=== PATIENT | male | born 1935 | race Caucasian/White ===

== ENCOUNTER 2019-10-31 13:33 | Emergency (ER) | payer MEDICARE, SELFPAY ==
[2019-10-31 13:59] VITALS: BP 150/92; PULSE 75; RESP 18; TEMP 36.7; O2SAT 97; BMI 24.4
[2019-10-31 14:47] LABS: Basophils % 0.5 %; Hematocrit 53.8 % (42.0-52.0); Hemoglobin 17.4 g/dL (11.7-16.6); Lymphocytes # 0.8 10^3/uL (0.8-4.8); Lymphocytes % 9.3 %; Mean Corpuscular HGB Conc 32.3 g/dL (30.0-36.0); Mean Corpuscular Hemoglobin 29.1 pg (28.0-34.0); Mean Platelet Volume 10.2 fL (7.4-10.4); Monocytes # 0.4 10^3/uL (0.2-0.9); Monocytes % 4.9 %; Neutrophils # 7.2 10^3/uL (1.8-7.7); Neutrophils % 84.7 %; Nucleated Red Blood Cells % 0 %; Platelet Count 259 10^3/cmm (130-400); Red Blood Count 5.98 10^6/uL (4.1-5.3); Red Cell Distribution Width 13.3 % (12.1-15.1); White Blood Count 8.5 10^3/uL (4.0-10.0)
[2019-10-31 15:01] LABS: Alanine Aminotransferase 18 U/L (0-41); Albumin Level 4.7 g/dL (3.5-5.2); Alkaline Phosphatase 50 IU/L (40-130); Anion Gap 15.9 (5-19); Aspartate Amino Transferase 22 U/L (0-40); Blood Urea Nitrogen 24 mg/dL (8-23); Carbon Dioxide 23 mmol/L (22-29); Chloride 94 mmol/L (98-107); Globulin 2.6 g/dL (1.3-4.6); Glucose 110 mg/dL (65-115); Lipase 25 U/L (13-60); Osmolality Calculated 265 mOsm/kg (285-295); Potassium 3.9 mmol/L (3.5-5.1); Sodium 129 mmol/L (136-145); Total Bilirubin 0.8 mg/dL (0.15-1.2); Total Protein 7.3 g/dL (6.6-8.7)
--- NOTE | 2019-10-31 15:51 | XRR_ITS ---
PROCEDURE INFORMATION: Exam: XR Chest, 1 View Exam date and time: 10/31/2019 3:52 PM Age: 84 years old Clinical indication: Shortness of breath; Additional info: Cough TECHNIQUE: Imaging protocol: XR of the chest Views: 1 view. COMPARISON: No relevant prior studies available. FINDINGS: Lungs: Unremarkable. No consolidation. Calcified granulomas are noted. Pleural space: Unremarkable. No pleural effusion. No pneumothorax. Heart/Mediastinum: There is cardiomegaly. Bones/joints: No acute abnormality. XR/XR chest 1V portable [id number] IMPRESSION: No acute findings.
--- NOTE | 2019-10-31 15:52 | USR_ITS ---
PROCEDURE INFORMATION: Exam: US Abdomen Complete Exam date and time: 10/31/2019 4:27 PM Age: 84 years old Clinical indication: Abdominal pain; Epigastric TECHNIQUE: Imaging protocol: Real-time ultrasound of the abdomen with image documentation. COMPARISON: No relevant prior studies available. FINDINGS: Liver: The liver is homogeneous in echogenicity. The liver measures 15.5 cm in length. Gallbladder: No gallstones are identified. The gallbladder is unremarkable. The gallbladder wall measures 1.7 mm in thickness. Common bile duct: The common bile duct is unremarkable measuring 3.9 mm. Pancreas: Bowel gas artifact is obscuring the pancreas. Right kidney: No right hydronephrosis. There is a 1.2 cm calculus lower pole right kidney. The right kidney measures 10.0 cm in length. Left kidney: There is mild left hydronephrosis. The left kidney is unremarkable. The left kidney measures 11.5 cm in length. Spleen: Normal. No splenomegaly. Aorta: Normal. No aneurysm. Inferior vena cava: Normal. US/US abdomen complete* [id number] IMPRESSION: 1. Mild left hydronephrosis. No right hydronephrosis. There is right nephrolithiasis. 2. No findings of cholecystitis or duct dilatation.
--- NOTE | 2019-10-31 16:13 | ED_ITS ---
HPI - General Adult General: Chief complaint: General Medical Stated complaint: abd pain, nausea, decreased appetite Time Seen by Provider: 10/31/19 15:44 History of Present Illness: HPI narrative: Mr. Waters is a nice 84-year-old male comes in complaining of 5 to 6-day history of decreased appetite. He is felt nauseated but has not thrown up. He has had a fever up to 100.5. He denies any cough, headache, chest pain, shortness of breath, dysuria or other complaint. Patient states he feels as though is when he had diverticulitis in the past. He is not describing any abdominal pain at this time. Patient denies any dysuria or hematuria. Patient was seen by a nurse practitioner in his primary care's office 2 days ago and was placed on Bactrim for empiric treatment of diverticulitis. He currently feels nauseated but denies any abdominal or flank pain. Associated symptoms: Reports nausea; Deny chest pain, confusion, diaphoresis, dyspnea, headache(s), malaise, rash, palpitations, syncope or vomiting Review of Systems Const: Reports: fever(s), chills and body aches; Denies: fatigue, malaise or diaphoresis Eyes: Denies: change in vision, blurry vision, blind spots or photophobia ENMT: Denies: throat pain, odynophagia, hoarseness, swelling of lips/tongue, ear or mastoid pain, ear discharge, change in hearing or nasal discharge Card: Denies: chest pain, palpitations, irregular heart rhythm, edema, lightheadedness, syncope, pre-syncope, dyspnea on exertion or orthopnea Resp: Denies: dyspnea, productive cough, non-productive cough, wheezing, hemoptysis or chest congestion GI: Reports: nausea; Denies: abdominal pain, vomiting, hematemesis, coffee ground emesis, heartburn, diarrhea, constipation, GI cramping, hematochezia or melena : Denies: flank pain, dysuria, urinary frequency, urinary urgency or hematuria Musc: Denies: neck pain, back pain, extremity pain, extremity swelling, joint pain, joint swelling, joint redness, joint warmth or joint stiffness Skin/Breast: Denies: rash, pruritus, erythema, skin tenderness or jaundice Neuro: Denies: headache(s), numbness in extremities, weakness in extremities, sensory changes, lack of coordination, difficulty walking, dizziness, vertigo, confusion or Slurred speech present Gary/Lymph: Denies: easy bruising, easy bleeding, petechiae, purpura or enlarged lymph nodes All/Imm: Denies: urticaria, throat swelling, tongue swelling, facial swelling or acute wheezing PFSH ED PFSH: Medical History Anxiety Diverticulosis Psoriasis Social History Smoking and tobacco status: never smoked Physical Exam Const: COMMON NORMALS: no acute distress, patient oriented x3, no limitations, healthy appearing and well nourished GENERAL APPEARANCE: cooperative, well kempt and well developed HENMT: COMMON NORMALS: normocephalic, atraumatic, external ears normal, EAC's normal and Normal external nose present HEAD & SCALP: normal to inspection, normocephalic and atraumatic FACE & SINUS: normal facial exam and face symmetric NOSE: Normal external nose present and Normal nares present EXTERNAL EAR: Yes external ears normal EXTERNAL AUDITORY CANAL: EAC's normal MOUTH: Normal oral and palatal mucosa present, lip normal and tongue normal Eye: COMMON NORMALS: Equal, round and reactive pupils present and conjunctivae normal GENERAL EYE: appearance normal, both eyes and all related structures ALIGNMENT: Yes alignment normal PERIORBITAL: periorbital findings normal EYELID: eyelids normal CONJUNCTIVA: Yes conjunctivae normal SCLERA: sclerae normal PUPIL: Yes Equal, round and reactive pupils present Neck/C-Spine: COMMON NORMALS: full ROM, no lymphadenopathy, supple, no meningeal signs and no JVD GENERAL: Yes normal visual inspection and Yes trachea midline Chest: COMMONS NORMALS: normal inspection of the chest and normal palpation of entire chest wall Resp: COMMON NORMALS: normal respiratory effort, No retractions and No use of accessory muscles EFFORT & INSPECTION: Yes able to speak in complete sentences and Yes symmetric chest movement AUSCULTATION: no crackles, no rales, no rhonchi and no wheezes Cardio: COMMON NORMALS: no JVD, regular rate, regular rhythm, S1 normal heart sound present and S2 normal heart sound present RATE: regular rate RHYTHM: regular rhythm HEART SOUNDS: S1 normal heart sound present, S2 normal heart sound present, no click, no gallops, no murmurs, no rubs and abnormal split S2 GI: COMMON NORMALS: Soft to palpation and No hepatosplenomegaly present PALPATION: Yes Soft to palpation, No Tenderness to palpation present (GI), No Guarding due to palpation present (GI), No Rigid due to palpation, Yes No hepatosplenomegaly present, No Hernia present, No Palpable mass present and No Pulsatile mass present : COMMON NORMALS: Yes no CVA tenderness BLADDER/KIDNEY EXAM: Yes no CVA tenderness Back/Pelvis: COMMON NORMALS: no CVA tenderness, thoracic and lumbar spine normal to inspection, no thoracic nor lumbar tenderness and thoraco-lumbar ROM normal Extremity: COMMON NORMALS: normal to inspection, full ROM, capillary refill normal, no joint enlargement, no clubbing, cyanosis or edema and no calf tenderness Neuro: COMMON NORMALS: patient oriented x3, CN's II-XII intact bilaterally, moves all extremities, no focal motor deficits and no sensory deficits noted MENINGEAL SIGNS: Yes no meningeal signs SPEECH: speech normal Psych: COMMON NORMALS: mental status grossly normal, Normal thought process present, cooperative, normal affect, speech normal and activity/motor behavior normal APPEARANCE: Yes well kempt SPEECH: Yes normal speech THOUGHT PROCESS: Normal thought process present Skin: COMMON NORMALS: no rashes or lesions noted, turgor normal, no jaundice, no petechiae and no mottling GENERAL SKIN EXAM: no rashes or lesions noted and turgor normal Course Vital Signs: Vital signs: Vital Signs Temperature 98.1 F 10/31/19 13:59 Pulse Rate 73 10/31/19 20:01 Respiratory Rate 14 10/31/19 20:01 Blood Pressure 191/88 10/31/19 20:01 Pulse Oximetry 98 10/31/19 20:01 MDM - General Adult MDM Narrative: Medical decision making narrative: Solomon is an 84-year-old male who comes in complaining of chills and malaise. I see no focal sign of infection in his abdomen and pelvis, on his chest x-ray or in his urine. He does not have any recent tick bites. Patient takes 10 mg of prednisone for psoriasis so he is relatively immune suppressed. I recommended he come into the hospital for observation and IV antibiotics but he refuses. The patient is already on Cipro and Flagyl placed on as an outpatient empirically for presumed diverticulitis. Patient is no sign of peritonitis on exam and a CT scan does not show anything. Again I have recommended and offered to put him in the hospital but he refuses. He does agree to return should his symptoms change or worsen and he knows what to look for at home. Lab Data: Labs: Lab Results 10/31/19 10/31/19 10/31/19 Range/Units 14:41 14:41 16:36 WBC 8.5 (4.0-10.0) 10^3/ uL RBC 5.98 H (4.1-5.3) 10^6/u L Hgb 17.4 H (11.7-16.6) g/dL Hct 53.8 H (42.0-52.0) % MCV 90.0 (80-94) fL MCH 29.1 (28.0-34.0) pg MCHC 32.3 (30.0-36.0) g/dL RDW 13.3 (12.1-15.1) % Plt Count 259 (130-400) 10^3/c mm MPV 10.2 (7.4-10.4) fL Neut % (Auto) 84.7 % Lymph % (Auto) 9.3 % [place] % (Auto) 4.9 % Eos % (Auto) 0.0 % Baso % (Auto) 0.5 % Neut # (Auto) 7.2 (1.8-7.7) 10^3/u L Lymph # (Auto) 0.8 (0.8-4.8) 10^3/u L [place] # (Auto) 0.4 (0.2-0.9) 10^3/u L Eos # (Auto) 0.0 (0.0-0.8) 10^3/u L Baso # (Auto) 0.0 (0.0-0.1) 10^3/u L Nucleated RBC % (a uto) 0 % Nucleated RBCs # 0.0 /100WBC Sodium 129 L (136-145) mmol/L Potassium 3.9 (3.5-5.1) mmol/L Chloride 94 L (98-107) mmol/L Carbon Dioxide 23 (22-29) mmol/L Anion Gap 15.9 (5-19) BUN 24 H (8-23) mg/dL Creatinine 1.7 H (0.7-1.2) mg/dL Glucose 110 (65-115) mg/dL Calculated Osmolal ity 265 L (285-295) mOsm/k g Calcium 9.0 (8.5-10.5) mg/dL Total Bilirubin 0.8 (0.15-1.2) mg/dL AST 22 (0-40) U/L ALT 18 (0-41) U/L Alkaline Phosphata se 50 (40-130) IU/L Total Protein 7.3 (6.6-8.7) g/dL Albumin 4.7 (3.5-5.2) g/dL Globulin 2.6 (1.3-4.6) g/dL Lipase 25 (13-60) U/L Urine Color Yellow (Yellow) Urine Appearance Clear (CLEAR) Urine pH 6 (5-7) Ur Specific Gravit y 1.020 (1.005-1.030) Urine Protein Neg (Negative) Urine Glucose (UA) Norm (Normal) Urine Ketones 1+ H (Negative) Urine Blood 2+ H (Negative) Urine Nitrate Negative (Negative) Urine Bilirubin Neg (NEGATIVE) Urine Urobilinogen Norm (Negative) mg/dL Ur Leukocyte Toma ase Negative (Negative) Urine RBC None (0-2) /hpf Urine WBC None (0-5) /hpf Ur Squamous Epith Cells Rare (0-5) Urine Bacteria Trace (NONE) Urine Mucus 1+ Imaging Data^: US: Radiologist's impression: [place] [address] Ultrasound Report Signed Patient: Solomon Waters Unit #: [id number] : [id number] Age/Sex: 84 / M ADM Date: 10/31/19 Loc: ER Room/Bed: Attending Dr: Ordering Provider/Ordering MD: Opal Stock DO Date of Service: 10/31/19 Procedure(s): US abdomen complete* [id number] Accession Number(s): [id number] Report Number: [id number] PROCEDURE INFORMATION: Exam: US Abdomen Complete Exam date and time: 10/31/2019 4:27 PM Age: 84 years old Clinical indication: Abdominal pain; Epigastric TECHNIQUE: Imaging protocol: Real-time ultrasound of the abdomen with image documentation. COMPARISON: No relevant prior studies available. FINDINGS: Liver: The liver is homogeneous in echogenicity. The liver measures 15.5 cm in length. Gallbladder: No gallstones are identified. The gallbladder is unremarkable. The gallbladder wall measures 1.7 mm in thickness. Common bile duct: The common bile duct is unremarkable measuring 3.9 mm. Pancreas: Bowel gas artifact is obscuring the pancreas. Right kidney: No right hydronephrosis. There is a 1.2 cm calculus lower pole right kidney. The right kidney measures 10.0 cm in length. Left kidney: There is mild left hydronephrosis. The left kidney is unremarkable. The left kidney measures 11.5 cm in length. Spleen: Normal. No splenomegaly. Aorta: Normal. No aneurysm. Inferior vena cava: Normal. US/US abdomen complete* [id number] IMPRESSION: 1. Mild left hydronephrosis. No right hydronephrosis. There is right nephrolithiasis. 2. No findings of cholecystitis or duct dilatation. Dictated By: Taniya Chinchilla Signed By: Taniya Chinchilla Signed Date/Time: 10/31/19 164 DD/ 164 CXR: My impression: No acute cardiopulmonary findings. Discharge Plan Discharge Patient Disposition: Home, Self-Care Clinical Impression: Acute febrile illness Condition: Stable Prescriptions: New Zofran 4 mg tablet 4 mg PO Q6H PRN (Reason: nausea and vomiting) Qty: 20 RF: 0 No Action prednisone 10 mg Tablet 10 mg PO DAILY RF: 0 metronidazole 500 mg Tablet 500 mg PO BID RF: 0 Bactrim DS 800-160 mg Tablet 1 tab PO BID RF: 0 Tylenol Extra Strength 500 mg Tablet 500 mg PO PRN RF: 0 Xanax 0.25 mg Tablet 0.25 mg PO BID PRN (Reason: UNKNOWN) RF: 0 CoQ-10 100 mg Capsule 100 mg PO DAILY RF: 0 Discharge Orders: Discharge Order (Routine); Ordered 10/31/19 Ordered By: Opal Stock Referrals: Opal Stock [Emergency Provider] - 1-3 days (Return to the ER tomorrow in the morning if your symptoms do not improve. Return sooner if your symptoms worsen at all.) Ann Marie Richards [Primary Care Provider] - 1-3 days Discharge Diet: Advance as tolerated Discharge Activity: Increase activity as tolerated Patient Instructions: Fever in Adults (ED) Activity Restrictions/Additional Instructions: Please return to the ER immediately for any of the signs or symptoms listed on your discharge instruction sheets, worsening/changing of your symptoms, you are not getting better as quickly as expected, or for ANY other cause or concerns. You have been offered further evaluation and care here including admission for observation but have declined. If your symptoms change or worsen at all in any way please return to the ER immediately for recheck. Continue your antibiotics as previously prescribed to you. Discharge Date/Time: 10/31/19 20:04 Coding Level of Care Code ED [employer]ing [employer] for [employer] Exam Comprehensive
[2019-10-31] MEDS: metoclopramide 5 mg/mL SDV 2 mL 10 MG IV (16:51)
[2019-10-31] MEDS: sodium chloride 0.9% 1,000 ML 999 ML IV ×2 (16:52→19:11)
--- NOTE | 2019-10-31 16:53 | CTR_ITS ---
PROCEDURE INFORMATION: Exam: CT Abdomen And Pelvis Without And With Contrast Exam date and time: 10/31/2019 5:53 PM Age: 84 years old Clinical indication: Prior surgery; Surgery date: 6+ months; Surgery type: Appy, hernia; Patient HX: Upper abd discomfort w fever and nausea; Additional info: Pain/fever TECHNIQUE: Imaging protocol: Computed tomography of the abdomen and pelvis without and with intravenous contrast. Radiation optimization: All CT scans at this facility use at least one of these dose optimization techniques: automated exposure control; mA and/or kV adjustment per patient size (includes targeted exams where dose is matched to clinical indication); or iterative reconstruction. Contrast material: VISI 320; Contrast volume: 95 ml; Contrast route: 22G; COMPARISON: US abdomen complete* [id number] 10/31/2019 4:05 PM RADIATION DOSE METRICS: Total DLP: 1404.09 mGy-cm FINDINGS: Lungs: There is dependent atelectasis. There are calcified granulomas in the lungs. There is mild ground-glass opacity in the lungs compatible with mild pneumonitis but there is no airspace opacity. Mediastinal space: A moderate hiatal hernia is present. Liver: Unremarkable.No mass. Gallbladder and bile ducts: Normal. No calcified stones. No ductal dilation. Pancreas: Normal. No ductal dilation. Spleen: Normal. No splenomegaly. Adrenals: Normal. No mass. Kidneys and ureters: There is punctate left nephrolithiasis. There is right nephrolithiasis with the largest calculus measuring 6 mm. There is no evidence of hydronephrosis. No calculi are identified in the ureters or bladder. Stomach and bowel: Extensive diverticulosis is present in the distal colon. There is no evidence of colitis/diverticulitis. There is no evidence of intestinal perforation or obstruction. Appendix: The appendix is not definitively identified. This is compatible with the history of prior appendectomy. Intraperitoneal space: Unremarkable. No free air. No significant fluid collection. Vasculature: The aorta demonstrates mild atherosclerotic calcification. Lymph nodes: Unremarkable.No enlarged lymph nodes. Bladder: There is nonspecific bladder wall thickening. This may be related to incomplete distention. Reproductive: The prostate demonstrates moderate nonspecific enlargement. The seminal vesicles are normal. Bones/joints: Osteopenia and moderate to severe degenerative changes are noted in the spine and pelvis. No acute fracture. There is very mild degenerative grade 1 spondylolisthesis of L4 on L5. Soft tissues: There is a fat-containing umbilical hernia. There is thickening of the fascia in the inguinal canal bilaterally compatible with probable prior hernia repair. Other findings: There are severe emphysematous changes. There is no CT evidence of a right lower quadrant inflammatory process. CT/CT abdomen pelvis wo/w [id number] IMPRESSION: Bilateral nephrolithiasis. No hydronephrosis. No bowel thickening or inflammatory changes. There is diverticulosis without diverticulitis. Radiation Dose CTDIVOL = (mGy): DLP = 1404.09 (mGy-cm)
[2019-10-31 17:27] LABS: Bilirubin Urine Neg (NEGATIVE); Blood Urine 2+ (Negative); Glucose Urine UA Norm (Normal); Ketones Urine 1+ (Negative); Leukocyte Esterase Urine Negative (Negative); Nitrate Urine Negative (Negative); Protein Urine Neg (Negative); Urine Appearance Clear (CLEAR); Urine Color Yellow (Yellow); Urobilinogen Urine Norm (Negative); pH Urine 6 (5-7)
[2019-10-31 17:33] LABS: Bacteria Urine TRACE; Mucus Urine 1+; Squamous Epithelial Cell Urine RARE (0-5)
[2019-10-31 17:34] LABS: Add Urine Culture? No
[2019-10-31] MEDS: iodixanol 320 mg/mL 100mL Btl IV (17:52)
--- NOTE | 2019-10-31 19:07 | PC.NURSE ---
report received from CARLOS Cagle and care transferred to CARLOS Greenfield
[2019-10-31 19:11] VITALS: BP 186/96; PULSE 72; RESP 16; O2SAT 98
[2019-10-31 20:01] VITALS: BP 191/88; PULSE 73; RESP 14; O2SAT 98
== END 2019-10-31 20:04 | disposition home or self-care (01) ==
PROVIDERS: Emergency Provider Emergency Medicine; PCP Nurse Practitioner Family
DX: R50.9 Fever, unspecified (principal)
CPT/HCPCS: 12345; 36415; 71045; 74178; 76700; 80053; 81001; 83690; 85025; 96361; 96374; 99283; J2765; J7030; Q9967

== ENCOUNTER 2019-11-06 16:24 | Emergency (ER) | payer MEDICARE, SELFPAY ==
[2019-11-06 18:04] VITALS: BP 147/78; PULSE 74; RESP 16; TEMP 36.7; O2SAT 99; BMI 23.7
[2019-11-06 18:17] VITALS: RESP 18
--- NOTE | 2019-11-06 18:36 | ED_ITS ---
HPI - Skin/Abscess/Foreign Bdy General: Chief complaint: Skin/Abscess/Foreign Body Stated complaint: RASH AFTER NEW MED Time Seen by Provider: 11/06/19 18:34 Source: patient and family Mode of arrival: ambulatory Limitations: no limitations History of Present Illness: HPI narrative: Patient is a very nice 84-year-old male who presents to ED today with complaints of a truncal rash that he began noticing yesterday. Patient tells me he was recently placed on ciprofloxacin and Flagyl for possible diverticulitis. He tells me he has had about 6 to 7 days of these antibiotics. Patient tells me they placed him on these medications due to some nausea, vomiting, and mild abdominal pain he was having. Patient states rash is slightly pruritic. He reports one day of fevers prior to being diagnosed with a diverticulitis but has not had any since. He states abdominal symptoms have improved. He has no other complaints at this time. MD complaint: rash Onset (ago): day(s) Tetanus up to date: yes Location: chest and back Severity: moderate Quality: pruritic Relieving factors: none Exacerbating factors: none Context: new medication (cipro/flagyl) Associated symptoms: Reports no associated symptoms; Deny chills, fever(s), nausea or vomiting Treatments prior to arrival: none Review of Systems Const: Denies: fever(s) or chills Eyes: Denies: change in vision or blurry vision ENMT: Reports: throat pain Card: Denies: chest pain, palpitations, irregular heart rhythm, lightheadedness, syncope or dyspnea on exertion Resp: Denies: dyspnea, productive cough or pain on inspiration GI: Denies: abdominal pain, nausea, vomiting, heartburn or diarrhea : Denies: flank pain, difficulty urinating or dysuria Musc: Denies: neck pain, back pain or joint pain Skin/Breast: Reports: rash Neuro: Denies: headache(s), numbness in extremities, weakness in extremities or sensory changes PFS ED PFSH: Medical History (Updated 11/06/19 @ 19:05 by HAYES Ortez) Anxiety Diverticulosis Psoriasis Social History Smoking and tobacco status: never smoked Physical Exam Const: COMMON NORMALS: no acute distress, average body habitus, patient oriented x3, no limitations, healthy appearing, alert and well nourished ORIENTATION/CONSCIOUSNESS: Yes oriented to person, Yes oriented to place and Yes oriented to time HENMT: COMMON NORMALS: normocephalic, atraumatic, hearing grossly normal bilaterally, external ears normal, EAC's normal, TM's normal bilaterally, Normal external nose present, Normal nasal mucous membranes and turbinates present, moist oral mucous membranes and oropharynx normal HEAD & SCALP: normal to inspection, normocephalic and atraumatic FACE & SINUS: normal facial exam and sinuses nontender NOSE: Normal external nose present and Normal nasal mucous membranes and turbinates present EXTERNAL EAR: Yes external ears normal EXTERNAL AUDITORY CANAL: EAC's normal TYMPANIC MEMBRANE: TM's normal bilaterally THROAT: posterior oropharynx normal, tonsils normal and uvula midline Eye: COMMON NORMALS: Equal, round and reactive pupils present and EOMs intact bilaterally PUPIL: Yes Equal, round and reactive pupils present Neck/C-Spine: COMMON NORMALS: full ROM, no lymphadenopathy and no meningeal signs Resp: COMMON NORMALS: normal respiratory effort and clear to auscultation bilaterally AUSCULTATION: clear to auscultation bilaterally Cardio: COMMON NORMALS: regular rate and regular rhythm RATE: regular rate RHYTHM: regular rhythm GI: COMMON NORMALS: Normal to inspection, nondistended, normoactive bowel sounds present, Soft to palpation, non-tender, No hepatosplenomegaly present and no masses PALPATION: Yes Soft to palpation and Yes No hepatosplenomegaly present Neuro: COMMON NORMALS: patient oriented x3, moves all extremities, no focal motor deficits, no sensory deficits noted and gait normal SENSORIUM/ORIENTATION: Yes alert, Yes oriented to person, Yes oriented to place and Yes oriented to time MENINGEAL SIGNS: Yes no meningeal signs Skin: OTHER: erythematous maculopapular rash to trunk consistent with drug eruption Course ED course: RN collected strep swab due to rash and patient mentioned something to her about a sore throat; this was negative Vital Signs: Vital signs: Vital Signs Temperature 98.0 F 11/06/19 19:10 Pulse Rate 74 11/06/19 18:04 Respiratory Rate 18 11/06/19 19:10 Blood Pressure 147/78 11/06/19 18:04 Pulse Oximetry 99 11/06/19 19:10 MDM - Skin/Abscess/Foreign Bdy Lab Data: Labs: Lab Results 11/06/19 Range/Units 18:25 Group A Strep Rapi d Negative (Negative) Discharge Plan Discharge Patient Disposition: Home, Self-Care Clinical Impression: Drug eruption Condition: Stable Prescriptions: No Action prednisone 10 mg Tablet 10 mg PO DAILY RF: 0 metronidazole 500 mg Tablet 500 mg PO BID RF: 0 Bactrim DS 800-160 mg Tablet 1 tab PO BID RF: 0 Tylenol Extra Strength 500 mg Tablet 500 mg PO PRN RF: 0 Xanax 0.25 mg Tablet 0.25 mg PO BID PRN (Reason: UNKNOWN) RF: 0 CoQ-10 100 mg Capsule 100 mg PO DAILY RF: 0 Zofran 4 mg tablet 4 mg PO Q6H PRN (Reason: nausea and vomiting) Qty: 20 RF: 0 Discharge Orders: Discharge Order (Routine); Ordered 11/06/19 Ordered By: Nicole Mac Referrals: Ann Marie Richards [Primary Care Provider] - Patient Instructions: Adverse Drug Reaction (ED) Activity Restrictions/Additional Instructions: As discussed please stop taking the ciprofloxacin and flagyl. You may use [id number] Benadryl as needed for itching. Please contact your primary care doctor on Saturday to schedule an appointment for follow-up. Discharge Date/Time: 11/06/19 19:11 Coding Level of Care Code ED [employer] Techn[employer] for [employer]
[2019-11-06 18:40] LABS: Rapid Strep A Test Negative (Negative)
[2019-11-06 19:10] VITALS: RESP 18; TEMP 36.7; O2SAT 99
== END 2019-11-06 19:11 | disposition home or self-care (01) ==
PROVIDERS: Emergency Provider Physician Assistant; PCP Nurse Practitioner Family
DX: L27.0 Generalized skin eruption due to drugs and medicaments taken internally (principal)
CPT/HCPCS: 12345; 87081; 87880; 99281; 99282

== ENCOUNTER 2019-11-22 13:26 | Emergency (ER) | payer MEDICARE, SELFPAY ==
[2019-11-22 13:33] VITALS: BMI 23.7
[2019-11-22 13:35] VITALS: BP 138/77; PULSE 94; RESP 18; TEMP 36.7; O2SAT 96
--- NOTE | 2019-11-22 13:50 | ED_ITS ---
HPI - Skin/Abscess/Foreign Bdy General: Chief complaint: Skin/Abscess/Foreign Body Stated complaint: rash Time Seen by Provider: 11/22/19 13:43 History of Present Illness: HPI narrative: Patient comes in with a rash from the chest on down to his legs. Multiple scattered maculopapular areas noted that is itching MD complaint: rash Onset (ago): day(s) Associated symptoms: Deny chills, fever(s), nausea or vomiting Review of Systems Const: Denies: fever(s), chills or body aches Eyes: Denies: change in vision or blurry vision ENMT: Denies: throat pain or nasal congestion Card: Denies: chest pain or dyspnea on exertion Resp: Denies: dyspnea, productive cough or non-productive cough GI: Denies: abdominal pain, nausea or vomiting : Denies: difficulty urinating Musc: Denies: extremity pain Skin/Breast: Reports: rash and pruritus Neuro: Denies: headache(s) Psych: Denies: anxiety or depression Gary/Lymph: Denies: easy bruising PFS ED PFSH: Medical History (Updated 11/14/19 @ 00:01 by ) Anxiety Diverticulosis Psoriasis Social History Smoking and tobacco status: never smoked Physical Exam Const: COMMON NORMALS: no acute distress, average body habitus and patient oriented x3 HENMT: COMMON NORMALS: normocephalic HEAD & SCALP: normal to inspection and normocephalic FACE & SINUS: normal facial exam Eye: COMMON NORMALS: conjunctivae normal GENERAL EYE: appearance normal, both eyes and all related structures CONJUNCTIVA: Yes conjunctivae normal Neck/C-Spine: COMMON NORMALS: no JVD Chest: COMMONS NORMALS: normal inspection of the chest Resp: COMMON NORMALS: normal respiratory effort and clear to auscultation bilaterally AUSCULTATION: clear to auscultation bilaterally Cardio: COMMON NORMALS: no JVD, regular rate and regular rhythm RATE: regular rate RHYTHM: regular rhythm GI: COMMON NORMALS: Normal to inspection, nondistended, normoactive bowel sounds present Extremity: COMMON NORMALS: normal to inspection and full ROM Neuro: COMMON NORMALS: patient oriented x3 Skin: NARRATIVE SKIN EXAM: Multiple scattered multiple macular papular nodules noted from the chest on down to the legs. Course Vital Signs: Vital signs: Vital Signs Temperature 98.0 F 11/22/19 13:35 Pulse Rate 94 11/22/19 13:35 Respiratory Rate 18 11/22/19 13:35 Blood Pressure 138/77 11/22/19 13:35 Pulse Oximetry 96 11/22/19 13:35 Discharge Plan Discharge Prescriptions: No Action prednisone 10 mg Tablet 10 mg PO DAILY RF: 0 metronidazole 500 mg Tablet 500 mg PO BID RF: 0 Bactrim DS 800-160 mg Tablet 1 tab PO BID RF: 0 Tylenol Extra Strength 500 mg Tablet 500 mg PO PRN RF: 0 Xanax 0.25 mg Tablet 0.25 mg PO BID PRN (Reason: UNKNOWN) RF: 0 CoQ-10 100 mg Capsule 100 mg PO DAILY RF: 0 Zofran 4 mg tablet 4 mg PO Q6H PRN (Reason: nausea and vomiting) Qty: 20 RF: 0 Coding Level of Care Code 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
[2019-11-22] MEDS: methylPREDNISolone (DEPO) 80 MG/ML INJ 1 mL IM (14:02)
[2019-11-22 14:21] VITALS: BP 132/79; PULSE 76; RESP 18; O2SAT 98
== END 2019-11-22 14:22 | disposition home or self-care (01) ==
LOC: ER 14:00
PROVIDERS: Emergency Provider Nurse Practitioner Family; PCP Nurse Practitioner Family
DX: R21 Rash and other nonspecific skin eruption (principal)
CPT/HCPCS: 12345; 96372; 99281; 99283; J1040

== ENCOUNTER → 2020-04-30 14:47 | Outpatient (BNVA) | payer MEDICARE, SELFPAY | PROVIDERS: PCP Nurse Practitioner Family; Visit Provider Emergency Medicine | DX: R06.02 Shortness of breath (principal); R60.9 Edema, unspecified | CPT/HCPCS: 71046; 80053; 83880; 85025 ==

== ENCOUNTER 2020-05-03 16:52 | Inpatient (IN) | payer MEDICARE, SELFPAY ==
[2020-05-03] VITALS (7 sets, daily range): BP systolic 121–155; BP diastolic 70–84; PULSE 83–114; RESP 18–24; TEMP 36.6–37; O2SAT 88–94; BMI 25.7
--- NOTE | 2020-05-03 17:08 | XR_ITS ---
WS: [id number] PORTABLE CHEST HISTORY: sob COMPARISON: 04/30/2020 New areas of interstitial thickening and stranding are noted bilaterally. Bilateral opacifications wi thin both lobes. No pleural effusion or pneumothorax. Cardiac size: Moderately enlarged cardiac silhouette. Mediastinum/Aorta: Markedly enlarged mediastinum with ectatic aorta. Not changed since prior studies. No osseous abnormality seen. XR/XR chest 1V portable [id number] IMPRESSION: New bilateral opacifications consistent with a history of Covid involvement. Ne w opacifications since 04/30/2020.
--- NOTE | 2020-05-03 17:08 | ECG_ITS ---
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 Measurements Intervals [place] Rate: 98 P: 33 AR: 199 QRS: 69 QRSD: 108 T: 12 QT: 329 QTc: 420 Interpretive Statements SINUS RHYTHM WITH OCCASIONAL SUPRAVENTRICULAR PREMATURE COMPLEXES POSSIBLE INFERIOR MYOCARDIAL INFARCTION , PROBABLY OLD [30 ms Q WAVE IN II/aVF] No previous ECG available for comparison Electronically Signed On 05-03-2020 21:02:18 CORRECTIONAL FOOD SERVICE SUPERVISOR by Val Guevara M.D. [email or web address] [email or web address] [email or web address] [email or web address] health akron [id number] f
--- NOTE | 2020-05-03 17:37 | ED_ITS ---
HPI - COVID General: Chief Complaint: COVID symptoms Stated Complaint: COVID SYMPTOMS, WEAKNESS Time Seen by Provider: 05/03/20 17:09 Source: patient Mode of arrival: ambulatory Triage information: Has fever, cough or shortness of breath . No known COVID + exposure last 14 days History of Present Illness: HPI Narrative: 84-year-old male states that over the last 4 to 5 days been having generalized weakness along with low-grade fevers and a cough. He states he is just felt ill and not well. He states he has had low-grade fevers and body aches. He is afebrile here and not hypoxic. He states he is concerned he has Covid and his PCP sent him here to rule out Covid. He has had some nausea denies any diarrhea. COVID 19 common symptoms: positive chills, non-productive cough, dyspnea, body aches and nausea; negative headache(s), throat pain, vomiting or diarrhea COVID 19 other sytmptoms: negative chest pain COVID Results: SARS-CoV-2 Antigen (Rapid) Positive (Negative) H 05/03/20 17:39 05/03/20 SARS-CoV-2 RNA (RT-PCR) Pending 05/03/20 11:53 05/03/20 Review of Systems Const: Reports: chills and body aches Eyes: Denies: blurry vision or eye discomfort ENMT: Denies: throat pain or dental pain Card: Denies: chest pain Resp: Reports: dyspnea and non-productive cough GI: Reports: nausea; Denies: abdominal pain, vomiting or diarrhea : Denies: dysuria Musc: Denies: neck pain or back pain Skin/Breast: Denies: rash Neuro: Denies: headache(s) Psych: Denies: depression Gary/Lymph: Denies: easy bruising All/Imm: Denies: urticaria PFSH ED PFSH: Medical History Anxiety Diverticulosis External hemorrhoid Psoriasis Social History Smoking and tobacco status: never smoked Physical Exam Const: COMMON NORMALS: no acute distress, patient oriented x3 and healthy appearing HENMT: COMMON NORMALS: normocephalic and atraumatic HEAD & SCALP: normocephalic and atraumatic Eye: COMMON NORMALS: Equal, round and reactive pupils present and EOMs intact bilaterally PUPIL: Yes Equal, round and reactive pupils present Neck/C-Spine: COMMON NORMALS: full ROM and supple Chest: COMMONS NORMALS: normal inspection of the chest and normal palpation of entire chest wall Resp: COMMON NORMALS: normal respiratory effort, No retractions, No use of accessory muscles and clear to auscultation bilaterally AUSCULTATION: clear to auscultation bilaterally Cardio: COMMON NORMALS: regular rate, regular rhythm and No murmurs present (Cardio) RATE: regular rate RHYTHM: regular rhythm GI: COMMON NORMALS: Normal to inspection, nondistended, normoactive bowel sounds present, Soft to palpation, non-tender and no masses PALPATION: Yes Soft to palpation Extremity: COMMON NORMALS: normal to inspection and full ROM Neuro: COMMON NORMALS: patient oriented x3, moves all extremities and no focal motor deficits Psych: COMMON NORMALS: mental status grossly normal, Normal thought process present and cooperative THOUGHT PROCESS: Normal thought process present Skin: COMMON NORMALS: no rashes or lesions noted and no wounds GENERAL SKIN EXAM: no rashes or lesions noted Course Vital Signs: Vital signs: Vital Signs Temperature 98.6 F 05/03/20 17:00 Pulse Rate 114 H 05/03/20 21:02 Respiratory Rate 22 H 05/03/20 21:02 Blood Pressure 155/73 05/03/20 20:04 Pulse Oximetry 94 05/03/20 21:02 MDM - COVID MDM Narrative: Medical decision making narrative: Solomon presents here with dyspnea and was found to have COVID-19. Patient here originally did not require oxygen but kept desaturating into the 80s and did place him on 2 L. He states he feels weak and lives home alone. We will admit him at this time. Lab Data: Labs: Lab Results 05/03/20 05/03/20 05/03/20 Range/Units 17:30 17:30 17:30 WBC 8.0 (4.0-10.0) 10^3/ uL RBC 5.70 H (4.1-5.3) 10^6/u L Hgb 17.1 H (11.7-16.6) g/dL Hct 51.2 (42.0-52.0) % MCV 89.8 (80-94) fL MCH 30.0 (28.0-34.0) pg MCHC 33.4 (30.0-36.0) g/dL RDW 13.2 (12.1-15.1) % Plt Count 177 (130-400) 10^3/c mm MPV 10.4 (7.4-10.4) fL Neut % (Auto) 92.0 % Lymph % (Auto) 3.6 % [place] % (Auto) 3.5 % Eos % (Auto) 0.0 % Baso % (Auto) 0.1 % Neut # (Auto) 7.33 (1.8-7.7) 10^3/u L Lymph # (Auto) 0.3 L (0.8-4.8) 10^3/u L [place] # (Auto) 0.3 (0.2-0.9) 10^3/u L Eos # (Auto) 0.0 (0.0-0.8) 10^3/u L Baso # (Auto) 0.0 (0.0-0.1) 10^3/u L Nucleated RBC % (a uto) 0 % Nucleated RBCs # 0.0 /100WBC Sodium 133 L (136-145) mmol/L Potassium 4.1 (3.5-5.1) mmol/L Chloride 96 L (98-107) mmol/L Carbon Dioxide 24 (22-29) mmol/L Anion Gap 17.1 (5-19) BUN 26 H (8-23) mg/dL Creatinine 1.1 (0.7-1.2) mg/dL GFR Calculation Not Reportable Glucose 121 H (65-115) mg/dL Calculated Osmolal ity 282 L (285-295) mOsm/k g Lactic Acid Cancelled Calcium 9.0 (8.5-10.5) mg/dL Total Bilirubin 0.6 (0.15-1.2) mg/dL AST 34 (0-40) U/L ALT 38 (0-41) U/L Alkaline Phosphata se 42 (40-130) IU/L C-Reactive Protein 150.5 H (0.0-4.9) mg/L NT-Pro-B Natriuret Pep 200 (0-450) pg/mL Total Protein 6.7 (6.6-8.7) g/dL Albumin 3.3 L (3.5-5.2) g/dL Globulin 3.4 (1.3-4.6) g/dL SARS-CoV-2 Ag (Rap id) (Negative) 05/03/20 05/03/20 Range/Units 17:39 19:25 WBC (4.0-10.0) 10^3/ uL RBC (4.1-5.3) 10^6/u L Hgb (11.7-16.6) g/dL Hct (42.0-52.0) % MCV (80-94) fL MCH (28.0-34.0) pg MCHC (30.0-36.0) g/dL RDW (12.1-15.1) % Plt Count (130-400) 10^3/c mm MPV (7.4-10.4) fL Neut % (Auto) % Lymph % (Auto) % [place] % (Auto) % Eos % (Auto) % Baso % (Auto) % Neut # (Auto) (1.8-7.7) 10^3/u L Lymph # (Auto) (0.8-4.8) 10^3/u L [place] # (Auto) (0.2-0.9) 10^3/u L Eos # (Auto) (0.0-0.8) 10^3/u L Baso # (Auto) (0.0-0.1) 10^3/u L Nucleated RBC % (a uto) % Nucleated RBCs # /100WBC Sodium (136-145) mmol/L Potassium (3.5-5.1) mmol/L Chloride (98-107) mmol/L Carbon Dioxide (22-29) mmol/L Anion Gap (5-19) BUN (8-23) mg/dL Creatinine (0.7-1.2) mg/dL GFR Calculation Glucose (65-115) mg/dL Calculated Osmolal ity (285-295) mOsm/k g Lactic Acid 1.3 Calcium (8.5-10.5) mg/dL Total Bilirubin (0.15-1.2) mg/dL AST (0-40) U/L ALT (0-41) U/L Alkaline Phosphata se (40-130) IU/L C-Reactive Protein (0.0-4.9) mg/L NT-Pro-B Natriuret Pep (0-450) pg/mL Total Protein (6.6-8.7) g/dL Albumin (3.5-5.2) g/dL Globulin (1.3-4.6) g/dL SARS-CoV-2 Ag (Rap id) Positive H (Negative) Imaging Data: CT Chest: Radiologist's impression: [address] [address] [address] Scan Report Signed Patient: Solomon Waters Unit #: [id number] : 1935 Age/Sex: 84 / M ADM Date: 05/03/20 Loc: ER Room/Bed: Attending Dr: Ordering Provider/Ordering MD: Julián Ortiz MD Date of Service: 05/03/20 Procedure(s): CT angio chest PE protcl [id number] Accession Number(s): [id number] Report Number: [id number] PROCEDURE INFORMATION: Exam: CT Angiography Chest With Contrast Exam date and time: 05/03/2020 8:13 PM Age: 84 years old Clinical indication: Shortness of breath; Patient HX: Covid +; Additional info: SOB TECHNIQUE: Imaging protocol: Computed tomographic angiography of the chest with intravenous contrast. 3D rendering (Not supervised by radiologist): MIP and/or 3D reconstructed images were created by the technologist. Radiation optimization: All CT scans at this facility use at least one of these dose optimization techniques: automated exposure control; mA and/or kV adjustment per patient size (includes targeted exams where dose is matched to clinical indication); or iterative reconstruction. Contrast material: OMNI 350; Contrast volume: 73 ml; Contrast route: INTRAVENOUS (IV); COMPARISON: CR XR chest 1V portable [id number] 05/03/2020 6:06 PM RADIATION DOSE METRICS: Total DLP (mGy-cm): 572.68 FINDINGS: Pulmonary arteries: No visible evidence of pulmonary embolism/pulmonary arterial thrombus. Aorta: The thoracic aorta is nonaneurysmal. No visible intimal flap or dissection. Tortuous thoracic aorta which can be seen in hypertensive cardiovascular disease. Mild arterial sclerotic disease. Lungs: Bilateral patchy ground-glass interstitial lung disease, predominantly peripheral in distribution, consistent with active interstitial pneumonitis. Overall pattern of presentation would be consistent with Covid-19 pneumonitis. No visible consolidated alveolar airspace disease. Calcified granulomas of antecedent disease. Pleural space: Unremarkable. No pneumothorax. No pleural effusion. Heart: Cardiomegaly with left ventricular hypertrophy. No visible pericardial effusion. Moderate coronary artery disease. Mediastinal space: Large hiatal hernia. Lymph nodes: No visible active mediastinal or hilar lymphadenopathy. Calcified hilar complexes of antecedent granulomatous disease. Bones/joints: No visible acute osseous abnormality. Degenerative disease of the spine. Soft tissues: Unremarkable. CT/CT angio chest PE protcl [id number] IMPRESSION: 1. No visible evidence of pulmonary embolism/pulmonary arterial thrombus. 2. Bilateral patchy ground-glass interstitial lung disease, predominantly peripheral in distribution, consistent with active interstitial pneumonitis. Overall pattern of presentation would be consistent with Covid-19 pneumonitis. 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
[2020-05-03] MEDS: sodium chloride 0.9% 1,000 ML 999 ML IV (17:42)
[2020-05-03 18:02] LABS: Basophils % 0.1 %; Hematocrit 51.2 % (42.0-52.0); Hemoglobin 17.1 g/dL (11.7-16.6); Lymphocytes # 0.3 10^3/uL (0.8-4.8); Lymphocytes % 3.6 %; Mean Corpuscular HGB Conc 33.4 g/dL (30.0-36.0); Mean Corpuscular Volume 89.8 fL (80-94); Mean Platelet Volume 10.4 fL (7.4-10.4); Monocytes # 0.3 10^3/uL (0.2-0.9); Monocytes % 3.5 %; Neutrophils # 7.33 10^3/uL (1.8-7.7); Nucleated Red Blood Cells % 0 %; Platelet Count 177 10^3/cmm (130-400); Red Cell Distribution Width 13.2 % (12.1-15.1)
[2020-05-03 18:15] LABS: Alanine Aminotransferase 38 U/L (0-41); Albumin Level 3.3 g/dL (3.5-5.2); Alkaline Phosphatase 42 IU/L (40-130); Anion Gap 17.1 (5-19); Aspartate Amino Transferase 34 U/L (0-40); Blood Urea Nitrogen 26 mg/dL (8-23); C Reactive Protein 150.5 mg/L (0.0-4.9); Carbon Dioxide 24 mmol/L (22-29); Chloride 96 mmol/L (98-107); Globulin 3.4 g/dL (1.3-4.6); Glucose 121 mg/dL (65-115); NT Pro B Type Natriuretic Pept 200 pg/mL (0-450); Osmolality Calculated 282 mOsm/kg (285-295); Potassium 4.1 mmol/L (3.5-5.1); Sodium 133 mmol/L (136-145); Total Bilirubin 0.6 mg/dL (0.15-1.2); Total Protein 6.7 g/dL (6.6-8.7)
[2020-05-03 19:00] LABS: Slide Review Slide Review Perform
[2020-05-03 19:16] LABS: SARS Covid-2 Antigen Positive (Negative)
[2020-05-03 20:00] LABS: Lactic Sepsis W/Reflex 1.3 mmol/L (0.5-2.2)
--- NOTE | 2020-05-03 20:00 | CTR_ITS ---
PROCEDURE INFORMATION: Exam: CT Angiography Chest With Contrast Exam date and time: 05/03/2020 8:13 PM Age: 84 years old Clinical indication: Shortness of breath; Patient HX: Covid +; Additional info: SOB TECHNIQUE: Imaging protocol: Computed tomographic angiography of the chest with intravenous contrast. 3D rendering (Not supervised by radiologist): MIP and/or 3D reconstructed images were created by the technologist. Radiation optimization: All CT scans at this facility use at least one of these dose optimization techniques: automated exposure control; mA and/or kV adjustment per patient size (includes targeted exams where dose is matched to clinical indication); or iterative reconstruction. Contrast material: OMNI 350; Contrast volume: 73 ml; Contrast route: INTRAVENOUS (IV); COMPARISON: CR XR chest 1V portable [id number] 05/03/2020 6:06 PM RADIATION DOSE METRICS: Total DLP (mGy-cm): 572.68 FINDINGS: Pulmonary arteries: No visible evidence of pulmonary embolism/pulmonary arterial thrombus. Aorta: The thoracic aorta is nonaneurysmal. No visible intimal flap or dissection. Tortuous thoracic aorta which can be seen in hypertensive cardiovascular disease. Mild arterial sclerotic disease. Lungs: Bilateral patchy ground-glass interstitial lung disease, predominantly peripheral in distribution, consistent with active interstitial pneumonitis. Overall pattern of presentation would be consistent with Covid-19 pneumonitis. No visible consolidated alveolar airspace disease. Calcified granulomas of antecedent disease. Pleural space: Unremarkable. No pneumothorax. No pleural effusion. Heart: Cardiomegaly with left ventricular hypertrophy. No visible pericardial effusion. Moderate coronary artery disease. Mediastinal space: Large hiatal hernia. Lymph nodes: No visible active mediastinal or hilar lymphadenopathy. Calcified hilar complexes of antecedent granulomatous disease. Bones/joints: No visible acute osseous abnormality. Degenerative disease of the spine. Soft tissues: Unremarkable. CT/CT angio chest PE protcl [id number] IMPRESSION: 1. No visible evidence of pulmonary embolism/pulmonary arterial thrombus. 2. Bilateral patchy ground-glass interstitial lung disease, predominantly peripheral in distribution, consistent with active interstitial pneumonitis. Overall pattern of presentation would be consistent with Covid-19 pneumonitis. Radiation Dose CTDIVOL = (mGy): DLP = 572.68 (mGy-cm)
[2020-05-03] MEDS: dexamethasone 4 mg/mL INJ 10 MG IVP (20:19)
[2020-05-03] MEDS: iohexol 350 mg/mL 100 mL Btl IV (20:33)
--- NOTE | 2020-05-03 20:45 | PC.NURSE ---
2045 placed on 2L NC for spo2 dropping to 88% with exertion of standing at bedside to void
[2020-05-03] MEDS: albuterol 8 gm MDI 2 PUFF INHALATION (21:01)
--- NOTE | 2020-05-03 21:05 | P.HP_ITS ---
Providers/Chief Complaint Primary Care Provider: Ann Marie Richards Chief Complaint: COVID SYMPTOMS, WEAKNESS History of Present Illness Solomon Waters is a 84 year old male who presented to the hospital with chief complaint of shortness of breath. Patient stating his symptoms started when he experienced outbreak of shingles around his right eye, he finished valacyclovir course along prednisone, during this he started experiencing extreme lethargy, fatigue couple of episodes of diarrhea, low-grade fever 100.4, 100.9 along shortness of breath. He initially attributed his symptoms to shingles outbreak but today his shortness of breath got worse. His is also suffering from similar symptoms but she is not severely short of breath. Diagnostics in the ED revealed hypoxic respiratory failure, he was saturating 80% on room air he is requiring 2 L nasal cannula oxygen supplementation, CT chest revealed diffuse infiltrate, no PE was seen, his shortness of breath improved with 2 L nasal cannula oxygen supplementation. Will order procalcitonin Review of Systems Const: Reports: fever(s), chills, body aches and fatigue Eyes: Denies: change in vision ENMT: Denies: throat pain Card: Denies: chest pain Resp: Reports: dyspnea and non-productive cough GI: Reports: diarrhea; Denies: abdominal pain : Denies: flank pain Musc: Denies: neck pain Skin/Breast: Denies: rash Neuro: Denies: headache(s) Psych: Denies: anxiety or sleeping less Endo: Denies: polyuria Gary/Lymph: Denies: easy bruising All/Imm: Denies: urticaria Medications/Allergies Home Medications Medication Instructions Recorded Confirmed Last Taken Type acetaminophen [Tylenol Extra 500 mg PO Q6H PRN 10/31/19 05/03/20 Unknown History Strength] prednisone 10 mg PO DAILY 10/31/19 05/03/20 05/03/20 History valacyclovir 500 mg tablet 1,000 mg PO Q8H 7 Days #42 tab 04/23/20 05/03/20 05/03/20 Rx albuterol sulfate 90 mcg/actuation 2 puff INHALATION Q6H PRN #8.5 g 04/30/20 05/03/20 05/03/20 Rx aerosol inhaler azithromycin 250 mg tablet See Rx Instructions PO .COMPLEX #6 05/03/20 05/03/20 05/03/20 Rx tab Allergies Allergy/AdvReac Type Severity Reaction Status Date / Time ciprofloxacin [From Cipro] Allergy ALGY-Rash Verified 05/03/20 17:04 metronidazole [From Flagyl] Allergy ALGY-Rash Verified 05/03/20 17:04 PFSH Acute PFSH: Medical History Anxiety BPH (benign prostatic hyperplasia) Diverticulosis External hemorrhoid Psoriasis Shingles Surgical History H/O hemorrhoidectomy H/O right knee surgery History of appendectomy Family History Denies family history of Bleeding disorder Social History Smoking and tobacco status: never smoked Alcohol intake: never Substance/Drug Use: never Household members: spouse Housing: House Vitals/I&O/Wt Last Vital Signs Temp 98.6 F 05/03/20 17:00 Pulse 114 H 05/03/20 21:02 Resp 22 H 05/03/20 21:02 BP 155/73 05/03/20 20:04 Pulse Ox 94 05/03/20 21:02 Weight last 48 hrs Weight 86.183 kg Physical Exam Narrative: EXAM NARRATIVE: Elderly male, well-built, no acute distress Saturating well on 2 L nasal cannula Appears well-hydrated Dry crusted lesion on forehead, no severe eye redness noted S1, S2 sinus rhythm heart rate fluctuate between 90-100 No acute respiratory distress Abdomen soft nontender mildly distended Low symmetry no edema gangrene ulcer Appropriate mood and affect Resting tremors Voice tremors noted Mild cognitive impairment EOMI, PERRLA Appropriate mood and affect GCS 15, awake alert oriented x3 Data : 05/03/20 17:30 05/03/20 17:30 Micro: Microbiology 05/03/20 18:30 Blood Culture - Preliminary Blood SPECIMEN COLLECTED 05/03/20 18:36 Blood Culture - Preliminary Blood SPECIMEN COLLECTED A&P Assessment and plan (1) Pneumonia due to COVID-19 virus: Status: Acute (2) Acute respiratory failure with hypoxia: Status: Acute Additional A&P Information Acute hypoxic respiratory failure secondary to Covid pneumonia Bilateral groundglass opacities, Covid antigen positive currently saturating well on 2 L nasal cannula Recently finished valacyclovir course for shingles outbreak I would go ahead and start Decadron and remdesivir regimen Patient is DNR/DNI, goals of care discussed in the ER, however he would like to discuss further with his as well No acute respiratory distress, his work of breathing improved after oxygen gaitna pplementation No PE noted on CTA chest I would request procalcitonin however no signs of sepsis noted DNR/DNI Regular diet DVT prophylaxis Lovenox Attestations Medical Necessity Statement*: If he stays afebrile without use of antipyretics in next 24 hours he might be discharged in less than 48 hours Time Spent in Patient Care: (>than 50% of time spent in counselling and/or direct pt care on unit) . 40mins Coding Level of Care Code Acute Pet Walker for [facility] Fwd Diagnoses Pneumonia due to COVID-19 virus U07.1; J12.89 Acute respiratory failure with hypoxia J96.01
[2020-05-03] MEDS: enoxaparin 40 mg/0.4 mL Syringe SUBCUT (23:56)
[2020-05-04] VITALS (7 sets, daily range): BP systolic 127–146; BP diastolic 73–85; PULSE 54–88; RESP 18–21; TEMP 36.3–37.3; O2SAT 91–95
[2020-05-04 01:11] LABS: Procalcitonin 0.41 ng/mL (0-0.5)
[2020-05-04 04:13] LABS: Eosinophils % 0.2 %; Hematocrit 49.7 % (42.0-52.0); Hemoglobin 16.5 g/dL (11.7-16.6); Lymphocytes # 0.4 10^3/uL (0.8-4.8); Lymphocytes % 8.2 %; Mean Corpuscular HGB Conc 33.2 g/dL (30.0-36.0); Mean Corpuscular Hemoglobin 30.3 pg (28.0-34.0); Mean Corpuscular Volume 91.2 fL (80-94); Monocytes # 0.1 10^3/uL (0.2-0.9); Monocytes % 2.9 %; Neutrophils # 4.21 10^3/uL (1.8-7.7); Neutrophils % 88.3 %; Nucleated Red Blood Cells % 0 %; Platelet Count 211 10^3/cmm (130-400); Red Blood Count 5.45 10^6/uL (4.1-5.3); Red Cell Distribution Width 13.5 % (12.1-15.1); White Blood Count 4.8 10^3/uL (4.0-10.0)
[2020-05-04 04:28] LABS: Fibrinogen 505 mg/dL (174-498)
[2020-05-04 04:39] LABS: Ferritin 757 ng/mL (30-400)
[2020-05-04 04:42] LABS: Alanine Aminotransferase 35 U/L (0-41); Albumin Level 2.9 g/dL (3.5-5.2); Alkaline Phosphatase 37 IU/L (40-130); Blood Urea Nitrogen 21 mg/dL (8-23); C Reactive Protein 139.4 mg/L (0.0-4.9); Calcium 8.5 mg/dL (8.5-10.5); Carbon Dioxide 23 mmol/L (22-29); Chloride 97 mmol/L (98-107); Globulin 3.3 g/dL (1.3-4.6); Glucose 137 mg/dL (65-115); Osmolality Calculated 283 mOsm/kg (285-295); Sodium 134 mmol/L (136-145); Total Bilirubin 0.3 mg/dL (0.15-1.2); Total Protein 6.2 g/dL (6.6-8.7)
[2020-05-04 04:45] LABS: Lactate Dehydrogenase 286 U/L (135-225)
[2020-05-04 04:46] LABS: Anion Gap 18.2 (5-19); Aspartate Amino Transferase 37 U/L (0-40); Potassium 4.2 mmol/L (3.5-5.1)
[2020-05-04] MEDS: dexamethasone 4 mg Tablet 6 MG PO (10:11)
--- NOTE | 2020-05-04 14:22 | PM.PN ---
Subjective Subjective: Interval history: 84-year-old male with past medical history significant for anxiety, psoriasis, and recent treatment for shingles around right eye treat with valacyclovir and prednisone who has presented to hospital with respiratory distress. Apparently these symptoms were ongoing for over a week. He was seen by his primary care physician and started antibiotics which did not prove to be effective. Patient apparently also noted a cough generalized weakness and exposure to COVID. while at primary care office on 05/03 he was given Solu-Medrol 80 mg IM x1 in addition to Decadron 4 mg x 1. shortly after presented to the emergency room where he was found to be hypoxic. Laboratory workup on arrival showed a WBC of 8.0, hemoglobin 17.1, hematocrit of 51.2 and a platelet count of 177. Sodium 133, potassium 4.1, chloride 96, bicarb 24, BUN 26 and creatinine of 1.1. Rapid COVID antigen was negative. PCR was sent and pending. Chest x-ray showed new bilateral opacification consistent with COVID-19. CT angio was performed which did not show any evidence of pulmonary embolism however bilateral patchy ground-glass interstitial lung disease predominantly peripheral in distribution was noted. Patient was started on Remdesivir 5 day protocol and decadron 6 mg PO daily. Patient has been requiring 2L of 02 via NC. Vitals/I&O/Wt Last Vital Signs Temp 97.3 F L 05/04/20 11:15 Pulse 75 05/04/20 11:15 Resp 18 05/04/20 11:15 BP 138/73 05/04/20 11:15 Pulse Ox 94 05/04/20 11:15 05/03/20 05/04/20 05/04/20 22:59 06:59 14:59 Intake Total 100 / 100 480 / 480 Output Total 225 / 225 180 / 180 Balance -125 / -125 300 / 300 Weight last 48 hrs Weight 86.183 kg Physical Exam Narrative: EXAM NARRATIVE: General : On the phone, no distress HEENT : Grossly unremarkable Chest : Non-labored respiration Abd: Non-distended Ext : No edema Data : 05/04/20 03:45 05/04/20 03:45 Micro: Microbiology 05/03/20 18:30 Blood Culture - Preliminary Blood SPECIMEN COLLECTED 05/03/20 18:36 Blood Culture - Preliminary Blood SPECIMEN COLLECTED A&P Assessment and plan (1) Acute respiratory failure with hypoxia: Status: Acute (2) Pneumonia due to COVID-19 virus: Status: Acute Acute hypoxic respiratory faliure due to COVID-19 Pneumonia - Continue supplemental 02 as needed - Wean current 2L as tolerated - Continue decadron 6 mg PO daily x 10 days - Remdesivir 5 day protocol to complete on 05/07/2020 - Tylenol PRN - Monitor off abx Recent Shingles - Resolved - S/p prednisone/valtrex tx DVT ppx - Lovenox 40 mg SQ daily Attestations Medical Necessity Statement*: Patient require further hospitalization for management of COVID-19 hypoxic respiratory failure Time Spent in Patient Care: Greater than 35 minutes (>than 50% of time spent in counselling and/or direct pt care on unit). Coding Level of Care Code Acute Computer Systems Manager for Tiki Duran Diagnoses Acute respiratory failure with hypoxia J96.01 Pneumonia due to COVID-19 virus U07.1; J12.89
--- NOTE | 2020-05-04 14:46 | PC.SOCIAL ---
Quan in Pharmacy indicates BAM infusion was not ordered.
--- NOTE | 2020-05-04 18:36 | PC.NURSE ---
Pt c/o sore throat, SOB upon exertion and diarrhea. Doesn't feel like he is coughing as much as he should be. Denies any tightness in chest. Pleasantly states he feels like he should be taking more meds to improve faster but happy with his progress thus far. Dr Chun notified.
[2020-05-04] MEDS: enoxaparin 40 mg/0.4 mL Syringe SUBCUT (23:07)
[2020-05-05] VITALS (9 sets, daily range): BP systolic 134–173; BP diastolic 76–85; PULSE 66–85; RESP 18–22; TEMP 36.4–37; O2SAT 90–93
[2020-05-05 04:46] LABS: Basophils % 0.1 %; Eosinophils % 0.1 %; Hematocrit 50.4 % (42.0-52.0); Hemoglobin 16.6 g/dL (11.7-16.6); Lymphocytes # 0.7 10^3/uL (0.8-4.8); Lymphocytes % 6.6 %; Mean Corpuscular HGB Conc 32.9 g/dL (30.0-36.0); Mean Corpuscular Hemoglobin 29.6 pg (28.0-34.0); Mean Platelet Volume 10.1 fL (7.4-10.4); Monocytes # 0.4 10^3/uL (0.2-0.9); Monocytes % 3.7 %; Neutrophils % 89.1 %; Nucleated Red Blood Cells % 0 %; Platelet Count 204 10^3/cmm (130-400); Red Cell Distribution Width 13.4 % (12.1-15.1); White Blood Count 11.2 10^3/uL (4.0-10.0)
[2020-05-05 05:03] LABS: Albumin Level 2.8 g/dL (3.5-5.2); Alkaline Phosphatase 38 IU/L (40-130); Blood Urea Nitrogen 32 mg/dL (8-23); Calcium 8.7 mg/dL (8.5-10.5); Carbon Dioxide 25 mmol/L (22-29); Chloride 102 mmol/L (98-107); Globulin 3.3 g/dL (1.3-4.6); Glucose 123 mg/dL (65-115); Osmolality Calculated 292 mOsm/kg (285-295); Sodium 137 mmol/L (136-145); Total Bilirubin 0.3 mg/dL (0.15-1.2); Total Protein 6.1 g/dL (6.6-8.7)
[2020-05-05 05:44] LABS: Alanine Aminotransferase 32 U/L (0-41); Anion Gap 14.4 (5-19); Aspartate Amino Transferase 39 U/L (0-40); Potassium 4.4 mmol/L (3.5-5.1)
[2020-05-05 08:32] LABS: Glucose Point of Care 102 mg/dL (70-110)
[2020-05-05] MEDS: dexamethasone 4 mg Tablet 6 MG PO (09:54)
--- NOTE | 2020-05-05 10:54 | PC.CHAP ---
Pastoral Care Encounter/Spiritual Assessment Type of Contact [] Declined quality officer visit [] Patient/Family/Request visit [] Outpatient visit [] Follow-up visit [] Physician referral [] Code/Alert [] Routine visit [] Staff referral [] Actively dying [] Patient sleeping [] Family support [] [] Out of room [] Palliative care [] [] Receiving care in room [] Pre-surgical visit [] Trauma [] Long length of stay [] ICU visit [x] Other: Isolation Relational/Emotional Strength [] Patient feels connected with others/family/visitors/staff [] Distress [] Loneliness/isolation [] Abandonment Spirituality of Patient [] Person of Veda [] Attends Moravian of their Veda [] Believes in Prayer [] Reads Bible or Episcopalian materials [] There are Spiritual issues to be addressed Inspection Machine Tender Interventions [] Prayer [] Active listening [] Non-anxious presence [] Spiritual/emotional support [] Crisis/trauma care [] Spiritual counseling [] Bereavement support [] Provided bereavement packet [] Provided Bible/devotional materials [] Provided toy/stuffed animal, coloring book to patient or family member [] Provided Communion [] Anointing/[place] [] Salvation [] Completed spiritual assessment [] Other: Impact on Illness or Injury [] Angry [] Fearful [] Anxious [] Often cries [] Exhaustion [] Unable to work [] Unable to attend yazdanism [] Unable to walk/stand [] Unable to read [] Unable to drive [] Unable to eat/drink [] Unable to sleep [] Unable to be with family [] Patient intubated [] Other: Summary Isolation Time spent with patient 5 mins
--- NOTE | 2020-05-05 13:00 | PM.PN ---
Subjective Subjective: Interval history: 84-year-old male with past medical history significant for anxiety, psoriasis, and recent treatment for shingles around right eye treat with valacyclovir and prednisone who has presented to hospital with respiratory distress. Apparently these symptoms were ongoing for over a week. He was seen by his primary care physician and started antibiotics which did not prove to be effective. Patient apparently also noted a cough generalized weakness and exposure to COVID. while at primary care office on 05/03 he was given Solu-Medrol 80 mg IM x1 in addition to Decadron 4 mg x 1. shortly after presented to the emergency room where he was found to be hypoxic. Laboratory workup on arrival showed a WBC of 8.0, hemoglobin 17.1, hematocrit of 51.2 and a platelet count of 177. Sodium 133, potassium 4.1, chloride 96, bicarb 24, BUN 26 and creatinine of 1.1. Rapid COVID antigen was negative. PCR was sent and pending. Chest x-ray showed new bilateral opacification consistent with COVID-19. CT angio was performed which did not show any evidence of pulmonary embolism however bilateral patchy ground-glass interstitial lung disease predominantly peripheral in distribution was noted. Patient was started on Remdesivir 5 day protocol and decadron 6 mg PO daily. Patient has been requiring 2L of 02 via NC. Subjective 05/05 Patient complaining of diarrhea. No Fever, chills, nausea or vomiting. Vitals/I&O/Wt Last Vital Signs Temp 98.6 F 05/05/20 12:00 Pulse 75 05/05/20 12:00 Resp 18 05/05/20 12:00 BP 154/79 05/05/20 12:00 Pulse Ox 91 05/05/20 12:00 05/04/20 05/05/20 05/05/20 22:59 06:59 14:59 Intake Total 120 / 840 300 / 300 Output Total 240 / 420 Balance 120 / 660 -240 / 420 300 / 300 Weight last 48 hrs Weight 86.183 kg Physical Exam Narrative: EXAM NARRATIVE: General : No distress HEENT : Grossly unremarkable Chest : Non-labored respiration Abd: Non-distended Ext : No edema Data : 05/05/20 04:30 05/05/20 04:30 Micro: Microbiology 05/03/20 18:30 Blood Culture - Preliminary Blood NEGATIVE TO DATE 12/08/20 18:36 Blood Culture - Preliminary Blood NEGATIVE TO DATE A&P Assessment and plan (1) Acute respiratory failure with hypoxia: Status: Acute (2) Pneumonia due to COVID-19 virus: Status: Acute Acute hypoxic respiratory failure due to COVID-19 Pneumonia - Continue supplemental 02 as needed - Wean current 2L as tolerated - Continue decadron 6 mg PO daily x 10 days - Remdesivir 5 day protocol to complete on 05/07/2020 - Tylenol PRN - Monitor off abx Viral enteritis - Loperimide 2 mg PRN Recent Shingles - Resolved - S/p prednisone/valtrex tx DVT ppx - Lovenox 40 mg SQ daily Attestations Medical Necessity Statement*: Will require further hospitalization for management of covid 19 pneumonia req IV remdesivir and supplemental o2 Time Spent in Patient Care: Greater than 35 minutes (>than 50% of time spent in counselling and/or direct pt care on unit). Coding Level of Care Code Acute Family Practice Nurse Practitioner for Tiki Duran Diagnoses Acute respiratory failure with hypoxia J96.01 Pneumonia due to COVID-19 virus U07.1; J12.89
[2020-05-05] MEDS: loperamide 2 mg Capsule PO ×2 (13:21→19:49)
[2020-05-05] MEDS: enoxaparin 40 mg/0.4 mL Syringe SUBCUT (23:01)
[2020-05-06] VITALS (17 sets, daily range): BP systolic 125–153; BP diastolic 69–91; PULSE 62–92; RESP 18–28; TEMP 36.7–37.5; O2SAT 89–96
[2020-05-06 05:19] LABS: Basophils % 0.1 %; Hematocrit 53.4 % (42.0-52.0); Hemoglobin 17.8 g/dL (11.7-16.6); Lymphocytes # 0.8 10^3/uL (0.8-4.8); Lymphocytes % 9.2 %; Mean Corpuscular HGB Conc 33.3 g/dL (30.0-36.0); Mean Corpuscular Volume 90.1 fL (80-94); Mean Platelet Volume 11.3 fL (7.4-10.4); Monocytes # 0.4 10^3/uL (0.2-0.9); Monocytes % 4.1 %; Neutrophils # 7.82 10^3/uL (1.8-7.7); Neutrophils % 86.3 %; Nucleated Red Blood Cells % 0 %; Platelet Count 239 10^3/cmm (130-400); Red Blood Count 5.93 10^6/uL (4.1-5.3); Red Cell Distribution Width 13.4 % (12.1-15.1); White Blood Count 9.1 10^3/uL (4.0-10.0)
[2020-05-06 07:19] LABS: Blood Urea Nitrogen 35 mg/dL (8-23); Calcium 8.4 mg/dL (8.5-10.5); Carbon Dioxide 27 mmol/L (22-29); Chloride 99 mmol/L (98-107); Glucose 94 mg/dL (65-115); Osmolality Calculated 290 mOsm/kg (285-295); Sodium 136 mmol/L (136-145)
[2020-05-06] MEDS: dexamethasone 4 mg Tablet 6 MG PO (09:05)
--- NOTE | 2020-05-06 11:43 | PM.PN ---
Subjective Subjective: Interval history: 84-year-old male with past medical history significant for anxiety, psoriasis, and recent treatment for shingles around right eye treat with valacyclovir and prednisone who has presented to hospital with respiratory distress. Apparently these symptoms were ongoing for over a week. He was seen by his primary care physician and started antibiotics which did not prove to be effective. Patient apparently also noted a cough generalized weakness and exposure to COVID. while at primary care office on 05/03 he was given Solu-Medrol 80 mg IM x1 in addition to Decadron 4 mg x 1. shortly after presented to the emergency room where he was found to be hypoxic. Laboratory workup on arrival showed a WBC of 8.0, hemoglobin 17.1, hematocrit of 51.2 and a platelet count of 177. Sodium 133, potassium 4.1, chloride 96, bicarb 24, BUN 26 and creatinine of 1.1. Rapid COVID antigen was negative. PCR was sent and pending. Chest x-ray showed new bilateral opacification consistent with COVID-19. CT angio was performed which did not show any evidence of pulmonary embolism however bilateral patchy ground-glass interstitial lung disease predominantly peripheral in distribution was noted. Patient was started on Remdesivir 5 day protocol and decadron 6 mg PO daily. Patient has been requiring 2L of 02 via NC initially however this increased to 10L on 05/06. Patient was noted to have increase work of breathing as well. At times he was non-compliant with supplemental oxygen. Remained afebrile . Subjective 05/05 Patient complaining of diarrhea. No Fever, chills, nausea or vomiting. 05/06 Noted to have worsening respiratory distress. O2 requirement increased from 2L to 10L. Patient noted difficult breathing. No fever, nausea or vomiting. Diarrhea episodes improved. Vitals/I&O/Wt Last Vital Signs Temp 98.5 F 05/06/20 15:56 Pulse 82 05/06/20 19:00 Resp 28 H 05/06/20 19:00 BP 140/83 05/06/20 19:00 Pulse Ox 94 05/06/20 19:00 05/06/20 05/06/20 05/06/20 06:59 14:59 22:59 Intake Total 240 / 1300 240 / 240 360 / 600 Output Total 400 / 600 500 / 500 200 / 700 Balance -160 / 700 -260 / -260 160 / -100 Physical Exam Narrative: EXAM NARRATIVE: General : Mild distress on 10l of o2 via NC HEENT : Grossly unremarkable Chest : Non-labored respiration Abd: Non-distended Ext : No edema Data : 05/06/20 04:30 05/06/20 06:55 A&P Assessment and plan (1) Acute respiratory failure with hypoxia: Status: Acute (2) Pneumonia due to COVID-19 virus: Status: Acute Acute hypoxic respiratory failure due to COVID-19 Pneumonia - Continue decadron 6 mg PO daily x 10 days - Remdesivir 5 day protocol to complete on 05/07/2020 - Increasing o2 requirement rapidly overnight. - Currently on 10L - May have to initiate high-flow oxygen - Will transfer to VICU - Will obtain ABG if worsening - CT PE protocol - negative for PE - Will initiate Lovenox 90 mg SQ BID due to increase risk of thromboembolism - Repeat CBC/CMP in am Viral enteritis - Loperimide 2 mg PRN - Improving Recent Shingles - Resolved - S/p prednisone/valtrex tx DVT ppx - Lovenox 90 mg SQ BID Attestations Medical Necessity Statement*: Will require further hospitalization due to worsening respiratory distress with increase oxygen requirement. Time Spent in Patient Care: Greater than 35 minutes (>than 50% of time spent in counselling and/or direct pt care on unit). Coding Level of Care Code Acute Special Events Fundraiser for [employer]iki Fwd Diagnoses Acute respiratory failure with hypoxia J96.01 Pneumonia due to COVID-19 virus U07.1; J12.89
--- NOTE | 2020-05-06 16:22 | PC.NURSE ---
Attempted to call report on this patient. RN stated she would call me back.
--- NOTE | 2020-05-06 17:25 | PC.NURSE ---
Pt transferred to VICU via wheelchair with 2 staff members on 10 L HFNC. Pt tolerated well. VSS. Will continue to monitor. No complaints at this time.
--- NOTE | 2020-05-06 19:28 | PC.NURSE ---
Patient states that he is able to ambulate around with little to no assistance. Will asses later if patient needs assistance.
[2020-05-06] MEDS: enoxaparin 100 mg/mL Syringe 90 MG SUBCUT (21:16)
[2020-05-07] VITALS (33 sets, daily range): BP systolic 95–143; BP diastolic 53–87; PULSE 64–111; RESP 16–31; TEMP 36.1–36.8; O2SAT 85–96
[2020-05-07 05:13] LABS: Basophils % 0.1 %; Hematocrit 52.8 % (42.0-52.0); Hemoglobin 17.3 g/dL (11.7-16.6); Lymphocytes # 0.9 10^3/uL (0.8-4.8); Mean Corpuscular HGB Conc 32.8 g/dL (30.0-36.0); Mean Corpuscular Hemoglobin 29.8 pg (28.0-34.0); Mean Corpuscular Volume 90.9 fL (80-94); Mean Platelet Volume 10.4 fL (7.4-10.4); Monocytes # 0.4 10^3/uL (0.2-0.9); Monocytes % 3.7 %; Neutrophils # 8.85 10^3/uL (1.8-7.7); Neutrophils % 86.6 %; Nucleated Red Blood Cells % 0 %; Platelet Count 237 10^3/cmm (130-400); Red Blood Count 5.81 10^6/uL (4.1-5.3); Red Cell Distribution Width 13.5 % (12.1-15.1); White Blood Count 10.2 10^3/uL (4.0-10.0)
[2020-05-07 05:35] LABS: Blood Urea Nitrogen 34 mg/dL (8-23); Calcium 8.7 mg/dL (8.5-10.5); Carbon Dioxide 25 mmol/L (22-29); Chloride 99 mmol/L (98-107); Glucose 96 mg/dL (65-115); Osmolality Calculated 289 mOsm/kg (285-295); Sodium 136 mmol/L (136-145)
[2020-05-07] MEDS: dexamethasone 4 mg Tablet 6 MG PO ×2 (09:13→17:24)
[2020-05-07] MEDS: enoxaparin 100 mg/mL Syringe 90 MG SUBCUT ×2 (09:13→20:28)
--- NOTE | 2020-05-07 09:21 | DCPLANNER ---
Pg 2 of IM updated and reviewed with Daughter; Cynthia via the phone. [phone]. No questions.
[2020-05-07] MEDS: tamsulosin 0.4 mg Capsule PO (11:23)
[2020-05-07] MEDS: nystatin 100,000 unit/mL UDC 5 mL 500000 UNIT PO ×3 (12:01→20:28)
--- NOTE | 2020-05-07 16:10 | PM.PN ---
Subjective Subjective: Interval history: 84-year-old male with past medical history significant for anxiety, psoriasis, and recent treatment for shingles around right eye treat with valacyclovir and prednisone who has presented to hospital with respiratory distress. Apparently these symptoms were ongoing for over a week. He was seen by his primary care physician and started antibiotics which did not prove to be effective. Patient apparently also noted a cough generalized weakness and exposure to COVID. while at primary care office on 05/03 he was given Solu-Medrol 80 mg IM x1 in addition to Decadron 4 mg x 1. shortly after presented to the emergency room where he was found to be hypoxic. Laboratory workup on arrival showed a WBC of 8.0, hemoglobin 17.1, hematocrit of 51.2 and a platelet count of 177. Sodium 133, potassium 4.1, chloride 96, bicarb 24, BUN 26 and creatinine of 1.1. Rapid COVID antigen was negative. PCR was sent and pending. Chest x-ray showed new bilateral opacification consistent with COVID-19. CT angio was performed which did not show any evidence of pulmonary embolism however bilateral patchy ground-glass interstitial lung disease predominantly peripheral in distribution was noted. Patient was started on Remdesivir 5 day protocol and decadron 6 mg PO daily. Patient has been requiring 2L of 02 via NC initially however this increased to 10L on 05/06. Patient was noted to have increase work of breathing as well. At times he was non-compliant with supplemental oxygen. Remained afebrile . Subjective 05/05 Patient complaining of diarrhea. No Fever, chills, nausea or vomiting. 05/06 Noted to have worsening respiratory distress. O2 requirement increased from 2L to 10L. Patient noted difficult breathing. No fever, nausea or vomiting. Diarrhea episodes improved. 05/07 Continued to have worsening respiratory distress. Oxygen requirements increased to 15 L. stated he was feeling very short of breath with any type exertion. No fevers overnight. Diarrhea has resolved. Oral intake adequate. Vitals/I&O/Wt Last Vital Signs Temp 98.1 F 05/07/20 11:47 Pulse 74 05/07/20 15:00 Resp 25 H 05/07/20 15:00 BP 128/70 05/07/20 15:00 Pulse Ox 96 05/07/20 15:00 05/07/20 05/07/20 05/07/20 06:59 14:59 22:59 Intake Total 869 / 869 Output Total 175 / 1075 250 / 250 Balance -175 / -475 619 / 619 Physical Exam Narrative: EXAM NARRATIVE: General : Mild distress on 15l of o2 via NC HEENT : Grossly unremarkable Chest : Non-labored respiration Abd: Non-distended Ext : No edema Data : 05/07/20 03:30 05/07/20 03:30 A&P Assessment and plan (1) Acute respiratory failure with hypoxia: Status: Acute (2) Pneumonia due to COVID-19 virus: Status: Acute Acute hypoxic respiratory failure due to COVID-19 Pneumonia - Continue decadron 6 mg PO daily x 10 days - Remdesivir 5 day protocol to complete on 05/07/2020 - Currently on 15L of o2 - Will likley need heated high-flow oxygen up to 60L - May consider transitioning to Bipap - Patient is DNI/DNR - Will obtain ABG if worsening - CT PE protocol - negative for PE - Continue Lovenox 90 mg SQ BID due to increase risk of thromboembolism - Repeat CBC/CMP in am - Chest -xray in am - Will consider diuresis Oral Thrush - Nystatin 500,000 Swish/swallow QID started Viral enteritis - resolved - Loperimide 2 mg PRN - Improving Recent Shingles - Resolved - S/p prednisone/valtrex tx DVT ppx - Lovenox 90 mg SQ BID Additional A&P Information Prognosis : Guarded Attestations Medical Necessity Statement*: Will require further hospitalization for management of worsening hypoxic respiratory failure due to COVID-19 pneumonia. Time Spent in Patient Care: Greater than 35 minutes Critical Care Time: Critical Care Time (min): 40 Coding Level of Care Code Acute Microfilm Equipment Inspector for [facility] Fwd Diagnoses Acute respiratory failure with hypoxia J96.01 Pneumonia due to COVID-19 virus U07.1; J12.89
[2020-05-08] VITALS (28 sets, daily range): BP systolic 101–145; BP diastolic 52–81; PULSE 54–94; RESP 16–30; TEMP 36.1–37; O2SAT 86–97
[2020-05-08 04:56] LABS: Basophils % 0.2 %; Hemoglobin 16.6 g/dL (11.7-16.6); Lymphocytes # 0.5 10^3/uL (0.8-4.8); Lymphocytes % 6.2 %; Mean Corpuscular HGB Conc 33.2 g/dL (30.0-36.0); Mean Corpuscular Volume 90.3 fL (80-94); Mean Platelet Volume 10.4 fL (7.4-10.4); Monocytes # 0.2 10^3/uL (0.2-0.9); Monocytes % 2.3 %; Neutrophils # 7.49 10^3/uL (1.8-7.7); Neutrophils % 89.7 %; Nucleated Red Blood Cells % 0 %; Platelet Count 249 10^3/cmm (130-400); Red Blood Count 5.54 10^6/uL (4.1-5.3); Red Cell Distribution Width 13.2 % (12.1-15.1); White Blood Count 8.4 10^3/uL (4.0-10.0)
[2020-05-08 05:22] LABS: Anion Gap 13.5 (5-19); Blood Urea Nitrogen 34 mg/dL (8-23); Calcium 8.3 mg/dL (8.5-10.5); Carbon Dioxide 24 mmol/L (22-29); Chloride 101 mmol/L (98-107); Glucose 131 mg/dL (65-115); Osmolality Calculated 287 mOsm/kg (285-295); Potassium 4.5 mmol/L (3.5-5.1); Sodium 134 mmol/L (136-145)
--- NOTE | 2020-05-08 07:00 | XR_ITS ---
WS: [id number] XR chest 1V 55165 REASON FOR EXAM: worsening respiratory failure FINDINGS: Comparison examination 05/03/2020. Severe tortuosity and ectasia of the thoracic aorta with cardiac enlargement. Patchy lung opacities in both lower lungs and in the right mid and upper lung and left midlung. The i nfiltrative changes in the right lung may be increased in volume. There may be more infiltrative amrita nge in the periphery of the left mid and upper lung. No other interval change or new finding. XR/XR chest 1V 61646 IMPRESSION: Possible worsening of the infiltrative changes in the lungs. Definitive determi nation with worsening respiratory status could be obtained with noncontrast (u nless interval pulmonary emboli strong consideration) CT of the chest and ashutosh red to the examination of 05/03/2020.
[2020-05-08 08:51] LABS: ABG PCO2 31.2 mmHg (35-45); ABG PH Result 7.49 (7.35-7.45); Arterial Blood Gas Hematocrit 54.9 % (42-52); Base Excess ABG 1.7 mmol/L (-2.0-2.0); Blood Gas Allen Test Pos; Blood Gas Operator Identificat MONRO; Blood Gas Sample Site Radial, right; Blood Gas Sample Type Arterial; Oxygen Device NC; PO2 ABG 44.6 mmHg (80.0-100.0)
[2020-05-08] MEDS: nystatin 100,000 unit/mL UDC 5 mL 500000 UNIT PO ×4 (08:52→19:56)
[2020-05-08] MEDS: dexamethasone 4 mg Tablet 6 MG PO ×2 (08:52→17:28)
[2020-05-08] MEDS: enoxaparin 100 mg/mL Syringe 90 MG SUBCUT ×2 (08:52→19:55)
[2020-05-08] MEDS: tamsulosin 0.4 mg Capsule PO (08:52)
[2020-05-08 16:46] LABS: Glucose Point of Care 109 mg/dL (70-110)
[2020-05-08] MEDS: lanolin oint 7 gm 1 APPLIC TOPICAL (16:56)
[2020-05-08] MEDS: loperamide 2 mg Capsule PO (17:36)
--- NOTE | 2020-05-08 18:12 | P.PN_ITS ---
Subjective Subjective: Interval history: 84-year-old male with past medical history significant for anxiety, psoriasis, and recent treatment for shingles around right eye treat with valacyclovir and prednisone who has presented to hospital with respiratory distress. Apparently these symptoms were ongoing for over a week. He was seen by his primary care physician and started antibiotics which did not prove to be effective. Patient apparently also noted a cough generalized weakness and exposure to COVID. while at primary care office on 05/03 he was given Solu-Medrol 80 mg IM x1 in addition to Decadron 4 mg x 1. shortly after presented to the emergency room where he was found to be hypoxic. Laboratory workup on arrival showed a WBC of 8.0, hemoglobin 17.1, hematocrit of 51.2 and a platelet count of 177. Sodium 133, potassium 4.1, chloride 96, bicarb 24, BUN 26 and creatinine of 1.1. Rapid COVID antigen was negative. PCR was sent and pending. Chest x-ray showed new bilateral opacification consistent with COVID-19. CT angio was performed which did not show any evidence of pul monary embolism however bilateral patchy ground-glass interstitial lung disease predominantly peripheral in distribution was noted. Patient was started on Remdesivir 5 day protocol and decadron 6 mg PO daily. Patient has been requiring 2L of 02 via NC initially however this increased to 10L on 05/06. Patient was noted to have increase work of breathing as well. At times he was non-compliant with supplemental oxygen. Remained afebrile . Subjective 05/05 Patient complaining of diarrhea. No Fever, chills, nausea or vomiting. 05/06 Noted to have worsening respiratory distress. O2 requirement increased from 2L to 10L. Patient noted difficult breathing. No fever, nausea or vomiting. Diarrhea episodes improved. 05/07 Continued to have worsening respiratory distress. Oxygen requirements increased to 15 L. stated he was feeling very short of breath with any type exertion. No fevers overnight. Diarrhea has resolved. Oral intake adequate. 05/08 Patient overnight noted improvement in respiratory status. O2 was being weaned. No fever. Was sitting in chair eating lunch. No distress. Vitals/I&O/Wt Last Vital Signs Temp 97.6 F 05/08/20 16:01 Pulse 91 05/08/20 17:01 Resp 21 H 05/08/20 17:01 BP 126/61 05/08/20 17:01 Pulse Ox 96 05/08/20 17:01 05/08/20 05/08/20 05/08/20 06:59 14:59 22:59 Intake Total 520 / 520 240 / 760 Output Total 250 / 1090 50 / 50 Balance - 19 470 / 470 240 / 710 Physical Exam Narrative: EXAM NARRATIVE: General : Mild distress on 8l of o2 via NC HEENT : Grossly unremarkable Chest : Non-labored respiration Abd: Non-distended Ext : No edema Data : 05/08/20 03:45 05/08/20 03:45 A&P Assessment and plan (1) Acute respiratory failure with hypoxia: Status: Acute (2) Pneumonia due to COVID-19 virus: Status: Acute Acute hypoxic respiratory failure due to COVID-19 Pneumonia - Continue decadron 6 mg PO - changed to BID - Remdesivir completed on 05/07/2020 - Currently on 8L of o2 - decreased from 8L - May consider transitioning to Bipap if worsening - Patient is DNI/DNR - Will obtain ABG if worsening - CT PE protocol - negative for PE - Continue Lovenox 90 mg SQ BID due to increase risk of thromboembolism - Labs stable - afebrile - Repeat CBC/CMP in am - Chest -xray reviewed - Will consider dieresis Oral Thrush - Nystatin 500,000 Swish/swallow QID started Viral enteritis - resolved - Loperimide 2 mg PRN - Improving Recent Shingles - Resolved - S/p prednisone/valtrex tx DVT ppx - Lovenox 90 mg SQ BID Additional A&P Information Prognosis : fair Attestations Medical Necessity Statement*: Will require further hospitalization for m angement of covid 19 related hypoxic respiratory failure Time Spent in Patient Care: Greater than 35 minutes (>than 50% of time spent in counselling and/or direct pt care on unit) . Coding Level of Care Code Acute Terrazzo Grinder for [employer]g Fwd Diagnoses Acute respiratory failure with hypoxia J96.01 Pneumonia due to COVID-19 virus U07.1; J12.89
[2020-05-09] VITALS (31 sets, daily range): BP systolic 92–137; BP diastolic 52–104; PULSE 57–115; RESP 14–32; TEMP 36.5–36.8; O2SAT 89–97
[2020-05-09] MEDS: nystatin 100,000 unit/mL UDC 5 mL 500000 UNIT PO ×4 (08:27→20:53)
[2020-05-09] MEDS: tamsulosin 0.4 mg Capsule PO (08:28)
[2020-05-09] MEDS: dexamethasone 4 mg Tablet 6 MG PO ×2 (08:28→17:02)
[2020-05-09] MEDS: enoxaparin 100 mg/mL Syringe 90 MG SUBCUT ×2 (08:28→20:53)
[2020-05-09] MEDS: FUROsemide 10 mg/mL SDV 2mL 20 MG IVP (10:54)
--- NOTE | 2020-05-09 12:25 | PM.PN ---
Subjective Subjective: Interval history: 84-year-old male with past medical history significant for anxiety, psoriasis, and recent treatment for shingles around right eye treat with valacyclovir and prednisone who has presented to hospital with respiratory distress. Apparently these symptoms were ongoing for over a week. He was seen by his primary care physician and started antibiotics which did not prove to be effective. Patient apparently also noted a cough generalized weakness and exposure to COVID. while at primary care office on 05/03 he was given Solu-Medrol 80 mg IM x1 in addition to Decadron 4 mg x 1. shortly after presented to the emergency room where he was found to be hypoxic. Laboratory workup on arrival showed a WBC of 8.0, hemoglobin 17.1, hematocrit of 51.2 and a platelet count of 177. Sodium 133, potassium 4.1, chloride 96, bicarb 24, BUN 26 and creatinine of 1.1. Rapid COVID antigen was negative. PCR was sent and pending. Chest x-ray showed new bilateral opacification consistent with COVID-19. CT angio was performed which did not show any evidence of pulmonary embolism however bilateral patchy ground-glass interstitial lung disease predominantly peripheral in distribution was noted. Patient was started on Remdesivir 5 day protocol and decadron 6 mg PO daily. Patient has been requiring 2L of 02 via NC initially however this increased to 10L on 05/06. Patient was noted to have increase work of breathing as well. At times he was non-compliant with supplemental oxygen. Remained afebrile . Subjective 05/05 Patient complaining of diarrhea. No Fever, chills, nausea or vomiting. 05/06 Noted to have worsening respiratory distress. O2 requirement increased from 2L to 10L. Patient noted difficult breathing. No fever, nausea or vomiting. Diarrhea episodes improved. 05/07 Continued to have worsening respiratory distress. Oxygen requirements increased to 15 L. stated he was feeling very short of breath with any type exertion. No fevers overnight. Diarrhea has resolved. Oral intake adequate. 05/08 Patient overnight noted improvement in respiratory status. O2 was being weaned. No fever. Was sitting in chair eating lunch. No distress. 05/09 Overnight patient was noted to have increasing o2 requirement and dyspnea. Increased to 15L . No fever, chills, nausea, vomiting or diarrhea. Denied chest pain Vitals/I&O/Wt Last Vital Signs Temp 98.1 F 05/09/20 16:01 Pulse 84 05/09/20 20:16 Resp 24 H 05/09/20 20:16 BP 134/72 05/09/20 18:00 Pulse Ox 94 05/09/20 20:16 05/09/20 05/09/20 05/09/20 06:59 14:59 22:59 Intake Total 200 / 1400 360 / 360 415 / 775 Output Total 450 / 750 1200 / 1200 110 / 1310 Balance -250 / 650 -840 / -840 305 / -535 Physical Exam Narrative: EXAM NARRATIVE: General : Mild distress on 15l of o2 via NC HEENT : Grossly unremarkable Chest : Non-labored respiration Abd: Non-distended Ext : No edema Data : 05/08/20 03:45 05/08/20 03:45 Micro: Microbiology 05/03/20 18:30 Blood Culture - Final Blood NO GROWTH AFTER 5 DAYS 05/03/20 18:36 Blood Culture - Final Blood NO GROWTH AFTER 5 DAYS A&P Assessment and plan (1) Acute respiratory failure with hypoxia: Status: Acute (2) Pneumonia due to COVID-19 virus: Status: Acute Acute hypoxic respiratory failure due to COVID-19 Pneumonia - Continue decadron 6 mg PO - changed to BID - Remdesivir completed on 05/07/2020 - Patient is DNI/DNR - Unable to Prone - CT PE protocol - negative for PE - Continue Lovenox 90 mg SQ BID due to increase risk of thromboembolism - Labs stable - afebrile - 05/08 Chest x-ray - > Increasing bilateral bilateral infiltrates. - 05/09 - ABG - Ph 7.49, PCO2 31.2, p02 44.6, HCO3 24 on 6L via NC - Changed on 15L via NC to Heated High flow - 40L with Fio2 50% - Lasix 20 mg IV daily - first dose today - Chest -xray in am Oral Thrush - Nystatin 500,000 Swish/swallow QID started Viral enteritis - resolved - Loperimide 2 mg PRN - Improving Anxiety - Ativan 0.5 mg IV q8hr PRN - Avoid over-sedation Recent Shingles - Resolved - S/p prednisone/valtrex tx DVT ppx - Lovenox 90 mg SQ BID Additional A&P Information Prognosis : Guarded Attestations Medical Necessity Statement*: Will require further hospitalization for management of worsening respiratory failure due to covid-19 pneumonia Time Spent in Patient Care: Greater than 35 minutes (>than 50% of time spent in counselling and/or direct pt care on unit). 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
[2020-05-09] MEDS: ipratropium-albuterol 3 mL Neb INHALATION ×2 (14:53→20:16)
[2020-05-10] VITALS (37 sets, daily range): BP systolic 86–136; BP diastolic 40–101; PULSE 66–119; RESP 17–29; TEMP 36.6–37.3; O2SAT 84–96
[2020-05-10] MEDS: LORazepam 2 mg/mL INJ 1 mL 0.5 MG IVP ×3 (01:48→22:14)
[2020-05-10] MEDS: ipratropium-albuterol 3 mL Neb INHALATION (07:58)
[2020-05-10] MEDS: FUROsemide 10 mg/mL SDV 2mL 20 MG IVP (08:31)
[2020-05-10] MEDS: tamsulosin 0.4 mg Capsule PO (08:31)
[2020-05-10] MEDS: enoxaparin 100 mg/mL Syringe 90 MG SUBCUT ×2 (08:31→20:13)
[2020-05-10] MEDS: dexamethasone 4 mg Tablet 6 MG PO (08:31)
[2020-05-10] MEDS: nystatin 100,000 unit/mL UDC 5 mL 500000 UNIT PO ×2 (08:31→20:12)
[2020-05-10 08:43] LABS: Basophils % 0.3 %; Hematocrit 55.5 % (42.0-52.0); Hemoglobin 18.4 g/dL (11.7-16.6); Lymphocytes # 0.9 10^3/uL (0.8-4.8); Lymphocytes % 7.6 %; Mean Corpuscular HGB Conc 33.2 g/dL (30.0-36.0); Mean Corpuscular Hemoglobin 29.8 pg (28.0-34.0); Mean Platelet Volume 10.5 fL (7.4-10.4); Monocytes # 0.2 10^3/uL (0.2-0.9); Monocytes % 1.3 %; Neutrophils # 10.89 10^3/uL (1.8-7.7); Neutrophils % 87.7 %; Nucleated Red Blood Cells % 0 %; Platelet Count 331 10^3/cmm (130-400); Red Blood Count 6.17 10^6/uL (4.1-5.3); Red Cell Distribution Width 13.4 % (12.1-15.1); White Blood Count 12.4 10^3/uL (4.0-10.0)
[2020-05-10 09:01] LABS: Anion Gap 17.1 (5-19); Blood Urea Nitrogen 38 mg/dL (8-23); Calcium 8.9 mg/dL (8.5-10.5); Carbon Dioxide 26 mmol/L (22-29); Chloride 97 mmol/L (98-107); Glucose 138 mg/dL (65-115); Osmolality Calculated 293 mOsm/kg (285-295); Potassium 4.1 mmol/L (3.5-5.1); Sodium 136 mmol/L (136-145)
--- NOTE | 2020-05-10 10:12 | XR_ITS ---
WS: [id number] XR chest 1V portable [id number] REASON FOR EXAM: respiratory distress FINDINGS: Increased density and volume of multifocal infiltrates in both lungs compared to 05/08/2020. No new finding. XR/XR chest 1V portable [id number] IMPRESSION: Progression of pneumonitis as above.
--- NOTE | 2020-05-10 10:43 | PM.PN ---
Subjective Subjective: Interval history: 84-year-old male with past medical history significant for anxiety, psoriasis, and recent treatment for shingles around right eye treat with valacyclovir and prednisone who has presented to hospital with respiratory distress. Apparently these symptoms were ongoing for over a week. He was seen by his primary care physician and started antibiotics which did not prove to be effective. Patient apparently also noted a cough generalized weakness and exposure to COVID. while at primary care office on 05/03 he was given Solu-Medrol 80 mg IM x1 in addition to Decadron 4 mg x 1. shortly after presented to the emergency room where he was found to be hypoxic. Laboratory workup on arrival showed a WBC of 8.0, hemoglobin 17.1, hematocrit of 51.2 and a platelet count of 177. Sodium 133, potassium 4.1, chloride 96, bicarb 24, BUN 26 and creatinine of 1.1. Rapid COVID antigen was negative. PCR was sent and pending. Chest x-ray showed new bilateral opacification consistent with COVID-19. CT angio was performed which did not show any evidence of pulmonary embolism however bilateral patchy ground-glass interstitial lung disease predominantly peripheral in distribution was noted. Patient was started on Remdesivir 5 day protocol and decadron 6 mg PO daily. Patient has been requiring 2L of 02 via NC initially however this increased to 10L on 05/06. Patient was noted to have increase work of breathing as well. At times he was non-compliant with supplemental oxygen. Remained afebrile . Subjective 05/05 Patient complaining of diarrhea. No Fever, chills, nausea or vomiting. 05/06 Noted to have worsening respiratory distress. O2 requirement increased from 2L to 10L. Patient noted difficult breathing. No fever, nausea or vomiting. Diarrhea episodes improved. 05/07 Continued to have worsening respiratory distress. Oxygen requirements increased to 15 L. stated he was feeling very short of breath with any type exertion. No fevers overnight. Diarrhea has resolved. Oral intake adequate. 05/08 Patient overnight noted improvement in respiratory status. O2 was being weaned. No fever. Was sitting in chair eating lunch. No distress. 05/09 Overnight patient was noted to have increasing o2 requirement and dyspnea. Increased to 15L . No fever, chills, nausea, vomiting or diarrhea. Denied chest pain 05/10 He was placed on high flow yesterday. Started to feel very anxious and confused. urine out was noted to be low. no fever, chills, nausea or vomting. Vitals/I&O/Wt Last Vital Signs Temp 98.2 F 05/10/20 16:01 Pulse 85 05/10/20 18:00 Resp 26 H 05/10/20 18:00 BP 131/50 05/10/20 18:00 Pulse Ox 93 05/10/20 18:00 05/10/20 05/10/20 05/10/20 06:59 14:59 22:59 Intake Total 500 / 1625 420 / 420 Output Total 125 / 1585 675 / 675 300 / 975 Balance 375 / 40 -255 / -255 -300 / -555 Physical Exam Narrative: EXAM NARRATIVE: General : Mild distress on heated high flow HEENT : Grossly unremarkable Chest : Non-labored respiration Abd: Non-distended Ext : No edema Urinary Catheter Management^: Flores: Cath Placed During This Visit: yes Reason for Continuing Indwelling Catheter: Accurate Measurement of Urinary Output in Critically Ill Patients Urinary Catheter Date of Insertion: 05/10/20 Urinary Catheter Time of Insertion: 10:38 Data : 05/10/20 08:20 05/10/20 08:20 Micro: Microbiology 05/10/20 09:30 Gram Stain - Final Sputum - Expectorated Sputum A&P Assessment and plan (1) Acute respiratory failure with hypoxia: Status: Acute (2) Pneumonia due to COVID-19 virus: Status: Acute Acute Hypoxic Respiratory Failure due to COVID-19 Pneumonia - Continue Decadron 6 mg PO - changed to BID - decreased to daily due to anxious /mental status change - Remdesivir completed on 05/07/2020 - Patient is DNI/DNR - Unable to Prone - CT PE protocol - negative for PE - Continue Lovenox 90 mg SQ BID due to increase risk of thrombo-embolism - 05/08 Chest x-ray - > Increasing bilateral bilateral infiltrates. - 05/09 - ABG - Ph 7.49, PCO2 31.2, p02 44.6, HCO3 24 on 6L via NC - Continue Heated High flow - 40L with Fio2 60% - Titrate to keep o2 > 92 - Continue bronchodilators - Lasix 20 mg IV daily - will hold on additional - dry - Chest -xray in am - ABG PRN - May consider Bipap if increasing Fio2 Urinary Retention due to BPH - Flores placed - 700 cc output noted - Flomax 0.4 mg PO daily Acute encephalopathy / Worsening anxiety - Possibly due to decadron - Dose decreased to daily - If further worsening will need to hold - Ativan 0.5 mg IV q8hr PRN Oral Thrush - Nystatin 500,000 Swish/swallow QID started Viral enteritis - resolved - Loperimide 2 mg PRN Recent Shingles - Resolved - S/p prednisone/valtrex tx DVT ppx - Lovenox 90 mg SQ BID Additional A&P Information Prognosis : Guarded Attestations Medical Necessity Statement*: Will require further hospitalization for management of respiratory failure Time Spent in Patient Care: Greater than 35 minutes (>than 50% of time spent in counselling and/or direct pt care on unit). 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
[2020-05-10 10:56] LABS: Bilirubin Urine Neg (Negative); Blood Urine Neg (Negative); Glucose Urine UA Norm (Normal); Ketones Urine Negative (Negative); Leukocyte Esterase Urine Negative (Negative); Nitrate Urine Negative (Negative); Protein Urine Neg (Negative); Urine Appearance SL Hazy (CLEAR); Urine Color Straw (Yellow); Urobilinogen Urine Norm (Negative); pH Urine 6.5 (5-7)
[2020-05-10 11:09] LABS: Squamous Epithelial Cell Urine 0-4 /hpf (0-5)
[2020-05-10 11:10] LABS: Add Urine Culture? No; Bacteria Urine 1+ /hpf
[2020-05-10] MEDS: levalbuterol 0.63 mg/3 mL Neb INHALATION ×2 (11:20→15:05)
--- NOTE | 2020-05-10 14:52 | PC.OT ---
OT note: Discussed with nursing and will hold pt at this time as he is resting and requiring higher level O2.
--- NOTE | 2020-05-10 16:19 | DCPLANNER ---
Updated IM and then phoned Daughter; Cynthia - [phone]. She appreciates the call.
[2020-05-10 18:58] LABS: Magnesium 2.6 mg/dL (1.7-2.3); Phosphorus 3.4 mg/dL (2.5-4.5)
[2020-05-10] MEDS: acetaminophen 325 mg Tablet PO (22:15)
[2020-05-11] VITALS (34 sets, daily range): BP systolic 78–137; BP diastolic 48–80; PULSE 58–151; RESP 16–38; TEMP 36.7–37.4; O2SAT 90–96
[2020-05-11 05:33] LABS: Basophils % 0.4 %; Eosinophils % 0.2 %; Hematocrit 49.5 % (42.0-52.0); Hemoglobin 16.4 g/dL (11.7-16.6); Lymphocytes # 0.5 10^3/uL (0.8-4.8); Mean Corpuscular HGB Conc 33.1 g/dL (30.0-36.0); Mean Corpuscular Hemoglobin 29.7 pg (28.0-34.0); Mean Corpuscular Volume 89.7 fL (80-94); Mean Platelet Volume 10.3 fL (7.4-10.4); Monocytes # 0.2 10^3/uL (0.2-0.9); Monocytes % 2.2 %; Neutrophils # 8.55 10^3/uL (1.8-7.7); Neutrophils % 86.6 %; Nucleated Red Blood Cells % 0 %; Platelet Count 339 10^3/cmm (130-400); Red Blood Count 5.52 10^6/uL (4.1-5.3); Red Cell Distribution Width 13.4 % (12.1-15.1); White Blood Count 9.9 10^3/uL (4.0-10.0)
[2020-05-11 05:45] LABS: Magnesium 2.4 mg/dL (1.7-2.3); Phosphorus 3.3 mg/dL (2.5-4.5)
[2020-05-11 05:47] LABS: Anion Gap 14.1 (5-19); Blood Urea Nitrogen 42 mg/dL (8-23); Calcium 8.3 mg/dL (8.5-10.5); Carbon Dioxide 27 mmol/L (22-29); Chloride 97 mmol/L (98-107); Glucose 117 mg/dL (65-115); Osmolality Calculated 290 mOsm/kg (285-295); Potassium 4.1 mmol/L (3.5-5.1); Sodium 134 mmol/L (136-145)
[2020-05-11 06:17] LABS: Slide Review Slide Review Perform
[2020-05-11] MEDS: enoxaparin 100 mg/mL Syringe 90 MG SUBCUT ×2 (08:03→20:41)
[2020-05-11] MEDS: nystatin 100,000 unit/mL UDC 5 mL 500000 UNIT PO ×4 (08:03→20:41)
[2020-05-11] MEDS: tamsulosin 0.4 mg Capsule PO (08:03)
[2020-05-11] MEDS: dexamethasone 4 mg Tablet 6 MG PO (08:03)
[2020-05-11] MEDS: levalbuterol 0.63 mg/3 mL Neb INHALATION ×2 (08:24→20:14)
--- NOTE | 2020-05-11 11:09 | DCPLANNER ---
IMM completed on 05/11/20 @ [id number]. Pt is in VICU and pt's , Sherrill was called and reviewed rights with her.
--- NOTE | 2020-05-11 11:20 | PM.PN ---
Subjective Subjective: Interval history: Patient reports feeling better this morning. He is on 45 L 50% FiO2 heated high flow saturating in the mid 90s. Reports that his diarrhea resolved. Reports that his oral intake is gradually improving he denies being nauseous. Remains afebrile. He completed course of remdesivir. His x-ray yesterday shows worsening pneumonitis. Vitals/I&O/Wt Last Vital Signs Temp 98.1 F 05/11/20 08:00 Pulse 93 05/11/20 09:00 Resp 23 H 05/11/20 09:00 BP 132/73 05/11/20 09:00 Pulse Ox 94 05/11/20 09:00 05/10/20 05/11/20 05/11/20 22:59 06:59 14:59 Intake Total 500 / 920 480 / 1400 270 / 270 Output Total 300 / 975 650 / 1625 Balance 200 / -55 -170 / -225 270 / 270 Physical Exam Const: COMMON NORMALS: no acute distress and patient oriented x3 Resp: COMMON NORMALS: normal respiratory effort OTHER: Bibasilar Rales. Cardio: COMMON NORMALS: regular rate, regular rhythm and S2 normal heart sound present RATE: regular rate RHYTHM: regular rhythm HEART SOUNDS: S2 normal heart sound present OTHER: No lower extremity edema GI: COMMON NORMALS: Normal to inspection, nondistended, normoactive bowel sounds present, Soft to palpation and non-tender PALPATION: Yes Soft to palpation Neuro: COMMON NORMALS: patient oriented x3 and no focal motor deficits Urinary Catheter Management^: Flores: Cath Placed During This Visit: yes Reason for Continuing Indwelling Catheter: Accurate Measurement of Urinary Output in Critically Ill Patients Urinary Catheter Date of Insertion: 05/10/20 Urinary Catheter Time of Insertion: 10:38 Data : 05/11/20 05:02 05/11/20 05:02 Micro: Microbiology 05/10/20 09:30 Gram Stain - Final Sputum - Expectorated Sputum Sputum Culture - Preliminary A&P Assessment and plan (1) Acute respiratory failure with hypoxia: Status: Acute (2) Pneumonia due to COVID-19 virus: Status: Acute Acute Hypoxic Respiratory Failure due to COVID-19 Pneumonia - Continue Decadron 6 mg PO - changed to BID - decreased to daily due to anxious /mental status change - Remdesivir completed on 05/07/2020 - Patient is DNI/DNR - Unable to Prone - CT PE protocol - negative for PE - Continue Lovenox 90 mg SQ BID due to increase risk of thrombo-embolism - 05/08 Chest x-ray - > Increasing bilateral bilateral infiltrates. - 05/09 - ABG - Ph 7.49, PCO2 31.2, p02 44.6, HCO3 24 on 6L via NC - Continue Heated High flow - 40L with Fio2 60% - Titrate to keep o2 > 92 - Continue bronchodilators - Lasix 20 mg IV daily - will hold on additional - dry - Chest -xray in am - ABG PRN - May consider Bipap if increasing Fio2 Urinary Retention due to BPH - Flores placed - 700 cc output noted - Flomax 0.4 mg PO daily Acute encephalopathy / Worsening anxiety - Possibly due to decadron - Dose decreased to daily - If further worsening will need to hold - Ativan 0.5 mg IV q8hr PRN Oral Thrush - Nystatin 500,000 Swish/swallow QID started Viral enteritis - resolved - Loperimide 2 mg PRN Recent Shingles - Resolved - S/p prednisone/valtrex tx DVT ppx - Lovenox 90 mg SQ BID PLAN: Continue dexamethasone. Bacterial coinfection cannot be completely ruled out. Will start patient on ceftriaxone and azithromycin. Continue close ICU monitoring and treatment. Continue therapeutic anticoagulation for now in view of high oxygen demand. Additional A&P Information Prognosis : Guarded Attestations Medical Necessity Statement*: Patient with COVID-19 pneumonia and acute hypoxic respiratory failure requires close ICU monitoring and treatment. 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 Roger Diagnoses Acute respiratory failure with hypoxia J96.01 Pneumonia due to COVID-19 virus U07.1; J12.89
[2020-05-11] MEDS: cefTRIAXone 1,000 MG in sodium chloride 0.9% (plus) 50 ML 100 MG IV (11:43)
[2020-05-11] MEDS: azithromycin 500 MG in sodium chloride 0.9% 250 ML 250 MG IV (12:25)
[2020-05-12] VITALS (27 sets, daily range): BP systolic 97–130; BP diastolic 54–83; PULSE 63–103; RESP 14–31; TEMP 36.4–36.9; O2SAT 88–94
[2020-05-12] MEDS: LORazepam 2 mg/mL INJ 1 mL 0.5 MG IVP ×3 (01:01→20:55)
[2020-05-12 04:25] LABS: Basophils # 0.1 10^3/uL (0.0-0.1); Basophils % 0.5 %; Eosinophils % 0.2 %; Hematocrit 47.3 % (42.0-52.0); Hemoglobin 15.5 g/dL (11.7-16.6); Lymphocytes # 0.5 10^3/uL (0.8-4.8); Lymphocytes % 5.3 %; Mean Corpuscular HGB Conc 32.8 g/dL (30.0-36.0); Mean Corpuscular Hemoglobin 29.4 pg (28.0-34.0); Mean Corpuscular Volume 89.8 fL (80-94); Mean Platelet Volume 10.5 fL (7.4-10.4); Monocytes # 0.2 10^3/uL (0.2-0.9); Monocytes % 2.2 %; Neutrophils # 8.62 10^3/uL (1.8-7.7); Neutrophils % 85.7 %; Nucleated Red Blood Cells % 0 %; Platelet Count 345 10^3/cmm (130-400); Red Blood Count 5.27 10^6/uL (4.1-5.3); Red Cell Distribution Width 13.3 % (12.1-15.1); White Blood Count 10.1 10^3/uL (4.0-10.0)
[2020-05-12 04:55] LABS: Magnesium 2.3 mg/dL (1.7-2.3); Phosphorus 2.5 mg/dL (2.5-4.5)
[2020-05-12 05:46] LABS: Slide Review Slide Review Perform
[2020-05-12 06:02] LABS: Anion Gap 13.5 (5-19); Blood Urea Nitrogen 42 mg/dL (8-23); Calcium 8.1 mg/dL (8.5-10.5); Carbon Dioxide 26 mmol/L (22-29); Chloride 99 mmol/L (98-107); Creatinine Clr Calc Pharmacy 81.5959; Glucose 132 mg/dL (65-115); Osmolality Calculated 290 mOsm/kg (285-295); Potassium 4.5 mmol/L (3.5-5.1); Sodium 134 mmol/L (136-145)
[2020-05-12] MEDS: dexamethasone 4 mg Tablet 6 MG PO (08:34)
[2020-05-12] MEDS: nystatin 100,000 unit/mL UDC 5 mL 500000 UNIT PO ×4 (08:34→20:54)
[2020-05-12] MEDS: enoxaparin 100 mg/mL Syringe 90 MG SUBCUT ×2 (08:34→20:54)
[2020-05-12] MEDS: tamsulosin 0.4 mg Capsule PO (08:34)
[2020-05-12] MEDS: levalbuterol 0.63 mg/3 mL Neb INHALATION ×2 (09:34→14:09)
--- NOTE | 2020-05-12 10:34 | P.PN_ITS ---
Subjective Subjective: Interval history: Patient denies any complaints this morning. His oxygen had to be increased to 40% FiO2 at 40 L. He thinks that his swallowing improved. He ate 50% of his breakfast. Vitals/I&O/Wt Last Vital Signs Temp 97.6 F 05/12/20 08:00 Pulse 100 05/12/20 09:39 Resp 20 H 05/12/20 09:39 BP 108/65 05/12/20 08:00 Pulse Ox 92 05/12/20 09:39 05/11/20 05/12/20 05/12/20 22:59 06:59 14:59 Intake Total 240 / 800 50 / 850 240 / 240 Output Total 250 / 525 500 / 500 Balance -10 / 275 50 / 325 -260 / -260 Physical Exam Const: COMMON NORMALS: no acute distress and patient oriented x3 Resp: COMMON NORMALS: normal respiratory effort OTHER: Bibasilar Rales. Cardio: COMMON NORMALS: regular rate, regular rhythm and S2 normal heart sound present RATE: regular rate RHYTHM: regular rhythm HEART SOUNDS: S2 normal heart sound present OTHER: No lower extremity edema GI: COMMON NORMALS: Normal to inspection, nondistended, normoactive bowel sounds present, Soft to palpation and non-tender PALPATION: Yes Soft to palpation Neuro: COMMON NORMALS: patient oriented x3 and no focal motor deficits Urinary Catheter Management^: Flores: Cath Placed During This Visit: yes Reason for Continuing Indwelling Catheter: Accurate Measurement of Urinary Output in Critically Ill Patients Urinary Catheter Date of Insertion: 05/10/20 Urinary Catheter Time of Insertion: 10:38 Data : 05/12/20 03:25 05/12/20 03:25 Micro: Microbiology 05/10/20 09:30 Gram Stain - Final Sputum - Expectorated Sputum Sputum Culture - Preliminary A&P Assessment and plan (1) Acute respiratory failure with hypoxia: Status: Acute (2) Pneumonia due to COVID-19 virus: Status: Acute Acute Hypoxic Respiratory Failure due to COVID-19 Pneumonia - Continue Decadron 6 mg PO - changed to BID - decreased to daily due to anxious /mental status change - Remdesivir completed on 05/07/2020 - Patient is DNI/DNR - Unable to Prone - CT PE protocol - negative for PE - Continue Lovenox 90 mg SQ BID due to increase risk of thrombo-embolism - 05/08 Chest x-ray - > Increasing bilateral bilateral infiltrates. - 05/09 - ABG - Ph 7.49, PCO2 31.2, p02 44.6, HCO3 24 on 6L via NC - Continue Heated High flow - 40L with Fio2 60% - Titrate to keep o2 > 92 - Continue bronchodilators - Lasix 20 mg IV daily - will hold on additional - dry - Chest -xray in am - ABG PRN - May consider Bipap if increasing Fio2 Urinary Retention due to BPH - Flores placed - 700 cc output noted - Flomax 0.4 mg PO daily Acute encephalopathy / Worsening anxiety - Possibly due to decadron - Dose decreased to daily - If further worsening will need to hold - Ativan 0.5 mg IV q8hr PRN Oral Thrush - Nystatin 500,000 Swish/swallow QID started Viral enteritis - resolved - Loperimide 2 mg PRN Recent Shingles - Resolved - S/p prednisone/valtrex tx DVT ppx - Lovenox 90 mg SQ BID PLAN: Continue current monitoring and treatment including PT/OT. Continue ceftriaxone and azithromycin Add Protonix for GI protection. Inflammatory markers, CBC CMP in a.m. Additional A&P Information Prognosis : Guarded Attestations Medical Necessity Statement*: Patient with acute hypoxic respiratory failure requires close ICU monitoring and treatment. 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
[2020-05-12] MEDS: cefTRIAXone 1,000 MG in sodium chloride 0.9% (plus) 50 ML 100 MG IV (11:54)
[2020-05-12] MEDS: azithromycin 500 MG in sodium chloride 0.9% 250 ML 250 MG IV (13:30)
[2020-05-12] MEDS: pantoprazole DR 40 mg Tablet PO (17:53)
--- NOTE | 2020-05-12 19:10 | PC.NURSE ---
Shift summary: Pt alert and oriented. He called his for paper towels, toilet paper and other things. His dropped these things off. He is on heated high flow , he has had his oxygen decreased to 36% an 35 liters. He was able to get out of bed to chair today. He did de-sat, but was able to recover in 10 minutes. He has ambulated to the toilet, he had a Bm. He had a very good nap this afternoon after al this activity. Unre output of 350 ml this shift. Report given to CARLOS Ribeiro.
[2020-05-13] VITALS (23 sets, daily range): BP systolic 106–138; BP diastolic 58–79; PULSE 57–93; RESP 16–27; TEMP 36.6–37.1; O2SAT 84–94
[2020-05-13 06:02] LABS: Basophils # 0.1 10^3/uL (0.0-0.1); Basophils % 0.7 %; Eosinophils % 0.2 %; Hematocrit 51.5 % (42.0-52.0); Hemoglobin 16.6 g/dL (11.7-16.6); Lymphocytes # 0.7 10^3/uL (0.8-4.8); Lymphocytes % 5.9 %; Mean Corpuscular HGB Conc 32.2 g/dL (30.0-36.0); Mean Corpuscular Hemoglobin 29.3 pg (28.0-34.0); Mean Corpuscular Volume 90.8 fL (80-94); Mean Platelet Volume 10.9 fL (7.4-10.4); Monocytes # 0.3 10^3/uL (0.2-0.9); Monocytes % 2.7 %; Neutrophils # 10.31 10^3/uL (1.8-7.7); Neutrophils % 84.4 %; Nucleated Red Blood Cells % 0 %; Platelet Count 355 10^3/cmm (130-400); Red Blood Count 5.67 10^6/uL (4.1-5.3); Red Cell Distribution Width 13.4 % (12.1-15.1); White Blood Count 12.2 10^3/uL (4.0-10.0)
[2020-05-13 06:14] LABS: D Dimer 2.61 ug/mIFEU (0-0.59)
[2020-05-13 06:26] LABS: Alanine Aminotransferase 32 U/L (0-41); Albumin Level 2.6 g/dL (3.5-5.2); Alkaline Phosphatase 45 IU/L (40-130); Blood Urea Nitrogen 33 mg/dL (8-23); Calcium 8.4 mg/dL (8.5-10.5); Carbon Dioxide 25 mmol/L (22-29); Chloride 98 mmol/L (98-107); Creatinine Clr Calc Pharmacy 81.5959; Glucose 102 mg/dL (65-115); Osmolality Calculated 287 mOsm/kg (285-295); Sodium 135 mmol/L (136-145); Total Bilirubin 0.3 mg/dL (0.15-1.2); Total Protein 5.6 g/dL (6.6-8.7)
[2020-05-13 06:29] LABS: Anion Gap 16.8 (5-19); Aspartate Amino Transferase 26 U/L (0-40); Potassium 4.8 mmol/L (3.5-5.1)
[2020-05-13 06:30] LABS: C Reactive Protein 7.9 mg/L (0.0-4.9)
--- NOTE | 2020-05-13 06:56 | PM.PN ---
Subjective Subjective: Interval history: Patient denies shortness of breath or chest pain. He is oxygen slightly improved and he is down to 35 L 35% FiO2. Imodium was started yesterday because of persistent diarrhea and he currently feels much better from that regard. He denies chest pain or abdominal pain. Overall appears to be more energetic this morning. He denies chest pain or abdominal pain. Vitals/I&O/Wt Last Vital Signs Temp 97.9 F 05/13/20 04:01 Pulse 61 05/13/20 05:19 Resp 18 05/13/20 04:01 BP 112/64 05/13/20 04:01 Pulse Ox 91 05/13/20 04:01 05/12/20 05/12/20 05/13/20 14:59 22:59 06:59 Intake Total 240 / 240 600 / 840 Output Total 500 / 500 350 / 850 450 / 1300 Balance -260 / -260 250 / -10 -450 / -460 Physical Exam Const: COMMON NORMALS: no acute distress and patient oriented x3 Resp: COMMON NORMALS: normal respiratory effort OTHER: Bibasilar Rales. Cardio: COMMON NORMALS: regular rate, regular rhythm and S2 normal heart sound present RATE: regular rate RHYTHM: regular rhythm HEART SOUNDS: S2 normal heart sound present OTHER: No lower extremity edema GI: COMMON NORMALS: Normal to inspection, nondistended, normoactive bowel sounds present, Soft to palpation and non-tender PALPATION: Yes Soft to palpation Neuro: COMMON NORMALS: patient oriented x3 and no focal motor deficits Urinary Catheter Management^: Flores: Cath Placed During This Visit: yes Reason for Continuing Indwelling Catheter: Accurate Measurement of Urinary Output in Critically Ill Patients Urinary Catheter Date of Insertion: 05/10/20 Urinary Catheter Time of Insertion: 10:38 Data : 05/12/20 03:25 05/13/20 04:45 Micro: Microbiology 05/10/20 09:30 Gram Stain - Final Sputum - Expectorated Sputum Sputum Culture - Final A&P Assessment and plan (1) Acute respiratory failure with hypoxia: Status: Acute (2) Pneumonia due to COVID-19 virus: Status: Acute Acute Hypoxic Respiratory Failure due to COVID-19 Pneumonia - Continue Decadron 6 mg PO - changed to BID - decreased to daily due to anxious /mental status change - Remdesivir completed on 05/07/2020 - Patient is DNI/DNR - Unable to Prone - CT PE protocol - negative for PE - Continue Lovenox 90 mg SQ BID due to increase risk of thrombo-embolism - 05/08 Chest x-ray - > Increasing bilateral bilateral infiltrates. - 05/09 - ABG - Ph 7.49, PCO2 31.2, p02 44.6, HCO3 24 on 6L via NC - Continue Heated High flow - 40L with Fio2 60% - Titrate to keep o2 > 92 - Continue bronchodilators - Lasix 20 mg IV daily - will hold on additional - dry - Chest -xray in am - ABG PRN - May consider Bipap if increasing Fio2 Urinary Retention due to BPH - Flores placed - 700 cc output noted - Flomax 0.4 mg PO daily Acute encephalopathy / Worsening anxiety - Possibly due to decadron - Dose decreased to daily - If further worsening will need to hold - Ativan 0.5 mg IV q8hr PRN Oral Thrush - Nystatin 500,000 Swish/swallow QID started Viral enteritis - resolved - Loperimide 2 mg PRN Recent Shingles - Resolved - S/p prednisone/valtrex tx DVT ppx - Lovenox 90 mg SQ BID PLAN: I will continue current monitoring and treatment including antibiotics, dexamethasone and therapeutic anticoagulation. Gradually wean off oxygen as tolerated Continue physical therapy. We will repeat chest x-ray in a day or 2. Awaiting CBC this morning. Additional A&P Information Prognosis : Guarded Attestations Medical Necessity Statement*: Patient with COVID-19 pneumonia with increased oxygen demand requiring close ICU monitoring and treatment. 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
[2020-05-13 07:13] LABS: Magnesium 2.5 mg/dL (1.7-2.3); Phosphorus 2.7 mg/dL (2.5-4.5)
[2020-05-13 07:20] LABS: Slide Review Slide Review Perform
[2020-05-13 07:24] LABS: Ferritin 490 ng/mL (30-400)
[2020-05-13 07:25] LABS: Lactate Dehydrogenase 378 U/L (135-225)
--- NOTE | 2020-05-13 08:18 | PC.SOCIAL ---
IMM Update Pg.2 of IMM updated over the phone with patient's daughter.
[2020-05-13] MEDS: dexamethasone 4 mg Tablet 6 MG PO (09:03)
[2020-05-13] MEDS: tamsulosin 0.4 mg Capsule PO (09:04)
[2020-05-13] MEDS: enoxaparin 100 mg/mL Syringe 90 MG SUBCUT ×2 (09:04→20:04)
[2020-05-13] MEDS: pantoprazole DR 40 mg Tablet PO ×2 (09:04→17:48)
[2020-05-13] MEDS: nystatin 100,000 unit/mL UDC 5 mL 500000 UNIT PO ×4 (09:04→20:04)
[2020-05-13 11:41] LABS: Glucose Point of Care 105 mg/dL (70-110)
[2020-05-13] MEDS: cefTRIAXone 1,000 MG in sodium chloride 0.9% (plus) 50 ML 100 MG IV (12:21)
[2020-05-13] MEDS: azithromycin 500 MG in sodium chloride 0.9% 250 ML 250 MG IV (14:34)
[2020-05-13 17:28] LABS: Glucose Point of Care 111 mg/dL (70-110)
[2020-05-14] VITALS (25 sets, daily range): BP systolic 112–147; BP diastolic 57–77; PULSE 62–118; RESP 16–20; TEMP 37–37.2; O2SAT 81–97
[2020-05-14] MEDS: levalbuterol 0.63 mg/3 mL Neb INHALATION ×5 (02:45→21:06)
[2020-05-14 04:43] LABS: Basophils # 0.1 10^3/uL (0.0-0.1); Basophils % 0.7 %; Eosinophils % 0.1 %; Hematocrit 49.3 % (42.0-52.0); Hemoglobin 16.3 g/dL (11.7-16.6); Lymphocytes # 1.1 10^3/uL (0.8-4.8); Lymphocytes % 8.6 %; Mean Corpuscular HGB Conc 33.1 g/dL (30.0-36.0); Mean Corpuscular Hemoglobin 29.6 pg (28.0-34.0); Mean Corpuscular Volume 89.5 fL (80-94); Mean Platelet Volume 10.5 fL (7.4-10.4); Monocytes # 0.4 10^3/uL (0.2-0.9); Neutrophils # 10.42 10^3/uL (1.8-7.7); Nucleated Red Blood Cells % 0 %; Platelet Count 374 10^3/cmm (130-400); Red Blood Count 5.51 10^6/uL (4.1-5.3); Red Cell Distribution Width 13.3 % (12.1-15.1); White Blood Count 12.8 10^3/uL (4.0-10.0)
[2020-05-14 05:10] LABS: Alanine Aminotransferase 41 U/L (0-41); Albumin Level 2.7 g/dL (3.5-5.2); Alkaline Phosphatase 47 IU/L (40-130); Aspartate Amino Transferase 26 U/L (0-40); Blood Urea Nitrogen 32 mg/dL (8-23); Calcium 8.4 mg/dL (8.5-10.5); Carbon Dioxide 26 mmol/L (22-29); Chloride 100 mmol/L (98-107); Creatinine Clr Calc Pharmacy 81.5959; Globulin 3.1 g/dL (1.3-4.6); Glucose 100 mg/dL (65-115); Osmolality Calculated 285 mOsm/kg (285-295); Sodium 134 mmol/L (136-145); Total Bilirubin 0.5 mg/dL (0.15-1.2); Total Protein 5.8 g/dL (6.6-8.7)
[2020-05-14 05:12] LABS: Anion Gap 12.5 (5-19); Potassium 4.5 mmol/L (3.5-5.1)
[2020-05-14 08:12] LABS: Neutrophils % 87.6 %; Slide Review Slide Review Perform
[2020-05-14] MEDS: enoxaparin 100 mg/mL Syringe 90 MG SUBCUT ×2 (08:38→22:20)
[2020-05-14] MEDS: tamsulosin 0.4 mg Capsule PO (08:38)
[2020-05-14] MEDS: pantoprazole DR 40 mg Tablet PO ×2 (08:38→18:21)
[2020-05-14] MEDS: dexamethasone 4 mg Tablet 6 MG PO (08:38)
--- NOTE | 2020-05-14 09:24 | PM.PN ---
Subjective Subjective: Interval history: Patient has been short of breath earlier today and improved with breathing treatment. He is on 30 L FiO2 35% heated high flow saturating 93% this morning. Reports that appetite and oral intake improving. He gets very short of breath with minimal movement. Vitals/I&O/Wt Last Vital Signs Temp 98.6 F 05/14/20 06:00 Pulse 78 05/14/20 08:14 Resp 16 05/14/20 08:14 BP 123/67 05/14/20 06:00 Pulse Ox 93 05/14/20 08:14 05/13/20 05/14/20 05/14/20 22:59 06:59 14:59 Intake Total 320 / 800 320 / 320 Output Total 1100 / 1100 350 / 350 Balance 320 / 800 -1100 / -300 -30 / -30 Physical Exam Const: COMMON NORMALS: no acute distress and patient oriented x3 Resp: COMMON NORMALS: normal respiratory effort OTHER: Bibasilar Rales. Cardio: COMMON NORMALS: regular rate, regular rhythm and S2 normal heart sound present RATE: regular rate RHYTHM: regular rhythm HEART SOUNDS: S2 normal heart sound present OTHER: No lower extremity edema GI: COMMON NORMALS: Normal to inspection, nondistended, normoactive bowel sounds present, Soft to palpation and non-tender PALPATION: Yes Soft to palpation Neuro: COMMON NORMALS: patient oriented x3 and no focal motor deficits Urinary Catheter Management^: Flores: Cath Placed During This Visit: yes Reason for Continuing Indwelling Catheter: Accurate Measurement of Urinary Output in Critically Ill Patients Urinary Catheter Date of Insertion: 05/10/20 Urinary Catheter Time of Insertion: 10:38 Data : 05/14/20 04:00 05/14/20 04:00 A&P Assessment and plan (1) Acute respiratory failure with hypoxia: Status: Acute (2) Pneumonia due to COVID-19 virus: Status: Acute Acute Hypoxic Respiratory Failure due to COVID-19 Pneumonia - Continue Decadron 6 mg PO - changed to BID - decreased to daily due to anxious /mental status change - Remdesivir completed on 05/07/2020 - Patient is DNI/DNR - Unable to Prone - CT PE protocol - negative for PE - Continue Lovenox 90 mg SQ BID due to increase risk of thrombo-embolism - 05/08 Chest x-ray - > Increasing bilateral bilateral infiltrates. - 12/14 - ABG - Ph 7.49, PCO2 31.2, p02 44.6, HCO3 24 on 6L via NC - Continue Heated High flow - 40L with Fio2 60% - Titrate to keep o2 > 92 - Continue bronchodilators - Lasix 20 mg IV daily - will hold on additional - dry - Chest -xray in am - ABG PRN - May consider Bipap if increasing Fio2 Urinary Retention due to BPH - Flores placed - 700 cc output noted - Flomax 0.4 mg PO daily Acute encephalopathy / Worsening anxiety - Possibly due to decadron - Dose decreased to daily - If further worsening will need to hold - Ativan 0.5 mg IV q8hr PRN Oral Thrush - Nystatin 500,000 Swish/swallow QID started Viral enteritis - resolved - Loperimide 2 mg PRN Recent Shingles - Resolved - S/p prednisone/valtrex tx DVT ppx - Lovenox 90 mg SQ BID PLAN: I will continue current monitoring and treatment including antibiotics, dexamethasone and therapeutic anticoagulation. Gradually wean off oxygen as tolerated Continue physical therapy. Encouraged oral intake Repeat chest x-ray in a.m. 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
[2020-05-14] MEDS: cefTRIAXone 1,000 MG in sodium chloride 0.9% (plus) 50 ML 100 MG IV (11:05)
[2020-05-14] MEDS: azithromycin 500 MG in sodium chloride 0.9% 250 ML 250 MG IV (11:06)
--- NOTE | 2020-05-14 14:58 | PC.OT ---
Patient declined therapy on this date, stating he had breathing treatment and did not want to upset his lungs at this time. Nursing notified.
[2020-05-14] MEDS: nystatin 100,000 unit/mL UDC 5 mL 500000 UNIT PO (22:21)
[2020-05-15] VITALS (19 sets, daily range): BP systolic 103–157; BP diastolic 60–84; PULSE 66–98; RESP 16–32; TEMP 36.7–37.2; O2SAT 87–96
[2020-05-15] MEDS: levalbuterol 0.63 mg/3 mL Neb INHALATION ×3 (00:05→07:45)
[2020-05-15 04:32] LABS: Basophils # 0.1 10^3/uL (0.0-0.1); Basophils % 0.5 %; Hemoglobin 15.6 g/dL (11.7-16.6); Lymphocytes # 0.8 10^3/uL (0.8-4.8); Lymphocytes % 5.7 %; Mean Corpuscular HGB Conc 33.2 g/dL (30.0-36.0); Mean Corpuscular Hemoglobin 29.7 pg (28.0-34.0); Mean Corpuscular Volume 89.5 fL (80-94); Mean Platelet Volume 10.2 fL (7.4-10.4); Monocytes # 0.6 10^3/uL (0.2-0.9); Monocytes % 4.6 %; Neutrophils # 11.45 10^3/uL (1.8-7.7); Neutrophils % 83.6 %; Nucleated Red Blood Cells % 0.1 %; Platelet Count 388 10^3/cmm (130-400); Red Blood Count 5.25 10^6/uL (4.1-5.3); Red Cell Distribution Width 13.4 % (12.1-15.1); White Blood Count 13.7 10^3/uL (4.0-10.0)
[2020-05-15 04:57] LABS: Alanine Aminotransferase 44 U/L (0-41); Albumin Level 2.6 g/dL (3.5-5.2); Alkaline Phosphatase 44 IU/L (40-130); Anion Gap 13.5 (5-19); Aspartate Amino Transferase 22 U/L (0-40); Blood Urea Nitrogen 29 mg/dL (8-23); Carbon Dioxide 25 mmol/L (22-29); Chloride 101 mmol/L (98-107); Creatinine Clr Calc Pharmacy 81.5959; Globulin 2.8 g/dL (1.3-4.6); Glucose 107 mg/dL (65-115); Osmolality Calculated 286 mOsm/kg (285-295); Potassium 4.5 mmol/L (3.5-5.1); Sodium 135 mmol/L (136-145); Total Bilirubin 0.4 mg/dL (0.15-1.2); Total Protein 5.4 g/dL (6.6-8.7)
--- NOTE | 2020-05-15 06:00 | XRR_ITS ---
PROCEDURE INFORMATION: Exam: XR Chest, 3 Views Exam date and time: 05/15/2020 1:40 PM Age: 84 years old Clinical indication: Shortness of breath; Additional info: Pneumonia TECHNIQUE: Imaging protocol: XR of the chest Views: 3 views. COMPARISON: CR XR chest 1V portable [id number] 05/10/2020 10:36 AM FINDINGS: Lungs: Hazy and reticular peripheral infiltrates bilaterally but more pronounced on the right appear relatively unchanged from 05/10/2020. Pleural space: Unremarkable. No pleural effusion. No pneumothorax. Heart/Mediastinum: Unremarkable. No cardiomegaly. Bones/joints: Unremarkable. XR/XR chest 2V insp/exp [id number] IMPRESSION: Bilateral infiltrates appear relatively unchanged.
[2020-05-15] MEDS: enoxaparin 100 mg/mL Syringe 90 MG SUBCUT ×2 (08:39→20:43)
[2020-05-15] MEDS: nystatin 100,000 unit/mL UDC 5 mL 500000 UNIT PO ×4 (08:39→20:43)
[2020-05-15] MEDS: tamsulosin 0.4 mg Capsule PO (08:40)
[2020-05-15] MEDS: pantoprazole DR 40 mg Tablet PO ×2 (08:40→17:54)
[2020-05-15] MEDS: dexamethasone 4 mg Tablet 6 MG PO (08:40)
--- NOTE | 2020-05-15 10:21 | PC.SOCIAL ---
IMM Updated Updated pt's , Sherrill, Pg 2 IMM, via phone. No questions voiced. Signed, dated, & timed copy to be scanned into chart.
[2020-05-15] MEDS: cefTRIAXone 1,000 MG in sodium chloride 0.9% (plus) 50 ML 100 MG IV (12:16)
[2020-05-15] MEDS: azithromycin 500 MG in sodium chloride 0.9% 250 ML 250 MG IV (12:24)
--- NOTE | 2020-05-15 14:15 | PM.PN ---
Subjective Subjective: Interval history: Patient reports feeling better this morning. His oxygen is down to 30 L at 30% FiO2 and he saturates 90%. Reports that his oral intake and appetite much improved. Vitals/I&O/Wt Last Vital Signs Temp 98.2 F 05/15/20 08:00 Pulse 84 05/15/20 12:01 Resp 20 H 05/15/20 12:01 BP 113/70 05/15/20 12:01 Pulse Ox 90 05/15/20 12:01 05/14/20 05/15/20 05/15/20 22:59 06:59 14:59 Intake Total 440 / 1380 120 / 1500 180 / 180 Output Total 500 / 1350 600 / 1950 Balance -60 / 30 -480 / -450 180 / 180 Physical Exam Const: COMMON NORMALS: no acute distress and patient oriented x3 Resp: COMMON NORMALS: normal respiratory effort OTHER: Bibasilar Rales. Cardio: COMMON NORMALS: regular rate, regular rhythm and S2 normal heart sound present RATE: regular rate RHYTHM: regular rhythm HEART SOUNDS: S2 normal heart sound present OTHER: No lower extremity edema GI: COMMON NORMALS: Normal to inspection, nondistended, normoactive bowel sounds present, Soft to palpation and non-tender PALPATION: Yes Soft to palpation Neuro: COMMON NORMALS: patient oriented x3 and no focal motor deficits Urinary Catheter Management^: Flores: Cath Placed During This Visit: yes Reason for Continuing Indwelling Catheter: Accurate Measurement of Urinary Output in Critically Ill Patients Urinary Catheter Date of Insertion: 05/10/20 Urinary Catheter Time of Insertion: 10:38 Data : 05/15/20 03:55 05/15/20 03:55 A&P Assessment and plan (1) Acute respiratory failure with hypoxia: Status: Acute (2) Pneumonia due to COVID-19 virus: Status: Acute Acute Hypoxic Respiratory Failure due to COVID-19 Pneumonia - Continue Decadron 6 mg PO - changed to BID - decreased to daily due to anxious /mental status change - Remdesivir completed on 05/07/2020 - Patient is DNI/DNR - Unable to Prone - CT PE protocol - negative for PE - Continue Lovenox 90 mg SQ BID due to increase risk of thrombo-embolism - 05/08 Chest x-ray - > Increasing bilateral bilateral infiltrates. - 05/09 - ABG - Ph 7.49, PCO2 31.2, p02 44.6, HCO3 24 on 6L via NC - Continue Heated High flow - 40L with Fio2 60% - Titrate to keep o2 > 92 - Continue bronchodilators - Lasix 20 mg IV daily - will hold on additional - dry - Chest -xray in am - ABG PRN - May consider Bipap if increasing Fio2 Urinary Retention due to BPH - Flores placed - 700 cc output noted - Flomax 0.4 mg PO daily Acute encephalopathy / Worsening anxiety - Possibly due to decadron - Dose decreased to daily - If further worsening will need to hold - Ativan 0.5 mg IV q8hr PRN Oral Thrush - Nystatin 500,000 Swish/swallow QID started Viral enteritis - resolved - Loperimide 2 mg PRN Recent Shingles - Resolved - S/p prednisone/valtrex tx DVT ppx - Lovenox 90 mg SQ BID PLAN: Continue antibiotics, dexamethasone and therapeutic anticoagulation. Gradually wean off oxygen as tolerated Patient will benefit from long-term care facility Additional A&P Information Prognosis : Guarded Attestations Medical Necessity Statement*: Patient with hypoxic respiratory failure due to COVID-19 infection requires close ICU monitoring and treatment. 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
[2020-05-16] VITALS (19 sets, daily range): BP systolic 123–149; BP diastolic 69–81; PULSE 63–153; RESP 13–31; TEMP 36.6–37.2; O2SAT 89–95
[2020-05-16] MEDS: levalbuterol 0.63 mg/3 mL Neb INHALATION (04:47)
[2020-05-16] MEDS: tamsulosin 0.4 mg Capsule PO (08:53)
[2020-05-16] MEDS: dexamethasone 4 mg Tablet 6 MG PO (08:53)
[2020-05-16] MEDS: enoxaparin 100 mg/mL Syringe 90 MG SUBCUT ×2 (08:53→21:14)
[2020-05-16] MEDS: nystatin 100,000 unit/mL UDC 5 mL 500000 UNIT PO ×2 (08:53→21:14)
[2020-05-16] MEDS: pantoprazole DR 40 mg Tablet PO ×2 (08:54→18:18)
--- NOTE | 2020-05-16 10:12 | P.PN_ITS ---
Subjective Subjective: Interval history: Patient was stable overnight. Was weaned down to 30% FiO2. Tolerating oral intake. Does continue to have respiratory distress on exertion. Medications: Reviewed: Yes Vitals/I&O/Wt Last Vital Signs Temp 97.9 F 05/16/20 04:01 Pulse 123 H 05/16/20 08:29 Resp 20 H 05/16/20 08:29 BP 139/75 05/16/20 06:00 Pulse Ox 92 05/16/20 08:29 05/15/20 05/16/20 05/16/20 22:59 06:59 14:59 Intake Total 450 / 880 200 / 1080 Output Total 450 / 450 550 / 1000 Balance 0 / 430 -350 / 80 Physical Exam Narrative: EXAM NARRATIVE: General : No sig distress on heated high flow at 30L HEENT : Grossly unremarkable Chest : Non-labored respiration Abd: Non-distended : Flores in place Ext : No edema Urinary Catheter Management^: Flores: Cath Placed During This Visit: yes Reason for Continuing Indwelling Catheter: Accurate Measurement of Urinary Output in Critically Ill Patients Urinary Catheter Date of Insertion: 05/10/20 Urinary Catheter Time of Insertion: 10:38 Data : 05/15/20 03:55 05/15/20 03:55 A&P Assessment and plan (1) Acute respiratory failure with hypoxia: Status: Acute (2) Pneumonia due to COVID-19 virus: Status: Acute (3) Anxiety: Status: Acute (4) Urinary retention: Status: Acute Acute Hypoxic Respiratory Failure due to COVID-19 Pneumonia - Remdesivir completed on 05/07/2020 - Patient is DNI/DNR - Unable to Prone - CT PE protocol - negative for PE - Continue Lovenox 90 mg SQ BID due to increase risk of thrombo-embolism - 05/08 Chest x-ray - > Increasing bilateral bilateral infiltrates. - Chest x-ray -> Bilateral infiltrates appear relatively unchanged. - Continue Heated High flow - 30L with Fio2 30% - Titrate to keep o2 > 88 - Continue to wean as tolerated - Continue Xopenex 0.63 INH Q4hr - Therapeutic anticoagulation - due to high risk - Lovenox 90mg SQ BID. - Started empirically on ceftriaxone 1g Q24hr plus Azithromycin 500mg IV daily on 05/11 - Pro-daniel ordered - will trend - sputum culture - ABG + Chest x-ray PRN - Slow to improve - Prolonged course - May consider checking COVID-19 Immunoglobulins Urinary Retention due to BPH - Flores in place - Flomax 0.4 mg PO daily Acute encephalopathy / Worsening anxiety - Possibly due to decadron - Dose decreased to daily - If further worsening will need to hold - Avoid over-sedation Oral Thrush - Nystatin 500,000 Swish/swallow QID Viral enteritis - resolved - Loperimide 2 mg PRN Recent Shingles - Resolved - S/p prednisone/valtrex tx DVT ppx - Lovenox 90 mg SQ BID Attestations Medical Necessity Statement*: Will need to continue current regimen unable oxygen levels can be weaned to acceptable levels on NC. May require SNF/LTAC at discharge. Time Spent in Patient Care: Greater than 35 minutes (>than 50% of time spent in counselling and/or direct pt care on unit) . 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
[2020-05-16] MEDS: azithromycin 500 MG in sodium chloride 0.9% 250 ML 250 MG IV (11:37)
[2020-05-16] MEDS: cefTRIAXone 1,000 MG in sodium chloride 0.9% (plus) 50 ML 100 MG IV (11:37)
[2020-05-17] VITALS (21 sets, daily range): BP systolic 105–154; BP diastolic 60–79; PULSE 58–100; RESP 13–29; TEMP 36.7–37.1; O2SAT 86–96
--- NOTE | 2020-05-17 06:14 | PC.NURSE ---
1900 ASSUMING CARE PT IS ALERT & ORIENTED. RESTING IN BED. CURRENTLY ON 4L NC.
--- NOTE | 2020-05-17 06:33 | PC.NURSE ---
SHIFT SUMMARY PT ALERT AND ORIENTED. 500 ML OUTPUT NORTH CATH. PT HAD COMPLAINTS OF DRY NASAL PASSAGES AND DRY LIPS. PUT LANOLIN AND BARRIER CREAM ON HIS LIPS. PATIENTS STATES IT HELPED A LITTLE. BREATHING TREATMENT AT 0500.
[2020-05-17] MEDS: levalbuterol 0.63 mg/3 mL Neb INHALATION ×2 (08:21→13:10)
[2020-05-17] MEDS: enoxaparin 100 mg/mL Syringe 90 MG SUBCUT ×2 (08:29→21:14)
[2020-05-17] MEDS: dexamethasone 4 mg Tablet 6 MG PO (08:30)
[2020-05-17] MEDS: pantoprazole DR 40 mg Tablet PO (08:31)
[2020-05-17] MEDS: tamsulosin 0.4 mg Capsule PO (08:31)
--- NOTE | 2020-05-17 11:25 | PC.SOCIAL ---
IMM Update Pg. 2 of IMM updated and reviewed with patient over the phone. Verbalized understanding.
[2020-05-17] MEDS: cefTRIAXone 1,000 MG in sodium chloride 0.9% (plus) 50 ML 100 MG IV (13:05)
[2020-05-17] MEDS: azithromycin 500 MG in sodium chloride 0.9% 250 ML 250 MG IV (13:05)
--- NOTE | 2020-05-17 16:04 | PC.RESP ---
WALKED PT. TO BATHROOM ON O2 SATS 89%. WITH ASSIST X 2
--- NOTE | 2020-05-17 17:04 | P.PN_ITS ---
Subjective Subjective: Interval history: Patient continued to improve. Was transitioned off high-flow to nasal cannula. No new clinical events overnight. Medications: Reviewed: Yes Vitals/I&O/Wt Last Vital Signs Temp 98.1 F 05/17/20 20:00 Pulse 73 05/17/20 21:58 Resp 22 H 05/17/20 20:00 BP 110/60 05/17/20 20:00 Pulse Ox 91 05/17/20 19:50 05/17/20 05/17/20 05/17/20 06:59 14:59 22:59 Intake Total 300 / 300 600 / 900 Output Total 500 / 1700 400 / 400 200 / 600 Balance -500 / -800 -100 / -100 400 / 300 Weight last 48 hrs Weight 78.834 kg Physical Exam Narrative: EXAM NARRATIVE: General : No sig distress on NC HEENT : Grossly unremarkable Chest : Non-labored respiration Abd: Non-distended : Flores in place Ext : No edema Urinary Catheter Management^: Flores: Cath Placed During This Visit: yes Reason for Continuing Indwelling Catheter: Accurate Measurement of Urinary Output in Critically Ill Patients Urinary Catheter Date of Insertion: 05/10/20 Urinary Catheter Time of Insertion: 10:38 Data : 05/15/20 03:55 05/15/20 03:55 A&P Assessment and plan (1) Acute respiratory failure with hypoxia: Status: Acute (2) Pneumonia due to COVID-19 virus: Status: Acute (3) Anxiety: Status: Acute (4) Urinary retention: Status: Acute Acute Hypoxic Respiratory Failure due to COVID-19 Pneumonia - Remdesivir completed on 05/07/2020 - Patient is DNI/DNR - Unable to Prone - CT PE protocol - negative for PE - 05/08 Chest x-ray - > Increasing bilateral bilateral infiltrates. - Chest x-ray -> Bilateral infiltrates appear relatively unchanged. - Continue Heated High flow - 30L with Fio2 30% - Titrate to keep o2 > 88 - Continue to wean as tolerated - Continue Xopenex 0.63 INH Q4hr - Therapeutic anticoagulation - due to high risk - Lovenox 90mg SQ BID. - Started empirically on ceftriaxone 1g Q24hr plus Azithromycin 500mg IV daily on 05/11 - Pro-daniel ordered - will trend - sputum culture - negative - ABG + Chest x-ray PRN - Weaned off high flow to NC - Ambulatory o2 Urinary Retention due to BPH - Flores in place - Will d/c and check voiding trials - Flomax 0.4 mg PO daily Acute encephalopathy / Worsening anxiety - improved. - Possibly due to decadron - Dose decreased to daily - If further worsening will need to hold - Avoid over-sedation Oral Thrush - Nystatin 500,000 Swish/swallow QID Viral enteritis - resolved - Loperimide 2 mg PRN Recent Shingles - Resolved - S/p prednisone/valtrex tx DVT ppx - Lovenox 90 mg SQ BID Additional A&P Information Prognosis : improving Attestations Medical Necessity Statement*: Patient require further hospitalization for management of hypoxemic respiratory failure. Time Spent in Patient Care: Greater than 35 minutes (>than 50% of time spent in counselling and/or direct pt care on unit) . 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
[2020-05-18] VITALS (11 sets, daily range): BP systolic 111–137; BP diastolic 62–79; PULSE 73–106; RESP 14–33; TEMP 36.3–36.8; O2SAT 85–93; BMI 23.6
[2020-05-18 05:48] LABS: Basophils # 0.1 10^3/uL (0.0-0.1); Basophils % 0.4 %; Eosinophils % 0.2 %; Hematocrit 48.6 % (42.0-52.0); Lymphocytes # 1.2 10^3/uL (0.8-4.8); Lymphocytes % 10.4 %; Mean Corpuscular HGB Conc 32.9 g/dL (30.0-36.0); Mean Corpuscular Hemoglobin 29.5 pg (28.0-34.0); Mean Corpuscular Volume 89.7 fL (80-94); Mean Platelet Volume 10.3 fL (7.4-10.4); Monocytes # 0.7 10^3/uL (0.2-0.9); Monocytes % 6.4 %; Neutrophils # 8.93 10^3/uL (1.8-7.7); Neutrophils % 76.9 %; Nucleated Red Blood Cells % 0 %; Platelet Count 382 10^3/cmm (130-400); Red Blood Count 5.42 10^6/uL (4.1-5.3); Red Cell Distribution Width 13.6 % (12.1-15.1); White Blood Count 11.6 10^3/uL (4.0-10.0)
[2020-05-18 06:12] LABS: Alanine Aminotransferase 63 U/L (0-41); Albumin Level 2.7 g/dL (3.5-5.2); Alkaline Phosphatase 44 IU/L (40-130); Aspartate Amino Transferase 23 U/L (0-40); Blood Urea Nitrogen 29 mg/dL (8-23); Carbon Dioxide 24 mmol/L (22-29); Chloride 103 mmol/L (98-107); Globulin 2.7 g/dL (1.3-4.6); Glucose 83 mg/dL (65-115); Osmolality Calculated 287 mOsm/kg (285-295); Sodium 136 mmol/L (136-145); Total Bilirubin 0.4 mg/dL (0.15-1.2); Total Protein 5.4 g/dL (6.6-8.7)
[2020-05-18 06:18] LABS: Procalcitonin 0.08 ng/mL (0-0.5)
[2020-05-18 06:47] LABS: Slide Review Slide Review Perform
[2020-05-18] MEDS: dexamethasone 4 mg Tablet 6 MG PO (08:57)
[2020-05-18] MEDS: pantoprazole DR 40 mg Tablet PO (08:57)
[2020-05-18] MEDS: tamsulosin 0.4 mg Capsule PO (08:57)
[2020-05-18] MEDS: enoxaparin 100 mg/mL Syringe 90 MG SUBCUT (08:58)
--- NOTE | 2020-05-18 10:00 | PC.NURSE ---
0930 Got patient up on edge of bed to ambulate. Patient kept saying he didn't really want to do much since he is planning on going home today, afraid he would wear himself out. I encouraged and assured we wouldn't go too far. When sat up on edge of bed, c/o of short of breath and just worked up about going home, is anxious and wanting to go home. He started in bed on room air at 90-92% Sat. After sitting on edge of bed for approx 3 minutes, Sat went to 85% and he ask to lie back down and rest more. So I assisted him to lie back down. After a few minutes Sat was back up to 90.
[2020-05-18] MEDS: cefTRIAXone 1,000 MG in sodium chloride 0.9% (plus) 50 ML 100 MG IV (11:38)
[2020-05-18] MEDS: azithromycin 500 MG in sodium chloride 0.9% 250 ML 250 MG IV (12:23)
--- NOTE | 2020-05-18 13:06 | PC.NURSE ---
1230 Set patient up on edge of bed for lunch. Set up tray for patient. After 10 minutes patient says he is too short of breath to eat. Sats mid 80's. Ask patient if he still thinks he is going to be ok at home. He says no he don't think he can make it at home and he is willing to go to [facility] for rehab for oxygenation assistance. Notified dr. Lou and new order for transfer to [facility].
--- NOTE | 2020-05-18 13:54 | P.DS_ITS ---
Discharge Providers Date of Admission: 05/04/20 17:01 Date of Discharge: May 18, 2020 Attending Provider at Admission: Danny Orellana MD Attending Provider at Discharge: Brodie Chun Primary Care Provider: Ann Marie Richards Diagnoses at Discharge Discharge Diagnosis (1) Acute respiratory failure with hypoxia: Status: Acute (2) Pneumonia due to COVID-19 virus: Status: Acute (3) Anxiety: Status: Acute (4) Urinary retention: Status: Acute Reason for Visit Reason for Visit: COVID SYMPTOMS, WEAKNESS Hospital Course Hospital Course 84-year-old male with past medical history significant for anxiety, psoriasis, and recent treatment for shingles around right eye treat with valacyclovir and prednisone who has presented to hospital with respiratory distress. Apparently these symptoms were ongoing for over a week. He was seen by his primary care physician and started antibiotics which did not prove to be effective. Patient apparently also noted a cough generalized weakness and exposure to COVID. while at primary care office on 05/03 he was given Solu-Medrol 80 mg IM x1 in addition to Decadron 4 mg x 1. shortly after presented to the emergency room where he was found to be hypoxic. Laboratory workup on arrival showed a WBC of 8.0, hemoglobin 17.1, hematocrit of 51.2 and a platelet count of 177. Sodium 133, potassium 4.1, chloride 96, bicarb 24, BUN 26 and creatinine of 1.1. Rapid COVID antigen was negative. PCR was sent and pending. Chest x-ray showed new bilateral opacification consistent with COVID-19. CT ang io was performed which did not show any evidence of pulmonary embolism however bilateral patchy ground-glass interstitial lung disease predominantly peripheral in distribution was noted. Patient was started on Remdesivir 5 day protocol and decadron 6 mg PO daily. Initially patient had only required minimal supplemental oxygen however this progressively worsened. Eventually was placed on high-flow oxygen. Additionally was empirically started on IV Rocephin and azithromycin. Improved slowly leading to her prolonged hospitalization however was eventually weaned to room air. Despite initial CT angio being negative for PE he was continued on full-dose of anticoagulation due to high risk of developing thromboembolism. This was not continued at discharge . Also due to prolonged utilization of oral steroid he was prescribed a tapered dose of Decadron at discharge. Due to low suspicion of underlying bacterial infection he was not continued on any additional antibiotics. Additional complications included urinary retention for which he was started on Flomax 0.4 mg oral daily and intermittently required Flores catheter. This was discontinued after which patient was able to void. Patient was accepted to SNF and discharged in stable condition. Physical Exam Narrative: EXAM NARRATIVE: General : No sig distress on RA HEENT : Grossly unremarkable Chest : Non-labored respiration Abd: Non-distended : Flores removed Ext : No edema Urinary Catheter Management^: Flores: Cath Placed During This Visit: yes Reason for Continuing Indwelling Catheter: Accurate Measurement of Urinary Output in Critically Ill Patients Urinary Catheter Date of Insertion: 05/10/20 Urinary Catheter Time of Insertion: 10:38 Discharge Data Data Completed and Pending: Completed Studies During Hospitalization Category Date Time Status CT angio chest PE protcl [id number] Urge nt Cat Scan 05/03/20 20:00 Completed XR chest 1V [id number] Routine Exams 05/08/20 07:00 Completed XR chest 1V raheem ble [id number] Routine Exams 05/10/20 10:12 Completed XR chest 1V raheem ble [id number] Stat Exams 05/03/20 17:08 Completed XR chest 2V insp/ exp [id number] Routine Exams 05/15/20 06:00 Completed Labs from last 24 hours 05/18/20 05/18/20 05/18/20 04:00 04:00 04:00 WBC 11.6 H RBC 5.42 H Hgb 16.0 Hct 48.6 MCV 89.7 MCH 29.5 MCHC 32.9 RDW 13.6 Plt Count 382 MPV 10.3 Neut % (Auto) 76.9 Lymph % (Auto) 10.4 [place] % (Auto) 6.4 Eos % (Auto) 0.2 Baso % (Auto) 0.4 Neut # (Auto) 8.93 H Lymph # (Auto) 1.2 [place] # (Auto) 0.7 Eos # (Auto) 0.0 Baso # (Auto) 0.1 Nucleated RBC % (a uto) 0 Nucleated RBCs # 0.0 Sodium 136 Potassium 4.0 Chloride 103 Carbon Dioxide 24 Anion Gap 13.0 BUN 29 H Creatinine 1.0 GFR Calculation Not Reportable Glucose 83 Calculated Osmolal ity 287 Calcium 8.0 L Total Bilirubin 0.4 AST 23 ALT 63 H Alkaline Phosphata se 44 Total Protein 5.4 L Albumin 2.7 L Globulin 2.7 Procalcitonin 0.08 Vitals: Last Vital Signs Temp 97.4 F L 05/18/20 08:00 Pulse 106 H 05/18/20 12:00 Resp 22 H 05/18/20 12:00 BP 111/62 05/18/20 12:00 Pulse Ox 86 L 05/18/20 12:00 Discharge Plan Discharge Patient Disposition: Xfer SNF Condition: Stable Prescriptions: New tamsulosin 0.4 mg Capsule 0.4 mg PO DAILY Qty: 30 RF: 0 pantoprazole 40 mg Tablet,Delayed Release (Dr/Ec) 40 mg PO DAILY Qty: 30 RF: 0 Decadron 4 mg tablet See Rx Instructions .ROUTE .COMPLEX Qty: 3 RF: 0 Continued albuterol sulfate 90 mcg/actuation HFA aerosol inhaler 2 puff inhalation Q6H PRN (Reason: shortness of breath or wheezing) Qty: 8.5 RF: 0 acetaminophen [Tylenol Extra Strength] 500 mg Tablet 500 mg PO Q6H PRN (Reason: Pain) RF: 0 Discontinued valacyclovir 500 mg tablet 1,000 mg PO Q8H 7 Days Qty: 42 RF: 0 azithromycin 250 mg tablet See Rx Instructions PO .COMPLEX Qty: 6 RF: 0 prednisone 10 mg Tablet 10 mg PO DAILY RF: 0 Discharge Orders: Discharge Order (Routine); Ordered 05/18/20 Ordered By: Brodie Chun Other Ambulatory Orders: DME: Oxygen (Order) Location: None Selected Ordered By: Brodie Chun Referrals: [facility] [Outside] (You are scheduled to be admitted on May 30. If you decide that you do not want them to come, please call and let them know. ) Ann Marie Richards [Primary Care Provider] - Discharge Diet: Cardiac Discharge Activity: Increase activity as tolerated Activity Restrictions/Additional Instructions: Return to hospital if breathing again is getting worse. Also if having any difficulty urination. 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
--- NOTE | 2020-05-18 18:58 | PC.NURSE ---
4327 Discharged patient via wheelchair to transport to go to [facility].. Phone and health information director sent. No c/os.
== END 2020-05-18 17:30 | disposition skilled nursing facility (03) | DRG 177 ==
LOC: ER 20:43 → MEDSURG 21:52 → ICU 05-06 18:01
PROVIDERS: Internal Medicine; Admitting Provider Internal Medicine; Emergency Provider Emergency Medicine; PCP Nurse Practitioner Family; Visit Provider Hospitalist
DX: U07.1 COVID-19 (principal); J12.89 Other viral pneumonia; J96.01 Acute respiratory failure with hypoxia; G92 Toxic encephalopathy; B37.0 Candidal stomatitis; F41.9 Anxiety disorder, unspecified; Z66 Do not resuscitate; R33.9 Retention of urine, unspecified; A08.4 Viral intestinal infection, unspecified; N40.0 Benign prostatic hyperplasia without lower urinary tract symptoms
CPT/HCPCS: 12345; 36415; 36416; 36600; 51702; 71045; 71046; 71275; 80048; 80053; 81001; 82728; 82803; 82962; 83605; 83615; 83735; 83880; 84100; 84145; 85025; 85378; 85384; 86140; 87040; 87070; 87205; 87426; 87635; 93005; 94640; 96372; 96375; 97110; 97161; 97166; 97530; 97535; 99283; G0378; J0456; J0696; J1100; J1650; J1940; J2060; J3535; J7030; J7050; J7614; J8540; Q9967

== ENCOUNTER 2020-05-26 05:18 | Inpatient (IN) | payer MEDICARE, SELFPAY ==
[2020-05-26] VITALS (71 sets, daily range): BP systolic 84–138; BP diastolic 54–78; PULSE 64–154; RESP 13–45; TEMP 36.5–36.7; O2SAT 80–100; BMI 21.7
--- NOTE | 2020-05-26 05:21 | XR_ITS ---
WS: [id number] Exam: XR chest 1V portable [id number] Date/Time of Exam: 05/26/2020 5:25 AM Reason For Exam: sob Comparison 05/23/2020. Bilateral pulmonary infiltrates are unchanged since previous study. Mild cardiac enlargement. No pleu ral effusion or pneumothorax. Regional bony elements are intact. XR/XR chest 1V portable [id number] IMPRESSION: 1. Bilateral pulmonary infiltrates unchanged. 2. Cardiomegaly.
--- NOTE | 2020-05-26 05:21 | ECG_ITS ---
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 Measurements Intervals [place] Rate: 144 P: TN: QRS: 91 QRSD: 154 T: 8 QT: 306 QTc: 475 Interpretive Statements ATRIAL FIBRILLATION WITH RAPID VENTRICULAR RESPONSE WITH ABERRANT CONDUCTION OR VENTRICULAR PREMATURE COMPLEXES RIGHT BUNDLE BRANCH BLOCK [120+ ms QRS DURATION, UPRIGHT V1, 40+ ms S IN I/aVL/V4/V5/V6] ST DEPRESSION, CONSIDER SUBENDOCARDIAL INJURY [0.1+ mV ST DEPRESSION] Compared to ECG 05/03/2020 17:33:45 Aberrant conduction of supraventricular beat(s) now present Ventricular premature complex(es) now present Right bundle-branch block now present ST (T wave) deviation now present Sinus rhythm no longer present Myocardial infarct finding no longer present Electronically Signed On 05-26-2020 15:02:00 PHYSICAL LABORATORY ASSISTANT by Cedric Beckwith M.D. [email or web address]
--- NOTE | 2020-05-26 05:24 | W.ED.SOB ---
Documented by User: Julián Ortiz MD 05/26/20 05:26 HPI - SOB/Dyspnea General: Chief Complaint: Shortness of Breath/Dyspnea Stated Complaint: RESP DISTRESS Time Seen by Provider: 05/26/20 05:21 History of Present Illness: Associated symptoms: Deny abdominal pain, chest pain, fever(s), nausea or vomiting Review of Systems Const: Denies: fever(s), chills, body aches or change in appetite Eyes: Denies: blurry vision or eye discomfort ENMT: Denies: throat pain or dental pain Card: Denies: chest pain Resp: Reports: dyspnea GI: Denies: abdominal pain, nausea, vomiting or diarrhea : Denies: dysuria Musc: Denies: neck pain or back pain Skin/Breast: Denies: rash Neuro: Denies: headache(s) Psych: Denies: depression Gary/Lymph: Denies: easy bruising All/Imm: Denies: urticaria PFSH ED PFSH: Medical History Anxiety BPH (benign prostatic hyperplasia) Diverticulosis External hemorrhoid Psoriasis Shingles Surgical History H/O hemorrhoidectomy H/O right knee surgery History of appendectomy Family History Denies family history of Bleeding disorder Social History Smoking and tobacco status: never smoked Alcohol intake: never Household members: spouse Housing: House Physical Exam Const: COMMON NORMALS: patient oriented x3 and healthy appearing GENERAL APPEARANCE: in distress and ill appearing HENMT: COMMON NORMALS: normocephalic and atraumatic HEAD & SCALP: normocephalic and atraumatic Eye: COMMON NORMALS: Equal, round and reactive pupils present and EOMs intact bilaterally PUPIL: Yes Equal, round and reactive pupils present Neck/C-Spine: COMMON NORMALS: full ROM and supple Chest: COMMONS NORMALS: normal inspection of the chest and normal palpation of entire chest wall Resp: EFFORT & INSPECTION: Yes tachypneic and Yes audible wheezes AUSCULTATION: rales Cardio: COMMON NORMALS: regular rhythm and No murmurs present (Cardio) RATE: tachycardic RHYTHM: regular rhythm GI: COMMON NORMALS: Normal to inspection, nondistended, normoactive bowel sounds present, Soft to palpation, non-tender and no masses PALPATION: Yes Soft to palpation Extremity: COMMON NORMALS: normal to inspection and full ROM Neuro: COMMON NORMALS: patient oriented x3, moves all extremities and no focal motor deficits Psych: COMMON NORMALS: mental status grossly normal, Normal thought process present and cooperative THOUGHT PROCESS: Normal thought process present Skin: COMMON NORMALS: no rashes or lesions noted and no wounds GENERAL SKIN EXAM: no rashes or lesions noted Course Vital Signs: Vital signs: Vital Signs Temperature 98.0 F 05/26/20 15:30 Pulse Rate 69 05/27/20 05:00 Respiratory Rate 19 H 05/27/20 05:00 Blood Pressure 128/73 05/27/20 05:00 Pulse Oximetry 97 05/27/20 05:00 MDM - SOB/Dyspnea Lab Data: Labs: Lab Results 05/26/20 05/26/20 05/26/20 Range/Units 04:35 05:32 05:32 WBC 11.5 H (4.0-10.0) 10^3/ uL RBC 5.16 (4.1-5.3) 10^6/u L Hgb 15.7 (11.7-16.6) g/dL Hct 49.2 (42.0-52.0) % MCV 95.3 H (80-94) fL MCH 30.4 (28.0-34.0) pg MCHC 31.9 (30.0-36.0) g/dL RDW 14.1 (12.1-15.1) % Plt Count 183 (130-400) 10^3/c mm MPV 11.2 H (7.4-10.4) fL Neut % (Auto) 51.8 % Lymph % (Auto) 35.2 % [place] % (Auto) 6.3 % Eos % (Auto) 3.0 % Baso % (Auto) 0.7 % Neut # (Auto) 5.98 (1.8-7.7) 10^3/u L Lymph # (Auto) 4.1 (0.8-4.8) 10^3/u L [place] # (Auto) 0.7 (0.2-0.9) 10^3/u L Eos # (Auto) 0.3 (0.0-0.8) 10^3/u L Baso # (Auto) 0.1 (0.0-0.1) 10^3/u L Nucleated RBC % (a uto) 0 % Nucleated RBCs # 0.0 /100WBC PT 14.20 (12.1-14.9) SECO NDS INR 1.07 (0.8-1.2) D-Dimer >= 20.00 H (0-0.59) ug/mIFE U Specimen Type Arterial Sample Site Brachial, right ABG pH 7.36 (7.35-7.45) ABG pCO2 35.5 (35-45) mmHg ABG pO2 55.3 L (80.0-100.0) mmH g ABG HCO3 19.9 L (22-26) mmol/L ABG Base Excess -4.8 L (-2.0-2.0) mmol/ L Luis Enrique Test N/a Hematocrit 47.4 (42-52) % Hgb O2 Saturation 87.6 L (95-100) % Carboxyhemoglobin 1.0 (0.4-20.1) %THgb Methemoglobin 0.1 L (0.4-1.5) % Total Hemoglobin 15.5 (14-18) g/dL O2 Delivery Device Bipap FiO2 100.0 % Optoelectronics Engineer ID Jlg Sodium (136-145) mmol/L Potassium (3.5-5.1) mmol/L Chloride (98-107) mmol/L Carbon Dioxide (22-29) mmol/L Anion Gap (5-19) BUN (8-23) mg/dL Creatinine (0.7-1.2) mg/dL GFR Calculation Glucose (65-115) mg/dL Calculated Osmolal ity (285-295) mOsm/k g Lactate (0.5-2.2) mmol/L Calcium (8.5-10.5) mg/dL Total Bilirubin (0.15-1.2) mg/dL AST (0-40) U/L ALT (0-41) U/L Alkaline Phosphata se (40-130) IU/L Troponin T Baselin e (0-15) ng/L Troponin T 120 Min [place] (0-15) ng/L Delta Troponin T (0-10) ABS# NT-Pro-B Natriuret Pep (0-450) pg/mL Total Protein (6.6-8.7) g/dL Albumin (3.5-5.2) g/dL Globulin (1.3-4.6) g/dL Procalcitonin (0-0.5) ng/mL 05/26/20 05/26/20 05/26/20 Range/Units 05:32 05:32 05:32 WBC (4.0-10.0) 10^3/ uL RBC (4.1-5.3) 10^6/u L Hgb (11.7-16.6) g/dL Hct (42.0-52.0) % MCV (80-94) fL MCH (28.0-34.0) pg MCHC (30.0-36.0) g/dL RDW (12.1-15.1) % Plt Count (130-400) 10^3/c mm MPV (7.4-10.4) fL Neut % (Auto) % Lymph % (Auto) % [place] % (Auto) % Eos % (Auto) % Baso % (Auto) % Neut # (Auto) (1.8-7.7) 10^3/u L Lymph # (Auto) (0.8-4.8) 10^3/u L [place] # (Auto) (0.2-0.9) 10^3/u L Eos # (Auto) (0.0-0.8) 10^3/u L Baso # (Auto) (0.0-0.1) 10^3/u L Nucleated RBC % (a uto) % Nucleated RBCs # /100WBC PT (12.1-14.9) SECO NDS INR (0.8-1.2) D-Dimer (0-0.59) ug/mIFE U Specimen Type Sample Site ABG pH (7.35-7.45) ABG pCO2 (35-45) mmHg ABG pO2 (80.0-100.0) mmH g ABG HCO3 (22-26) mmol/L ABG Base Excess (-2.0-2.0) mmol/ L Luis Enrique Test Hematocrit (42-52) % Hgb O2 Saturation (95-100) % Carboxyhemoglobin (0.4-20.1) %THgb Methemoglobin (0.4-1.5) % Total Hemoglobin (14-18) g/dL O2 Delivery Device FiO2 % Optoelectronics Engineer ID Sodium 134 L (136-145) mmol/L Potassium 4.1 (3.5-5.1) mmol/L Chloride 97 L (98-107) mmol/L Carbon Dioxide 23 (22-29) mmol/L Anion Gap 18.1 (5-19) BUN 14 (8-23) mg/dL Creatinine 1.1 (0.7-1.2) mg/dL GFR Calculation Not Reportable Glucose 241 H (65-115) mg/dL Calculated Osmolal ity 286 (285-295) mOsm/k g Lactate 5.2 H* (0.5-2.2) mmol/L Calcium 8.5 (8.5-10.5) mg/dL Total Bilirubin 0.7 (0.15-1.2) mg/dL AST 66 H (0-40) U/L ALT 61 H (0-41) U/L Alkaline Phosphata se 70 (40-130) IU/L Troponin T Baselin e 34 H (0-15) ng/L Troponin T 120 Min [place] (0-15) ng/L Delta Troponin T (0-10) ABS# NT-Pro-B Natriuret Pep 187 (0-450) pg/mL Total Protein 5.4 L (6.6-8.7) g/dL Albumin 2.8 L (3.5-5.2) g/dL Globulin 2.6 (1.3-4.6) g/dL Procalcitonin (0-0.5) ng/mL 05/26/20 05/26/20 05/26/20 Range/Units 05:32 07:38 07:44 WBC (4.0-10.0) 10^3/ uL RBC (4.1-5.3) 10^6/u L Hgb (11.7-16.6) g/dL Hct (42.0-52.0) % MCV (80-94) fL MCH (28.0-34.0) pg MCHC (30.0-36.0) g/dL RDW (12.1-15.1) % Plt Count (130-400) 10^3/c mm MPV (7.4-10.4) fL Neut % (Auto) % Lymph % (Auto) % [place] % (Auto) % Eos % (Auto) % Baso % (Auto) % Neut # (Auto) (1.8-7.7) 10^3/u L Lymph # (Auto) (0.8-4.8) 10^3/u L [place] # (Auto) (0.2-0.9) 10^3/u L Eos # (Auto) (0.0-0.8) 10^3/u L Baso # (Auto) (0.0-0.1) 10^3/u L Nucleated RBC % (a uto) % Nucleated RBCs # /100WBC PT (12.1-14.9) SECO NDS INR (0.8-1.2) D-Dimer (0-0.59) ug/mIFE U Specimen Type Arterial Sample Site Radial, left ABG pH 7.34 L (7.35-7.45) ABG pCO2 34.9 L (35-45) mmHg ABG pO2 99.6 (80.0-100.0) mmH g ABG HCO3 18.9 L (22-26) mmol/L ABG Base Excess -6.0 L (-2.0-2.0) mmol/ L Luis Enrique Test Pos Hematocrit 43.5 (42-52) % Hgb O2 Saturation (95-100) % Carboxyhemoglobin (0.4-20.1) %THgb Methemoglobin (0.4-1.5) % Total Hemoglobin (14-18) g/dL O2 Delivery Device Bipap FiO2 85.0 % Optoelectronics Engineer ID Amh Sodium (136-145) mmol/L Potassium (3.5-5.1) mmol/L Chloride (98-107) mmol/L Carbon Dioxide (22-29) mmol/L Anion Gap (5-19) BUN (8-23) mg/dL Creatinine (0.7-1.2) mg/dL GFR Calculation Glucose (65-115) mg/dL Calculated Osmolal ity (285-295) mOsm/k g Lactate (0.5-2.2) mmol/L Calcium (8.5-10.5) mg/dL Total Bilirubin (0.15-1.2) mg/dL AST (0-40) U/L ALT (0-41) U/L Alkaline Phosphata se (40-130) IU/L Troponin T Baselin e (0-15) ng/L Troponin T 120 Min [place] 171.8 H (0-15) ng/L Delta Troponin T 137.8 H* (0-10) ABS# NT-Pro-B Natriuret Pep (0-450) pg/mL Total Protein (6.6-8.7) g/dL Albumin (3.5-5.2) g/dL Globulin (1.3-4.6) g/dL Procalcitonin 0.10 (0-0.5) ng/mL Discharge Plan Discharge Patient Disposition: Admitted As Inpatient Admit Provider: Nelson Covarrubias Clinical Impression: Acute exacerbation of chronic obstructive airways disease, Pulmonary embolism, Pneumonia Condition: Stable Sign Out Sign Out Data: Patient Sign Out occurred on 05/26/20 at 05:52. Patient's care was discussed, and care was transferred from to Jeremi Rose DO. Coding Level of Care Code ED Recreation Supervisor for Chg Fwd Exam Comprehensive Documented by User: Jeremi Rose DO 05/27/20 09:00 HPI - SOB/Dyspnea General: Chief Complaint: Shortness of Breath/Dyspnea Stated Complaint: RESP DISTRESS Time Seen by Provider: 05/26/20 05:21 History of Present Illness: HPI Narrative: 84-year-old male who presents to the emergency room via EMS from the detention was initially seen by Dr. Ortiz. I assumed care at change of shift to nurses notes Dr. Ortiz's notes reviewed. At the detention he was 60% on 2 L by nasal cannula he has COPD and was recently treated for Covid on 05 03. He is beyond his quarantine time. On arrival here he was in acute respiratory distress and and in A. fib with rapid ventricular response. He was started on BiPAP. On my arrival when I evaluate the patient he was still in A. fib with RVR and he was started on Cardizem. CTA of the chest is pending for a D-dimer greater than 20. He will respond and answer questions. He is able to hold a conversation and consider treatment options. MD elicited complaint: shortness of breath and cough Pertinent past history: COPD Onset (ago): hour(s) Context: recent illness (Recently treated for COVID-19) Timing: constant Severity: severe Exacerbating factors: exertion and coughing Relieving factors: oxygen and rest Known history of: COPD Associated symptoms: Reports chest congestion and palpitations; Deny abdominal pain, chest pain, cough, diaphoresis, dizziness, extremity pain, fever(s), hemoptysis, lightheadedness, myalgias, nausea, orthopnea, paresthesias, polydipsia, polyuria, rash, sense of impending doom, syncope or vomiting Treatment prior to arrival: oxygen Review of Systems Const: Denies: fever(s) or diaphoresis Card: Reports: palpitations; Denies: chest pain, lightheadedness, syncope or orthopnea Resp: Reports: dyspnea, non-productive cough, wheezing and chest congestion; Denies: hemoptysis GI: Denies: abdominal pain, nausea or vomiting Musc: Denies: extremity pain Neuro: Denies: dizziness Endo: Denies: polyuria or polydipsia PFSH ED PFSH: Medical History Anxiety BPH (benign prostatic hyperplasia) Diverticulosis External hemorrhoid Psoriasis Shingles Surgical History H/O hemorrhoidectomy H/O right knee surgery History of appendectomy Family History Denies family history of Bleeding disorder Social History Smoking and tobacco status: never smoked Alcohol intake: never Household members: spouse Housing: House Physical Exam Const: COMMON NORMALS: no acute distress GENERAL APPEARANCE: cooperative and comfortable ORIENTATION/CONSCIOUSNESS: Yes awake, Yes oriented to person, Yes oriented to place and Yes oriented to time HENMT: COMMON NORMALS: normocephalic, atraumatic and hearing grossly normal bilaterally HEAD & SCALP: normocephalic and atraumatic Neck/C-Spine: COMMON NORMALS: no JVD Resp: EFFORT & INSPECTION: Yes tachypneic, Yes respiratory distress, Yes labored and Yes uses accessory muscles AUSCULTATION: rhonchi and wheezes Cardio: COMMON NORMALS: no JVD, regular rate, regular rhythm and No murmurs present (Cardio) RATE: regular rate RHYTHM: regular rhythm GI: COMMON NORMALS: Soft to palpation and No hepatosplenomegaly present AUSCULTATION: Yes normoactive bowel sounds PALPATION: Yes Soft to palpation, No Tenderness to palpation present (GI), No Guarding due to palpation present (GI) and Yes No hepatosplenomegaly present Extremity: COMMON NORMALS: normal to inspection, capillary refill normal, no clubbing, cyanosis or edema, no calf tenderness and no pedal edema Neuro: SENSORIUM/ORIENTATION: Yes oriented to person, Yes oriented to place and Yes oriented to time Course Vital Signs: Vital signs: Vital Signs Temperature 98.0 F 05/26/20 15:30 Pulse Rate 69 05/27/20 05:00 Respiratory Rate 19 H 05/27/20 05:00 Blood Pressure 128/73 05/27/20 05:00 Pulse Oximetry 97 05/27/20 05:00 MDM - SOB/Dyspnea MDM Narrative: Medical decision making narrative: Patient seems to have persistent inflammatory reaction to the lungs as well as a suspected secondary bacterial infection. His chest x-ray actually looks a little worse than when he was here previously for Covid. In addition to this he has an elevated troponin on the delta and a markedly elevated D-dimer. His CTA shows large pulmonary emboli with very heavy burden and a small bit of clot across the bifurcation. Patient is a DNR/DNI confirmed this with him he does not want to be intubated. Offered transfer to tertiary care center for possible percutaneous intervention or procured percutaneous TP a therapy directed by catheter. Patient declines both of these. Offered TPA within our facility. Patient understands the risks benefits he does not have any excluding criteria. But he wishes to wait until his arrives to discuss this before we institute the TPA. In the interim I have started heparin. Will discuss with the as soon as she is here. I have discussed with her by phone she wishes to come here and discuss further. She is in route. She does agree with a no CODE STATUS. She also endorses the patient has been awake and alert and able to make his own decisions through last night when she last seen him. arrived at the hospital had a long conversation with the and the patient. Offered again to transfer for catheter directed thrombolysis or thrombothrombectomy. They continue to decline this option. They would like us to go ahead and use the TPA now. Heparin will be stopped TPA started. Discussed Dr. Garnett will admit. Lab Data: Labs: Lab Results 05/26/20 05/26/20 05/26/20 Range/Units 04:35 05:32 05:32 WBC 11.5 H (4.0-10.0) 10^3/ uL RBC 5.16 (4.1-5.3) 10^6/u L Hgb 15.7 (11.7-16.6) g/dL Hct 49.2 (42.0-52.0) % MCV 95.3 H (80-94) fL MCH 30.4 (28.0-34.0) pg MCHC 31.9 (30.0-36.0) g/dL RDW 14.1 (12.1-15.1) % Plt Count 183 (130-400) 10^3/c mm MPV 11.2 H (7.4-10.4) fL Neut % (Auto) 51.8 % Lymph % (Auto) 35.2 % [place] % (Auto) 6.3 % Eos % (Auto) 3.0 % Baso % (Auto) 0.7 % Neut # (Auto) 5.98 (1.8-7.7) 10^3/u L Lymph # (Auto) 4.1 (0.8-4.8) 10^3/u L [place] # (Auto) 0.7 (0.2-0.9) 10^3/u L Eos # (Auto) 0.3 (0.0-0.8) 10^3/u L Baso # (Auto) 0.1 (0.0-0.1) 10^3/u L Nucleated RBC % (a uto) 0 % Nucleated RBCs # 0.0 /100WBC PT 14.20 (12.1-14.9) SECO NDS INR 1.07 (0.8-1.2) D-Dimer >= 20.00 H (0-0.59) ug/mIFE U Specimen Type Arterial Sample Site Brachial, right ABG pH 7.36 (7.35-7.45) ABG pCO2 35.5 (35-45) mmHg ABG pO2 55.3 L (80.0-100.0) mmH g ABG HCO3 19.9 L (22-26) mmol/L ABG Base Excess -4.8 L (-2.0-2.0) mmol/ L Luis Enrique Test N/a Hematocrit 47.4 (42-52) % Hgb O2 Saturation 87.6 L (95-100) % Carboxyhemoglobin 1.0 (0.4-20.1) %THgb Methemoglobin 0.1 L (0.4-1.5) % Total Hemoglobin 15.5 (14-18) g/dL O2 Delivery Device Bipap FiO2 100.0 % Optoelectronics Engineer ID Jlg Sodium (136-145) mmol/L Potassium (3.5-5.1) mmol/L Chloride (98-107) mmol/L Carbon Dioxide (22-29) mmol/L Anion Gap (5-19) BUN (8-23) mg/dL Creatinine (0.7-1.2) mg/dL GFR Calculation Glucose (65-115) mg/dL Calculated Osmolal ity (285-295) mOsm/k g Lactate (0.5-2.2) mmol/L Calcium (8.5-10.5) mg/dL Total Bilirubin (0.15-1.2) mg/dL AST (0-40) U/L ALT (0-41) U/L Alkaline Phosphata se (40-130) IU/L Troponin T Baselin e (0-15) ng/L Troponin T 120 Min [place] (0-15) ng/L Delta Troponin T (0-10) ABS# NT-Pro-B Natriuret Pep (0-450) pg/mL Total Protein (6.6-8.7) g/dL Albumin (3.5-5.2) g/dL Globulin (1.3-4.6) g/dL Procalcitonin (0-0.5) ng/mL 05/26/20 05/26/20 05/26/20 Range/Units 05:32 05:32 05:32 WBC (4.0-10.0) 10^3/ uL RBC (4.1-5.3) 10^6/u L Hgb (11.7-16.6) g/dL Hct (42.0-52.0) % MCV (80-94) fL MCH (28.0-34.0) pg MCHC (30.0-36.0) g/dL RDW (12.1-15.1) % Plt Count (130-400) 10^3/c mm MPV (7.4-10.4) fL Neut % (Auto) % Lymph % (Auto) % [place] % (Auto) % Eos % (Auto) % Baso % (Auto) % Neut # (Auto) (1.8-7.7) 10^3/u L Lymph # (Auto) (0.8-4.8) 10^3/u L [place] # (Auto) (0.2-0.9) 10^3/u L Eos # (Auto) (0.0-0.8) 10^3/u L Baso # (Auto) (0.0-0.1) 10^3/u L Nucleated RBC % (a uto) % Nucleated RBCs # /100WBC PT (12.1-14.9) SECO NDS INR (0.8-1.2) D-Dimer (0-0.59) ug/mIFE U Specimen Type Sample Site ABG pH (7.35-7.45) ABG pCO2 (35-45) mmHg ABG pO2 (80.0-100.0) mmH g ABG HCO3 (22-26) mmol/L ABG Base Excess (-2.0-2.0) mmol/ L Luis Enrique Test Hematocrit (42-52) % Hgb O2 Saturation (95-100) % Carboxyhemoglobin (0.4-20.1) %THgb Methemoglobin (0.4-1.5) % Total Hemoglobin (14-18) g/dL O2 Delivery Device FiO2 % Optoelectronics Engineer ID Sodium 134 L (136-145) mmol/L Potassium 4.1 (3.5-5.1) mmol/L Chloride 97 L (98-107) mmol/L Carbon Dioxide 23 (22-29) mmol/L Anion Gap 18.1 (5-19) BUN 14 (8-23) mg/dL Creatinine 1.1 (0.7-1.2) mg/dL GFR Calculation Not Reportable Glucose 241 H (65-115) mg/dL Calculated Osmolal ity 286 (285-295) mOsm/k g Lactate 5.2 H* (0.5-2.2) mmol/L Calcium 8.5 (8.5-10.5) mg/dL Total Bilirubin 0.7 (0.15-1.2) mg/dL AST 66 H (0-40) U/L ALT 61 H (0-41) U/L Alkaline Phosphata se 70 (40-130) IU/L Troponin T Baselin e 34 H (0-15) ng/L Troponin T 120 Min [place] (0-15) ng/L Delta Troponin T (0-10) ABS# NT-Pro-B Natriuret Pep 187 (0-450) pg/mL Total Protein 5.4 L (6.6-8.7) g/dL Albumin 2.8 L (3.5-5.2) g/dL Globulin 2.6 (1.3-4.6) g/dL Procalcitonin (0-0.5) ng/mL 05/26/20 05/26/20 05/26/20 Range/Units 05:32 07:38 07:44 WBC (4.0-10.0) 10^3/ uL RBC (4.1-5.3) 10^6/u L Hgb (11.7-16.6) g/dL Hct (42.0-52.0) % MCV (80-94) fL MCH (28.0-34.0) pg MCHC (30.0-36.0) g/dL RDW (12.1-15.1) % Plt Count (130-400) 10^3/c mm MPV (7.4-10.4) fL Neut % (Auto) % Lymph % (Auto) % [place] % (Auto) % Eos % (Auto) % Baso % (Auto) % Neut # (Auto) (1.8-7.7) 10^3/u L Lymph # (Auto) (0.8-4.8) 10^3/u L [place] # (Auto) (0.2-0.9) 10^3/u L Eos # (Auto) (0.0-0.8) 10^3/u L Baso # (Auto) (0.0-0.1) 10^3/u L Nucleated RBC % (a uto) % Nucleated RBCs # /100WBC PT (12.1-14.9) SECO NDS INR (0.8-1.2) D-Dimer (0-0.59) ug/mIFE U Specimen Type Arterial Sample Site Radial, left ABG pH 7.34 L (7.35-7.45) ABG pCO2 34.9 L (35-45) mmHg ABG pO2 99.6 (80.0-100.0) mmH g ABG HCO3 18.9 L (22-26) mmol/L ABG Base Excess -6.0 L (-2.0-2.0) mmol/ L Luis Enrique Test Pos Hematocrit 43.5 (42-52) % Hgb O2 Saturation (95-100) % Carboxyhemoglobin (0.4-20.1) %THgb Methemoglobin (0.4-1.5) % Total Hemoglobin (14-18) g/dL O2 Delivery Device Bipap FiO2 85.0 % Optoelectronics Engineer ID Amh Sodium (136-145) mmol/L Potassium (3.5-5.1) mmol/L Chloride (98-107) mmol/L Carbon Dioxide (22-29) mmol/L Anion Gap (5-19) BUN (8-23) mg/dL Creatinine (0.7-1.2) mg/dL GFR Calculation Glucose (65-115) mg/dL Calculated Osmolal ity (285-295) mOsm/k g Lactate (0.5-2.2) mmol/L Calcium (8.5-10.5) mg/dL Total Bilirubin (0.15-1.2) mg/dL AST (0-40) U/L ALT (0-41) U/L Alkaline Phosphata se (40-130) IU/L Troponin T Baselin e (0-15) ng/L Troponin T 120 Min [place] 171.8 H (0-15) ng/L Delta Troponin T 137.8 H* (0-10) ABS# NT-Pro-B Natriuret Pep (0-450) pg/mL Total Protein (6.6-8.7) g/dL Albumin (3.5-5.2) g/dL Globulin (1.3-4.6) g/dL Procalcitonin 0.10 (0-0.5) ng/mL Discharge Plan Discharge Patient Disposition: Admitted As Inpatient Admit Provider: Nelson Covarrubias Clinical Impression: Acute exacerbation of chronic obstructive airways disease, Pulmonary embolism, Pneumonia Condition: Stable Sign Out Sign Out Data: Patient Sign Out occurred on 05/26/20 at 05:52. Patient's care was discussed, and care was transferred from to Jeremi Rose DO. 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
[2020-05-26 05:39] LABS: Basophils # 0.1 10^3/uL (0.0-0.1); Basophils % 0.7 %; Eosinophils # 0.3 10^3/uL (0.0-0.8); Hematocrit 49.2 % (42.0-52.0); Hemoglobin 15.7 g/dL (11.7-16.6); Lymphocytes # 4.1 10^3/uL (0.8-4.8); Lymphocytes % 35.2 %; Mean Corpuscular HGB Conc 31.9 g/dL (30.0-36.0); Mean Corpuscular Hemoglobin 30.4 pg (28.0-34.0); Mean Corpuscular Volume 95.3 fL (80-94); Mean Platelet Volume 11.2 fL (7.4-10.4); Monocytes # 0.7 10^3/uL (0.2-0.9); Monocytes % 6.3 %; Neutrophils # 5.98 10^3/uL (1.8-7.7); Neutrophils % 51.8 %; Nucleated Red Blood Cells % 0 %; Platelet Count 183 10^3/cmm (130-400); Red Blood Count 5.16 10^6/uL (4.1-5.3); Red Cell Distribution Width 14.1 % (12.1-15.1); White Blood Count 11.5 10^3/uL (4.0-10.0)
[2020-05-26] MEDS: sodium chloride 0.9% 1,000 ML 999 ML IV (05:39)
[2020-05-26 05:47] LABS: ABG PCO2 35.5 mmHg (35-45); ABG PH Result 7.36 (7.35-7.45); Arterial Blood Gas Hematocrit 47.4 % (42-52); Base Excess ABG -4.8 mmol/L (-2.0-2.0); Blood Gas Sample Site Brachial, right; Blood Gas Sample Type Arterial; HCO3 ABG 19.9 mmol/L (22-26); HGB O2 Sat 87.6 % (95-100); Methemoglobin 0.1 % (0.4-1.5); Oxygen Device BIPAP; PO2 ABG 55.3 mmHg (80.0-100.0); Total Hemoglobin 15.5 g/dL (14-18)
[2020-05-26 05:50] LABS: INR 1.07 (0.8-1.2)
[2020-05-26 06:01] LABS: Troponin(5th) Baseline 34 ng/L (0-15)
[2020-05-26 06:05] LABS: Lactate (Lactic Acid level) 5.2 mmol/L (0.5-2.2)
[2020-05-26 06:08] LABS: D Dimer >= 20.00 ug/mIFEU (0-0.59)
[2020-05-26 06:09] LABS: Albumin Level 2.8 g/dL (3.5-5.2); Alkaline Phosphatase 70 IU/L (40-130); Blood Urea Nitrogen 14 mg/dL (8-23); Calcium 8.5 mg/dL (8.5-10.5); Carbon Dioxide 23 mmol/L (22-29); Chloride 97 mmol/L (98-107); Globulin 2.6 g/dL (1.3-4.6); Glucose 241 mg/dL (65-115); NT Pro B Type Natriuretic Pept 187 pg/mL (0-450); Osmolality Calculated 286 mOsm/kg (285-295); Sodium 134 mmol/L (136-145); Total Bilirubin 0.7 mg/dL (0.15-1.2); Total Protein 5.4 g/dL (6.6-8.7)
[2020-05-26 06:13] LABS: Alanine Aminotransferase 61 U/L (0-41); Anion Gap 18.1 (5-19); Aspartate Amino Transferase 66 U/L (0-40); Potassium 4.1 mmol/L (3.5-5.1)
--- NOTE | 2020-05-26 06:22 | CT_ITS ---
WS: [id number] CTA OF THE CHEST WITH PULMONARY EMBOLISM PROTOCOL TECHNIQUE: High-resolution contrast enhanced CTA of the chest with coronal and sagittal reformatted i britta with pulmonary embolism protocol. MIP images are also reviewed. CLINICAL INFORMATION: elevated d dimer/post covid/resp failure COMPARISON: May 03, 2020 DLP: 600.[address] scans at [facility] use at least one of these dose optimization techniques: automat ed exposure control; mA and/or kV adjustment per patient size (includes targeted exams where dose is matched to clinical indication); or iterative reconstruction. FINDINGS: Extensive bilateral pulmonary embolus is new compared to previous. Saddle embolus bridging the pulmon chao artery bifurcation. Right and left main pulmonary arteries remain patent.Extensive bilateral segm ental and subsegmental pulmonary emboli throughout both lungs. This is new from previous. Bilateral perihilar and lower lobe hazy groundglass infiltrates consistent with pneumonia slightly pr ogressed compared to previous. Small bilateral pleural effusions. Interstitial thickening in the mid and lower lungs. No significant focal consolidation. Normal caliber thoracic aorta. Small moderate esophageal hiatal hernia. Adrenal glands are normal. Moderate thoracic kyphosis. Hyper trophic changes thoracic spine. CT/CT angio chest PE protcl [id number] IMPRESSION: 1. Extensive bilateral pulmonary embolus is new since the prior examination. T hin bridging saddle embolus. Right and left main pulmonary arteries remain payan nt. Extensive bilateral segmental and subsegmental emboli 2. Bilateral hazy groundglass pulmonary infiltrates in the perihilar regions b ilaterally has progressed from previous likely due to COVID 19 pneumonitis 3. Small bilateral pleural effusions. 4. Moderate to advanced chronic emphysematous changes. 5. Small to moderate esophageal hiatal hernia. Notified Jeremi Rose DO at 05/26/2020 8:27 AM.
[2020-05-26] MEDS: LORazepam 2 mg/mL INJ 1 mL 1 MG IVP (07:03)
[2020-05-26] MEDS: vancomycin 1,000 MG in sodium chloride 0.9% 250 ML 250 MG IV (07:10)
--- NOTE | 2020-05-26 07:21 | ECG_ITS ---
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 Measurements Intervals [place] Rate: 116 P: ID: QRS: 85 QRSD: 119 T: -24 QT: 344 QTc: 478 Interpretive Statements ATRIAL FIBRILLATION WITH RAPID VENTRICULAR RESPONSE MODERATE INTRAVENTRICULAR CONDUCTION DELAY [110+ ms QRS DURATION] NONSPECIFIC ST & T-WAVE ABNORMALITY Compared to ECG 05/26/2020 05:48:07 Intraventricular conduction delay now present T-wave abnormality now present Aberrant conduction of supraventricular beat(s) no longer present Ventricular premature complex(es) no longer present Right bundle-branch block no longer present ST (T wave) deviation no longer present Electronically Signed On 05-26-2020 15:10:31 AEROSPACE TECHNICIAN by Cedric Beckwith M.D. [id number]
[2020-05-26] MEDS: iohexol 350 mg/mL 100 mL Btl IV (07:30)
[2020-05-26 07:51] LABS: ABG PCO2 34.9 mmHg (35-45); ABG PH Result 7.34 (7.35-7.45); Arterial Blood Gas Hematocrit 43.5 % (42-52); Blood Gas Allen Test Pos; Blood Gas Operator Identificat AMH; Blood Gas Sample Site Radial, left; Blood Gas Sample Type Arterial; HCO3 ABG 18.9 mmol/L (22-26); Oxygen Device BIPAP; PO2 ABG 99.6 mmHg (80.0-100.0)
[2020-05-26 08:28] LABS: Troponin 5 2HR 171.8 ng/L (0-15); Troponin 5 2HR Delta 137.8 ABS# (0-10)
[2020-05-26] MEDS: heparin 5,000 unit/mL INJ 1 mL 4000 UNIT IVP (08:31)
[2020-05-26] MEDS: sodium chloride 0.9% 2,177.25 ML 2177.3 ML IV (08:33)
[2020-05-26] MEDS: cefTAZidime 2,000 MG in sodium chloride 0.9% (plus) 50 ML 150 MG IV ×2 (08:47→16:49)
[2020-05-26] MEDS: heparin drip 25,000 UNIT/500 ML PREMIX 20.3 UNIT IV (08:54)
--- NOTE | 2020-05-26 09:14 | USCV_ITS ---
Solomon Waters Age: 84 Gender: M : 1935 Exam Date: 05/26/2020 09:18 Ordering Phys: Jeremi Rose DO Technologist: Radha Porter Exam Location: [facility] – [place] Indication: PE BP: 84 / 54 HR: 93 Rhythm: Sinus Technical Quality: Very technically difficult study MEASUREMENTS (Male / Female) Normal Values 2D ECHO LV Diastolic Diameter PLAX 4.1 cm 4.2 - 5.9 / 3.9 - 5.3 cm LV Systolic Diameter PLAX 2.5 cm LV Chamber Size 2.3 cm IVS Diastolic Thickness 1.5 cm 0.6 - 1.0 / 0.6 - 0.9 cm IVS Systolic Thickness 1.1 cm LVPW Diastolic Thickness 1.5 cm 0.6 - 1.0 / 0.6 - 0.9 cm LVPW Systolic Thickness 1.6 cm RV Chamber Size 4.1 cm LVOT Diameter 2.0 cm LV Ejection Fraction 2D Teich 70.9 % LA Diameter 2.9 cm LA Width 2.8 cm LA Height 3.6 cm RA Width 5.9 cm RA Height 4.2 cm Aorta at Sinotubular Diameter 3.1 cm M-MODE LV Diastolic Diameter MM 4.4 cm 4.2 - 5.9 / 3.9 - 5.3 cm LV Systolic Diameter MM 2.5 cm LV Ejection Fraction MM Teich 74.6 % IVS Diastolic Thickness MM 0.7 cm 0.6 - 1.0 / 0.6 - 0.9 cm IVS Systolic Thickness MM 1.9 cm LVPW Diastolic Thickness MM 1.3 cm 0.6 - 1.0 / 0.6 - 0.9 cm LVPW Systolic Thickness MM 2.3 cm RV Diastolic Diameter MM 2.2 cm Aortic Annulus Diameter 3.5 cm LA Ao Ratio MM 1.0 MV E Point Septal Separation 0.5 cm DOPPLER AV Peak Velocity 173.0 cm/s LVOT Peak Velocity 117.0 cm/s AV Area Cont Eq vti 2.4 cm squared AV Area Cont Eq pk 2.1 cm squared MV Area PHT 8.5 cm squared Mitral E to A Ratio 1.2 MV E' Velocity 35.5 cm/s Mitral E to MV E' Ratio 7.2 Mitral E to LV E' Lateral Ratio 5.4 Mitral E to LV E' Septal Ratio 10.9 TR Peak Velocity 180.6 cm/s TR Peak Gradient 13.0 mmHg TR Mean Velocity 131.8 cm/s TR Mean Gradient 8.6 mmHg TR Velocity Time Integral 60.4 cm TV Peak E Velocity 70.0 cm/s PV Peak Velocity 55.0 cm/s RV Acceleration Time 0.1 s RV Ejection Time 0.3 s RV AcT/ET 0.2 FINDINGS Left Ventricle Normal left ventricular size. Grossly LV systolic function is normal. Regional wall motion abnormalities cannot be assessed because of limited visualization. LVEF is 60 to 65%. Diastolic function is abnormal. Right Ventricle Grossly enlarged with severe hypokinesis. There is possible thrombus extending out from pulmonary artery into the RVOT. Right Atrium The right atrium is enlarged Left Atrium The left atrium is normal in size. Mitral Valve Grossly normal with no evidence of significant stenosis. There is no mitral regurgitation. Aortic Valve Aortic valve is thickened however no stenosis is seen.. There is mild aortic regurgitation. Tricuspid Valve Structurally normal tricuspid valve without significant stenosis. There is trace tricuspid regurgitation. RVSP is 15+ RA pressure. Pulmonic Valve Structurally normal pulmonic valve without significant stenosis. There is echogenic material seen extending from pulmonic valve into the RVOT. This likely represents thrombus. Mild pulmonic regurgitation is seen. Pericardium Normal pericardium without effusion. Aorta Normal ascending aorta dimension. CONCLUSIONS This is technically difficult study. Limited visualization of cardiac structures. LV systolic function is grossly normal,. Regional wall motion abnormalities cannot be assessed because of limited visualization. Diastolic function is abnormal. Right ventricle is grossly enlarged and has severe hypokinesis. There is an echogenic material seen extending from pulmonic valve into the RVOT. This likely represents thrombus. Right atrium is enlarged. Mild aortic regurgitation is seen. Mild pulmonic regurgitation. No comparison studies are available. Cedric Beckwith MD (Electronically Signed) Final Date: 26 May 2020 11:08 S
--- NOTE | 2020-05-26 09:41 | PC.NURSE ---
per verbal order of ED physician nurse titrated drip up 24ml/hr.
--- NOTE | 2020-05-26 11:18 | PC.NURSE ---
consent obtained for TPA infusion. pt given 20mg bolus IVP of alteplase. remaining TPA (80mg) to infuse over 2 hours. Pt on cardiac monitoring. call light within reach.
--- NOTE | 2020-05-26 11:21 | ECG_ITS ---
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 [id number]
[2020-05-26] MEDS: D5-NS 0.45% + KCL 20 mEq 20 MEQ/1,000 ML BAG 100 MEQ IV (14:28)
--- NOTE | 2020-05-26 14:46 | PC.NURSE ---
1345-patient arrived to ICU from ED via stretcher. O2 in place via nonrebreather. After transfer to bed, it was made aware that patient had blood coming from mouth and nose. This nurse contacted provider. New order to hold heparin gtt/draw ptt. Pt vitals stable at this time.
[2020-05-26 15:47] LABS: Troponin 5 6HR 294.7 ng/L (0-15)
[2020-05-26 15:50] LABS: Troponin 5 6HR Delta 260.7 ng/L (0-12)
[2020-05-26 15:52] LABS: Partial Thromboplastin Time 116.4 SECONDS (23.9-36.7)
--- NOTE | 2020-05-26 16:42 | P.HP_ITS ---
Providers/Chief Complaint Admitting Physician: Nelsno Covarrubias MD Primary Care Provider: Ann Marie Richarsd Chief Complaint: RESP DISTRESS History of Present Illness Solomon Waters is a 84 year old male This is a 84-year-old male who presented via EMS from residential with complai nts of shortness of breath. The patient was noted to be hypoxemic on 2 L. 60% reported per ER note. Recently treated with Covid. On May 03. He was also recently hospitalized in the hospital. Noted to be on in A. fib with RVR. He was also hypoxic. He was placed on BiPAP. A CTA was completed which showed saddle pulmonary emboli. Patient refused transfer. He was given heparin bolus and TPA. He is being seen in the ICU. Heparin drip held due to bleeding from mouth and nose. Patient refuses transfer and wishes to be DNR. He wants to be treated but does not want any other invasive management. He denies any fevers. Denies chest pain. Denies headaches or lightheadedness. Review of Systems General: Reports: 10 or more systems reviewed and unremarkable except in HPI and below Const: Denies: fever(s) or chills Eyes: Denies: change in vision or blurry vision Card: Denies: chest pain or palpitations Resp: Reports: dyspnea; Denies: wheezing GI: Denies: abdominal pain or nausea Skin/Breast: Denies: skin pain Neuro: Denies: headache(s) or numbness in extremities Psych: Denies: anxiety or depression Medications/Allergies Home Medications Medication Instructions Recorded Confirmed Last Taken Type acetaminophen [Tylenol Extra 500 mg PO Q6H PRN 10/31/19 05/26/20 Unknown History Strength] albuterol sulfate 90 mcg/actuation 2 puff INHALATION Q6H PRN #8.5 g 04/30/20 05/26/20 05/03/20 Rx aerosol inhaler alprazolam [Xanax] 0.25 mg PO BID PRN 05/26/20 05/26/20 Unknown History bisacodyl 10 mg ND DAILY PRN 05/26/20 05/26/20 Unknown History nystatin 5 ml PO QID@08,12,16,20 05/26/20 05/26/20 05/25/20 History pantoprazole 40 mg PO DAILY@0800 12/05/26/20 05/25/20 History sodium phosphates [Enema] 118 ml ND DAILY PRN 05/26/20 05/26/20 Unknown History tamsulosin 0.4 mg PO DAILY@0800 05/26/20 05/26/20 05/25/20 History Allergies Allergy/AdvReac Type Severity Reaction Status Date / Time ciprofloxacin [From Cipro] Allergy ALGY-Rash Verified 05/03/20 17:04 metronidazole [From Flagyl] Allergy ALGY-Rash Verified 05/03/20 17:04 PFSH Acute PFSH: Medical History Anxiety BPH (benign prostatic hyperplasia) Diverticulosis External hemorrhoid Psoriasis Shingles Surgical History H/O hemorrhoidectomy H/O right knee surgery History of appendectomy Family History Denies family history of Bleeding disorder Social History Smoking and tobacco status: never smoked Alcohol intake: never Household members: spouse Housing: House Vitals/I&O/Wt Last Vital Signs Temp 97.7 F 05/26/20 05:22 Pulse 84 05/26/20 14:30 Resp 22 H 05/26/20 15:15 BP 98/68 05/26/20 15:15 Pulse Ox 93 05/26/20 15:15 05/26/20 05/26/20 05/26/20 06:59 14:59 22:59 Intake Total 1000.667 / 1000.667 538.169 / 538.169 Balance 1000.667 / 1000.667 538.169 / 538.169 Weight last 48 hrs Weight 160 lb Physical Exam Const: COMMON NORMALS: patient oriented x3 NUTRITIONAL APPEARANCE: overweight HENMT: OTHER: Dried blood noted around nose and mouth Resp: COMMON NORMALS: No use of accessory muscles EFFORT & INSPECTION: No labored Cardio: RATE: regular rate Neuro: COMMON NORMALS: patient oriented x3 and CN's II-XII intact bilaterally Psych: COMMON NORMALS: mental status grossly normal and Normal thought process present Data : 05/26/20 05:32 05/26/20 05:32 Micro: Microbiology 05/26/20 07:09 Blood Culture - Preliminary Blood SPECIMEN COLLECTED 05/26/20 07:09 Blood Culture - Preliminary Blood SPECIMEN COLLECTED A&P Assessment and plan (1) Pulmonary embolism: Status: Acute (2) Acute exacerbation of chronic obstructive airways disease: Status: Acute (3) Pneumonia: Status: Acute (4) Pneumonia due to COVID-19 virus: Status: Acute (5) Troponin level elevated: Status: Acute Additional A&P Information Is a 84-year-old male with history of COPD, recently treated for Covid pneumonia presents to the ER with worsening shortness of breath. Diagnosed with saddle PE. He was given TPA. Initially transfer was offered patient refused. He would like to be DNR. 1. Saddle PE -Echo completed -tpa, heparin drip currently on hold due to bleeding -Lower extremity ultrasound ordered 2. Elevated troponins -Likely related to PE and thrombus -On monitor trend 3. Covid pneumonia -X-ray abnormal, we will monitor if patient develops productive cough fevers will restart antibiotics Disposition: CODE STATUS DNR/DNI discussed with and family patient also aware of critical status. He does not wish to be transferred. 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
[2020-05-26] MEDS: famotidine 20 mg/2 mL INJ IVP (16:51)
[2020-05-26 20:02] LABS: Fibrinogen 160 mg/dL (174-498)
[2020-05-26 21:47] LABS: Partial Thromboplastin Time 36.1 SECONDS (23.9-36.7)
[2020-05-27] VITALS (26 sets, daily range): BP systolic 100–155; BP diastolic 51–94; PULSE 62–91; RESP 13–34; TEMP 36.1–36.4; O2SAT 90–100
[2020-05-27] MEDS: D5-NS 0.45% + KCL 20 mEq 20 MEQ/1,000 ML BAG 100 MEQ IV ×3 (00:20→20:35)
[2020-05-27] MEDS: morphine 4 mg/mL SDV 1 mL 2 MG IVP ×2 (01:49→22:40)
[2020-05-27 03:40] LABS: Basophils % 0.2 %; Eosinophils % 0.1 %; Hematocrit 39.6 % (42.0-52.0); Hemoglobin 12.7 g/dL (11.7-16.6); Lymphocytes # 0.6 10^3/uL (0.8-4.8); Lymphocytes % 6.2 %; Mean Corpuscular HGB Conc 32.1 g/dL (30.0-36.0); Mean Corpuscular Volume 93.6 fL (80-94); Mean Platelet Volume 10.2 fL (7.4-10.4); Monocytes # 0.4 10^3/uL (0.2-0.9); Monocytes % 4.3 %; Neutrophils # 8.68 10^3/uL (1.8-7.7); Neutrophils % 88.6 %; Nucleated Red Blood Cells % 0 %; Platelet Count 123 10^3/cmm (130-400); Red Blood Count 4.23 10^6/uL (4.1-5.3); Red Cell Distribution Width 14.2 % (12.1-15.1); White Blood Count 9.8 10^3/uL (4.0-10.0)
[2020-05-27 04:11] LABS: Albumin Level 2.1 g/dL (3.5-5.2); Alkaline Phosphatase 71 IU/L (40-130); Blood Urea Nitrogen 16 mg/dL (8-23); Calcium 7.5 mg/dL (8.5-10.5); Carbon Dioxide 23 mmol/L (22-29); Chloride 106 mmol/L (98-107); Creatinine Clr Calc Pharmacy 76.1149; Globulin 2.7 g/dL (1.3-4.6); Glucose 145 mg/dL (65-115); Osmolality Calculated 288 mOsm/kg (285-295); Sodium 137 mmol/L (136-145); Total Bilirubin 0.4 mg/dL (0.15-1.2); Total Protein 4.8 g/dL (6.6-8.7)
[2020-05-27 04:33] LABS: Alanine Aminotransferase 74 U/L (0-41); Anion Gap 12.5 (5-19); Aspartate Amino Transferase 51 U/L (0-40)
[2020-05-27 04:34] LABS: Potassium 4.5 mmol/L (3.5-5.1)
[2020-05-27] MEDS: famotidine 20 mg/2 mL INJ IVP (04:52)
--- NOTE | 2020-05-27 07:00 | USR_ITS ---
PROCEDURE INFORMATION: Exam: US Duplex Lower Extremity Veins, Bilateral Exam date and time: 05/27/2020 7:43 AM Age: 84 years old Clinical indication: Other: Leg swelling right atrial/pulmonary thrombus TECHNIQUE: Imaging protocol: Real-time duplex ultrasound of the extremities with 2-D elmore scale, color Doppler flow and spectral waveform analysis with image documentation. Complete exam focused on the bilateral lower extremity veins. COMPARISON: No relevant prior studies available. FINDINGS: Right deep veins: There is acute occlusive deep venous thrombosis in the right popliteal vein and peroneal vein. Proximally the veins are patent. Right superficial veins: Saphenofemoral junction is patent without thrombus. Left deep veins: Unremarkable. The common femoral, femoral, proximal profunda femoral and popliteal veins are patent without thrombus. Normal Doppler waveforms. Normal compressibility and/or augmentation response. Left superficial veins: Saphenofemoral junction is patent without thrombus. Soft tissues: Unremarkable. US/[place] [id number] IMPRESSION: 1. Acute occlusive DVT of the right popliteal and peroneal veins. 2. No DVT in the left lower extremity.
[2020-05-27] MEDS: cefTAZidime 2,000 MG in sodium chloride 0.9% (plus) 50 ML 150 MG IV ×4 (08:01→22:35)
[2020-05-27] MEDS: nystatin 100,000 unit/mL UDC 5 mL 500000 UNIT PO ×4 (08:01→20:10)
[2020-05-27] MEDS: tamsulosin 0.4 mg Capsule PO (08:01)
--- NOTE | 2020-05-27 09:23 | PC.CHAP ---
Pastoral Care Encounter/Spiritual Assessment Type of Contact [] Declined lay out inspector visit [] Patient/Family/Request visit [] Outpatient visit [] Follow-up visit [] Physician referral [] Code/Alert [] Routine visit [] Staff referral [] Actively dying [] Patient sleeping [] Family support [] [] Out of room [] Palliative care [] [] Receiving care in room [] Pre-surgical visit [] Trauma [] Long length of stay [x] ICU visit [] Other: Relational/Emotional Strength [] Patient feels connected with others/family/visitors/staff [] Distress [] Loneliness/isolation [] Abandonment Spirituality of Patient [] Person of Veda [] Attends Evangelical of their Veda [] Believes in Prayer [] Reads Bible or Advent materials [] There are Spiritual issues to be addressed Interventional Pain Physician Interventions [x] Prayer [] Active listening [] Non-anxious presence [] Spiritual/emotional support [] Crisis/trauma care [] Spiritual counseling [] Bereavement support [] Provided bereavement packet [] Provided Bible/devotional materials [] Provided toy/stuffed animal, coloring book to patient or family member [] Provided Communion [] Anointing/Union [] Salvation [x] Completed spiritual assessment [] Other: Impact on Illness or Injury [] Angry [] Fearful [] Anxious [] Often cries [] Exhaustion [] Unable to work [] Unable to attend faith [] Unable to walk/stand [] Unable to read [] Unable to drive [] Unable to eat/drink [] Unable to sleep [] Unable to be with family [] Patient intubated [] Other: Summary Time spent with patient
--- NOTE | 2020-05-27 13:20 | PM.PN ---
Subjective Subjective: Interval history: This is a 84-year-old male who presented via EMS from [facility] with complaints of shortness of breath. The patient was noted to be hypoxemic on 2 L. 60% reported per ER note. Recently treated with Covid. On May 03. He was also recently hospitalized in the hospital. Noted to be on in A. fib with RVR. He was also hypoxic. He was placed on BiPAP. A CTA was completed which showed saddle pulmonary emboli. Patient refused transfer. He was given heparin bolus and TPA. He is being seen in the ICU. Heparin drip held due to bleeding from mouth and nose. Patient refuses transfer and wishes to be DNR. He wants to be treated but does not want any other invasive management. He denies any fevers. Denies chest pain. Denies headaches or lightheadedness. Overnight heparin drip was discontinued because patient was having excessive bleeding from mouth and nose. This morning bleeding has stopped. He would like to eat. Denies chest pain. Still on oxygen. Medications: Reviewed: Yes Vitals/I&O/Wt Last Vital Signs Temp 97.1 F L 05/27/20 12:00 Pulse 82 05/27/20 12:00 Resp 31 H 05/27/20 12:00 BP 155/75 05/27/20 12:00 Pulse Ox 94 05/27/20 12:00 05/26/20 05/27/20 05/27/20 22:59 06:59 14:59 Intake Total 50 / 896.619 0528.917 / 3802.086 1288.333 / 1288.333 Output Total 525 / 525 600 / 600 Balance 50 / 186.538 3859.917 / 3277.086 688.333 / 688.333 Weight last 48 hrs Weight 160 lb Physical Exam Const: COMMON NORMALS: patient oriented x3 HENMT: OTHER: Dried blood noted around nose and mouth Resp: COMMON NORMALS: normal respiratory effort and No retractions Cardio: COMMON NORMALS: regular rate and regular rhythm RATE: regular rate RHYTHM: regular rhythm GI: COMMON NORMALS: Soft to palpation and non-tender PALPATION: Yes Soft to palpation Neuro: COMMON NORMALS: patient oriented x3 Skin: NARRATIVE SKIN EXAM: Patient noted to have large bruising on extremities Data : 05/27/20 03:05 05/27/20 03:05 Micro: Microbiology 05/26/20 07:09 Blood Culture - Preliminary Blood NEGATIVE TO DATE 05/26/20 07:09 Blood Culture - Preliminary Blood NEGATIVE TO DATE A&P Assessment and plan (1) Pneumonia: Status: Acute (2) Pulmonary embolism: Status: Acute (3) Troponin level elevated: Status: Acute (4) Thrombocytopenia: Status: Acute Additional A&P Information Is a 84-year-old male admitted for saddle PE. Patient refused transfer. Received TPA in the ER. Overnight noted to have bleeding. Platelets are low. Pulmonary embolus -Status post TPA, duplex ordered., Restart heparin drip Elevated troponins -Abnormal echocardiogram thrombus seen Thrombocytopenia -Discontinue Pepcid -Repeat CBC in a.m. 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
--- NOTE | 2020-05-27 14:30 | PC.NURSE ---
Heparin gtt restarted. Per protocol (82 kgs) gtt starts at 14units/kg/hr =23ml/hr. Please note the MAR flowsheet shows 23ml/hr is more that 15 units/kg/hour., does not reflect the dosing per nomograph.
--- NOTE | 2020-05-27 15:50 | PC.PHAR ---
CONSULT FOR PHARMACY TO DOSE HEPARIN. THERE IS NO PHARMACY TO DOSE PROTOCOL, I ASKED THAT NURSE BURGESS FOLLOW [facility] APPROVED PROTOCOL
--- NOTE | 2020-05-27 19:14 | PC.NURSE ---
Shift summary: Pt rested comfortably, per him, in the bed throughout the day. He has stayed on 6lpm per [employer], humidification added mid day. Pt stated that was more comfortable. Lungs sounds diminished in the bases but otherwise clear. He has bruising bilat arms. He has a skin tear, from prior admission, right forearm. Platelets 123. Dr Ashley orders the heparin gtt restarted without boluses thsi afternoon. Next PTT check at 2029. He has urinated frequently in amounts 50- 150ml, pale clear urine.
--- NOTE | 2020-05-27 19:18 | PC.NURSE ---
Report given to CARLOS Ponce.
[2020-05-27 21:08] LABS: Partial Thromboplastin Time 85.7 SECONDS (23.9-36.7)
[2020-05-28] VITALS (22 sets, daily range): BP systolic 84–150; BP diastolic 54–85; PULSE 71–115; RESP 8–42; TEMP 36.6–37.1; O2SAT 91–100
[2020-05-28 03:34] LABS: Basophils % 0.2 %; Eosinophils % 0.3 %; Hematocrit 43.4 % (42.0-52.0); Hemoglobin 14.1 g/dL (11.7-16.6); Mean Corpuscular HGB Conc 32.5 g/dL (30.0-36.0); Mean Corpuscular Hemoglobin 29.7 pg (28.0-34.0); Mean Corpuscular Volume 91.6 fL (80-94); Mean Platelet Volume 9.8 fL (7.4-10.4); Monocytes # 0.8 10^3/uL (0.2-0.9); Neutrophils # 10.79 10^3/uL (1.8-7.7); Neutrophils % 84.9 %; Nucleated Red Blood Cells % 0 %; Platelet Count 144 10^3/cmm (130-400); Red Blood Count 4.74 10^6/uL (4.1-5.3); Red Cell Distribution Width 13.8 % (12.1-15.1); White Blood Count 12.7 10^3/uL (4.0-10.0)
[2020-05-28] MEDS: morphine 4 mg/mL SDV 1 mL 2 MG IVP ×2 (03:43→19:35)
[2020-05-28 04:40] LABS: Alanine Aminotransferase 62 U/L (0-41); Albumin Level 2.6 g/dL (3.5-5.2); Alkaline Phosphatase 82 IU/L (40-130); Blood Urea Nitrogen 11 mg/dL (8-23); Calcium 8.4 mg/dL (8.5-10.5); Carbon Dioxide 26 mmol/L (22-29); Chloride 102 mmol/L (98-107); Glucose 115 mg/dL (65-115); Osmolality Calculated 280 mOsm/kg (285-295); Sodium 135 mmol/L (136-145); Total Bilirubin 0.5 mg/dL (0.15-1.2); Total Protein 5.6 g/dL (6.6-8.7)
[2020-05-28 04:45] LABS: Anion Gap 11.8 (5-19); Aspartate Amino Transferase 33 U/L (0-40); Potassium 4.8 mmol/L (3.5-5.1)
[2020-05-28 05:26] LABS: Partial Thromboplastin Time 77.9 SECONDS (23.9-36.7)
[2020-05-28] MEDS: D5-NS 0.45% + KCL 20 mEq 20 MEQ/1,000 ML BAG 100 MEQ IV (05:29)
[2020-05-28] MEDS: heparin drip 25,000 UNIT/500 ML PREMIX 18 UNIT IV (05:31)
[2020-05-28] MEDS: cefTAZidime 2,000 MG in sodium chloride 0.9% (plus) 50 ML 150 MG IV ×2 (07:44→17:01)
[2020-05-28] MEDS: pantoprazole DR 40 mg Tablet PO (09:06)
[2020-05-28] MEDS: nystatin 100,000 unit/mL UDC 5 mL 500000 UNIT PO ×4 (09:06→20:16)
[2020-05-28] MEDS: tamsulosin 0.4 mg Capsule PO (09:06)
[2020-05-28 11:33] LABS: Partial Thromboplastin Time 62.2 SECONDS (23.9-36.7)
--- NOTE | 2020-05-28 14:12 | P.PN_ITS ---
Subjective Subjective: Interval history: No acute event overnight. Vitals and labs have been reviewed. Has been afebrile, B/P Stable. Medications: Reviewed: Yes Vitals/I&O/Wt Last Vital Signs Temp 97 F L 05/27/20 16:00 Pulse 106 H 05/28/20 08:00 Resp 18 05/28/20 08:00 BP 125/64 05/28/20 05:00 Pulse Ox 95 05/28/20 07:57 05/27/20 05/28/20 05/28/20 22:59 06:59 14:59 Intake Total 1654.1 / 2942.433 1106.267 / 4048.700 550 / 550 Output Total 650 / 1250 2600 / 3850 750 / 750 Balance 1004.1 / 1692.433 -1493.733 / 198.700 -200 / -200 Weight last 48 hrs Weight 82.1 kg Physical Exam Const: COMMON NORMALS: patient oriented x3 HENMT: COMMON NORMALS: normocephalic and atraumatic HEAD & SCALP: normocephalic and atraumatic Chest: CHEST: Yes Symmetrical chest wall rise Resp: COMMON NORMALS: clear to auscultation bilaterally EFFORT & INSPECTION: Yes symmetric chest movement AUSCULTATION: clear to auscultation bilaterally Cardio: COMMON NORMALS: regular rate, regular rhythm, S1 normal heart sound present, S2 normal heart sound present, No gallops present (Cardio), No murmurs present (Cardio), No rub (Cardio) and Peripheral pulses 2+ throughout RATE: regular rate RHYTHM: regular rhythm HEART SOUNDS: S1 normal heart sound present and S2 normal heart sound present PERIPHERAL PULSES: Peripheral pulses 2+ throughout GI: COMMON NORMALS: Normal to inspection, nondistended, normoactive bowel sounds present, Soft to palpation, non-tender, No hepatosplenomegaly present and no masses AUSCULTATION: Yes normoactive bowel sounds PALPATION: Yes Soft to palpation and Yes No hepatosplenomegaly present RECTAL EXAM: Yes deferred Extremity: COMMON NORMALS: no clubbing, cyanosis or edema and no pedal edema Neuro: COMMON NORMALS: patient oriented x3 Data : 05/28/20 03:15 05/28/20 03:15 A&P Assessment and plan (1) Pneumonia: Status: Acute (2) Pulmonary embolism: Status: Acute (3) Troponin level elevated: Status: Acute (4) Thrombocytopenia: Status: Acute Additional A&P Information Is a 84-year-old male admitted for saddle PE. Patient refused transfer. Receiv ed TPA in the ER. Overnight noted to have bleeding. Platelets are low. Pulmonary embolus -CTA : Extensive bilateral pulmonary embolus is new since the prior examination. Thin bridging saddle embolus. Right and left main pulmonary arteries remain patent. Extensive bilateral segmental and subsegmental emboli. -CV venous duplex LE BI: Acute occlusive DVT of the right popliteal and peroneal veins. -Status post TPA: -Initially on Heparin drip ( 05/23 ) -Currently on Eliquis 10 mg q12 h daily ( for 7days ).Followed by Eliquis 5 mg 12 h daily for 3 months Elevated troponins:Likely 2/2 TYPE II M.I 2/2 TO P.E -Echocardiogram: LV systolic function is grossly normal,.Regional wall motion abnormalities cannot be assessed because of limited visualization. Diastolic function is abnormal. Right ventricle is grossly enlarged and has severe hypokinesis. There is an echogenic material seen extending from pulmonic valve into the RVOT.This likely represents thrombus Right atrium is enlarged. Mild aortic regurgitation is seen. Mild pulmonic regurgitation. Thrombocytopenia -Discontinue Pepcid -Repeat CBC in a.m. 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
[2020-05-28] MEDS: apixaban 5 mg Tablet 10 MG PO (17:03)
--- NOTE | 2020-05-28 19:00 | PC.NURSE ---
Report given to CARLOS Ponce.
--- NOTE | 2020-05-28 19:26 | PC.NURSE ---
Pt resting bed most for the day. He did get up once to BS. He was fairly steady and stable on his feet, but still needs assist. He had a med BM. he has urinated very frequently today. So frequently the pt said he couldn't get a nap. IV fluids discontinued as pt was finishing his clear liquid meals. Diet then changed to regular. Heparin gtt stopped. Pt started on Eliquis.
[2020-05-29] VITALS (20 sets, daily range): BP systolic 92–139; BP diastolic 42–84; PULSE 75–115; RESP 18–30; TEMP 36.6–37.2; O2SAT 87–97; BMI 23.0
[2020-05-29] MEDS: morphine 4 mg/mL SDV 1 mL 2 MG IVP (02:31)
[2020-05-29 05:06] LABS: Basophils % 0.4 %; Eosinophils # 0.3 10^3/uL (0.0-0.8); Eosinophils % 3.2 %; Hematocrit 44.1 % (42.0-52.0); Hemoglobin 14.4 g/dL (11.7-16.6); Lymphocytes % 12.1 %; Mean Corpuscular HGB Conc 32.7 g/dL (30.0-36.0); Mean Corpuscular Hemoglobin 29.3 pg (28.0-34.0); Mean Corpuscular Volume 89.8 fL (80-94); Mean Platelet Volume 10.2 fL (7.4-10.4); Monocytes # 0.6 10^3/uL (0.2-0.9); Monocytes % 7.6 %; Neutrophils # 6.01 10^3/uL (1.8-7.7); Neutrophils % 75.1 %; Nucleated Red Blood Cells % 0 %; Platelet Count 154 10^3/cmm (130-400); Red Blood Count 4.91 10^6/uL (4.1-5.3); Red Cell Distribution Width 13.9 % (12.1-15.1)
[2020-05-29 05:45] LABS: Anion Gap 14.1 (5-19); Blood Urea Nitrogen 11 mg/dL (8-23); Calcium 8.4 mg/dL (8.5-10.5); Carbon Dioxide 26 mmol/L (22-29); Chloride 99 mmol/L (98-107); Creatinine Clr Calc Pharmacy 69.2166; Glucose 112 mg/dL (65-115); Osmolality Calculated 280 mOsm/kg (285-295); Potassium 4.1 mmol/L (3.5-5.1); Sodium 135 mmol/L (136-145)
[2020-05-29] MEDS: nystatin 100,000 unit/mL UDC 5 mL 500000 UNIT PO ×4 (09:13→22:29)
[2020-05-29] MEDS: apixaban 5 mg Tablet 10 MG PO ×2 (09:13→17:41)
[2020-05-29] MEDS: tamsulosin 0.4 mg Capsule PO (09:13)
[2020-05-29] MEDS: pantoprazole DR 40 mg Tablet PO (09:13)
--- NOTE | 2020-05-29 10:00 | PC.SOCIAL ---
Pg 2 IMM Explained to pt Pg 2 IMM. No questions voiced. Provided pt a copy. Signed, dated, & timed a copy & placed in chart.
[2020-05-29] MEDS: cefTAZidime 2,000 MG in sodium chloride 0.9% (plus) 50 ML 150 MG IV (10:07)
--- NOTE | 2020-05-29 10:53 | PM.PN ---
Subjective Subjective: Interval history: is still needing 4Ls oxygen via oxymask to maintain saturation greater then 90 %. He still has significant SOB with minimal movement. His other vitals and labs have been reviewed. Medications: Reviewed: Yes Vitals/I&O/Wt Last Vital Signs Temp 98.5 F 05/29/20 08:00 Pulse 100 05/29/20 10:00 Resp 25 H 05/29/20 10:00 BP 106/63 05/29/20 10:00 Pulse Ox 96 05/29/20 10:00 05/28/20 05/29/20 05/29/20 22:59 06:59 14:59 Intake Total 2492.7 / 3542.7 50 / 3592.7 350 / 350 Output Total 850 / 2150 400 / 2550 Balance 1642.7 / 1392.7 -350 / 1042.7 350 / 350 Weight last 48 hrs Weight 76.929 kg Weight 82.1 kg Physical Exam Const: COMMON NORMALS: patient oriented x3 HENMT: COMMON NORMALS: normocephalic and atraumatic HEAD & SCALP: normocephalic and atraumatic Chest: CHEST: Yes Symmetrical chest wall rise Resp: COMMON NORMALS: clear to auscultation bilaterally EFFORT & INSPECTION: Yes symmetric chest movement AUSCULTATION: clear to auscultation bilaterally OTHER: B/L Basal rales predominantly over rt lung bases Cardio: COMMON NORMALS: regular rate, regular rhythm, S1 normal heart sound present, S2 normal heart sound present, No gallops present (Cardio), No murmurs present (Cardio), No rub (Cardio) and Peripheral pulses 2+ throughout RATE: regular rate RHYTHM: regular rhythm HEART SOUNDS: S1 normal heart sound present and S2 normal heart sound present PERIPHERAL PULSES: Peripheral pulses 2+ throughout GI: COMMON NORMALS: Normal to inspection, nondistended, normoactive bowel sounds present, Soft to palpation, non-tender, No hepatosplenomegaly present and no masses AUSCULTATION: Yes normoactive bowel sounds PALPATION: Yes Soft to palpation and Yes No hepatosplenomegaly present RECTAL EXAM: Yes deferred Extremity: COMMON NORMALS: no clubbing, cyanosis or edema and no pedal edema Neuro: COMMON NORMALS: patient oriented x3 Data : 05/29/20 04:14 01/03/21 04:14 A&P Assessment and plan (1) Pneumonia: Status: Acute (2) Pulmonary embolism: Status: Acute (3) Troponin level elevated: Status: Acute (4) Thrombocytopenia: Status: Acute Additional A&P Information Is a 84-year-old male admitted for saddle PE. Patient refused transfer. Received TPA in the ER. Post TPA Overnight noted to have bleeding. Platelets Were low. Pulmonary embolus -CTA : Extensive bilateral pulmonary embolus is new since the prior examination. Thin bridging saddle embolus. Right and left main pulmonary arteries remain patent. Extensive bilateral segmental and subsegmental emboli. -CV venous duplex LE BI: Acute occlusive DVT of the right popliteal and peroneal veins. -Status post TPA: -Initially on Heparin drip ( 05/23- 05/28) -Currently on Eliquis 10 mg q12 h daily (05/28-- for 7days ).Followed by Eliquis 5 mg 12 h daily for 3 months -Follow AM Xray chest Elevated troponins:Likely 2/2 TYPE II M.I 2/2 TO P.E -Echocardiogram: LV systolic function is grossly normal,.Regional wall motion abnormalities cannot be assessed because of limited visualization. Diastolic function is abnormal. Right ventricle is grossly enlarged and has severe hypokinesis. There is an echogenic material seen extending from pulmonic valve into the RVOT.This likely represents thrombus Right atrium is enlarged. Mild aortic regurgitation is seen. Mild pulmonic regurgitation. Thrombocytopenia:Stable -Discontinue Pepcid -Monitor CBC in a.m. -4T Score: -HIT Panel:Awaited -Monitor CBC -H/O COVID PNA : Currently on Ceftazidime for possible superimposed Bacterial PNA ( 05/26-TD ) Blood cultures : NTD Lasix 20 mg po * 1 dose Follow AM Xray chest Anxiety -Continue as needed benzo Code: DNR DVT prophylaxis: GI prophylaxis: PPI Attestations Medical Necessity Statement*: Patient needs to be in hospital for the management of R/F 2/2 P.E /PNA Coding Level of Care Code Acute Surgical Garment Inspector for g Fwd Diagnoses Pneumonia J18.9 Pulmonary embolism I26.99 Troponin level elevated R77.8 Thrombocytopenia D69.6
[2020-05-29] MEDS: FUROsemide 20 mg Tablet PO (13:08)
--- NOTE | 2020-05-29 18:51 | PC.NURSE ---
Shift summary: Pt now on 4lpm/oxymask. Lung bases had slight crackles , Dr Turner ordered 20mg Lasix, admin PO around noon. Pt tolerating moving around , better than yesterday. He is eating well. His color is good. He is urinating less frequently but more at a time. He has been up to [facility] , med formed BM noted. His came in to visit earlier in the visiting hours. His sister called to check on him, pt gave permission to fill his sister in on his condition.
--- NOTE | 2020-05-29 18:54 | PC.NURSE ---
Report given to CARLOS Salazar.
[2020-05-29] MEDS: albuterol 8 gm MDI 2 PUFF INHALATION (20:08)
[2020-05-29] MEDS: ALPRAZolam 0.25 mg Tablet PO (20:54)
[2020-05-29] MEDS: guaiFENesin 600 mg Tablet PO (21:09)
[2020-05-30] VITALS (14 sets, daily range): BP systolic 86–136; BP diastolic 58–74; PULSE 85–107; RESP 16–31; TEMP 37.1–37.3; O2SAT 91–97
--- NOTE | 2020-05-30 05:00 | XRR_ITS ---
PROCEDURE INFORMATION: Exam: XR Chest, 1 View Exam date and time: 05/30/2020 5:40 AM Age: 84 years old Clinical indication: Condition or disease; Lung condition and disease; Pneumonia; Other: Not specified; Additional info: Pna TECHNIQUE: Imaging protocol: XR of the chest Views: 1 view. COMPARISON: CR XR chest 1V portable [id number] 05/26/2020 5:41 AM FINDINGS: Lungs: Patchy interstitial and alveolar airspace disease in the right mid lung and right lower lobe as well as the left mid lung laterally. Subtle airspace disease left retrocardiac region. Pleural space: Unremarkable. No pleural effusion. No pneumothorax. Heart/Mediastinum: Cardiac silhouette is enlarged. Bones/joints: Unremarkable. XR/XR chest 1V portable [id number] IMPRESSION: Patchy interstitial and alveolar airspace disease in the right mid lung and right lower lobe as well as the left mid lung laterally. Subtle airspace disease left retrocardiac region. Subpulmonic effusion on the right. Findings are stable.
[2020-05-30 05:31] LABS: Basophils # 0.1 10^3/uL (0.0-0.1); Basophils % 0.6 %; Eosinophils # 0.4 10^3/uL (0.0-0.8); Eosinophils % 4.3 %; Hematocrit 45.7 % (42.0-52.0); Lymphocytes # 1.1 10^3/uL (0.8-4.8); Lymphocytes % 13.4 %; Mean Corpuscular HGB Conc 32.8 g/dL (30.0-36.0); Mean Corpuscular Hemoglobin 29.6 pg (28.0-34.0); Mean Corpuscular Volume 90.1 fL (80-94); Mean Platelet Volume 10.1 fL (7.4-10.4); Monocytes # 0.6 10^3/uL (0.2-0.9); Monocytes % 6.7 %; Neutrophils # 5.85 10^3/uL (1.8-7.7); Neutrophils % 71.1 %; Nucleated Red Blood Cells % 0 %; Platelet Count 169 10^3/cmm (130-400); Red Blood Count 5.07 10^6/uL (4.1-5.3); Red Cell Distribution Width 13.7 % (12.1-15.1); White Blood Count 8.2 10^3/uL (4.0-10.0)
[2020-05-30 05:52] LABS: Alanine Aminotransferase 50 U/L (0-41); Albumin Level 2.5 g/dL (3.5-5.2); Alkaline Phosphatase 71 IU/L (40-130); Anion Gap 12.8 (5-19); Aspartate Amino Transferase 18 U/L (0-40); Blood Urea Nitrogen 16 mg/dL (8-23); Calcium 8.4 mg/dL (8.5-10.5); Carbon Dioxide 28 mmol/L (22-29); Chloride 97 mmol/L (98-107); Creatinine Clr Calc Pharmacy 69.2166; Globulin 2.9 g/dL (1.3-4.6); Glucose 104 mg/dL (65-115); Osmolality Calculated 279 mOsm/kg (285-295); Potassium 3.8 mmol/L (3.5-5.1); Sodium 134 mmol/L (136-145); Total Bilirubin 0.6 mg/dL (0.15-1.2); Total Protein 5.4 g/dL (6.6-8.7)
[2020-05-30] MEDS: nystatin 100,000 unit/mL UDC 5 mL 500000 UNIT PO ×4 (07:30→20:23)
[2020-05-30] MEDS: tamsulosin 0.4 mg Capsule PO (07:30)
--- NOTE | 2020-05-30 07:56 | P.PN_ITS ---
Subjective Subjective: Interval history: Chart reviewed, remains on 4 L, afebrile, normotensive. Resting quietly in bed, in good spirits, has oxygen mask on as was noted to have epistaxis and continues to experience some nasal congestion, has dried blood in both nares though no active bleeding currently. Medications: Reviewed: Yes Medication Review Details: Active Medications Generic Name Dose Route Start Last Admin Trade Name Freq PRN Reason Stop Dose Admin Albuterol Sulfate 2 puff 05/26/20 17:56 05/29/20 20:08 Albuterol 8 Gm M di INHALATION 2 puff Q6H.RESPIRATORY P RN Administration shortness of jesus th or wheezing Alprazolam 0.25 mg 05/26/20 17:56 05/29/20 20:54 Alprazolam 0.25 Mg Tablet PO 0.25 mg BID PRN Administration Anxiety Apixaban 10 mg 05/28/20 18:00 05/29/20 17:41 Apixaban 5 Mg Ta blet PO 10 mg BID YANET Administration Bisacodyl 10 mg 05/26/20 17:56 Bisacodyl 10 Mg Supp VT DAILY PRN Constipation Guaifenesin 600 mg 05/29/20 21:00 05/29/20 21:09 Guaifenesin 600 Mg Tablet PO 600 mg BID YANET Administration Diltiazem HCl 125 mg/ Sodium 125 mls @ 0 mls/h r 05/26/20 06:00 05/27/20 19:47 Chloride IV Infused .Q0M YANET Titration Protocol Per Protocol Ceftazidime 2,000 mg/ Sodium 50 mls @ 150 mls/ hr 05/29/20 17:00 05/30/20 00:35 Chloride IV 150 mls/hr Q8H YANET Administration Protocol Morphine Sulfate 2 mg 05/26/20 14:01 05/29/20 02:31 Morphine 4 Mg/Ml Sdv 1 Ml IVP 2 mg Q4H PRN Administration SEVERE PAIN Nystatin 500,000 unit 05/26/20 20:00 05/30/20 07:30 Nystatin 100,000 Unit/Ml Udc 5 Ml PO 500,000 unit QID@08,12,16,20 S CH Administration Ondansetron HCl 4 mg 05/26/20 14:01 Ondansetron 2 Mg /Ml Sdv 2 Ml IVP Q6H PRN NAUSEA AND VOMITI NG Pantoprazole Sodiu m 40 mg 05/28/20 09:00 05/29/20 09:[address] 40 Mg Tablet PO 40 mg DAILY YANET Administration Tamsulosin HCl 0.4 mg 05/27/20 08:00 05/30/20 07:30 Tamsulosin 0.4 M g Capsule PO 0.4 mg DAILY@0800 YANET Administration ciprofloxacin [From Cipro] Allergy (Verified 05/03/20 17:04) ALGY-Rash metronidazole [From Flagyl] Allergy (Verified 05/03/20 17:04) ALGY-Rash Vitals/I&O/Wt Last Vital Signs Temp 99.1 F 05/30/20 04:00 Pulse 89 05/30/20 06:17 Resp 26 H 05/30/20 06:17 BP 111/65 05/30/20 06:17 Pulse Ox 92 05/30/20 06:17 05/29/20 05/30/20 05/30/20 22:59 06:59 14:59 Intake Total 640 / 1290 100 / 1390 Output Total 1325 / 1825 200 / 200 Balance -685 / -535 100 / -435 -200 / -200 Weight last 48 hrs Weight 77.111 kg Weight 76.929 kg Physical Exam Const: COMMON NORMALS: no acute distress, patient oriented x3 and alert GENERAL APPEARANCE: cooperative and comfortable ORIENTATION/CONSCIOUSNESS: Yes awake OTHER: -very pleasant HENMT: COMMON NORMALS: normocephalic, atraumatic, hearing grossly normal bilaterally and moist oral mucous membranes HEAD & SCALP: normocephalic and atraumatic NOSE: Other nasal findings present (dried blood in bilateral nares) Eye: COMMON NORMALS: Equal, round and reactive pupils present, EOMs intact bilaterally and conjunctivae normal CONJUNCTIVA: Yes conjunctivae normal PUPIL: Yes Equal, round and reactive pupils present Neck/C-Spine: COMMON NORMALS: full ROM GENERAL: Yes normal visual inspection and Yes trachea midline Resp: COMMON NORMALS: normal respiratory effort, No retractions and No use of accessory muscles EFFORT & INSPECTION: Yes able to speak in complete sentences, Yes symmetric chest movement and No tachypneic AUSCULTATION: diminished lung sounds OTHER: -on 4 L oxy-mask Cardio: COMMON NORMALS: regular rate, regular rhythm, S1 normal heart sound present, S2 normal heart sound present and No murmurs present (Cardio) RATE: regular rate RHYTHM: regular rhythm HEART SOUNDS: S1 normal heart sound present and S2 normal heart sound present GI: COMMON NORMALS: Normal to inspection, nondistended, normoactive bowel sounds present, Soft to palpation and non-tender PALPATION: Yes Soft to palpation Extremity: COMMON NORMALS: normal to inspection, full ROM, no clubbing, cyanosis or edema and no pedal edema Neuro: COMMON NORMALS: patient oriented x3, moves all extremities, no focal motor deficits and no sensory deficits noted SENSORIUM/ORIENTATION: Yes alert SPEECH: speech normal Psych: COMMON NORMALS: mental status grossly normal, Normal thought process present, cooperative, normal affect and speech normal SPEECH: Yes normal speech THOUGHT PROCESS: Normal thought process present Skin: COMMON NORMALS: no rashes or lesions noted, no jaundice, no petechiae and no mottling GENERAL SKIN EXAM: no rashes or lesions noted Data : 05/30/20 04:44 05/30/20 04:44 A&P Assessment and plan (1) Pulmonary embolism: -Noted to have extensive bilateral PE, saddle embolus, extensive bilateral segmental and subsegmental emboli. Patient declined transfer on initial admission -Received tPA and initially on heparin drip, now transitioned to treatment dose Eliquis -Noted to have bleeding (epistaxis) and thrombocytopenia following tPA, now resolved -Echo: EF=60-65%, severe hypokinesis of RV, mild AR, trace VT, trace TR, noted presence of thrombus extending from pulmonic valve into the RVOT -continues to require supplemental oxygen, on 4 L, titrate as tolerated -home oxygen evaluation prior to d/c; not oxygen dependent on admission -got dose of lasix 20 mg yesterday, f/u CXR today unchanged Status: Acute Qualifiers: Acute cor pulmonale presence: with acute cor pulmonale Chronicity: acute Pulmonary embolism type: saddle Qualified Code(s): I26.02 - Saddle embolus of pulmonary artery with acute cor pulmonale (2) DVT (deep venous thrombosis): -Noted to have evidence of acute occlusive DVT of right popliteal and peroneal veins. No evidence of DVT on left -Already on anticoagulation with treatment dose Eliquis Status: Acute Qualifiers: Affected thrombotic vein of extremity: popliteal Chronicity: acute DVT location: lower extremity Laterality: right Qualified Code(s): I82.431 - Acute embolism and thrombosis of right popliteal vein (3) Thrombocytopenia: Status: Resolved (4) Troponin level elevated: -Likely secondary to demand ischemia from acute PE Status: Acute (5) Pneumonia due to COVID-19 virus: -Found to be COVID-19 positive on 05/03; prolonged hospital course -Evidence of pneumonitis on CTA -On empiric antibiotic coverage with ceftazidime -Afebrile, no leukocytosis, still requiring some supplemental oxygen support -Blood cultures negative -Sputum cultures negative Status: Acute Additional A&P Information -Advanced age -BPH; on Flomax -regular diet as tolerated -GI ppx with PPI -DVT ppx not needed as on Eliquis -Dispo: [facility] -Code status: DNR/DNI -anticipate d/c in 24-48 hrs if continued stability/improvement Attestations Medical Necessity Statement*: Patient requires hospitalization for continued anticoagulation and continued treatment of pneumonitis, monitoring of respiratory status. Time Spent in Patient Care: 16 - 35 minutes (>than 50% of time spent in c ounselling and/or direct pt care on unit) . Coding Level of Care Code Acute Registered Radiographer for g Fwd Exam Comprehensive Diagnoses Pulmonary embolism I26.02 Acute cor pulmonale presence: with acute cor pulmonale Chronicity: acute Pulmonary embolism type: saddle DVT (deep venous thrombosis) I82.431 Affected thrombotic vein of extremity: popliteal Chronicity: acute DVT location: lower extremity Laterality: right Thrombocytopenia D69.6 Troponin level elevated R77.8 Pneumonia due to COVID-19 virus U07.1; J12.89
--- NOTE | 2020-05-30 09:25 | PC.CHAP ---
Pastoral Care Encounter/Spiritual Assessment Type of Contact [] Declined strap making machine operator visit [] Patient/Family/Request visit [] Outpatient visit [] Follow-up visit [] Physician referral [] Code/Alert [] Routine visit [] Staff referral [] Actively dying [] Patient sleeping [] Family support [] [] Out of room [] Palliative care [] [] Receiving care in room [] Pre-surgical visit [] Trauma [] Long length of stay [x] ICU visit [] Other: Relational/Emotional Strength [] Patient feels connected with others/family/visitors/staff [] Distress [] Loneliness/isolation [] Abandonment Spirituality of Patient [] Person of Veda [] Attends Denominational of their Veda [] Believes in Prayer [] Reads Bible or Mormonism materials [] There are Spiritual issues to be addressed Cooler Worker Interventions [x] Prayer [] Active listening [] Non-anxious presence [] Spiritual/emotional support [] Crisis/trauma care [] Spiritual counseling [] Bereavement support [] Provided bereavement packet [] Provided Bible/devotional materials [] Provided toy/stuffed animal, coloring book to patient or family member [] Provided Communion [] Anointing/[place] [] Salvation [x] Completed spiritual assessment [] Other: Impact on Illness or Injury [] Angry [] Fearful [] Anxious [] Often cries [] Exhaustion [] Unable to work [] Unable to attend sabianist [] Unable to walk/stand [] Unable to read [] Unable to drive [] Unable to eat/drink [] Unable to sleep [] Unable to be with family [] Patient intubated [] Other: Summary Time spent with patient
[2020-05-30] MEDS: guaiFENesin 600 mg Tablet PO ×2 (09:49→17:44)
[2020-05-30] MEDS: apixaban 5 mg Tablet 10 MG PO ×2 (09:49→17:44)
[2020-05-30] MEDS: pantoprazole DR 40 mg Tablet PO (09:49)
[2020-05-30] MEDS: oxymetazoline 0.05% Nasal Spray 15 mL 2 SPRAY NOSTRIL-B (13:20)
--- NOTE | 2020-05-30 14:20 | PC.RESP ---
Pulmonary Rehab information sent to patient.
[2020-05-30] MEDS: ALPRAZolam 0.25 mg Tablet PO ×2 (14:35→21:49)
[2020-05-30] MEDS: cefTAZidime 2,000 MG in sodium chloride 0.9% (plus) 50 ML 150 MG IV (17:47)
[2020-05-31] VITALS (12 sets, daily range): BP systolic 106–121; BP diastolic 57–69; PULSE 84–110; RESP 16–26; TEMP 37–37.4; O2SAT 91–98
[2020-05-31] MEDS: cefTAZidime 2,000 MG in sodium chloride 0.9% (plus) 50 ML 150 MG IV ×2 (02:14→09:01)
--- NOTE | 2020-05-31 02:30 | PC.NURSE ---
report given to CARLOS Lipscomb in [facility]. Patient transferred with all belongings to room 102
--- NOTE | 2020-05-31 03:22 | PC.NURSE ---
NURSE NOTE: TRANSFER: PT ARRIVED TO UNIT AT APPROX 0300 TODAY. ALERT AND ORIENTEDX4; MOVES ALL EXTREMITIES AND FOLLOWS COMMANDS. DENIES PAIN AT THIS TIME. ALL VS AND ASSESSMENTS AND CHARTED. WILL CONTINUE TO MONITOR.
[2020-05-31 04:38] LABS: Albumin Level 2.5 g/dL (3.5-5.2); Alkaline Phosphatase 77 IU/L (40-130); Blood Urea Nitrogen 19 mg/dL (8-23); Calcium 8.5 mg/dL (8.5-10.5); Carbon Dioxide 26 mmol/L (22-29); Chloride 96 mmol/L (98-107); Globulin 3.5 g/dL (1.3-4.6); Glucose 92 mg/dL (65-115); Osmolality Calculated 274 mOsm/kg (285-295); Sodium 131 mmol/L (136-145); Total Bilirubin 0.6 mg/dL (0.15-1.2)
[2020-05-31 05:55] LABS: Alanine Aminotransferase 43 U/L (0-41); Anion Gap 13.4 (5-19); Aspartate Amino Transferase 31 U/L (0-40); Potassium 4.4 mmol/L (3.5-5.1)
--- NOTE | 2020-05-31 06:42 | P.DS_ITS ---
Discharge Providers Date of Admission: 05/26/20 12:13 Date of Discharge: May 31, 2020 Attending Provider at Admission: Nelson Covarrubias MD Attending Provider at Discharge: Amira Le MD Consults: None Primary Care Provider: Ann Marie Richards Diagnoses at Discharge Discharge Diagnosis (1) Pulmonary embolism: Status: Acute Permanent problem details: -Noted to have extensive bilateral PE, saddle embolus, extensive bilateral segmental and subsegmental emboli. Patient declined transfer on initial admission -Received tPA and initially on heparin drip, now transitioned to treatment dose Eliquis -Noted to have bleeding (epistaxis) and thrombocytopenia following tPA, now resolved -Echo: EF=60-65%, severe hypokinesis of RV, mild AR, trace SD, trace TR, noted presence of thrombus extending from pulmonic valve into the RVOT -continues to require supplemental oxygen, on 4 L Qualifiers: Acute cor pulmonale presence: with acute cor pulmonale Chronicity: acute Pulmonary embolism type: saddle Qualified Code(s): I26.02 - Saddle embolus of pulmonary artery with acute cor pulmonale (2) DVT (deep venous thrombosis): Status: Acute Permanent problem details: -Noted to have evidence of acute occlusive DVT of right popliteal and peroneal veins. No evidence of DVT on left -Already on anticoagulation with treatment dose Eliquis Qualifiers: Affected thrombotic vein of extremity: popliteal Chronicity: acute DVT location: lower extremity Laterality: right Qualified Code(s): I82.431 - Acute embolism and thrombosis of right popliteal vein (3) Thrombocytopenia: Status: Resolved (4) Troponin level elevated: Status: Acute Permanent problem details: -Likely secondary to demand ischemia from acute PE (5) Pneumonia due to COVID-19 virus: Status: Acute Permanent problem details: -Found to be COVID-19 positive on 05/03; prolonged hospital course -Evidence of pneumonitis on CTA -On empiric antibiotic coverage with ceftazidime -Afebrile, no leukocytosis, still requiring some supplemental oxygen support -Blood cultures negative -Sputum cultures negative Other Information Additional DC diagnoses/information: -Advanced age -BPH; on Flomax Reason for Visit Reason for Visit: RESP DISTRESS Hospital Course Hospital Course Patient was admitted to ICU after having presented from [place] with complaints of worsening shortness of breath and having been found to be hypoxic. He had recently been treated for COVID-19 pneumonia. He initially required BiPAP support and on further work-up was found to have bilateral PE with evidence of saddle embolus, A. fib with RVR, acute right lower extremity DVT. Transfer to higher level of care was offered which patient declined. He received a dose of TPA and was started on a heparin drip. Subsequently he was noted to have epistaxis and bleeding from his oral cavity at which point heparin was discontinued. Follow-up labs indicated thrombocytopenia. Fortunately bleeding stopped spontaneously overnight and he was transitioned to oral anticoagulation with treatment dose Eliquis. He has had no further bleeding. He was transitioned off BiPAP and oxygen requirement has gradually decreased and stabilized at 4 L. Oxygen mask has been used around the nasal cannula due to noted epistaxis previously. He did initially require Cardizem drip which was then weaned off and he has been started on low-dose metoprolol for continued rate control. Will need continued supplemental oxygen support which can be titrated as needed to maintain his oxygen saturation at or above 92% or for patient comfort. Will need to continue anticoagulation with Eliquis. Will be discharged back to [facility] today. He will need to continue to be monitored for any bleeding while on anticoagulation. He is to follow-up with his primary care provider within 1 week or per SNF. Physical Exam Const: COMMON NORMALS: no acute distress, patient oriented x3 and alert GENERAL APPEARANCE: cooperative and comfortable ORIENTATION/CONSCIOUSNESS: Yes awake OTHER: -very pleasant HENMT: COMMON NORMALS: normocephalic, atraumatic, hearing grossly normal bilaterally and moist oral mucous membranes HEAD & SCALP: normocephalic and atraumatic NOSE: Other nasal findings present (dried blood in bilateral nares) Eye: COMMON NORMALS: Equal, round and reactive pupils present, EOMs intact bilaterally and conjunctivae normal CONJUNCTIVA: Yes conjunctivae normal PUPIL: Yes Equal, round and reactive pupils present Neck/C-Spine: COMMON NORMALS: full ROM GENERAL: Yes normal visual inspection and Yes trachea midline Resp: COMMON NORMALS: normal respiratory effort, No retractions and No use of accessory muscles EFFORT & INSPECTION: Yes able to speak in complete sentences, Yes symmetric chest movement and No tachypneic AUSCULTATION: diminished lung sounds OTHER: -on 4 L oxy-mask Cardio: COMMON NORMALS: regular rate, regular rhythm, S1 normal heart sound present, S2 normal heart sound present and No murmurs present (Cardio) RATE: regular rate RHYTHM: regular rhythm HEART SOUNDS: S1 normal heart sound present and S2 normal heart sound present GI: COMMON NORMALS: Normal to inspection, nondistended, normoactive bowel sounds present, Soft to palpation and non-tender PALPATION: Yes Soft to palpation Extremity: COMMON NORMALS: normal to inspection, full ROM, no clubbing, cyanosis or edema and no pedal edema Neuro: COMMON NORMALS: patient oriented x3, moves all extremities, no focal motor deficits and no sensory deficits noted SENSORIUM/ORIENTATION: Yes alert SPEECH: speech normal Psych: COMMON NORMALS: mental status grossly normal, Normal thought process present, cooperative, normal affect and speech normal SPEECH: Yes normal speech THOUGHT PROCESS: Normal thought process present Skin: COMMON NORMALS: no rashes or lesions noted, no jaundice, no petechiae and no mottling GENERAL SKIN EXAM: no rashes or lesions noted Discharge Data Data Completed and Pending: Completed Studies During Hospitalization Category Date Time Status CT angio chest PE protcl [id number] Stat Cat Scan 05/26/20 06:22 Completed XR chest 1V raheem ble [id number] Routine Exams 05/30/20 05:00 Completed XR chest 1V raheem ble 43567 Urgent Exams 05/26/20 05:21 [place] [address]/25 Stat Ultrasound 05/26/20 09:14 [place] [address] Routin e Ultrasound 05/27/20 07:00 Completed Pending at discharge Category Date Time Status Blood Culture Sta t Lab 05/26/20 07:09 Results CBC Auto Diff [Co mplete Blood Count w/Auto] AM LABS Lab 05/31/20 03:00 Results Comprehensive Met abolic Panel AM LA BS Lab 06/01/20 04:[address] at Lab 05/26/20 07:18 Uncollected Labs from last 24 hours 05/31/20 05/31/20 03:00 03:00 WBC Pending RBC Pending Hgb Pending Hct Pending MCV Pending MCH Pending MCHC Pending RDW Pending Plt Count Pending MPV Pending Lymph % (Auto) Pending [place] % (Auto) Pending Lymph # (Auto) Pending [place] # (Auto) Pending Sodium 131 L Potassium 4.4 Chloride 96 L Carbon Dioxide 26 Anion Gap 13.4 BUN 19 Creatinine 0.9 GFR Calculation Not Reportable Glucose 92 Calculated Osmolal ity 274 L Calcium 8.5 Total Bilirubin 0.6 AST 31 ALT 43 H Alkaline Phosphata se 77 Total Protein 6.0 L Albumin 2.5 L Globulin 3.5 Vitals: Last Vital Signs Temp 98.6 F 05/31/20 03:49 Pulse 90 05/31/20 06:00 Resp 16 05/31/20 05:58 BP 108/61 05/31/20 03:49 Pulse Ox 94 05/31/20 05:58 Discharge Plan Discharge Patient Disposition: Xfer SNF Condition: Stable Prescriptions: New metoprolol tartrate 25 mg tablet 12.5 mg PO BID Qty: 30 RF: 0 Eliquis DVT-PE Treat 30D Start 5 mg (74 tabs) tablets,dose pack See Rx Instructions .ROUTE .COMPLEX Qty: 74 RF: 0 Continued albuterol sulfate 90 mcg/actuation HFA aerosol inhaler 2 puff inhalation Q6H PRN (Reason: shortness of breath or wheezing) Qty: 8.5 RF: 0 nystatin 100,000 unit/mL Suspension 5 ml PO QID@08,12,16,20 RF: 0 bisacodyl 10 mg Suppository 10 mg SD DAILY PRN (Reason: Constipation) RF: 0 Enema 19-7 gram/118 mL Enema 118 ml SD DAILY PRN (Reason: Constipation) RF: 0 tamsulosin 0.4 mg capsule 0.4 mg PO DAILY@0800 RF: 0 Tylenol Extra Strength 500 mg Tablet 500 mg PO Q6H PRN (Reason: Pain) Qty: 30 RF: 0 Xanax 0.25 mg Tablet 0.25 mg PO BID PRN (Reason: Anxiety) Qty: 30 RF: 0 Changed pantoprazole 40 mg tablet,delayed release (DR/EC) 40 mg PO DAILY@0800 Qty: 30 RF: 0 Discharge Orders: Discharge Order (Routine); Ordered 05/31/20 Ordered By: Amira Le Referrals: Ann Marie Richards [Primary Care Provider] - 4-7 days Discharge Diet: Advance as tolerated and Regular Discharge Activity: Oxygen as instructed Activity Restrictions/Additional Instructions: -Please note that patient will need supplemental oxygen, 4 L via oxy-mask. -Please monitor for bleeding as patient is now on blood thinners -Please resume PT/OT on return to facility Discharge Attestations Time Spent in Discharge Care*: greater than 30 min Specific Discharge Activities: educating patient, discussing with egg caser/social workers/dc planners, documenting/other paperwork and evaluating patient/reviewing data Status at Discharge: Cognitive status at discharge: cognitively intact , Behavioral status at discharge: cooperative and independent in ADL's , Overall status at discharge: patient is progressing back to baseline Quality Metrics Clinical Quality Measures During this hospital stay, did patient experience: VTE Contraindication to Overlap Therapy: Overlap treatment not indicated VTE Discharge Education: Education about anticoagulant therapy/Care Notes given and Medication side effects education Deep Vein Thrombosis/Pulmonary Embolism Present on Admission: Yes Coding Level of Care Code Acute 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
[2020-05-31 07:42] LABS: Basophils # 0.1 10^3/uL (0.0-0.1); Basophils % 1.4 %; Eosinophils # 0.4 10^3/uL (0.0-0.8); Eosinophils % 4.4 %; Hematocrit 49.7 % (42.0-52.0); Hemoglobin 15.9 g/dL (11.7-16.6); Lymphocytes # 1.2 10^3/uL (0.8-4.8); Lymphocytes % 12.3 %; Mean Corpuscular Hemoglobin 30.1 pg (28.0-34.0); Mean Platelet Volume 10.6 fL (7.4-10.4); Monocytes # 0.6 10^3/uL (0.2-0.9); Monocytes % 6.6 %; Neutrophils # 6.83 10^3/uL (1.8-7.7); Neutrophils % 70.7 %; Nucleated Red Blood Cells % 0 %; Platelet Count 230 10^3/cmm (130-400); Red Blood Count 5.29 10^6/uL (4.1-5.3); Red Cell Distribution Width 14.1 % (12.1-15.1); White Blood Count 9.7 10^3/uL (4.0-10.0)
[2020-05-31] MEDS: albuterol 8 gm MDI 2 PUFF INHALATION (08:31)
[2020-05-31] MEDS: guaiFENesin 600 mg Tablet PO (09:00)
[2020-05-31] MEDS: tamsulosin 0.4 mg Capsule PO (09:00)
[2020-05-31] MEDS: nystatin 100,000 unit/mL UDC 5 mL 500000 UNIT PO ×2 (09:00→11:29)
[2020-05-31] MEDS: metoprolol tartrate 25 mg Tablet 12.5 MG PO (09:00)
[2020-05-31] MEDS: apixaban 5 mg Tablet 10 MG PO (09:00)
[2020-05-31] MEDS: pantoprazole DR 40 mg Tablet PO (09:00)
--- NOTE | 2020-05-31 10:17 | DCPLANNER ---
IMM completed on 05/31/20 @ 3944. Copy of rights given to pt.
--- NOTE | 2020-05-31 13:26 | PC.NURSE ---
report called to senior living. iv removed, tip intact, patient tolerated well. at bedside and notified that patient was being discharged back to the senior living.
--- NOTE | 2020-05-31 14:02 | PC.NURSE ---
patient escorted via wheelchair with portable oxygen tank and all personal belongings to the [facility] transportation.
== END 2020-05-31 13:57 | disposition skilled nursing facility (03) | DRG 299 ==
LOC: ER 09:40 → ICU 12:34 → CSU 05-31 02:33
PROVIDERS: Emergency Medicine; Internal Medicine; Admitting Provider Internal Medicine; Emergency Provider Family Medicine; PCP Nurse Practitioner Family; Visit Provider Family Medicine
DX: I82.431 Acute embolism and thrombosis of right popliteal vein (principal); I26.94 Multiple subsegmental thrombotic pulmonary emboli without acute cor pulmonale; J15.9 Unspecified bacterial pneumonia; J96.91 Respiratory failure, unspecified with hypoxia; J44.1 Chronic obstructive pulmonary disease with (acute) exacerbation; J44.0 Chronic obstructive pulmonary disease with (acute) lower respiratory infection; I82.451 Acute embolism and thrombosis of right peroneal vein; Z86.19 Personal history of other infectious and parasitic diseases; I48.91 Unspecified atrial fibrillation; F41.9 Anxiety disorder, unspecified; N40.0 Benign prostatic hyperplasia without lower urinary tract symptoms; K57.90 Diverticulosis of intestine, part unspecified, without perforation or abscess without bleeding; K64.4 Residual hemorrhoidal skin tags; Z66 Do not resuscitate; D69.6 Thrombocytopenia, unspecified; I37.1 Nonrheumatic pulmonary valve insufficiency; Z79.51 Long term (current) use of inhaled steroids
CPT/HCPCS: 12345; 36415; 36600; 71045; 71275; 80048; 80053; 82803; 82805; 83605; 83880; 84145; 84484; 85025; 85378; 85384; 85610; 85730; 87040; 93005; 93308; 93325; 93970; 94640; 94660; 99284; 99291; J0713; J1644; J2060; J2270; J2930; J2997; J3370; J3490; J3535; J7030; J7050; Q9967

== ENCOUNTER → 2020-08-23 09:14 | Outpatient (BNVA) | payer MEDICARE, SELFPAY | PROVIDERS: PCP Nurse Practitioner Family; Visit Provider Internal Medicine Cardiovascular Disease | DX: R06.00 Dyspnea, unspecified (principal) | CPT/HCPCS: 80048; 83735; 83880 ==

== ENCOUNTER 2020-09-07 13:18 | Outpatient (CLI) | payer MEDICARE, SELFPAY ==
--- NOTE | 2020-09-07 13:30 | USCV_ITS ---
Solomon Waters Age: 85 Gender: M : 1935 Exam Date: 09/07/2020 13:28 Ordering Phys: Val Guevara MD ([email or web address]) Technologist: Medardo Lubin [place] [facility] [place]ication: HX OF PE, RV function BP: 130 / 73 HR: 81 Rhythm: Sinus Technical Quality: Adequate MEASUREMENTS (Male / Female) Normal Values 2D ECHO LV Diastolic Diameter PLAX 4.0 cm 4.2 - 5.9 / 3.9 - 5.3 cm LV Systolic Diameter PLAX 2.7 cm IVS Diastolic Thickness 1.1 cm 0.6 - 1.0 / 0.6 - 0.9 cm IVS Systolic Thickness 1.0 cm LVPW Diastolic Thickness 1.1 cm 0.6 - 1.0 / 0.6 - 0.9 cm LVPW Systolic Thickness 1.3 cm LVOT Diameter 2.0 cm LV Ejection Fraction 2D Teich 62.4 % LV Ejection Fraction MOD 2C 63.5 % LV Ejection Fraction 2C AL 65.8 % LA Diameter 3.5 cm LA Width 4.0 cm LA Height 6.4 cm RA Width 4.0 cm RA Height 5.0 cm Aorta at Sinotubular Diameter 2.8 cm M-MODE LV Diastolic Diameter MM 5.0 cm 4.2 - 5.9 / 3.9 - 5.3 cm LV Systolic Diameter MM 3.4 cm LV Ejection Fraction MM Teich 60.8 % IVS Diastolic Thickness MM 0.9 cm 0.6 - 1.0 / 0.6 - 0.9 cm IVS Systolic Thickness MM 1.6 cm LVPW Diastolic Thickness MM 1.3 cm 0.6 - 1.0 / 0.6 - 0.9 cm LVPW Systolic Thickness MM 2.0 cm RV Diastolic Diameter MM 1.2 cm Aortic Annulus Diameter 3.9 cm LA Ao Ratio MM 1.0 MV E Point Septal Separation 0.8 cm DOPPLER AV Peak Velocity 160.7 cm/s LVOT Peak Velocity 139.0 cm/s AV Area Cont Eq vti 2.7 cm squared AV Area Cont Eq pk 2.8 cm squared MV Area PHT 5.0 cm squared Mitral E to A Ratio 0.9 MV E' Velocity 44.0 cm/s Mitral E to MV E' Ratio 6.4 Mitral E to LV E' Lateral Ratio 8.9 Mitral E to LV E' Septal Ratio 5.0 TR Peak Velocity 153.3 cm/s TR Peak Gradient 9.4 mmHg Right Atrial Pressure 3.0 mmHg Pulmonary Artery Systolic Pressu 12.4 mmHg FINDINGS Left Ventricle Normal left ventricular size, systolic function and wall thickness, with no regional wall motion abnormalities. Left ventricular ejection fraction is estimated at 65-70 %. Normal diastolic function. Right Ventricle Normal right ventricular size and systolic function. Right ventricular systolic pressure 12.4 mmHg. Right Atrium Normal right atrial size. Right atrial pressure estimated at 3 mm Hg. Left Atrium Normal left atrial size. Mitral Valve Structurally normal mitral valve. No mitral valve stenosis. Mild mitral valve regurgitation. Aortic Valve Structurally normal trileaflet aortic valve. No aortic valve stenosis. Mild aortic valve regurgitation. Tricuspid Valve Structurally normal tricuspid valve. No tricuspid valve stenosis. Trace to mild tricuspid valve regurgitation. Pulmonic Valve Pulmonic valve not well visualized. Mild pulmonary valve regurgitation. Pericardium No pericardial effusion. Aorta Normal size aortic root and proximal ascending aorta. CONCLUSIONS 1. Normal left ventricular size, systolic function and wall thickness, with no regional wall motion abnormalities. Left ventricular ejection fraction is estimated at 65-70 %. Normal diastolic function. 2. Normal pulmonary artery pressure. 3. Normal mitral and aortic valve regurgitation. 4. Normal right ventricular size and systolic function. 5. When compared to previous echocardiogram dated , right ventricular systolic function seems to have improved. Val Guevara MD (Electronically Signed) Final Date: 11 September 2020 11:12 S
== END 2020-09-07 13:19 | disposition home or self-care (01) ==
LOC: RAD 13:20
PROVIDERS: PCP Nurse Practitioner Family; Visit Provider Internal Medicine Cardiovascular Disease
DX: I26.02 Saddle embolus of pulmonary artery with acute cor pulmonale (principal)
CPT/HCPCS: 93306

== ENCOUNTER → 2020-10-18 09:19 | Outpatient (BNVA) | payer MEDICARE, SELFPAY | PROVIDERS: PCP Nurse Practitioner Family; Referring Provider Internal Medicine Cardiovascular Disease; Visit Provider Internal Medicine Cardiovascular Disease | DX: I26.02 Saddle embolus of pulmonary artery with acute cor pulmonale (principal); R06.00 Dyspnea, unspecified; I82.431 Acute embolism and thrombosis of right popliteal vein | CPT/HCPCS: 80048; 83735; 83880; 85379 ==

== ENCOUNTER 2020-10-26 07:25 | Outpatient (CLI) | payer MEDICARE, SELFPAY ==
--- NOTE | 2020-10-26 07:34 | XR_ITS ---
WS: [id number] Chest 2 views, 10/26/2020 Clinical Data: R06.00 - Dyspnea, unspecified Comparison: Portable chest, 05/30/2020. Findings: No nodules, masses or effusions are seen. The heart is normal. The pulmonary vascularity is not increased. No pneumonia or pneumothorax is seen. The aortic arch and descending aorta are tortuo us. There is a dextroscoliosis of the lower thoracic spine. The diaphragms are flattened. XR/XR chest 2V* 29816 Impression: Atherosclerosis and hyperinflation.
--- NOTE | 2020-10-26 07:34 | NM_ITS ---
WS: [id number] NUCLEAR MEDICINE LUNG VENTILATION AND PERFUSION CLINICAL INFORMATION: R06.00 - Dyspnea, unspecified TECHNIQUE: Ventilation/perfusion lung scan with 31.7 mCi technetium 99m DTPA. 5.1 mCi technetium 99m MAA COMPARISON: CTA May 26, 2020 FINDINGS: Radiograph reviewed. Hyperinflation. Moderate chronic emphysematous changes. Cardiomegaly. No focal p neumonia. Normal symmetric radiotracer uptake on the perfusion images. Patchy deposition of radiotracer in the lower lobes on the ventilatory imaging. No mismatched ventilation/perfusion defects to indicate pulmo nary embolus. NM/NM pul vent and perfus* [id number] IMPRESSION: 1. Low probability for pulmonary embolus.
== END 2020-10-26 07:26 | disposition home or self-care (01) ==
LOC: RAD 07:31
PROVIDERS: PCP Nurse Practitioner Family; Visit Provider Internal Medicine Cardiovascular Disease
DX: R06.00 Dyspnea, unspecified (principal); I26.02 Saddle embolus of pulmonary artery with acute cor pulmonale; I70.90 Unspecified atherosclerosis
CPT/HCPCS: 71046; 78014; A9540; A9567

== ENCOUNTER 2020-10-31 07:44 | Outpatient (CLI) | payer MEDICARE, SELFPAY ==
[2020-10-31 08:28] VITALS: BMI 25.0
--- NOTE | 2020-10-31 08:28 | ECG_ITS ---
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 Interpretive Statements NAME OF STUDY: EXERCISE SESTAMIBI STRESS TEST INDICATION: Chest Pain, dyspnea on exertion Baseline blood pressure of 188/85 mm Hg, heart rate 78 beats per minute and oxygen saturation of 97%. EKG showed sinus rhythm with PAC's. Right axis deviation with non specific ST-T wave changes. The patient exercised for 4 minutes and 20 seconds on a [standard Nathan protocol]. Patient attained a maximum heart rate of 125 beats per minute( 91 % of the maximum predicted heart rate) with a blood pressure at the peak exercise of 200/115 mm Hg and oxygen saturation of 86%. The EKG at the peak exercise revealed no significant ST-T wave changes. Marked baseline artifact. Patient did not have any chest pain or any significant arrhythmis with the exercise. During the recovery phase, there were no new changes. Blood pressure at the end of the recovery phase was 172/95 mm Hg with a heart rate of 80 beats per minute and oxygen saturation of 98%. CONCLUSION: 1. Normal EKG response to treadmill exercise. Interpretation significantly limited by artifact at peak exercise. Frequesnt PAC's noted with exercise and recovery. 2. No exercise-induced chest pain or cardiac arrhythmia. 3. Fair exercise tolerance for age, attained a maximum of 7 METs. Maximum VO2 of 24.5 ml/kg/min. 4. Baseline hypertension with normal response to exercise. 5. Oxygen saturation transiently dropped to 86% at peak exercise and then increased to 98% during recovery. 6. Perfusion scan will be documented separately. Electronically Signed On 11-03-2020 18:49:38 CDT by Val Guevara M.D. [email or web address]
--- NOTE | 2020-10-31 08:29 | NMCV_ITS ---
NM arcelia perf SPECT r/s* [id number] Solomon Waters Age: 85 Gender: M : 1935 Exam Date: 10/31/2020 08:29 Ordering Phys: Val Guevara MD ([email or web address]) Technologist: LAURIE Gill Exam Location: [facility] Indications: CHEST PAIN STRESS TEST Please see separate stress test report in [facility] for full findings IMAGE PROTOCOL Rest/Stress 1 Lexiscan Day Radiopharmaceutical Dose (mCi) Administration Site Administered by Rest: Tc-99m 10.6 IV LAURIE Jimenez Sestamibi Stress:Tc-99m 32.7 IV LAURIE Jimenez Sestamibi Rest: 31-Oct-2020 60 Discovery 630 Stress: 31-Oct-2020 30 Discovery 630 0.4mg Lexiscan. Supine position only as patient was unable to lay prone. SPECT RESULTS Technical Quality: Excellent Raw Data Analysis: Normal Image Corrections: No attenuation or motion correction applied Summed Stress Score: 2 Summed Rest Score: 0 Summed Difference Score: 2 PERFUSION FINDINGS Small sized perfusion abnormality of mild severity of mid inferolateral and apical lateral lopez on stress images. FUNCTIONAL RESULTS (calculated via Gated SPECT) Stress Image LV EF (%): 69 Stress EDV (mL):88 TID: 0.86 Stress ESV (mL):27 FUNCTIONAL FINDINGS: The left ventricle is normal in size. Transient Ischemia Dilatation of 0.86. There is normal left ventricular systolic function. The left ventricular ejection fraction is normal with a value of 69%. There is normal left ventricular wall thickening with no regional wall motion abnormality. Normal end diastolic and end systolic velocities. IMPRESSIONS 1. Small sized reversible perfusion abnormality of mild severity of mid inferolateral and apical lateral lopez. This may represent small area of ischemia in circumflex artery territory. 2. Overall left ventricular systolic function is normal without regional wall motion abnormalities. 3. The left ventricular ejection fraction is normal with a value of 69%. 4. No prior similar studies to compare. Val Guevara MD (Electronically Signed) Final Date: 03 November 2020 19:01 S
[2020-10-31 10:37] VITALS: BP 172/95; PULSE 80
== END 2020-10-31 07:45 | disposition home or self-care (01) ==
LOC: CDL 07:46
PROVIDERS: PCP Nurse Practitioner Family; Visit Provider Internal Medicine Cardiovascular Disease
DX: R07.9 Chest pain, unspecified (principal); R06.09 Other forms of dyspnea; I10 Essential (primary) hypertension; Z20.822 Contact with and (suspected) exposure to COVID-19
CPT/HCPCS: 78452; 87635; 93017; A9500

== ENCOUNTER 2020-11-03 13:56 | Outpatient (CLI) | payer MEDICARE, SELFPAY | END 2020-11-03 13:57 | disposition home or self-care (01) | LOC: RT 14:00 | PROVIDERS: PCP Nurse Practitioner Family; Visit Provider Internal Medicine Cardiovascular Disease | DX: R06.00 Dyspnea, unspecified (principal) | CPT/HCPCS: 94618 ==

== ENCOUNTER → 2021-03-20 08:21 | Outpatient (BNVA) | payer MEDICARE, SELFPAY | PROVIDERS: PCP Nurse Practitioner Family; Referring Provider Internal Medicine Cardiovascular Disease; Visit Provider Internal Medicine Cardiovascular Disease | DX: I10 Essential (primary) hypertension (principal); I26.02 Saddle embolus of pulmonary artery with acute cor pulmonale | CPT/HCPCS: 80048 ==

== ENCOUNTER → 2021-04-10 11:13 | Outpatient (BNVA) | payer MEDICARE, SELFPAY | PROVIDERS: PCP Nurse Practitioner Family; Visit Provider Surgery | DX: Z20.822 Contact with and (suspected) exposure to COVID-19 (principal) | CPT/HCPCS: 87635 ==

== ENCOUNTER 2021-04-13 08:49 | Day surgery (SDC) | payer MEDICARE, SELFPAY ==
[2021-04-11 14:08] VITALS: BMI 25.0
--- NOTE | 2021-04-13 09:23 | ANES.PREANE2 ---
Pre-Anesthetic Assessment Pre-Anesthetic Assessment: Height/Weight: Height 1.83 m Weight 83.915 kg Proposed Procedure: Operation Date: 04/13/21 11:00 Proposed Procedures p Colonoscopy 04072 R19.4(Not Applicable) - Vladimir Llamas MD Was Beta Herberth taken within 24 hours: Yes Was Clonidine taken within 24 hours: N/A Social: Social History: No alcohol and No tobacco Exam: Pre-Anes Outpt Exam: alert, oriented x 3, clear to auscultation bilaterally and regular rate & rhythm Airway: Submandibular: WNL Cervical ROM: WNL MP: 2 Pulmonary: Comments: Post Covid syndrome CV/HEM: CV/HEM: CAD, DVT (PE) and HTN Metabolic: Comments: Chronic steroids Neuropsych: Neuropsych: Anxiety and Depression Anesthetic Plan: ASA status: 3 Anesthesia: MAC Risk of > 500 ml blood loss (7ml/kg in children): No PFSH Anesthesia PFSH: Medical History Anxiety BPH (benign prostatic hyperplasia) Diverticulosis DVT (deep venous thrombosis) -Noted to have evidence of acute occlusive DVT of right popliteal and peroneal veins. No evidence of DVT on left -Already on anticoagulation with treatment dose Eliquis External hemorrhoid HTN (hypertension) Pneumonia due to COVID-19 virus -Found to be COVID-19 positive on 05/03; prolonged hospital course -Evidence of pneumonitis on CTA -On empiric antibiotic coverage with ceftazidime -Afebrile, no leukocytosis, still requiring some supplemental oxygen support -Blood cultures negative -Sputum cultures negative Psoriasis Pulmonary embolism -Noted to have extensive bilateral PE, saddle embolus, extensive bilateral segmental and subsegmental emboli. Patient declined transfer on initial admission -Received tPA and initially on heparin drip, now transitioned to treatment dose Eliquis -Noted to have bleeding (epistaxis) and thrombocytopenia following tPA, now resolved -Echo: EF=60-65%, severe hypokinesis of RV, mild AR, trace NM, trace TR, noted presence of thrombus extending from pulmonic valve into the RVOT -continues to require supplemental oxygen, on 4 L Shingles Surgical History H/O hemorrhoidectomy H/O right knee surgery History of appendectomy History of colonoscopy with polypectomy 10+yrs Family History Denies family history of Bleeding disorder Social History Alcohol intake: never Household members: spouse Housing: House Data Anesthesia Cardiac Studies: No Data to Display
[2021-04-13 09:28] VITALS: BP 175/98; PULSE 80; RESP 20; TEMP 36.7; O2SAT 98
[2021-04-13] MEDS: sodium chloride 0.9% 1,000 ML 30 ML IV (09:51)
--- NOTE | 2021-04-13 11:18 | W.PM.OPSFHP ---
Same Day Surgery H&P Indication for Procedure/HPI DATE OF PROCEDURE: April 13, 2021 CHIEF COMPLAINT/INDICATIONFOR SURGICAL PROCEDURE: colonoscopy PREOP DIAGNOSIS: diagnostic PLANNED PROCEDRUE: Operation Date: 04/13/21 11:00 Proposed Procedures p Colonoscopy 45174 R19.4(Not Applicable) - Vladimir Llamas MD Medications/Allergies* Home Medications Medication Instructions Recorded Confirmed Type prednisone 10 mg tablet 10 mg PO DAILY 08/15/20 04/11/21 History losartan 50 mg PO DAILY 04/13/21 04/13/21 History Allergies/Adverse Reactions Allergy/AdvReac Type Severity Reaction Status Date / Time ciprofloxacin [From Cipro] Allergy ALGY-Rash Verified 03/09/21 15:23 metronidazole [From Flagyl] Allergy ALGY-Rash Verified 03/09/21 15:23 Current Medications: Generic Name Dose Route Start Last Admin Trade Name Freq PRN Reason Stop Dose Admin Sodium Chloride 1,000 mls @ 30 mls/hr 04/13/21 09:30 04/13/21 09:51 Sodium Chloride 0.9% IV 04/14/21 09:29 30 mls/hr .Q24H YANET Administration Pertinent History/Comorbid Conditions* Medical History (Updated 02/21/21 @ 09:41 by Vladimir Llamas MD) Anxiety BPH (benign prostatic hyperplasia) Diverticulosis DVT (deep venous thrombosis) -Noted to have evidence of acute occlusive DVT of right popliteal and peroneal veins. No evidence of DVT on left -Already on anticoagulation with treatment dose Eliquis External hemorrhoid HTN (hypertension) Pneumonia due to COVID-19 virus -Found to be COVID-19 positive on 05/03; prolonged hospital course -Evidence of pneumonitis on CTA -On empiric antibiotic coverage with ceftazidime -Afebrile, no leukocytosis, still requiring some supplemental oxygen support -Blood cultures negative -Sputum cultures negative Psoriasis Pulmonary embolism -Noted to have extensive bilateral PE, saddle embolus, extensive bilateral segmental and subsegmental emboli. Patient declined transfer on initial admission -Received tPA and initially on heparin drip, now transitioned to treatment dose Eliquis -Noted to have bleeding (epistaxis) and thrombocytopenia following tPA, now resolved -Echo: EF=60-65%, severe hypokinesis of RV, mild AR, trace AK, trace TR, noted presence of thrombus extending from pulmonic valve into the RVOT -continues to require supplemental oxygen, on 4 L Shingles Surgical History (Updated 02/21/21 @ 09:11 by Vladimir Llamas MD) H/O hemorrhoidectomy H/O right knee surgery History of appendectomy History of colonoscopy with polypectomy 10+yrs Family History (Updated 05/03/20 @ 22:58 by Danny Orellana MD) Denies family history of Bleeding disorder Social History Alcohol intake: never Household members: spouse Housing: House Pertinent Exam Findings alert, oriented x 3 and regular rate & rhythm Recommendations Surgery/Procedure today Coding Level of Care Code Acute Input Output Clerk for Chg Roger
[2021-04-13 11:51] VITALS: BP 160/102; PULSE 71; RESP 16; TEMP 36.1; O2SAT 96
[2021-04-13 12:03] VITALS: BP 176/87; PULSE 63; RESP 16; O2SAT 96
--- NOTE | 2021-04-13 13:36 | ANE.PACU2 ---
Inpatient post-anesthesia follow up: Airway intact: Yes Vital signs: Temperature 97 F Pulse Rate 63 Respiratory Rate 16 Blood Pressure 176/87 Pulse Oximetry 96 Oxygen Delivery Me thod Room Air Oxygen Flow Rate Fraction of Inspir ed Oxygen Hydration adequate: Yes Nausea and vomiting: No Pain level: 1 Mental status: Baseline
== END 2021-04-13 12:53 | disposition home or self-care (01) ==
PROVIDERS: PCP Nurse Practitioner Family; Visit Provider Surgery
PROC: 0DJD8ZZ Inspection of Lower Intestinal Tract, Via Natural or Artificial Opening Endoscopic (ICD-10-PCS; CPT 45378; principal; 2021-04-13 11:00)
DX: K59.00 Constipation, unspecified (principal); D12.4 Benign neoplasm of descending colon; K57.30 Diverticulosis of large intestine without perforation or abscess without bleeding; I10 Essential (primary) hypertension; Z90.89 Acquired absence of other organs
CPT/HCPCS: 45380; 88305; 96360; 96361; J2704; J7030

== ENCOUNTER → 2021-07-28 10:05 | Outpatient (BNVA) | payer MEDICARE, SELFPAY | PROVIDERS: PCP Nurse Practitioner Family; Visit Provider Internal Medicine Cardiovascular Disease | DX: Z20.822 Contact with and (suspected) exposure to COVID-19 (principal) | CPT/HCPCS: 87635 ==

== ENCOUNTER 2021-08-02 05:48 | Outpatient (CLI) | payer MEDICARE, SELFPAY ==
[2021-08-02] VITALS (67 sets, daily range): BP systolic 105–186; BP diastolic 64–94; PULSE 47–92; RESP 10–28; TEMP 36.4–36.7; O2SAT 78–97; BMI 25.9
--- NOTE | 2021-08-02 06:00 | XACV_ITS ---
Ht: 183 cm Wt: 87 kg BSA: 2.11 m2 Gender: Male : 1935 Exam Priority: Routine Procedure(s): Procedure Description: Diagnostic procedure Procedure Description: Coronary Angiography Procedure Description: Pressure Wire Diagnostic Cath Status: Elective Diagnostic Findings * 85-year-old man with past medical history of hypertension, history of severe COVID-19 pneumonia in April 2020 , history of DVT and extensive PE s/p tPA and anxiety. He underwent stress testing for ongoing shortness of breath that was found to be mildly abnormal with small sized reversible perfusion abnormality in mid inferolateral and apical lateral lopez. Patient continued to be symptomatic in spite of optical medical management and hence presented today for left heart catheterization. * Normal left main. * Mid circumflex with mild 30% stenosis. * Mid left anterior descending artery with 50% stenosis. Small first diagonal with ostial 80% stenosis. Second diagonal with mild proximal narrowing. Proximal portion of distal LAD with 60-70% stenosis. 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 * Mild luminal irregularities noted in mid and distal segments of right coronary artery. * Case was discussed and images were reviewed with Dr. Beckwith. Decision was made to proceed with iFR of distal LAD lesion. Interventional Findings * PROCEDURE DETAILS: We engaged left main artery with XB 3.0 guide catheter. IV heparin was administered to maintain ACT above 250 S. IFR wire was used to cross the LAD stenosis and was put in distal segment. IFR value of 0.92 was obtained that was nonischemic. At this time we removed the wire and took final images showed good flow and no complications. Guide catheter was removed and patient left the Cash Sales Audit Clerk in a stable condition.. Conclusions 1. Mid left anterior descending artery with 50 % stenosis. Proximal portion of distal LAD with 60-70% stenosis. This lesion is not significant by iFR (iFR=0.92). 2. 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 3. Mild disease in circumflex and right coronary artery. Recommendations * Statin and aspirin 81mg lifelong, if tolerated. * Continue medical management and risk factor modification. * Outpatient cardiology follow-up in 4 weeks. Interventional RX Recommendation: medical therapy and/or counseling Anticoagulation: Heparin Pressures Phase:Rest AO : 137 / 91 ( 111 ) @ 8:51:00 AM 117 / 75 ( 96 ) @ 9:05:00 AM Hemodynamic Findings Aortic valve not crossed. Clinical Evaluation EBL: 5mL-10mL Procedural Details Procedure Consent Obtained. Admit Source: Out Patient. Pre-Procedure Time Out. Identified patient by full name and date of as verbalized by the patient/guarantor. Does the consent match the physician's order: Yes. Accurate & Complete Informed Consent: Yes. Inpatient/Outpatient History & Physical on Chart: Yes. If H&P is completed, is and addenduem needed: N/A; If yes, is the addendum complete: N/A. Visualize and Verify Site with Patient/Guarantor: N/A. Relevant Radiology Images available: N/A. Pre-op teaching completed and patient verbalized understanding. The risks, benefits, and alternatives of sedation and/or procedure were discussed by physician. The patient agrees to continue. Procedure started. [facility] Clinical Fraility Score: 3: Managing Well. Cash Sales Audit Clerk Indications: Worsening Angina. Chest Pain Symptom Assessment: Atypical Angina. Correct patient, site and procedure confirmed by cath team. Current diagnosis: Chest Pain. PERRLA. Strong, equal hand courtesy car driver bilaterally. Lungs clear x 5 lobes. IV Site on Arrival: 20 gauge in the right forearm. IV Fluids: 0.9% NaCl at KVO. 0 mL infused prior to laboratory phlebotomist. Pre Procedural Pulses: bilateral radial was 3+. Oxygen started at 2liters/min via nasal canula. right groin was prepped with chloroprep then draped in the usual sterile fashion. right radial was prepped with chloroprep then draped in the usual sterile fashion. Physician notified. Baseline sample Acquired. HR: 70 BPM. Physician arrived. Physician scrubbed in. Immediate Pre-Procedure Time Out. Correct Patient: Yes; Correct Procedure: Yes; Correct Site: Yes; Correct Patient Position: Yes; Correct Supplies: Yes; Dried Flammable Prep: Yes; Blood Products Available: N/A;. Lidocaine 1% infiltrated to the right radial. Arterial access obtained. A 5 egyptian TIG catheter in over wire. Unable to advance catheter. Radial access aborted and groin access attemtped at this time. Catheter out. A TR Band was successful obtaining hemostatsis at the Right Radial artery insertion site. Pre Procedural Pulses: left dorsalis pedis was 1+. Pre Procedural Pulses: right dorsalis pedis was Doppled. Lidocaine 1% infiltrated to the right groin. Arterial access obtained with micropuncture set. A 5 egyptian JL4 catheter in over wire. Multiple views taken of left coronary artery. Catheter out. A 5 egyptian JR4 catheter in over wire. Multiple views taken of right coronary artery. Catheter out. Dr. Beckwith scrubbed in to perform intervention. 6 egyptian XB 3.5 guide catheter was inserted over the wire. Guide catheter out. 6 egyptian XB 4 guide catheter was inserted over the wire. IFR repositioned to mid LAD. Fractional flow reserve measurements obtained. IFR wire removed. Guide catheter out. Medication's Wasted: Heparin = 3000 u. Medication's Wasted: Lidocaine 1% = 10 mL. Medication's Wasted: Nitro = 49.8 mg. Patient's family updated. A Suture was successful obtaining hemostatsis at the Femoral artery insertion site. PERRLA. Strong, equal hand courtesy car driver bilaterally. No VTE prophylaxis required. Total IV fluids: 75 mL. Post-op diagnosis: Non obstructive CAD. Complications: none. Estimated blood loss: 5mL-10mL. Responsiveness - Normal response to verbal stimuli; alert and oriented, PERRLA. Airway - Unaffected, no intervention required; spontaneous ventilation. Circulation: W/N/L, pulses unchanged. Nausea/Vomiting: No. Procedure completed. Patient transferred by bed to CPRU. Vital chart was stopped. Access Site Site: Right Radial artery Sheath Size: 6 Fr Hemostasis Method: TR Band Hemostasis Success: Successful Site: Femoral artery Sheath Size: 6 Fr Hemostasis Method: Suture Hemostasis Success: Successful Procedure Medications Start: 7:27 AM Stop: 7:27 AM Medication: Versed Amount: 1 mg Route: I.V. Start: 7:27 AM Stop: 7:27 AM Medication: Fentanyl Amount: 50 mcg Route: I.V. Start: 7:32 AM Stop: 7:32 AM Medication: Nitrogylcerin Amount: 200 mcg Route: I.C. Start: 7:42 AM Stop: 7:42 AM Medication: Versed Amount: 1 mg Route: I.V. Start: 7:54 AM Stop: 7:54 AM Medication: Versed Amount: 1 mg Route: I.V. Start: 7:54 AM Stop: 7:54 AM Medication: Fentanyl Amount: 25 mcg Route: I.V. Start: 8:13 AM Stop: 8:13 AM Medication: Heparin Amount: 7000 units Route: I.V. Start: 8:13 AM Stop: 8:13 AM Medication: Versed Amount: 1 mg Route: I.V. I, the attending physician, have reviewed and verified all procedure medications. Yes, all medications given per verbal order History/Risk Factors Hypertension: Yes Dyslipidemia: No Peripheral Arterial Disease (PAD): No Myocardial Infarction (VT): No Obesity: Yes Renal Disease: No Tobacco Use: Never Prior Interventions PCI: No CABG: No Valve Surgery: No Report Signatures Interventional Workflow Finalized by Cedric Beckwith MD on 08/16/2021 06:12 PM Diagnostic Workflow Finalized by Val Guevara MD on 08/10/2021 06:54 PM
[2021-08-02 06:31] LABS: Basophils % 0.3 %; Eosinophils % 0.3 %; Hematocrit 50.6 % (42.0-52.0); Hemoglobin 16.4 g/dL (11.7-16.6); Lymphocytes % 18.9 %; Mean Corpuscular HGB Conc 32.4 g/dL (30.0-36.0); Mean Corpuscular Volume 89.4 fl (80-94); Mean Platelet Volume 9.9 fL (7.4-10.4); Monocytes # 0.7 10^3/uL (0.2-0.9); Monocytes % 6.4 %; Neutrophils # 7.61 10^3/uL (1.8-7.7); Neutrophils % 73.2 %; Nucleated Red Blood Cells % 0 %; Platelet Count 213 10^3/cmm (130-400); Red Blood Count 5.66 10^6/uL (4.1-5.3); White Blood Count 10.4 10^3/uL (4.0-10.0)
[2021-08-02] MEDS: sodium chloride 0.9% 1,000 ML 50 ML IV (06:31)
[2021-08-02 06:50] LABS: Anion Gap 16.9 (5-19); Blood Urea Nitrogen 27 mg/dL (8-23); Calcium 9.8 mg/dL (8.5-10.5); Carbon Dioxide 24 mmol/L (22-29); Chloride 100 mmol/L (98-107); Glucose 106 mg/dL (65-115); Osmolality Calculated 290 mOsm/kg (285-295); Potassium 3.9 mmol/L (3.5-5.1); Sodium 137 mmol/L (136-145)
--- NOTE | 2021-08-02 07:19 | W.PM.OPSUD ---
Surgery/Procedure H&P Update DATE OF PROCEDURE: August 02, 2021 DATE H&P PERFORMED: 07/06/21 CHANGES TO PREVIOUS DOCUMENTATION: None PREOP DIAGNOSIS: diagnostic PRIMARY INDICATION FOR PROCEDURE: Abnormal stress test and ongoing dyspnea on exertion PLANNED PROCEDURE: Operation Date: 08/02/21 07:00 Proposed Procedures p Cardiac Catheterization(Left) - Val Guevara MD PATIENT REASSESSED PRIOR TO SEDATION, WITH NO CHANGE NOTED: No PHYSICAL EXAM: alert, oriented x 3, clear to auscultation bilaterally and regular rate & rhythm AIRWAY EVAL/ANESTHESIA PLAN: normal airway, ASA III, Risks, benefits & alternatives of sedation and/or procedure discussed and Patient agrees to continue as planned
[2021-08-02] MEDS: sodium chloride 0.9% 1,000 ML 100 ML IV (09:50)
--- NOTE | 2021-08-02 11:12 | PC.NURSE ---
received from cardiac general laborer at 0950 via stretcher.report received.pt is alert and awake.denies pain.right wrist with tr band on and inflated.right hand is warm to touch and with brisk capillary refill.palpable radial pulse noted distal to tr band.right femoral arterial sheath intact to pressuriized system.right leg is warm to touch and with brisk capillary refill.no hematoma noted at both sites.instructed in activity restrictions,and instructed to notify staff for any bleeding,numbness,pain,or for any concerns at all.pt verb understanding of instructions
[2021-08-02 12:22] LABS: Partial Thromboplastin Time 81.3 SECONDS (23.9-36.7)
[2021-08-02 14:24] LABS: Partial Thromboplastin Time 29.2 SECONDS (23.9-36.7)
[2021-08-02] MEDS: fentaNYL 50 mcg/mL INJ 2mL IVP (15:36)
--- NOTE | 2021-08-02 16:49 | PM.MISC ---
Miscellaneous Note Purpose of Documentation: Patient underwent cardiac cathetarization via right femoral access today. Right radial attempted but aborted due to tortuosity of aorta. Left heart cathetarization via right femoral access showed moderate mid LAD lesion that was not significant by iFR.
[2021-08-02] MEDS: alum-mag-hydroxide-sime 30 mL UDC PO (16:59)
--- NOTE | 2021-08-02 18:17 | PC.NURSE ---
50 mcgs fentanyl given prior to sheath pull as ordered.right femoral sheath pulled at 1540.manual pressure applied and held x 20 min.no hematoma formation noted.vss through-out procedure.site dressed with 2x2 gauze and secured with biocclusive drsg.pt tolerated procedure well.right radial tr band slowly deflated and eventually removed at 1600.right hand remains warm to touch and with brisk capillary refill.palpable radial pulse noted.no hematoma formation noted.site dressed with 2x2 gauze and secured with biocclusive drsg.pt instructed in activity restrictions s/p removal of femoral and radial artery devices...and instructed to notify staff for any bleeding,pain,numbness,or for any concerns at all.pt verb understanding of instructions
[2021-08-03] VITALS (12 sets, daily range): BP systolic 136–183; BP diastolic 76–90; PULSE 66–76; RESP 15–22; TEMP 37.1; O2SAT 91–96
[2021-08-03] MEDS: ALPRAZolam 0.5 mg Tablet 0.25 MG PO (00:46)
[2021-08-03 03:39] LABS: Basophils % 0.3 %; Eosinophils % 0.3 %; Hematocrit 49.1 % (42.0-52.0); Hemoglobin 15.9 g/dL (11.7-16.6); Lymphocytes # 1.6 10^3/uL (0.8-4.8); Lymphocytes % 14.6 %; Mean Corpuscular HGB Conc 32.4 g/dL (30.0-36.0); Mean Corpuscular Volume 89.6 fl (80-94); Mean Platelet Volume 10.9 fL (7.4-10.4); Monocytes # 0.8 10^3/uL (0.2-0.9); Monocytes % 7.7 %; Neutrophils # 8.11 10^3/uL (1.8-7.7); Neutrophils % 76.4 %; Nucleated Red Blood Cells % 0 %; Platelet Count 210 10^3/cmm (130-400); Red Blood Count 5.48 10^6/uL (4.1-5.3); Red Cell Distribution Width 13.9 % (12.1-15.1); White Blood Count 10.6 10^3/uL (4.0-10.0)
[2021-08-03 03:59] LABS: Anion Gap 13.9 (5-19); Blood Urea Nitrogen 23 mg/dL (8-23); Calcium 9.5 mg/dL (8.5-10.5); Carbon Dioxide 24 mmol/L (22-29); Chloride 103 mmol/L (98-107); Glucose 116 mg/dL (65-115); Osmolality Calculated 289 mOsm/kg (285-295); Potassium 3.9 mmol/L (3.5-5.1); Sodium 137 mmol/L (136-145)
[2021-08-03] MEDS: acetaminophen 325 mg Tablet 650 MG PO (06:15)
--- NOTE | 2021-08-03 09:18 | PC.NURSE ---
Discharge Note Patient discharged to home via private vehicle accompanied by spouse. Discharge instructions reviewed with patient and/or sales representative education courses. Mobile pharmacy medications and/or prescriptions provided. Belongings/home medications returned. [facility] vital signs 132/67, HR 81 94% on RA. all belongings sent home with pt.
== END 2021-08-03 09:20 | disposition home or self-care (01) ==
LOC: CCL 05:50 → CSU 09:59
PROVIDERS: Internal Medicine; PCP Nurse Practitioner Family; Visit Provider Internal Medicine Cardiovascular Disease
DX: I25.10 Atherosclerotic heart disease of native coronary artery without angina pectoris (principal); I10 Essential (primary) hypertension; E66.9 Obesity, unspecified; Z68.25 Body mass index [BMI] 25.0-25.9, adult; Z86.16 Personal history of COVID-19; Z99.81 Dependence on supplemental oxygen; F41.9 Anxiety disorder, unspecified; N40.0 Benign prostatic hyperplasia without lower urinary tract symptoms; Z86.718 Personal history of other venous thrombosis and embolism; Z86.711 Personal history of pulmonary embolism
CPT/HCPCS: 36415; 80048; 83735; 85025; 85610; 85730; 93454; 93571; C1769; C1887; C1894; J1644; J2250; J3010; J3490; J7030; Q0163; Q9967

== ENCOUNTER → 2021-09-07 09:58 | Outpatient (BNVA) | payer MEDICARE, SELFPAY | PROVIDERS: PCP Nurse Practitioner Family; Visit Provider Internal Medicine Cardiovascular Disease | DX: I10 Essential (primary) hypertension (principal); R06.00 Dyspnea, unspecified | CPT/HCPCS: 80053; 82607; 83735; 83880; 84443; 85025 ==

== ENCOUNTER 2021-10-24 11:15 | Outpatient (CLI) | payer MEDICARE, SELFPAY ==
--- NOTE | 2021-10-24 13:12 | PFTS_ITS ---
Date of Study:10/24/21 Date of Dictation: 10/27/2021 MECHANICS: Prebronchodilator forced vital capacity (FVC) is normal. Prebronchodilator forced expiratory volume in one second (FEV1) is normal. FEV1/FVC is normal. There is no postbronchodilator study FLOW VOLUME LOOP: Normal . LUNG VOLUMES: Total lung capacity (TLC) is reduced. Residual volume (RV) is severely reduced. DIFFUSING CAPACITY FOR CARBON MONOXIDE: Mildly reduced . INTERPRETATION: The spirometry is normal. Postbronchodilator study not performed. Flow volume loop consistent is normal. Lung volumes suggestive of moderate to severe restriction. There is mild gas transfer defect. 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 Clinical correlation recommended. [facility]
== END 2021-10-24 11:16 | disposition home or self-care (01) ==
LOC: RT 11:17
PROVIDERS: PCP Nurse Practitioner Family; Visit Provider Internal Medicine Cardiovascular Disease
DX: R06.00 Dyspnea, unspecified (principal); G72.0 Drug-induced myopathy; T38.0X5A Adverse effect of glucocorticoids and synthetic analogues, initial encounter; L40.9 Psoriasis, unspecified; J98.4 Other disorders of lung; E87.6 Hypokalemia; T50.2X5A Adverse effect of carbonic-anhydrase inhibitors, benzothiadiazides and other diuretics, initial encounter; I10 Essential (primary) hypertension
CPT/HCPCS: 80053; 84182; 85025; 85651; 86140; 86225; 86235; 94010; 94726; 94729; 99204

== ENCOUNTER 2021-11-14 12:24 | Outpatient (CLI) | payer MEDICARE, SELFPAY ==
--- NOTE | 2021-11-14 12:30 | CT_ITS ---
WS: [id number] CT CHEST WITHOUT INTRAVENOUS CONTRAST HISTORY: Evaluate for interstitial lung disease. Lung restriction. TECHNIQUE: Contiguous 5 mm axial imaging performed on the thorax. Coronal and sagittal reformats are submitted. All CT scans at [facility] use at least one of these dose optimization techniques: automated exposure control; mA and/or kV adjustment per patient size (includes targeted exams where dose is matched to clinical indication); or iterative reconstruction. CONTRAST: None DLP: 680.44 mGy.cm COMPARISON: 05/26/2020 Lungs and central airway: Lungs are well aerated. Very mild superficial and prominence. No evidence f or bronchiectasis or honeycombing. There are a few very minor areas of groundglass attenuation within the periphery. There are a few scattered granulomata. As compared to the prior study of 05/26/2020. Significant improvement in the areas of pneumonitis that were previously described. Pleura: Normal. No pleural effusion. Heart and pericardium: Mild cardiomegaly. Coronary artery calcifications. Mediastinum and suraj: No mediastinum or hilar adenopathy. Vessels: Mild atherosclerosis aorta. Normal size pulmonary artery. Chest wall and lower neck: No soft tissue masses. Upper abdomen: Moderate-sized hiatal hernia. Normal adrenal glands. Visualized liver is normal. Osseous structures: Moderate increase in thoracic kyphosis. No osteoblastic or osteolytic disease. CT/CT chest wo con [id number] IMPRESSION: 1. Mild peripheral interstitial thickening with no honeycombing or bronchiecta sis. 2. Very minimal persistent groundglass attenuation with marked improvement in aeration of both lungs since 05/26/2020 pneumonitis. 3. Moderate hiatal hernia.
== END 2021-11-14 12:25 | disposition home or self-care (01) ==
LOC: RAD 12:27
PROVIDERS: PCP Nurse Practitioner Family; Visit Provider Internal Medicine Pulmonary Disease
DX: J98.4 Other disorders of lung (principal); K44.9 Diaphragmatic hernia without obstruction or gangrene
CPT/HCPCS: 71250

== ENCOUNTER → 2021-12-07 09:05 | Outpatient (BNVA) | payer MEDICARE, SELFPAY | PROVIDERS: PCP Nurse Practitioner Family; Visit Provider Internal Medicine Pulmonary Disease | DX: E87.6 Hypokalemia (principal); R06.00 Dyspnea, unspecified; I10 Essential (primary) hypertension; L40.9 Psoriasis, unspecified; R22.43 Localized swelling, mass and lump, lower limb, bilateral; T50.2X5A Adverse effect of carbonic-anhydrase inhibitors, benzothiadiazides and other diuretics, initial encounter; J98.4 Other disorders of lung | CPT/HCPCS: 36415; 82306; 85025; 99214 ==

== ENCOUNTER → 2021-12-26 09:16 | Outpatient (BNVA) | payer MEDICARE, SELFPAY | PROVIDERS: PCP Nurse Practitioner Family; Visit Provider Nurse Practitioner Family | DX: M79.671 Pain in right foot (principal) | CPT/HCPCS: 73630 ==

== ENCOUNTER → 2022-01-05 14:39 | Outpatient (BNVA) | payer MEDICARE, SELFPAY | PROVIDERS: PCP Nurse Practitioner Family; Referring Provider Nurse Practitioner Family; Visit Provider Podiatrist Foot & Ankle Surgery | DX: I73.9 Peripheral vascular disease, unspecified (principal); L85.3 Xerosis cutis; L90.9 Atrophic disorder of skin, unspecified; M20.21 Hallux rigidus, right foot; M20.22 Hallux rigidus, left foot; G57.91 Unspecified mononeuropathy of right lower limb; M77.41 Metatarsalgia, right foot; M79.673 Pain in unspecified foot | CPT/HCPCS: 99204 ==

== ENCOUNTER 2022-10-27 19:07 | Emergency (ER) | payer MEDICARE, SELFPAY ==
[2022-10-27 19:26] VITALS: BP 176/81; PULSE 62; RESP 16; TEMP 36.3; O2SAT 98; BMI 23.8
--- NOTE | 2022-10-27 19:33 | ECG_ITS ---
[facility] Test Date: 2022-10-27 Pat Name: Solomon Waters Department: Room: Gender: Male Supplier Manager: : [id number] Requested By: Dillon Head Order Number: [id number] Umer MD: Cedric Beckwith M.D. Measurements Intervals [place] Rate: 59 P: 24 TN: 189 QRS: 132 QRSD: 113 T: -19 QT: 418 QTc: 415 Interpretive Statements SINUS BRADYCARDIA POSSIBLE RIGHT VENTRICULAR HYPERTROPHY [SOME/ALL OF: PROMINENT R IN V1, LATE TRANSITION, RAD, AC, SSS] MINIMAL ST DEPRESSION [0.025+ mV ST DEPRESSION] ABNORMAL QRS-T ANGLE [QRS-T AXIS DIFFERENCE > 60] Compared to ECG 05/26/2020 10:02:01 Atrial abnormality now present ST (T wave) deviation now present Atrial fibrillation no longer present Intraventricular conduction delay no longer present T-wave abnormality no longer present Electronically Signed On 10-27-2022 22:33:19 CDT by Cedric Beckwith M.D. [id number]
--- NOTE | 2022-10-27 19:39 | XRR_ITS ---
PROCEDURE INFORMATION: Exam: XR Chest Exam date and time: 10/27/2022 8:05 PM Age: 87 years old Clinical indication: Other: Elevated blood pressure; Patient HX: Elevated BP after discontinuing meds TECHNIQUE: Imaging protocol: Radiologic exam of the chest. Views: 1 view. COMPARISON: CT chest [facility] [id number] 11/14/2021 12:46 PM FINDINGS: Lungs: Unremarkable. No consolidation. Pleural spaces: Unremarkable. No pleural effusion. No pneumothorax. Heart/Mediastinum: Unremarkable. No cardiomegaly. Vasculature: Tortuous thoracic aorta. Bones/joints: Unremarkable. XR/XR chest 1V [id number] IMPRESSION: No acute cardiopulmonary abnormality.
[2022-10-27 20:26] LABS: Basophils % 0.4 %; Eosinophils # 0.1 10^3/uL (0.0-0.8); Eosinophils % 0.7 %; Hematocrit 48.5 % (42.0-52.0); Hemoglobin 15.2 g/dL (11.7-16.6); Lymphocytes # 2.2 10^3/uL (0.8-4.8); Lymphocytes % 21.4 %; Mean Corpuscular HGB Conc 31.3 g/dL (30.0-36.0); Mean Corpuscular Hemoglobin 28.8 pg (28.0-34.0); Mean Corpuscular Volume 91.9 fl (80-94); Mean Platelet Volume 10.1 fL (7.4-10.4); Monocytes # 0.9 10^3/uL (0.2-0.9); Monocytes % 8.9 %; Neutrophils # 7.14 10^3/uL (1.8-7.7); Neutrophils % 68.3 %; Nucleated Red Blood Cells % 0 %; Platelet Count 253 10^3/cmm (130-400); Red Blood Count 5.28 10^6/uL (4.1-5.3); Red Cell Distribution Width 14.1 % (12.1-15.1); White Blood Count 10.5 10^3/uL (4.0-10.0)
--- NOTE | 2022-10-27 20:31 | W.ED.GENADLT ---
HPI - General Adult General: Chief complaint: General Medical Stated complaint: arsenio B/P Time Seen by Provider: 10/27/22 20:26 Source: patient Mode of arrival: ambulatory Limitations: no limitations History of Present Illness: 87-year-old male who has a history of high blood pressure he states he stopped taking all his blood pressure medicine because he did not like It and feels he has been taking herbal medications but he states that his blood pressures been running high over the last few days he has noes complaints denies any chest pain denies any headache denies any weakness. He denies any worsening proving factors. 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 No evidence of DVT on left -Already on anticoagulation with treatment dose Eliquis External hemorrhoid HTN (hypertension) Pneumonia due to COVID-19 virus -Found to be COVID-19 positive on 05/03; prolonged hospital course -Evidence of pneumonitis on CTA -On empiric antibiotic coverage with ceftazidime -Afebrile, no leukocytosis, still requiring some supplemental oxygen support -Blood cultures negative -Sputum cultures negative Psoriasis Pulmonary embolism -Noted to have extensive bilateral PE, saddle embolus, extensive bilateral segmental and subsegmental emboli. Patient declined transfer on initial admission -Received tPA and initially on heparin drip, now transitioned to treatment dose Eliquis -Noted to have bleeding (epistaxis) and thrombocytopenia following tPA, now resolved -Echo: EF=60-65%, severe hypokinesis of RV, mild AR, trace PA, trace TR, noted presence of thrombus extending from pulmonic valve into the RVOT -continues to require supplemental oxygen, on 4 L Shingles Surgical History H/O hemorrhoidectomy H/O right knee surgery History of appendectomy History of colonoscopy with polypectomy (04/13/21) diverticulosis, polyp Family History Denies family history of Bleeding disorder Social History Smoking and tobacco status: never smoked Alcohol intake: never Substance/Drug Use: never Household members: spouse Housing: House Physical Exam Const: COMMON NORMALS: no acute distress, patient oriented x3 and healthy appearing HENMT: COMMON NORMALS: normocephalic and atraumatic HEAD & SCALP: normocephalic and atraumatic Eye: COMMON NORMALS: Equal, round and reactive pupils present and EOMs intact bilaterally PUPIL: Yes Equal, round and reactive pupils present Neck/C-Spine: COMMON NORMALS: full ROM and supple Chest: COMMONS NORMALS: normal inspection of the chest and normal palpation of entire chest wall Resp: COMMON NORMALS: normal respiratory effort, No retractions, No use of accessory muscles and clear to auscultation bilaterally AUSCULTATION: clear to auscultation bilaterally Cardio: COMMON NORMALS: regular rate, regular rhythm and No murmurs present (Cardio) RATE: regular rate RHYTHM: regular rhythm GI: COMMON NORMALS: Normal to inspection, nondistended, normoactive bowel sounds present, Soft to palpation, non-tender and no masses PALPATION: Yes Soft to palpation Extremity: COMMON NORMALS: normal to inspection and full ROM Neuro: COMMON NORMALS: patient oriented x3, moves all extremities and no focal motor deficits Psych: COMMON NORMALS: mental status grossly normal, Normal thought process present and cooperative THOUGHT PROCESS: Normal thought process present Skin: COMMON NORMALS: no rashes or lesions noted and no wounds GENERAL SKIN EXAM: no rashes or lesions noted Course Vital Signs: Vital signs: Vital Signs Temperature 97.3 F L 10/27/22 19:26 Pulse Rate 61 10/27/22 20:45 Respiratory Rate 16 10/27/22 19:26 Blood Pressure 159/73 10/27/22 20:45 Pulse Oximetry 98 10/27/22 20:45 Oxygen Delivery Me thod Room Air 10/27/22 20:45 MDM - General Adult Medical Decision Making Patient presents here with hypertension he has not been taking his meds he is been trying other measures. Blood pressure did improve here with hydralazine we will start him back on the [facility] he is to follow-up with his PCP and return if worsening Medical Records I reviewed the patient's medical records. Lab Data I reviewed the patient's lab results. 10/27/22 20:18 10/27/22 20:18 Laboratory Results WBC 10.5 10^3/uL (4.0-10.0) H 10/27/22 20:18 RBC 5.28 10^6/uL (4.1-5.3) 10/27/22 20:18 Hgb 15.2 g/dL (11.7-16.6) 10/27/22 20:18 Hct 48.5 % (42.0-52.0) 10/27/22 20:18 MCV 91.9 fl (80-94) 10/27/22 20:18 MCH 28.8 pg (28.0-34.0) 10/27/22 20:18 MCHC 31.3 g/dL (30.0-36.0) 10/27/22 20:18 RDW 14.1 % (12.1-15.1) 10/27/22 20:18 Plt Count 253 10^3/cmm (130-400) 10/27/22 20:18 MPV 10.1 fL (7.4-10.4) 10/27/22 20:18 Neut % (Auto) 68.3 % 10/27/22 20:18 Lymph % (Auto) 21.4 % 10/27/22 20:18 Bell % (Auto) 8.9 % 10/27/22 20:18 Eos % (Auto) 0.7 % 10/27/22 20:18 Baso % (Auto) 0.4 % 10/27/22 20:18 Neut # (Auto) 7.14 10^3/uL (1.8-7.7) 10/27/22 20:18 Lymph # (Auto) 2.2 10^3/uL (0.8-4.8) 10/27/22 20:18 Bell # (Auto) 0.9 10^3/uL (0.2-0.9) 10/27/22 20:18 Eos # (Auto) 0.1 10^3/uL (0.0-0.8) 10/27/22 20:18 Baso # (Auto) 0.0 10^3/uL (0.0-0.1) 10/27/22 20:18 Nucleated RBC % (auto) 0 % 10/27/22 20:18 Nucleated RBCs # 0.0 /100WBC 10/27/22 20:18 Sodium 141 mmol/L (136-145) 10/27/22 20:18 Potassium 4.2 mmol/L (3.5-5.1) 10/27/22 20:18 Chloride 103 mmol/L (98-107) 10/27/22 20:18 Carbon Dioxide 28 mmol/L (22-29) 10/27/22 20:18 Anion Gap 14.2 (5-19) 10/27/22 20:18 BUN 26 mg/dL (8-23) H 10/27/22 20:18 Creatinine 1.2 mg/dL (0.7-1.2) 10/27/22 20:18 GFR Calculation Not Reportable 10/27/22 20:18 Glucose 83 mg/dL (65-115) 10/27/22 20:18 Calculated Osmolality 296 mOsm/kg (285-295) H 10/27/22 20:18 Calcium 8.9 mg/dL (8.5-10.5) 10/27/22 20:18 Total Bilirubin 0.5 mg/dL (0.15-1.2) 10/27/22 20:18 AST 16 U/L (0-40) 10/27/22 20:18 ALT 15 U/L (0-41) 10/27/22 20:18 Alkaline Phosphatase 51 U/L (40-130) 10/27/22 20:18 Total Protein 6.7 g/dL (6.6-8.7) 10/27/22 20:18 Albumin 4.2 g/dL (3.5-5.2) 10/27/22 20:18 Globulin 2.5 g/dL (1.3-4.6) 10/27/22 20:18 EKG Data EKG 1: I personally reviewed and interpreted this EKG as follows: EKG interpretation date: 10/27/22 EKG interpretation time: 19:33 Interpretation: sinus kathleen hr [address] or t wave abnormalities qrs 113 qtc 416 Discharge Plan Discharge Patient Disposition: Home Clinical Impression: Hypertension Condition: Stable Prescriptions: New Norvasc 10 mg tablet 10 mg PO BID Qty: 60 0RF No Action prednisone 10 mg tablet 10 mg PO BID (DME) diabetic shoes See Rx Instructions .Route .MEDSUPPLY Qty: 1 0RF Rx Instructions: As directed ammonium lactate 12 % cream 1 applic topical DAILY PRN (Reason: dry skin) Qty: 280 2RF acetaminophen 325 mg tablet 325 mg PO QID PRN fluticasone propionate [Flonase Allergy Relief] 50 mcg/actuation spray,suspension 1 spray intranasal BID PRN Rx Instructions: administer into each nostril furosemide 20 mg tablet 20 mg PO DAILY nitroglycerin 0.4 mg tablet, sublingual 0.4 mg sublingual Q5M PRN (Reason: chest pain) Qty: 30 3RF Rx Instructions: do not exceed 3 doses per episode atorvastatin 10 mg tablet 10 mg PO DAILY Qty: 90 3RF losartan-hydrochlorothiazide 100-25 mg tablet 0.5 tab PO DAILY Qty: 90 3RF potassium chloride 10 mEq tablet extended release 10 meq PO DAILY Qty: 30 3RF (DME) Diabetic Shoes See Rx Instructions .Route .MEDSUPPLY Qty: 1 0RF Rx Instructions: As directed metoprolol succinate 25 mg tablet extended release 24 hr 25 mg PO DAILY Qty: 90 3RF Discharge Orders: Discharge ED (Routine); Ordered 10/27/22 Ordered By: Julián Ortiz Referrals: Ann Marie Richards [Primary Care Provider] - Discharge Diet: Advance as tolerated Discharge Activity: Resume usual activity Patient Instructions: Hypertension (ED) Coding Level of Care Code 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
[2022-10-27 20:36] VITALS: BP 209/81; PULSE 61; O2SAT 99
[2022-10-27] MEDS: hyDRALAzine 20 mg/mL INJ 1 mL 10 MG IVP (20:40)
[2022-10-27 20:45] VITALS: BP 159/73; PULSE 61; O2SAT 98
[2022-10-27 20:55] LABS: Alanine Aminotransferase 15 U/L (0-41); Albumin Level 4.2 g/dL (3.5-5.2); Alkaline Phosphatase 51 U/L (40-130); Anion Gap 14.2 (5-19); Aspartate Amino Transferase 16 U/L (0-40); Blood Urea Nitrogen 26 mg/dL (8-23); Calcium 8.9 mg/dL (8.5-10.5); Carbon Dioxide 28 mmol/L (22-29); Chloride 103 mmol/L (98-107); Globulin 2.5 g/dL (1.3-4.6); Glucose 83 mg/dL (65-115); Osmolality Calculated 296 mOsm/kg (285-295); Potassium 4.2 mmol/L (3.5-5.1); Sodium 141 mmol/L (136-145); Total Bilirubin 0.5 mg/dL (0.15-1.2); Total Protein 6.7 g/dL (6.6-8.7)
[2022-10-27 21:13] LABS: Add Urine Microscopic? NO; Charge for UA Resulting for Rev
[2022-10-27 21:32] LABS: Urine Appearance Clear (CLEAR); Urine Color Yellow (Yellow); pH Urine 7 (5-7)
[2022-10-27 21:33] LABS: Bilirubin Urine Neg (Negative); Blood Urine Neg (Negative); Glucose Urine UA Norm (Normal); Ketones Urine Negative (Negative); Leukocyte Esterase Urine Negative (Negative); Nitrate Urine Negative (Negative); Protein Urine Neg (Negative); Urobilinogen Urine Norm (Negative)
[2022-10-27 21:35] VITALS: BP 147/87
== END 2022-10-27 21:37 | disposition home or self-care (01) ==
PROVIDERS: Physician Assistant; Emergency Provider Emergency Medicine; PCP Nurse Practitioner Family
DX: I10 Essential (primary) hypertension (principal); T46.5X6A Underdosing of other antihypertensive drugs, initial encounter
CPT/HCPCS: 36415; 71045; 80053; 81003; 85025; 93005; 96374; 99284; J0360

== ENCOUNTER 2024-12-24 10:05 | Outpatient (CLI) | payer MEDICARE, SELFPAY ==
--- NOTE | 2024-12-24 10:18 | CT_ITS ---
WS: [id number] CT FACIAL BONES TECHNIQUE: Noncontrast facial bones with coronal and sagittal reformatted images. CLINICAL INFORMATION: ATYPICAL FACIAL PAIN/CHRONIC SINUSITIS COMPARISON: None. DLP: 1218.[address] scans at [facility] use at least one of these dose optimization techniques: automated exposure control; mA and/or kV adjustment per patient size (includes targeted exams where dose is matched to clinical indication); or iterative reconstruction. FINDINGS: LEFT to RIGHT nasal septal deviation measuring 4 to 5 mm along the mid septum. Mild narrowing of the ostiomeatal units bilaterally with mucosal thickening. Large LEFT and small RIGHT thee bullosa. Maxillary sinuses are well aerated. Frontal sinuses are well aerated. Frontoethmoidal recesses are patent. Mild mucosal thickening in the ethmoid air cells. Sphenoid sinuses are patent. Sphenoid sinus ostia are patent. Normal posterior nasopharynx and parapharyngeal fat. Partially visualized mastoid air cells are well aerated. Cavernous carotid calcification. CT/CT facial bones wo con* 47401 IMPRESSION: 1. LEFT to RIGHT nasal septal deviation measuring 4 to 5 mm along the mid se ptum. 2. Narrowing of the ostiomeatal units bilaterally. 3. Large LEFT and small RIGHT thee bullosa. 4. Mild mucosal thickening in the ethmoid air cells. 5. No other acute findings.
== END 2024-12-24 10:06 | disposition home or self-care (01) ==
LOC: RAD 10:08
PROVIDERS: PCP Nurse Practitioner Family; Visit Provider Nurse Practitioner Family
DX: J34.89 Other specified disorders of nose and nasal sinuses (principal); J34.2 Deviated nasal septum; G50.1 Atypical facial pain; J32.9 Chronic sinusitis, unspecified
CPT/HCPCS: 70486

== ENCOUNTER 2025-01-02 13:23 | Emergency (ER) | payer MEDICARE, SELFPAY ==
[2025-01-02 13:24] VITALS: BP 165/67; PULSE 70; RESP 17; TEMP 36.6; O2SAT 99
--- OUTSIDE RECORDS SUMMARY | 2025-01-02 13:28 | XMS_ITS | Encounter Summary ---
Author Organization [facility] Address [address] [place] [address] Care Team Providers Care Trauma Program Manager Name Role Phone Lele Corbett DO Primary Care Provider [phone] Encounter Details Date Type Department Care Team (Latest Contact Info) Description 12/17/2007 Outpatient Historical [facility] Services [address] [place] [id number] Lele Corbett DO [address] [place] [phone] Pain in Joint, Lower Leg; Loc Osteoarth NOS-L/Leg; Effusion of Lower Leg Joint; Sprain and Strain of Medial Collateral Ligament of Knee; Disorder of Bone and Cartilage, Unspecified; Synovial Cyst of Popliteal Space; Edema; Allergic Rhinitis, Cause Unspecified; Other Acquired Absence of Organ; Unspecified Accident; Unspecified Place of Occurrence Social History Tobacco Use Types Packs/Day Years Used Date Smoking Tobacco: Never Assessed Sex and Gender Information Value Date Recorded Sex Assigned at Not on file 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 Technique: MRI of the right knee was performed utilizing a 1.5 Rere magnet. Findings: There is a complex tear of the body and posterior horn of the medial meniscus. Lateral meniscus, cruciate ligaments and lateral collateral ligament complex are intact. Grade I MCL strain noted. 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 There is marked degenerative change of the lateral patellofemoral articulation with full-thickness cartilage loss and subchondral cyst formation. Small joint effusion. Tiny popliteal cyst. There is mild edema at the origin of the soleus. Impression: Complex tear of posterior horn and body of medial meniscus. Degenerative changes of the medial tibiofemoral and patellofemoral compartments. Small joint effusion. Mild strain at origin of soleus. - Dictated By: Rey Almonte M.D. Electronically Signed By: Rey Almonte M.D. Date Signed: 12/24/07 [facility] Procedure Note Rey Almonte - 12/24/2007 Exam: MRI - Knee Right w/o Date/Time of Exam: Dec 23, 2007 1:36:35 PM History: 719.46. Technique: MRI of the right knee was performed utilizing a 1.5 Teslamagnet. Findings: There is a complex tear of the body and posterior horn of themedial meniscus. Lateral meniscus, cruciate ligaments and lateral collateral ligament complex areintact. Grade I MCL strain noted. There is mild to moderate degenerative osteoarthritis of the medialtibiofemoral compartment. There is marked degenerative change of the lateral patellofemoralarticulation with full-thickness cartilage loss and subchondral cyst formation. Small joint effusion. Tinypopliteal cyst. There is mild edema at the origin of the soleus. Impression: Complex tear of posterior horn and body of medial meniscus.Degenerative changes of the medial tibiofemoral and patellofemoral compartments. Small joint effusion.Mild strain at origin of soleus. - Dictated By: Rey Almonte M.D. Electronically Signed By: Rey Almonte M.D. Date Signed: 12/24/07 JAW Lele Corbett DO MR ORDERABLES Final Result documented in this encounter Visit Diagnoses Diagnosis Pain in joint, lower leg Localized osteoarthrosis not specified whether primary or secondary, lower leg Effusion of lower leg joint Sprain of medial collateral ligament of knee Disorder of bone and cartilage, unspecified Synovial cyst of popliteal space Edema Allergic rhinitis, cause unspecified Other acquired absence of organ Unspecified accident Unspecified place of occurrence documented in this encounter Care Teams Trauma Program Manager Relationship Specialty Start Date End Date Lele Corbett DO [address] [place] [address] PCP - General 06/14/08 documented as of this encounter
--- OUTSIDE RECORDS SUMMARY | 2025-01-02 13:28 | XMS_ITS | Encounter Summary ---
Author Organization [facility] Address [address] [place] [address] Care Team Providers Care Dye House Hand Name Role Phone Lele Corbett DO Primary Care Provider [phone] Encounter Details Date Type Department Care Team (Latest Contact Info) Description 09/15/2003 Outpatient Historical [facility] Rodrigue [place] [place] [phone] Bashir Fuchs MD [address] [place] [phone] INT DERANGEMENT KNEE NOS (Primary Dx) Social History Tobacco Use Types Packs/Day Years Used Date Smoking Tobacco: Never Assessed Sex and Gender Information Value Date Recorded Sex Assigned at Not on file Legal Sex Male 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
--- OUTSIDE RECORDS SUMMARY | 2025-01-02 13:28 | XMS_ITS | Encounter Summary ---
Author Organization [facility] Address [address] [place] [address] Care Team Providers Care Key Maker Name Role Phone Lele Corbett DO Primary Care Provider [phone] Encounter Details Date Type Department Care Team (Late st Contact Info) Description 09/15/2003 Outpatient Historical [facility] Rodrigue More [address] [place] [phone] Social History Tobacco Use Types Packs/Day Years Used Date Smoking Tobacco: Never Assessed Sex and Gender Information Value Date Recorded Sex Assigned at Not on file 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
--- OUTSIDE RECORDS SUMMARY | 2025-01-02 13:28 | XMS_ITS | Clinical Summary ---
Author Organization [facility] Address [address] [place] [address] Phone Care Team Providers Care Healthcare Corporate Account Director Name Role Phone Aric Lele Moreno DO Primary Care Provider [phone] Allergies No known active allergies Medications ibuprofen (MOTRIN) 800 mg tablet Take 1 Tablet (800 mg) by mouth every 6 hours as needed for Pain, Mild. 20 Tablet 01/04/2017 Active predniSONE (DELTASONE) 10 mg tablet Take 10 mg by mouth 2 times daily with meals. 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 Gender Identity Not on file Sexual Orientation Not on file Occupation Industry Job Start Date Job End Date Not on file Not on file Not on file Not on file Not on file Not on file Not on file Not on file Last Filed Vital Signs Vital Sign Reading Time Taken Comments Blood Pressure 148/82 02/25/2019 3:30 AM CDT Pulse 63 02/25/2019 3:30 AM CDT Temperature 36.3 C (97.3 F) 02/25/2019 1:06 AM CDT Respiratory Rate 9 02/25/2019 3:30 AM CDT Oxygen Saturation 96% 02/25/2019 3:30 AM CDT Inhaled Oxygen Concentration - - Weight 81.6 kg (180 lb) 02/25/2019 1:06 AM CDT Height 180.3 cm (5' 11 ) 05/29/2018 2:09 PM NATIONAL SALES TRAINER Body Mass Index 25.1 05/29/2018 2:09 PM NATIONAL SALES TRAINER Plan of Treatment Health Maintenance Due Date Last Done Comments DTAP/TDAP/TD VACCINES (1 - Tdap) 1954 PNEUMOCOCCAL VACCINE 50+ YEARS (1 of 1 - PCV) 08/01/18 88 ZOSTER VACCINE (1 of 2) 08/02/1987 RSV VACCINE (60+ or ) (1 - 1-dose 75+ series) 2012 INFLUENZA VACCINE (#1) 2024 Medical Devices Implanted Type Area Director Of Housing And Energy Services Device Identifier Shelf Expiration Date Model / Serial / Lot Mesh Prolene Lg [facility] - [id number] Implanted:Qty: 1 on 05/25/2013 by Sonido Perez MD at [facility] Mesh Left: Inguinal [employer] 11/24/2017 [facility] / / [id number] Mesh Prolene Lg [facility] - [id number] Implanted:Qty: 1 on 05/25/2013 by Sonido Perez MD at [facility] Mesh Right: Groin [employer] 11/24/2017 [facility] / / [id number] Insurance MEDICARE PART A AND B Advance Directives For more information, please contact: [phone] * Full Code (Latest Code Status on File) Date Activated Date Inactivated Comments 06/05/2018 10:47 AM 06/05/2018 2:50 PM * Full Code Date Activated Date Inactivated Comments 05/25/2013 8:00 AM 05/26/2013 2:01 AM * Full Code Date Activated Date Inactivated Comments 05/03/2011 10:51 AM 05/03/2011 3:32 PM Care Teams Healthcare Corporate Account Director Relationship Specialty Start Date End Date Lele Corbett DO [address] [place] [address] PCP - General 06/14/08
--- OUTSIDE RECORDS SUMMARY | 2025-01-02 13:28 | XMS_ITS | Encounter Summary ---
Author Organization [facility] Address [address] [place] [address] Care Team Providers Care Processes Chemical Design Engineer Name Role Phone Lele Corbett DO Primary Care Provider [phone] Encounter Details Date Type Department Care Team (Latest Contact Info) Description 09/15/2003 Outpatient Historical [facility] Bashir Fuchs MD [address] [phone] SPRAIN MEDIAL COLLAT LIG (Primary Dx) Social History Tobacco Use Types Packs/Day Years Used Date Smoking Tobacco: Never Assessed Sex and Gender Information Value Date Recorded Sex Assigned at Not on file Legal Sex Male 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
--- OUTSIDE RECORDS SUMMARY | 2025-01-02 13:28 | XMS_ITS | Encounter Summary ---
Author Organization [facility] Address [address] [place] [address] Care Team Providers Care Dramatic Agent Name Role Phone Lele Corbett DO Primary Care Provider [phone] Encounter Details Date Type Department Care Team (Late st Contact Info) Description 08/29/2005 Emergency 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 Gender Identity Not on file Sexual Orientation Not on file documented as of this encounter Plan of Treatment Not on file documented as of this encounter Procedures Procedure Name Priority Date/Time Associated Diagnosis Comments CBC WITH DIFFERENTIAL Routine 08/29/2005 1:11 PM CDT BASIC METABOLIC PANEL Routine 08/29/2005 1:11 PM CDT KETONE, QUALITATIVE, URINE Routine 08/29/2005 1:10 PM CDT URINALYSIS W/REFLEX MICROSCOPIC Routine 08/29/2005 1:[address] URINARY CALCULI WO CONTRAST Routine 08/29/2005 12:05 PM CDT XR ABDOMEN 1 VW Routine 08/29/2005 12:05 PM CDT documented in this encounter Results * (ABNORMAL) BASIC METABOLIC PANEL (08/29/2005 1:11 PM CDT) GLUCOSE 130(H) 70 - 110 mg/dL INTERFACE SYSTEM BUN 27(H) 9 - 20 mg/dL INTERFACE SYSTEM CREATININE 1.5 0.7 - 1.5 mg/dL INTERFACE SYSTEM SODIUM 141 136 - 145 mEq/L INTERFACE SYSTEM POTASSIUM 4.5 3.5 - 5.0 mEq/L INTERFACE SYSTEM CHLORIDE 102 95 - 110 mEq/L INTERFACE SYSTEM CO2 28 22 - 32 mmol/l INTERFACE SYSTEM ANION GAP 16 9 - 20 mEq/L INTERFACE SYSTEM OSMOLALITY, CALCULATED 297(H) 275 - 295 mOsm/Kg INTERFACE SYSTEM CALCIUM 9.7 8.4 - 10.5 mg/dL INTERFACE SYSTEM 08/29/2005 1:11 PM CDT us Felicity Aburto MD CHEMISTRY ORDERABLES Final Result INTERFACE SYSTEM Refer to clinic/hospital department * (ABNORMAL) CBC WITH DIFFERENTIAL (08/29/2005 1:11 PM CDT) WBC 13.5(H) 4.8 - 10.8 K/ul INTERFACE SYSTEM RBC 5.40 4.60 - 6.20 Mil/ul INTERFACE SYSTEM HEMOGLOBIN 16.7 14.0 - 18.0 g/dL INTERFACE SYSTEM HEMATOCRIT 48.6 41.0 - 53.0 % INTERFACE SYSTEM MCV 90.0 84.0 - 103.0 Fl INTERFACE SYSTEM MCH 30.9 27.0 - 34.0 pg INTERFACE SYSTEM MCHC 34.4 30.0 - 35.0 g/dL INTERFACE SYSTEM RDW 12.9 11.0 - 14.5 % INTERFACE SYSTEM PLATELETS 216 140 - 440 K/ul INTERFACE SYSTEM MPV 11.0 8.9 - 12.8 Fl INTERFACE SYSTEM NEUTROPHILS 91.7(H) 42.2 - 75.2 % INTERFACE SYSTEM LYMPHOCYTES 4.3(L) 24.0 - 44.0 % INTERFACE SYSTEM MONOCYTES 3.9 2.0 - 10.0 % INTERFA CE SYSTEM BASOPHILS 0.1 0.0 - 1.0 % INTERFAC E SYSTEM NEUTROPHIL ABSOLUTE 12.4(H) 2.0 - 8.0 K/uL INTERFACE SYSTEM LYMPHOCYTE ABSOLUTE 0.6(L) 1.2 - 4.0 K/ul INTERFACE SYSTEM MONOCYTE ABSOLUTE 0.5 0.1 - 0.6 K/ul INTERFACE SYSTEM BASOPHILS ABSOLUTE 0.0 0.0 - 0.2 K/ul INTERFACE SYSTEM PERIPHERAL BLOOD SMEAR REVIEW Automated Diff Automated Diff INTERFACE SYSTEM 08/29/2005 1:11 PM CDT Felicity Aburto MD HEMATOLOGY ORDERABLES Melissa l Result Performing Organization Address City/[facility] Co de Phone Number INTERFACE SYSTEM Refer to clinic/hospital department * (ABNORMAL) ACETONE QUALITATIVE, URINE (08/29/2005 1:10 PM CDT) KETONES UA Small(A) Negative INTERFACE SYSTEM 08/29/2005 1:10 PM CDT Felicity Aburto MD URINE ORDERABLES Final Res ult Performing Organization Address [facility] Phone Number INTERFACE SYSTEM Refer to clinic/hospital department * URINALYSIS (08/29/2005 1:10 PM CDT) COLOR UA Yellow Straw INTERFACE SYSTEM CLARITY UA Clear Clear INTERFACE SYSTEM LEUKOCYTE ESTERASE UA NEGATIVE NEGATIVE INTERFACE SYSTEM NITRITE UA NEGATIVE NEGATIVE INTERFACE SYSTEM PH UA 7.0 5.0 - 9.0 INTERFACE SYSTEM PROTEIN UA NEGATIVE NEGATIVE INTERFACE SYSTEM Comment: As of 04 positive protein results obtained on routine urinalysis will not be confirmed by sulfosalicylic acid (SSA) precipitation. Current methodology for protein detection is highly sensitive for detection of albumin; therefore, confirmation is not necessary. GLUCOSE UA NEGATIVE NEGATIVE INTERFACE SYSTEM UROBILINOGEN UA 0.2 0.2 INTE RFACE SYSTEM BILIRUBIN UA NEGATIVE NEGATIVE INTERFA CE SYSTEM BLOOD UA NEGATIVE NEGATIVE INTERFACE SYSTEM SPECIFIC GRAVITY UA 1.025 1.005 - 1.030 INTERFACE SYSTEM MICRO EXAM No No INTERFACE SYSTEM 08/29/2005 1:10 PM CDT Felicity Aburto MD URINE ORDERABLES Final Res ult INTERFACE SYSTEM Refer to clinic/hospital department * CT RENAL COLIC WO CONT (08/29/2005 12:05 PM CDT) Anatomical Region Laterality Modality Abdomen Other 08/29/2005 12:0 5 PM CDT Narrative 02/17/2009 7:[address] HISTORY: Left flank pain. Thin section CT of the abdomen and pelvis was performed without contrast. The lung bases are clear. The visualized liver, spleen, gallbladder, pancreas, and adrenal glands are unremarkable. Nonobstructing punctate nephrolithiasis is noted bilaterally. The largest nonobstructing calculus is identified in the inferior pole left kidney measuring 4 mm in size. There is mild dilation of the right renal pelvis and ureter which can be followed to a calculus in the distal left ureter just superior to the UVJ measuring 1.5 mm in size. No additional calculi are identified in the ureters or bladder. No calculi are identified in the right ureter and there is no right hydronephrosis. The abdominal aorta and retroperitoneum are unremarkable. There are no dilated or thickened loops of bowel. No inflammatory changes. 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 Diverticulosis without diverticulitis is incidentally identified. IMPRESSION: 1. Mild hydronephrosis of left kidney with 1.5 mm calculus of the distal left ureter just superior to the UVJ. 2. Incidental nonobstructing nephrolithiasis. 3. Bilateral fat filled inguinal hernias. gb Dictated By: Taniya Chinchilla M.D. Electronically Signed By: Taniya Chinchilla M.D. Date Signed: 08/29/05 GRB Procedure Note Provider, Historical - 04/13/[address] HISTORY: Left flank pain. Thin section CT of the abdomen and pelvis was performed without contrast.The lung bases are clear. The visualized liver, spleen, gallbladder, pancreas, and adrenal glands areunremarkable. Nonobstructing punctate nephrolithiasis is noted bilaterally. The largest nonobstructingcalculus is identified in the inferior pole left kidney measuring 4 mm in size. There is mild dilationof the right renal pelvis and ureter which can be followed to a calculus in the distal left ureter justsuperior to the UVJ measuring 1.5 mm in size. No additional calculi are identified in the ureters orbladder. No calculi are identified in the right ureter and there is no right hydronephrosis. Theabdominal aorta and retroperitoneum are unremarkable. There are no dilated or thickened loopsof bowel. No inflammatory changes. Bilateral fat filled inguinal hernias are identified.Diverticulosis without diverticulitis is incidentally identified. IMPRESSION: 1. Mild hydronephrosis of left kidney with 1.5 mm calculus of the distalleft ureter just superior to the UVJ. 2. Incidental nonobstructing nephrolithiasis. 3. Bilateral fat filled inguinal hernias. gb Dictated By: Taniya Chinchilla M.D. Electronically Signed By: Taniya Chinchilla M.D. Date Signed: 08/29/05 GRB us Felicity Aburto MD CT ORDERABLES Final Resu lt * XR ABDOMEN 1 VW (08/29/2005 12:05 PM CDT) Anatomical Region Laterality Modality Abdomen Other 08/29/2005 12:0 5 PM CDT Narrative 02/17/2009 7:49 AM CDT KUB DATE OF EXAMINATION: 08/29/2005. Bowel gas pattern nonspecific. Three small calculi within the right hemipelvis favoring phleboliths. IMPRESSION: As above. gb Dictated By: Sivakumar Nj M.D. Electronically Signed By: Sivakumar Nj M.D. Date Signed: 08/29/05 GRJosh Procedure Note Provider, Historical - 04/13/2009 KUB DATE OF EXAMINATION: 08/29/2005. Bowel gas pattern nonspecific. Three small calculi within the righthemipelvis favoring phleboliths. IMPRESSION: As above. gb Dictated By: Sivakumar Nj M.D. Electronically Signed By: Sivakumar Nj M.D. Date Signed: 08/29/05 GRB us Felicity Aburto MD DIAGNOSTIC IMAGING ORDERAB LES Final Result documented in this encounter Visit Diagnoses Diagnosis Calculus of ureter- Primary documented in this encounter Care Teams Dramatic Agent Relationship Specialty Start Date End Date Lele Corbett DO [address] [place] [phone] PCP - General 06/14/08 documented as of this encounter
--- OUTSIDE RECORDS SUMMARY | 2025-01-02 13:28 | XMS_ITS | Encounter Summary ---
Author Organization [facility] Address [address] [place] [address] Care Team Providers Care Scraper Operator Name Role Phone Lele Corbett Primary Care Provider [phone] Encounter Details Date Type Department Care Team (Late st Contact Info) Description 10/07/2007 Outpatient Historical [facility] Endoscopy Opal [address] [place] [address] Shashank Jung MD [address] [place] [address] [place] [address] Social History Tobacco Use Types Packs/Day Years Used Date Smoking Tobacco: Never Assessed Sex and Gender Information Value Date Recorded Sex Assigned at Not on file 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 Gender Identity Not on file Sexual Orientation Not on file documented as of this encounter Plan of Treatment Not on file documented as of this encounter Procedures Procedure Name Priority Date/Time Associated Diagnosis Comments PATHOLOGY Routine 10/23/2007 9:13 AM CDT documented in this encounter Results * PATHOLOGY (10/23/2007 9:13 AM CDT) PATHOLOGY/CYT OLOGY REPORT [facility] [address] [facility] [address] Patient: TRACY VIDAL Accn No: [id number] Collected: 10/23/2007 9:13:00 AM SURGICAL PATHOLOGY FINAL REPORT Diagnosis A. Colon, ascending, biopsy - tubular adenoma, three fragments. Jaron Recinos M.D. (Electronicall y signed by) Verified: 10/27/07 DD /CEP Clinical Information Polyp. Specimen Source AColon, ASCENDING Microscopic Description Microscopic examination was performed. Gross Description Part A. Submitted in a container of formalin labelled Jal, #1 polyp, ascending colon are three britton tissue fragments ranging in size from less than 0.1 cm to 0.2 cm. The specimen is submitted entirely in A1, nine levels. DLS/TKB INTERFACE SYSTEM 10/23/2007 9:13 AM CDT us Shashank Jung MD PATHOLOGY/CYTOLOGY ORDERABLES Final Result INTERFACE SYSTEM Refer to clinic/hospital department documented in this encounter Visit Diagnoses Not on filedocumented in this encounter Care Teams Scraper Operator Relationship Specialty Start Date End Date Lele Corbett DO [address] [place] [address] PCP - General 06/14/08 documented as of this encounter
--- OUTSIDE RECORDS SUMMARY | 2025-01-02 13:28 | XMS_ITS | Encounter Summary ---
Author Organization [facility] Address [address] [place] [address] Care Team Providers Care Pantry Worker Name Role Phone Lele Corbett Primary Care Provider Encounter Details Date Type Department Care Team (Late st Contact Info) Description 05/23/2020 Lab Requisition [facility] Laboratory Services [address] [place] [address] Russ Sow DO [address] [phone] Social History Tobacco Use Types Packs/Day Years Used Date Smoking Tobacco: Never Smokeless Tobacco: Never Alcohol Use Standard Drinks/Week Comments No 0 (1 standard drink = 0.6 oz pur e alcohol) Sex and Gender Information Value Date Recorded Sex Assigned at Not on file 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 Gender Identity Not on file Sexual Orientation Not on file Occupation Industry Job Start Date Job End Date Not on file Not on file Not on file Not on file Not on file Not on file Not on file Not on file documented as of this encounter Plan of Treatment Not on file documented as of this encounter Procedures Procedure Name Priority Date/Time Associated Diagnosis Comments CBC WITH DIFFERENTIAL Routine 05/23/2020 6:23 AM ELECTRIC INSTALLER BASIC METABOLIC PANEL Routine 05/23/2020 6:23 AM ELECTRIC INSTALLER documented in this encounter Results * (ABNORMAL) CBC WITH DIFFERENTIAL (05/23/2020 6:23 AM ELECTRIC INSTALLER) WBC 10.7 4.8 - 10.8 K/uL 05/23/2020 6:52 PM [facility] RBC 5.13 4.60 - 6.20 M/uL 05/23/2020 6:52 PM [facility] HEMOGLOBIN 15.6 14.0 - 18.0 g/dL 05/23/2020 6:52 PM [facility] HEMATOCRIT 48.9 41.0 - 53.0 % 05/23/2020 6:52 PM [facility] MCV 95.3 84.0 - 103.0 fL 05/23/2020 6:52 PM [facility] MCH 30.4 27.0 - 34.0 pg 05/23/2020 6:52 PM [facility] MCHC 31.9 30.0 - 35.0 g/dL 05/23/2020 6:52 PM [facility] RDW 14.7(H) 11.0 - 14.5 % 05/23/2020 6:52 PM [facility] RDW-STDEV 50.4 37.0 - 54.0 fL 05/23/2020 6:52 PM [facility] PLATELETS 187 140 - 440 K/uL 05/23/2020 6:52 PM [facility] MPV 10.3 8.9 - 12.8 fL 05/23/2020 6:52 PM [facility] NEUTROPHILS 77(H) 42 - 75 % 05/23/2020 6:52 PM [facility] LYMPHOCYTES 10(L) 24 - 44 % 05/23/2020 6:52 PM [facility] [employer] [facility] MONOCYTES 6 2 - 10 % 05/23/2020 6:52 PM [facility] EOSINOPHILS 2 0 - 7 % 05/23/2020 6:52 PM [facility] BASOPHILS 1 0 - 1 % 05/23/2020 6:52 PM [facility] IMMATURE GRANULOCYTES 4(H) 0 - 2 % 05/23/2020 6:52 PM [facility] NEUTROPHIL ABSOLUTE 8.19(H) 2.00 - 8.00 K/uL 05/23/2020 6:52 PM [facility] LYMPHOCYTE ABSOLUTE 1.09(L) 1.20 - 4.00 K/uL 05/23/2020 6:52 PM [facility] MONOCYTE ABSOLUTE 0.66(H) 0.10 - 0.60 K/uL 05/23/2020 6:52 PM [facility] EOSINOPHIL ABSOLUTE 0.22 0.00 - 0.70 K/uL 05/23/2020 6:52 PM [facility] BASOPHILS ABSOLUTE 0.08 0.00 - 0.20 K/uL 05/23/2020 6:52 PM [facility] IMMATURE GRANULOCYTES ABSOLUTE 0.42(H) 0.00 - 0.10 K/uL 05/23/2020 6:52 PM [facility] Blood Collection / Unknown 05/23/2020 6:23 AM ELECTRIC INSTALLER 05/23/2020 6:44 PM ELECTRIC INSTALLER Russ Sow DO HEMATOLOGY ORDERABLES Final Result [facility] [address] [place], [place] [id number] * (ABNORMAL) BASIC METABOLIC PANEL (05/23/2020 6:23 AM ELECTRIC INSTALLER) SODIUM 136 136 - 145 mmol/L 05/23/2020 7:09 PM [facility] POTASSIUM 3.8 3.5 - 5.1 mmol/L 05/23/2020 7:09 PM [facility] CHLORIDE 101 98 - 107 mmol/L 05/23/2020 7:09 PM [facility] CO2 27 22 - 29 mmol/L 05/23/2020 7:09 PM [facility] CALCIUM 8.0(L) 8.8 - 10.2 mg/dL 05/23/2020 7:09 PM [facility] BUN 20 8 - 23 mg/dL 05/23/2020 7:09 PM [facility] CREATININE 0.95 0.67 - 1.17 mg/dL 05/23/2020 7:09 PM [facility] [employer] [facility] Comment:The GFR result is no t clinically significant on patients <18 or >70 years of age. GLUCOSE 93 74 - 99 mg/dL 05/23/2020 7:09 PM [facility] GFR >60 mL/min/1.7 3 sq meter 05/23/2020 7:09 PM [facility] Comment: eGFR has not been validated for use in the elderly (> 70 years of age), women, patients with serious co-morbid conditions, or persons with extremes of body size or muscle mass and should also be interpreted with caution in patients with acute kidney failure, dialysis dependent patients, patients reporting exceptional dietary intake (e.g. vegetarian diet, high protein diets, creatine supplementation), and patients with severe liver disease. Based on National Kidney Disease Education Program If patient is , please refer to the GFR result. GFR, >60 mL/min/1.7 3 sq meter 05/23/2020 7:09 PM [facility] ANION GAP 8(L) 9 - 20 mmol/L 05/23/2020 7:09 PM [facility] Blood Collection / Unknown 05/23/2020 6:23 AM ELECTRIC INSTALLER 05/23/2020 6:47 PM ELECTRIC INSTALLER Russ Sow DO CHEMISTRY ORDERABLES Final Result [facility] [address] [place] [address] documented in this encounter Visit Diagnoses Not on filedocumented in this encounter Care Teams Pantry Worker Relationship Specialty Start Date End Date Lele Corbett DO [address] [place] [phone] PCP - General 06/14/08 documented as of this encounter
--- OUTSIDE RECORDS SUMMARY | 2025-01-02 13:28 | XMS_ITS | Clinical Summary ---
Author Organization [facility] Address [address] [facility] Attn: Epic Prelude ADT ANNY PUENTE [address] Care Team Providers Care Truck Terminal Manager Name Role Phone Lele Corbett Josh REN Primary Care Provider [phone] Allergies No known active allergies Medications predniSONE (DELTASONE) 10 mg tablet Take 10 mg by mouth 2 times daily with meals. 05/29/2018 Active ibuprofen (MOTRIN) 800 mg tablet Take 1 Tablet (800 mg) by mouth every 6 hours as needed for Pain, Mild. 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 Gender Identity Not on file Sexual Orientation Not on file Last Filed Vital Signs Vital Sign Reading Time Taken Comments Blood Pressure 148/82 02/25/2019 3:30 AM CDT Pulse 63 02/25/2019 3:30 AM CDT Temperature 36.3 C (97.3 F) 02/25/2019 1:06 AM CDT Respiratory Rate 9 02/25/2019 3:30 AM CDT Oxygen Saturation - - Inhaled Oxygen Concentration - - Weight 81.6 kg (180 lb) 02/25/2019 1:06 AM CDT Height 180.3 cm (5' 11 ) 05/29/2018 2:09 PM FACILITIES MAINTENANCE TECHNICIAN Body Mass Index 25.1 05/29/2018 2:09 PM FACILITIES MAINTENANCE TECHNICIAN Plan of Treatment Health Maintenance Due Date Last Done Comments DTAP/TDAP/TD VACCINES (1 - Tdap) 1954 PNEUMOCOCCAL VACCINE 50+ YEARS (1 of 1 - PCV) 08/01/18 88 ZOSTER VACCINE (1 of 2) 08/02/1987 RSV VACCINE (60+ or ) (1 - 1-dose 75+ series) 2012 INFLUENZA VACCINE (#1) 2024 Medical Devices Implanted Type Area Binder Selector Device Identifier Shelf Expiration Date Model / Serial / Lot Mesh Prolene Lg [facility] - [id number] Implanted:Qty: 1 on 05/25/2013 by Sonido Perez MD Mesh Left: Inguinal [employer]- [employer] 11/24/2017 [facility] / [id number] Mesh Prolene Lg [facility] - [id number] Implanted:Qty: 1 on 05/25/2013 by Sonido Perez MD Mesh Right: Groin [employer]- [employer] 11/24/2017 [facility] / / [id number] Care Teams Truck Terminal Manager Relationship Specialty Start Date End Date Lele Corbett DO [address] [place] [phone] PCP - General 06/14/08
--- NOTE | 2025-01-02 13:39 | XRR_ITS ---
PROCEDURE INFORMATION: Exam: XR Chest Exam date and time: 01/02/2025 1:45 PM Age: 89 years old Clinical indication: Shortness of breath; Additional info: Weakness TECHNIQUE: Imaging protocol: Radiologic exam of the chest. Views: 1 view. COMPARISON: CR XR chest 1V [id number] 10/27/2022 8:05 PM FINDINGS: Lungs: Granulomatous changes are present. The lungs are otherwise clear. Pleural spaces: Unremarkable. No pleural effusion. No pneumothorax. Heart/Mediastinum: Heart size is stable. Vasculature: There is tortuosity of the thoracic aorta. Bones/joints: Bony structures are osteopenic. No acute bony abnormality identified. XR/XR chest 1V portable [id number] IMPRESSION: Stable findings.
--- NOTE | 2025-01-02 13:39 | ECG_ITS ---
[facility] Date: 2025-01-02 Pat Name: Solomon Waters Department: Room: Gender: Male Sample Maker Hand: : [id number] Requested By: Rosita Foley Order Number: [id number] Umer MD: Thao Head M.D. Measurements Intervals [place] Rate: 79 P: -9 IL: 202 QRS: 95 QRSD: 112 T: 43 QT: 391 QTc: 451 Interpretive Statements SINUS RHYTHM WITH FREQUENT SUPRAVENTRICULAR PREMATURE COMPLEXES BORDERLINE RIGHT AXIS DEVIATION [QRS AXIS > 90] MODERATE INTRAVENTRICULAR CONDUCTION DELAY [110+ ms QRS DURATION] ABNORMAL RHYTHM ECG Compared to ECG 10/27/2022 19:33:45 Intraventricular conduction delay now present Sinus bradycardia no longer present Atrial abnormality no longer present ST (T wave) deviation no longer present Electronically Signed On 01-05-2025 08:19:50 CDT by Thao Head M.D. [email or web address]
--- NOTE | 2025-01-02 13:39 | CTR_ITS ---
PROCEDURE INFORMATION: Exam: CT Head Without Contrast Exam date and time: 01/02/2025 2:13 PM Age: 89 years old Clinical indication: Altered mental status/memory loss; Confusion or disorientation; Additional info: Encephalopathy, altered mental status TECHNIQUE: Imaging protocol: Computed tomography of the head without contrast. Radiation optimization: All CT scans at this facility use at least one of these dose optimization techniques: automated exposure control; mA and/or kV adjustment per patient size (includes targeted exams where dose is matched to clinical indication); or iterative reconstruction. COMPARISON: CT facial bones wo con* [id number] 12/24/2024 10:30 AM RADIATION DOSE METRICS: Total DLP (mGy-cm): 1076.08 FINDINGS: Brain: There is decreased attenuation in the periventricular white matter tracts consistent with small-vessel ischemic changes. There is encephalomalacia in both insula greater on the left consistent with remote ischemic changes. No acute edema identified. No hemorrhage identified. Cerebral ventricles: Ventricles, sulci and cisterns are within normal limits for age. No midline shift. Paranasal sinuses: Visualized sinuses are unremarkable. No fluid levels. Mastoid air cells: Visualized mastoid air cells are well aerated. Bones: Unremarkable. No acute fracture. Soft tissues: There are atherosclerotic changes of the internal carotid , left vertebral and basilar arteries. CT/CT head wo con* [id number] IMPRESSION: No acute abnormality identified. 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
--- NOTE | 2025-01-02 13:42 | W.ED.AMS ---
HPI - Altered Mental Status General: Chief Complaint: Altered Mental Status Stated Complaint: stroke symptoms, slurring speech Time Seen by Provider: 01/02/25 13:37 History of Present Illness: 89-year-old man with a history of coronary artery disease, hypertension, DVT and PE (does not appear to be on any anticoagulation), BPH and anxiety who presented to the emergency room with concerns for confusion this morning. He says the batteries were not on his blood pressure cuff and when he finally did check it it was high. He said he had some slurred speech and difficulty coming up with his words. No unilateral or generalized weakness. Symptoms have resolved now. No fever. No cough. No abdominal pain. No nausea or vomiting. Currently no altered mental status and no focal motor deficits. Related Data Previous Rx's ?Medication ?Instructions ?Recorded diabetic shoes #1 ea 01/05/22 Diabetic Shoes #1 ea 01/10/22 amlodipine 10 mg tablet (Norvasc) 10 mg PO BID #60 tabs 10/27/22 aspirin 325 mg capsule 325 mg PO DAILY #30 caps 01/02/25 Allergies Allergy/AdvReac Type Severity Reaction Status Date / Time ciprofloxacin (From Cipro) Allergy ALGY-Rash Verified 01/05/22 14:51 metronidazole (From Flagyl) Allergy ALGY-Rash Verified 01/05/22 14:51 Review of Systems Narrative: Constitutional symptoms: Negative except as documented in HPI. Skin symptoms: Negative except as documented in HPI. Eye symptoms: Negative except as documented in HPI. ENMT symptoms: Negative except as documented in HPI. Respiratory symptoms: Negative except as documented in HPI. Cardiovascular symptoms: Negative except as documented in HPI. Gastrointestinal symptoms: Negative except as documented in HPI. Genitourinary symptoms: Negative except as documented in HPI. Musculoskeletal symptoms: Negative except as documented in HPI. Neurologic symptoms: Negative except as documented in HPI. Psychiatric symptoms: Negative except as documented in HPI. Endocrine symptoms: Negative except as documented in HPI. 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 No evidence of DVT on left -Already on anticoagulation with treatment dose Eliquis Pulmonary embolism -Noted to have extensive bilateral PE, saddle embolus, extensive bilateral segmental and subsegmental emboli. Patient declined transfer on initial admission -Received tPA and initially on heparin drip, now transitioned to treatment dose Eliquis -Noted to have bleeding (epistaxis) and thrombocytopenia following tPA, now resolved -Echo: EF=60-65%, severe hypokinesis of RV, mild AR, trace CT, trace TR, noted presence of thrombus extending from pulmonic valve into the RVOT -continues to require supplemental oxygen, on 4 L BPH (benign prostatic hyperplasia) Shingles Pneumonia due to COVID-19 virus -Found to be COVID-19 positive on 05/03; prolonged hospital course -Evidence of pneumonitis on CTA -On empiric antibiotic coverage with ceftazidime -Afebrile, no leukocytosis, still requiring some supplemental oxygen support -Blood cultures negative -Sputum cultures negative External hemorrhoid Psoriasis Anxiety Diverticulosis Surgical History History of colonoscopy with polypectomy (04/13/21) diverticulosis, polyp History of appendectomy H/O hemorrhoidectomy H/O right knee surgery Family History Denies family history of Bleeding disorder Social History Smoking and tobacco/nicotine status: never used tobacco/nicotine Alcohol intake: never Substance/Drug Use: never Household members: spouse Housing: House Physical Exam Narrative: General: Alert, no acute distress. Skin: Warm, dry. Head: Normocephalic, atraumatic. Neck: Supple, trachea midline. Eye: Extraocular movements are intact. Ears, nose, mouth and throat: mucosa moist. Cardiovascular: Regular, Normal peripheral perfusion. Respiratory: Lungs are clear to auscultation, respirations are non-labored, breath sounds are equal, Symmetrical chest wall expansion. Gastrointestinal: Soft, Nontender, Non distended Musculoskeletal: Normal ROM, no deformity. Neurological: Alert and oriented, No focal neurological deficit observed. Psychiatric: Cooperative, appropriate mood & affect. Course Vital Signs: Vital signs: Vital Signs Temperature 97.8 F 01/02/25 13:24 Pulse Rate 70 01/02/25 13:24 Respiratory Rate 17 01/02/25 13:24 Blood Pressure 149/68 01/02/25 15:00 Pulse Oximetry 99 01/02/25 15:00 Oxygen Delivery Me thod Room Air 01/02/25 13:24 MDM - Altered Mental Status Medical Decision Making Medical decision making: Differential diagnosis including but not limited to and based on the above HPI, review of systems and physical exam: In this patient with altered mental status: Stroke. Hypoglycemia. Metabolic encephalopathy. Infections such as pneumonia, urinary tract infection, Covid-19, Influenza. Electrolyte abnormalities such as hypernatremia. Renal failure / uremia. Hepatic encephalopathy. Hypoxemia. Hypercapnic respiratory failure. Psychosis. Drug or alcohol intoxication. Medication overdose. Orders placed to evaluate differential diagnosis based on the above differential, HPI and physical exam CT head: No acute intracranial process. no intracranial hemorrhage, no evidence of infarct. no evidence of acute fracture.This was reviewed and interpreted by myself the ER physician. Chest x-ray: No acute process. No infiltrate. No pneumothorax. This was reviewed and interpreted by myself the emergency room physician. I also reviewed the radiology report. Lab Review: Laboratory results were reviewed and interpreted by myself the emergency room physician. No leukocytosis. No anemia. Stable chronic renal insufficiency. No urinary tract infection. I reviewed the patient's medical record. Reexamination: Patient remained stable. No increased work of breathing. No altered mental status. No focal motor deficits. Patient is already on a statin. I advise he take an aspirin and talk with his doctor next week. He has an appointment on Saturday. Assessment and plan: Dysarthria Possible TIA ?Patient has had no further symptoms. - Discharged home - Discussed plan with patient. Answered any questions. - Evaluation and treatment of this problem were appropriate in the emergency setting. Lab Data 01/02/25 13:49 01/02/25 13:49 Radiology Impressions Chest X-Ray 01/02/25 13:39 IMPRESSION: Stable findings. Head CT 01/02/25 13:39 IMPRESSION: No acute abnormality identified. 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 Laboratory Results WBC 8.48 10^3/uL (3.29-11.43) 01/02/25 13:49 RBC 5.08 10^6/uL (3.85-5.65) 01/02/25 13:49 Hgb 15.40 g/dL (11.27-16.99) 01/02/25 13:49 Hct 46.1 % (37-53) 01/02/25 13:49 MCV 90.7 fl (82-101) 01/02/25 13:49 MCH 30.3 pg (27-33) 01/02/25 13:49 MCHC 33.4 g/dL (30-55) 01/02/25 13:49 RDW 13.2 % (12.1-15.1) 01/02/25 13:49 Plt Count 232 10^3/cmm (157-399) 01/02/25 13:49 MPV 9.6 fL (7.4-10.4) 01/02/25 13:49 Neut % (Auto) 62.4 % 01/02/25 13:49 Lymph % (Auto) 25.4 % 01/02/25 13:49 [place] % (Auto) 8.0 % 01/02/25 13:49 Eos % (Auto) 3.2 % 01/02/25 13:49 Baso % (Auto) 0.6 % 01/02/25 13:49 Neut # (Auto) 5.30 10^3/uL (1.8-7.7) 01/02/25 13:49 Lymph # (Auto) 2.2 10^3/uL (0.8-4.8) 01/02/25 13:49 [place] # (Auto) 0.7 10^3/uL (0.2-0.9) 01/02/25 13:49 Eos # (Auto) 0.3 10^3/uL (0.0-0.8) 01/02/25 13:49 Baso # (Auto) 0.1 10^3/uL (0.0-0.1) 01/02/25 13:49 Nucleated RBC % (auto) 0 % 01/02/25 13:49 Nucleated RBCs # 0.0 /100WBC 01/02/25 13:49 Sodium 138 mmol/L (136-145) 01/02/25 13:49 Potassium 3.7 mmol/L (3.5-5.1) 01/02/25 13:49 Chloride 99 mmol/L (98-107) 01/02/25 13:49 Carbon Dioxide 26 mmol/L (22-29) 01/02/25 13:49 Anion Gap 16.7 (5-19) 01/02/25 13:49 BUN 31 mg/dL (8-23) H 01/02/25 13:49 Creatinine 1.3 mg/dL (0.7-1.2) H 01/02/25 13:49 GFR Calculation Not Reportable 01/02/25 13:49 Glucose 93 mg/dL (65-115) 01/02/25 13:49 Calculated Osmolality 292 mOsm/kg (285-295) 01/02/25 13:49 Lactic Acid 1.1 mmol/L (0.5-2.2) 01/02/25 13:49 Calcium 9.3 mg/dL (8.5-10.5) 01/02/25 13:49 Total Bilirubin 0.8 mg/dL (0.15-1.2) 01/02/25 13:49 AST 13 U/L (0-40) 01/02/25 13:49 ALT 14 U/L (0-41) 01/02/25 13:49 Alkaline Phosphatase 58 U/L (40-130) 01/02/25 13:49 Total Protein 7.2 g/dL (6.6-8.7) 01/02/25 13:49 Albumin 4.3 g/dL (3.5-5.2) 01/02/25 13:49 Globulin 2.9 g/dL (1.3-4.6) 01/02/25 13:49 Urine Color Yellow (Yellow) 01/02/25 14:09 Urine Appearance Clear (CLEAR) 01/02/25 14:09 Urine pH 6.5 (5-7) 01/02/25 14:09 Ur Specific [place] 1.009 (1.005-1.030) 01/02/25 14:09 Urine Protein Negative (Negative) 01/02/25 14:09 Urine Glucose (UA) Negative (Normal) 01/02/25 14:09 Urine Ketones Trace (Negative) 01/02/25 14:09 Urine Blood Negative (Negative) 01/02/25 14:09 Urine Nitrate Negative (Negative) 01/02/25 14:09 Urine Bilirubin Negative (Negative) 01/02/25 14:09 Urine Urobilinogen 0.2 mg/dL (Negative) 01/02/25 14:09 Ur Leukocyte Esterase Negative (Negative) 01/02/25 14:09 Urine RBC 0-2 /hpf (0-2) 01/02/25 14:09 Urine WBC 0-5 /hpf (0-5) 01/02/25 14:09 Ur Squamous Epith Cells 0-5 /hpf (0-5) 01/02/25 14:09 Amorphous Sediment Not Reportable 01/02/25 14:09 Urine Bacteria None seen /hpf (NONE) 01/02/25 14:09 Hyaline Casts 0.81 /lpf 01/02/25 14:09 All radiology interpretation(s) finalized by discharge Discharge Plan Discharge Patient Disposition: Home Clinical Impression: Hypertension, Dysarthria Condition: Stable Prescriptions: New aspirin 325 mg capsule 325 mg PO DAILY Qty: 30 1RF No Action (DME) diabetic shoes See Rx Instructions .Route .MEDSUPPLY Qty: 1 0RF Rx Instructions: As directed (DME) Diabetic Shoes See Rx Instructions .Route .MEDSUPPLY Qty: 1 0RF Rx Instructions: As directed amlodipine [Norvasc] 10 mg tablet 10 mg PO BID Qty: 60 0RF Discharge Orders: Discharge ED (Routine); Ordered 01/02/25 Ordered By: Rosita Meadows Referrals: Ann Marie Richards [Primary Care Provider, Family Practice] Discharge Diet: Usual diet Discharge Activity: Increase activity as tolerated Patient Instructions: Transient Ischemic Attack (ED), Hypertension (ED), Altered Mental Status (ED), Opioid Safety, Pain Management, Patient Portal & Eloisa Instructions Activity Restrictions/Additional Instructions: Please take an aspirin daily and follow-up with your primary care provider about your blood pressure and if he wants to increase your atorvastatin given this may have been a TIA. Thank you for choosing [facility] for your healthcare needs today. You have been screened and evaluated and felt safe for discharge. Health conditions do change or evolve sometimes and as such it is important that you follow up with your Primary Doctor to be re checked, 3-5 days is a general good time frame for follow up. You are always welcome to return to the ED for re assessment if your symptoms are worsening or you have new concerns Print Language: Romansh Coding Level of Care Code ED Storage Administrator for Tiki Duran
[2025-01-02 13:58] LABS: Hematocrit 46.1 % (37-53); Hemoglobin 15.40 g/dL (11.27-16.99); Mean Corpuscular HGB Conc 33.4 g/dL (30-55); Mean Corpuscular Hemoglobin 30.3 pg (27-33); Mean Corpuscular Volume 90.7 fl (82-101); Nucleated Red Blood Cells % 0 %; Platelet Count 232 10^3/cmm (157-399); Red Blood Count 5.08 10^6/uL (3.85-5.65); White Blood Count 8.48 10^3/uL (3.29-11.43)
[2025-01-02 14:21] LABS: Lactic Sepsis W/Reflex 1.1 mmol/L (0.5-2.2)
[2025-01-02 14:22] LABS: Glucose Urine UA Negative (Normal); Nitrate Urine Negative (Negative); Specific Gravity, Urine 1.009 (1.005-1.030)
[2025-01-02 14:22] LABS: Alanine Aminotransferase 14 U/L (0-41); Albumin Level 4.3 g/dL (3.5-5.2); Alkaline Phosphatase 58 U/L (40-130); Anion Gap 16.7 (5-19); Aspartate Amino Transferase 13 U/L (0-40); Blood Urea Nitrogen 31 mg/dL (8-23); Calcium 9.3 mg/dL (8.5-10.5); Carbon Dioxide 26 mmol/L (22-29); Chloride 99 mmol/L (98-107); Globulin 2.9 g/dL (1.3-4.6); Glucose 93 mg/dL (65-115); Osmolality Calculated 292 mOsm/kg (285-295); Potassium 3.7 mmol/L (3.5-5.1); Sodium 138 mmol/L (136-145); Total Protein 7.2 g/dL (6.6-8.7)
[2025-01-02 14:45] VITALS: BP 149/68; O2SAT 100
[2025-01-02 15:00] VITALS: BP 149/68; O2SAT 99
--- NOTE | 2025-01-02 15:48 | PC.PHAR ---
Pt states he takes a lot of supplements. He can remember Vit c 500mg, D3 2000mg, Potassium 99mg, Magnesium 250mg, and Calcium 500mg.
== END 2025-01-02 15:55 | disposition home or self-care (01) ==
PROVIDERS: Emergency Provider Emergency Medicine; PCP Nurse Practitioner Family
DX: I10 Essential (primary) hypertension (principal); R47.1 Dysarthria and anarthria; I25.10 Atherosclerotic heart disease of native coronary artery without angina pectoris
CPT/HCPCS: 36415; 70450; 71045; 80053; 81001; 83605; 85025; 93005; 99285

== ENCOUNTER 2025-03-19 15:18 | Emergency (ER) | payer MEDICARE, SELFPAY ==
[2025-03-19 15:23] VITALS: BP 156/72; PULSE 61; RESP 16; TEMP 36.4; O2SAT 98
--- OUTSIDE RECORDS SUMMARY | 2025-03-19 15:23 | XMS_ITS | Encounter Summary ---
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 Date Signed: 12/24/07 [facility] Procedure Note Rey Almonte - 12/24/2007 Exam: [...] occurrence documented in this encounter Care Teams Puncher And Fastener Relationship Specialty Start Date End Date Lele Corbett DO [address] [place] [address] PCP - General 06/14/08 documented as of this encounter
--- OUTSIDE RECORDS SUMMARY | 2025-03-19 15:23 | XMS_ITS | Clinical Summary ---
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 GRIND TOOL TECHNICIAN Gender Identity Not on file Sexual [...] cm (5' 11 ) 05/29/2018 2:09 PM CUTTER GRIND TOOL TECHNICIAN Body Mass Index 25.1 05/29/2018 2:09 PM CUTTER GRIND TOOL TECHNICIAN Plan of Treatment Health Maintenance Due Date Last Done Comments DTAP/TDAP/TD VACCINES (1 - Tdap) 1954 PNEUMOCOCCAL VACCINE 50+ YEARS (1 of 1 - PCV) 08/01/18 88 ZOSTER VACCINE (1 of 2) 08/02/1987 RSV VACCINE (60+ or ) (1 - 1-dose 75+ series) 2012 INFLUENZA VACCINE (#1) 2024 Medical Devices Implanted Type Area Optical Worker Device Identifier Shelf Expiration Date Model / Serial / Lot Mesh Prolene Lg Banner - [id number] Implanted:Qty: 1 on 05/25/2013 by Sonido Perez MD at [facility] Mesh Left: Inguinal J[employer]J- [employer] 11/24/2017 [facility] / / [id number] Mesh Prolene Lg [employer]anner - [id number] Implanted:Qty: 1 on 05/25/2013 by Sonido Perez MD at [facility] Mesh Right: Groin J[employer]J- [employer] 11/24/2017 [facility] / / [id number] Insurance MEDICARE PART A AND B Advance Directives For more information, please contact: [phone] * Full Code (Latest Code Status on File) Date Activated Date Inactivated Comments 06/05/2018 10:47 AM 06/05/2018 2:50 PM * Full Code Date Activated Date Inactivated Comments 05/25/2013 8:00 AM 05/26/2013 2:01 AM * Full Code Date Activated Date Inactivated Comments 05/03/2011 10:51 AM 05/03/2011 3:32 PM Care Teams Sensitometrist Relationship Specialty Start Date End Date Lele Corbett DO [address] [place] [address] PCP - General 06/14/08
--- OUTSIDE RECORDS SUMMARY | 2025-03-19 15:23 | XMS_ITS | Encounter Summary ---
Author Organization [facility] Address [address] [place] [address] Care Team Providers Care Split And Drum Room Supervisor Name Role Phone Lele Corbett Primary Care Provider [phone] Encounter Details Date Type Department Care Team (Late st Contact Info) Description 10/07/2007 Outpatient Historical [facility] End[facility] [place] [address] [place] [address] Shashank Jung MD [address] [place] [address] Disability [place] [address] Social History Tobacco Use Types Packs/Day Years Used Date Smoking Tobacco: Never Assessed Sex and Gender Information Value Date Recorded Sex Assigned at Not on file Legal Sex Male 5:34 AM 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 [facility] [address] Patient: TRACY VIDAL Accn No: [id number] Collected: 10/23/2007 9:13:00 AM SURGICAL PATHOLOGY FINAL REPORT Diagnosis A. Colon, ascending, biopsy - tubular adenoma, three fragments. Jaron Recinos M.D. (Electronicall y signed by) Verified: 10/27/07 DD /CEP Clinical Information Polyp. Specimen Source AColon, ASCENDING Microscopic Description Microscopic examination was performed. Gross Description Part A. Submitted in a container of formalin labelled [place], #1 polyp, ascending colon are three britton [...] on filedocumented in this encounter Care Teams Split And Drum Room Supervisor Relationship Specialty Start Date End Date Lele Corbett DO [address] [place] [address] PCP - General 06/14/08 documented as of this encounter
--- OUTSIDE RECORDS SUMMARY | 2025-03-19 15:23 | XMS_ITS | Encounter Summary ---
Author Organization [facility] Address [address] [place] [address] Care Team Providers Care Centerless Grinder Tender Name Role Phone Lele Corbett DO Primary Care Provider [phone] Encounter Details Date Type Department Care Team (Late st Contact Info) Description 08/29/2005 Emergency [facility] Emergency Department [address] [place] [address] Felicity Aburto MD [address] [place], [place] [id number] Calculus of Ureter (Primary Dx) Social History Tobacco Use Types Packs/Day Years Used Date Smoking Tobacco: Never Assessed Sex and Gender Information Value Date Recorded Sex Assigned at Not on file Legal Sex Male 5:34 AM ADJUNCT FACULTY MATHEMATICS DEPARTMENT Gender Identity Not on file Sexual Orientation [...] ORDERABLES Melissa l Result Performing Organization Address City/[facility] Co de Phone Number INTERFACE SYSTEM Refer to clinic/hospital department * (ABNORMAL) ACETONE QUALITATIVE, URINE (08/29/2005 1:10 PM CDT) KETONES UA Small(A) Negative INTERFACE SYSTEM 08/29/2005 1:10 PM CDT Felicity Aburto MD URINE ORDERABLES Final Res ult Performing Organization Address [facility] Phone Number INTERFACE SYSTEM Refer to clinic/hospital [...] Primary documented in this encounter Care Teams Centerless Grinder Tender Relationship Specialty Start Date End Date Lele Corbett DO [address] [place] [address] PCP - General 06/14/08 documented as of this encounter
--- OUTSIDE RECORDS SUMMARY | 2025-03-19 15:23 | XMS_ITS | Encounter Summary ---
Author Organization [facility] Address [address] [place] [address] Care Team Providers Care Pit Hoist Operator Name Role Phone Lele Corbett DO Primary Care Provider [phone] Encounter Details Date Type Department Care Team (Latest Contact Info) Description 09/15/2003 Outpatient Historical [facility] Rodrigue [place] [place] [phone] Bashir Fuchs MD [address] [place] [phone] INT DERANGEMENT KNEE NOS (Primary Dx) Social History Tobacco Use Types Packs/Day Years Used Date Smoking Tobacco: Never Assessed Sex and Gender Information Value Date Recorded Sex Assigned at Not on file Legal Sex Male 5:34 AM SEISMIC PROSPECTING OBSERVER Gender Identity Not on file Sexual Orientation Not on file documented as of this encounter Plan of Treatment Not on file documented as of this encounter Visit Diagnoses Diagnosis Unspecified internal derangement of knee- Primary documented in this encounter Care Teams Pit Hoist Operator Relationship Specialty Start Date End Date Lele Corbett DO [address] [place] [phone] PCP - General 06/14/08 documented as of this encounter
--- OUTSIDE RECORDS SUMMARY | 2025-03-19 15:23 | XMS_ITS | Encounter Summary ---
Author Organization [facility] Address [address] [place] [address] Care Team Providers Care Skiver Heel Tap Name Role Phone Lele Corbett DO Primary Care Provider [phone] Encounter Details Date Type Department Care Team (Latest Contact Info) Description 09/15/2003 Outpatient Historical [facility] Bashir Fuchs MD [address] [phone] SPRAIN MEDIAL COLLAT LIG (Primary Dx) Social History Tobacco Use Types Packs/Day Years Used Date Smoking Tobacco: Never Assessed Sex and Gender Information Value Date Recorded Sex Assigned at Not on file Legal Sex Male 5:34 AM DRAWER IN Gender Identity Not on file Sexual Orientation Not on file documented as of this encounter Plan of Treatment Not on file documented as of this encounter Visit Diagnoses Diagnosis Sprain of medial collateral ligament of knee- Primary documented in this encounter Care Teams Skiver Heel Tap Relationship Specialty Start Date End Date Lele Corbett DO [address] [place] [address] PCP - General 06/14/08 documented as of this encounter
--- OUTSIDE RECORDS SUMMARY | 2025-03-19 15:23 | XMS_ITS | Clinical Summary ---
Author Organization [facility] Address [address] [facility] Attn: Epic Prelude ADT [place] [address] Care Team Providers Care Hard Tile Setter Apprentice Name Role Phone Lele Corbett Josh REN Primary Care Provider [phone] Allergies No known active allergies Medications predniSONE [...] on file Legal Sex Male 8:27 AM CLOTH SHEARING SUPERVISOR Gender Identity Not on file Sexual Orientation [...] cm (5' 11 ) 05/29/2018 2:09 PM CLOTH SHEARING SUPERVISOR Body Mass Index 25.1 05/29/2018 2:09 PM CLOTH SHEARING SUPERVISOR Plan of Treatment Health Maintenance Due Date Last Done Comments DTAP/TDAP/TD VACCINES (1 - Tdap) 1954 PNEUMOCOCCAL VACCINE 50+ YEARS (1 of 1 - PCV) 08/01/18 88 ZOSTER VACCINE (1 of 2) 08/02/1987 RSV VACCINE (60+ or ) (1 - 1-dose 75+ series) 2012 INFLUENZA VACCINE (#1) 2024 Medical Devices Implanted Type Area Forest Pathology Associate Professor Device Identifier Shelf Expiration Date Model / Serial / Lot Mesh Prol[facility] Lg [facility] [id number] Implanted:Qty: 1 on 05/25/2013 by Sonido Perez MD Mesh Left: Inguinal J[employer]J- [employer] 11/24/2017 [facility] / / [id number] Mesh Prolene Lg [facility] - [id number] Implanted:Qty: 1 on 05/25/2013 by Sonido Perez MD Mesh Right: Groin J&J- [employer] 11/24/2017 [facility] / / [id number] Care Teams Hard Tile Setter Apprentice Relationship Specialty Start Date End Date Lele Corbett DO [address] [place] [phone] PCP - General 06/14/08
--- OUTSIDE RECORDS SUMMARY | 2025-03-19 15:23 | XMS_ITS | Encounter Summary ---
Author Organization [facility] Address [address] [place] [address] Care Team Providers Care Petroleum Refinery Worker Name Role Phone Lele Corbett DO Primary Care Provider [phone] Encounter Details Date Type Department Care Team (Late st Contact Info) Description 09/15/2003 Outpatient Historical [facility] Imaging [facility] Rodrigue [place]cl[address] [place] [phone] Social History Tobacco Use Types Packs/Day Years Used Date Smoking Tobacco: Never Assessed Sex and Gender Information Value Date Recorded Sex Assigned at Not on file Legal Sex Male 5:34 AM AIRCRAFT INSTRUMENT REPAIRER Gender Identity Not on file Sexual Orientation Not on file documented as of this encounter Plan of Treatment Not on file documented as of this encounter Visit Diagnoses Not on filedocumented in this encounter Care Teams Petroleum Refinery Worker Relationship Specialty Start Date End Date Lele Corbett DO [address] [place] [address] PCP - General 06/14/08 documented as of this encounter
--- OUTSIDE RECORDS SUMMARY | 2025-03-19 15:23 | XMS_ITS | Encounter Summary ---
Author Organization [facility] Address [address] [place] [address] Care Team Providers Care Junior Net Developer Name Role Phone Lele Corbett Primary Care Provider [phone] Encounter Details Date Type Department Care Team (Late st Contact Info) Description 05/23/2020 Lab Requisition [facility] [address] [place] [address] Russ Sow DO [address] [phone] Social History Tobacco Use Types Packs/Day Years Used Date Smoking Tobacco: Never Smokeless Tobacco: Never Alcohol Use Standard Drinks/Week Comments No 0 (1 standard drink = 0.6 oz pur e alcohol) Sex and Gender Information Value Date Recorded Sex Assigned at Not on file Legal Sex Male 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 Gender Identity Not on file Sexual [...] CBC WITH DIFFERENTIAL Routine 05/23/2020 6:23 AM NON LICENSED NUCLEAR PLANT OPERATOR BASIC METABOLIC PANEL Routine 05/23/2020 6:23 AM NON LICENSED NUCLEAR PLANT OPERATOR documented in this encounter Results * (ABNORMAL) CBC WITH DIFFERENTIAL (05/23/2020 6:23 AM NON LICENSED NUCLEAR PLANT OPERATOR) WBC 10.7 4.8 - 10.8 K/uL 05/23/2020 6:52 PM [facility] RBC 5.13 4.60 - 6.20 M/uL 05/23/2020 6:52 PM [facility] HEMOGLOBIN 15.6 14.0 - 18.0 g/dL 05/23/2020 6:52 PM [facility] HEMATOCRIT 48.9 41.0 - 53.0 % 05/23/2020 6:52 PM [facility] MCV 95.3 84.0 - 103.0 fL 05/23/2020 6:52 PM [facility] MCH 30.4 27.0 - 34.0 pg 05/23/2020 6:52 PM [facility] MCHC 31.9 30.0 - 35.0 g/dL 05/23/2020 6:52 PM [facility] RDW 14.7(H) 11.0 - 14.5 % 05/23/2020 6:52 PM [facility] RDW-STDEV 50.4 37.0 - 54.0 fL 05/23/2020 6:52 PM [facility] PLATELETS 187 140 - 440 K/uL 05/23/2020 6:52 PM [facility] MPV 10.3 8.9 - 12.8 fL 05/23/2020 6:52 PM [facility] NEUTROPHILS 77(H) 42 - 75 % 05/23/2020 6:52 PM [facility] LYMPHOCYTES 10(L) 24 - 44 % 05/23/2020 6:52 PM [facility] Hele Massage [facility] MONOCYTES 6 2 - 10 % 05/23/2020 6:52 PM [facility] EOSINOPHILS 2 0 - 7 % 05/23/2020 6:52 PM [facility] BASOPHILS 1 0 - 1 % 05/23/2020 6:52 PM [facility] IMMATURE GRANULOCYTES 4(H) 0 - 2 % 05/23/2020 6:52 PM [facility] NEUTROPHIL ABSOLUTE 8.19(H) 2.00 - 8.00 K/uL 05/23/2020 6:52 PM [facility] LYMPHOCYTE ABSOLUTE 1.09(L) 1.20 - 4.00 K/uL 05/23/2020 6:52 PM [facility] MONOCYTE ABSOLUTE 0.66(H) 0.10 - 0.60 K/uL 05/23/2020 6:52 PM [facility] EOSINOPHIL ABSOLUTE 0.22 0.00 - 0.70 K/uL 05/23/2020 6:52 PM [facility] BASOPHILS ABSOLUTE 0.08 0.00 - 0.20 K/uL 05/23/2020 6:52 PM [facility] IMMATURE GRANULOCYTES ABSOLUTE 0.42(H) 0.00 - 0.10 K/uL 05/23/2020 6:52 PM [facility] Blood Collection / Unknown 05/23/2020 6:23 AM NON LICENSED 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 PLANT OPERATOR 05/23/2020 6:44 PM NON LICENSED NUCLEAR PLANT OPERATOR Russ Sow DO HEMATOLOGY ORDERABLES Final Result [facility] [address] [place], [place] [id number] * (ABNORMAL) BASIC METABOLIC PANEL (05/23/2020 6:23 AM NON LICENSED NUCLEAR PLANT OPERATOR) SODIUM 136 136 - 145 mmol/L 05/23/2020 7:09 PM [facility] POTASSIUM 3.8 3.5 - 5.1 mmol/L 05/23/2020 7:09 PM [facility] CHLORIDE 101 98 - 107 mmol/L 05/23/2020 7:09 PM [facility] CO2 27 22 - 29 mmol/L 05/23/2020 7:09 PM [facility] CALCIUM 8.0(L) 8.8 - 10.2 mg/dL 05/23/2020 7:09 PM [facility] BUN 20 8 - 23 mg/dL 05/23/2020 7:09 PM [facility] CREATININE 0.95 0.67 - 1.17 mg/dL 05/23/2020 7:09 PM [facility] Hele Massage [facility] Comment:The GFR result is no t clinically significant on patients <18 or >70 years of age. GLUCOSE 93 74 - 99 mg/dL 05/23/2020 7:09 PM [facility] GFR >60 mL/min/1.7 3 sq meter 05/23/2020 7:09 PM [facility] Comment: eGFR has not been validated [...] mL/min/1.7 3 sq meter 05/23/2020 7:09 PM [facility] ANION GAP 8(L) 9 - 20 mmol/L 05/23/2020 7:09 PM [facility] Blood Collection / Unknown 05/23/2020 6:23 AM NON LICENSED NUCLEAR PLANT OPERATOR 05/23/2020 6:47 PM NON LICENSED NUCLEAR PLANT OPERATOR Russ Sow DO CHEMISTRY ORDERABLES Final Result [facility] [address] [place] [address] documented in this encounter Visit Diagnoses Not on filedocumented in this encounter Care Teams Junior Net Developer Relationship Specialty Start Date End Date Lele Corbett DO [address] [place] [id number] PCP - General 06/14/08 documented as of this encounter
--- NOTE | 2025-03-19 15:32 | XRR_ITS ---
PROCEDURE INFORMATION: Exam: XR Chest Exam date and time: 03/19/2025 4:32 PM Age: 89 years old Clinical indication: Other: Weakness TECHNIQUE: Imaging protocol: Radiologic exam of the chest. Views: 1 view. COMPARISON: CR XR chest 1V portable [id number] 01/02/2025 1:45 PM FINDINGS: Lungs: Stable granulomatous changes are noted. No new mass lesion or alveolar consolidation has developed. Mild stable pulmonary hyperinflation is seen suggesting underlying COPD or mild emphysematous change. Pleural spaces: Unremarkable. No pleural effusion. No pneumothorax. Heart/Mediastinum: No cardiomegaly. Vasculature: Stable aortic tortuosity is evident. Bones/joints: Unremarkable. XR/XR chest 1V portable [id number] IMPRESSION: Stable chest x-ray showing COPD changes and old granulomatous disease.
[2025-03-19 16:22] LABS: Hematocrit 47.4 % (37-53); Hemoglobin 15.50 g/dL (11.27-16.99); Mean Corpuscular HGB Conc 32.7 g/dL (30-55); Mean Corpuscular Hemoglobin 30.9 pg (27-33); Mean Corpuscular Volume 94.4 fl (82-101); Nucleated Red Blood Cells % 0 %; Platelet Count 273 10^3/cmm (157-399); Red Blood Count 5.02 10^6/uL (3.85-5.65); White Blood Count 8.10 10^3/uL (3.29-11.43)
[2025-03-19 16:29] LABS: Glucose Urine UA Negative (Normal); Nitrate Urine Negative (Negative); Specific Gravity, Urine 1.017 (1.005-1.030)
[2025-03-19 16:32] LABS: Add Urine Microscopic? YES
[2025-03-19 16:39] LABS: INR 0.91 (0.8-1.2); Prothrombin Time 12.90 SECONDS (12.1-14.9)
--- NOTE | 2025-03-19 16:43 | ECG_ITS ---
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
[2025-03-19 16:53] LABS: Alanine Aminotransferase 10 U/L (0-41); Albumin Level 4.5 g/dL (3.5-5.2); Alkaline Phosphatase 61 U/L (40-130); Anion Gap 16.4 (5-19); Aspartate Amino Transferase 13 U/L (0-40); Blood Urea Nitrogen 32 mg/dL (8-23); Calcium 9.2 mg/dL (8.5-10.5); Carbon Dioxide 27 mmol/L (22-29); Chloride 101 mmol/L (98-107); Creatinine Clr Calc Pharmacy 43.2129; Globulin 3.1 g/dL (1.3-4.6); Glucose 100 mg/dL (65-115); Lipase 39 U/L (13-60); Osmolality Calculated 297 mOsm/kg (285-295); Potassium 4.4 mmol/L (3.5-5.1); Sodium 140 mmol/L (136-145); Thyroid Stimulating Hormone 0.73 uIU/mL (0.27-4.20); Total Protein 7.6 g/dL (6.6-8.7)
[2025-03-19 19:08] VITALS: BP 146/78; PULSE 66; RESP 16; O2SAT 100
--- NOTE | 2025-03-19 19:13 | CTR_ITS ---
PROCEDURE INFORMATION: Exam: CT Head Without Contrast Exam date and time: 03/19/2025 7:36 PM Age: 89 years old Clinical indication: Speech disturbance; C/O of transient aphasia since yesterday; Additional info: Expressive aphasia TECHNIQUE: Imaging protocol: Computed tomography of the head without contrast. Radiation optimization: All CT scans at this facility use at least one of these dose optimization techniques: automated exposure control; mA and/or kV adjustment per patient size (includes targeted exams where dose is matched to clinical indication); or iterative reconstruction. COMPARISON: CT head wo con* [id number] 01/02/2025 2:13 PM RADIATION DOSE METRICS: Total DLP (mGy-cm): 1011.03 FINDINGS: Brain: There is moderate cortical atrophy. Low-density changes in the white matter are consistent with nonspecific small vessel chronic ischemic change. There is no intracranial mass, hemorrhage or edema. Cerebral ventricles: No ventriculomegaly. Paranasal sinuses: Visualized sinuses are unremarkable. No fluid levels. Mastoid air cells: Visualized mastoid air cells are well aerated. Bones: Unremarkable. No acute fracture. Soft tissues: Unremarkable. CT/CT head wo con* [id number] IMPRESSION: No acute intracranial finding.
--- NOTE | 2025-03-19 19:58 | W.ED.NEUROSD ---
HPI - Neuro Symptoms/Deficit General: Chief Complaint: Neuro Symptoms/Deficit Stated Complaint: stroke like symptoms (yesterday) Time Seen by Provider: 03/19/25 18:44 History of Present Illness: Patient is an 89-year-old male presenting with acute onset of expressive aphasia and word-finding difficulties that began yesterday. The patient reports he couldn't hardly talk and couldn't get the words out. He was on the phone when the episode occurred, and others described his speech as mumble jumble. The patient states he knew what he wanted to say but couldn't articulate it properly. First responders were called today when it happened again, but the patient declined transport as symptoms began to improve. He also reports concurrent cognitive difficulties, including inability to recall familiar TV channel numbers. The patient had a similar episode approximately two months ago that prompted an ED visit with a 4-hour workup, though no definitive diagnosis was established. During that previous visit, symptoms resolved spontaneously before discharge. The patient denies fever, weakness, numbness, tingling, or visual changes. He reports his symptoms have improved since arrival at the ED approximately 3 hours ago. The patient was started on aspirin following his previous episode. Related Data Previous Rx's ?Medication ?Instructions ?Recorded diabetic shoes #1 ea 01/05/22 Diabetic Shoes #1 ea 01/10/22 amlodipine 10 mg tablet (Norvasc) 10 mg PO BID #60 tabs 10/27/22 aspirin 325 mg capsule 325 mg PO DAILY #30 caps 01/02/25 atorvastatin 40 mg tablet (Lipitor) 40 mg PO DAILY #30 tabs 03/19/25 clopidogrel 75 mg tablet (Plavix) 75 mg PO DAILY #30 tabs 03/19/25 Allergies Allergy/AdvReac Type Severity Reaction Status Date / Time ciprofloxacin (From Cipro) Allergy ALGY-Rash Verified 03/19/25 15:26 metronidazole (From Flagyl) Allergy ALGY-Rash Verified 03/19/25 15:26 [facility]: Medical History (Updated 03/19/25 @ 22:01 by Dillon Turpin DO) CAD (coronary artery disease) Chronic steroid use Coarse tremors HTN (hypertension) 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 No evidence of DVT on left -Already on anticoagulation with treatment dose Eliquis Pulmonary embolism -Noted to have extensive bilateral PE, saddle embolus, extensive bilateral segmental and subsegmental emboli. Patient declined transfer on initial admission -Received tPA and initially on heparin drip, now transitioned to treatment dose Eliquis -Noted to have bleeding (epistaxis) and thrombocytopenia following tPA, now resolved -Echo: EF=60-65%, severe hypokinesis of RV, mild AR, trace CA, trace TR, noted presence of thrombus extending from pulmonic valve into the RVOT -continues to require supplemental oxygen, on 4 L BPH (benign prostatic hyperplasia) Shingles Pneumonia due to COVID-19 virus -Found to be COVID-19 positive on 05/03; prolonged hospital course -Evidence of pneumonitis on CTA -On empiric antibiotic coverage with ceftazidime -Afebrile, no leukocytosis, still requiring some supplemental oxygen support -Blood cultures negative -Sputum cultures negative External hemorrhoid Psoriasis Anxiety Diverticulosis Surgical History History of colonoscopy with polypectomy (04/13/21) diverticulosis, polyp History of appendectomy H/O hemorrhoidectomy H/O right knee surgery Family History Denies family history of Bleeding disorder Social History Smoking and tobacco/nicotine status: never used tobacco/nicotine Alcohol intake: never Substance/Drug Use: never Household members: spouse Housing: House NIH stroke score NIHSS: Level Of Consciousness - 1a: 0 Level Of Consciousness Questions - 1b: Both Correct Level Of Consciousness Commands - 1c: Both Correct Best Gaze - 2: Normal Visual Jerome - 3: No Visual Loss Facial Palsy - 4: Normal Motor Arm Right - 5: No Drift Motor Arm Left - 5: No Drift Motor Leg Right - 6: No Drift Motor Leg Left - 6: No Drift Limb Ataxia - 7: Absent Sensory - 8: Normal Best Language - 9: No Aphasia Dysarthia - 10: Normal Extinction And Inattention - 11: 0 Score: Total Score: 0 Physical Exam Const: COMMON NORMALS: no acute distress GENERAL APPEARANCE: cooperative; not ill appearing and not frail appearing HENMT: COMMON NORMALS: normocephalic, atraumatic and Normal external nose present HEAD & SCALP: normocephalic and atraumatic FACE & SINUS: normal facial exam and face symmetric NOSE: Normal external nose present Eye: COMMON NORMALS: Equal, round and reactive pupils present and EOMs intact bilaterally PUPIL: Yes Equal, round and reactive pupils present Neck/C-Spine: GENERAL: Yes trachea midline Chest: CHEST: Yes Symmetrical chest wall rise Resp: COMMON NORMALS: normal respiratory effort, No retractions, No use of accessory muscles and clear to auscultation bilaterally AUSCULTATION: clear to auscultation bilaterally Cardio: COMMON NORMALS: regular rate and regular rhythm RATE: regular rate RHYTHM: regular rhythm GI: COMMON NORMALS: Normal to inspection, nondistended, normoactive bowel sounds present Extremity: COMMON NORMALS: no pedal edema Neuro: CORTES COMA SCALE: document GCS findings [place] coma scale eye opening: Spontaneous [place] coma scale verbal response: Orientated [place] coma scale motor response: Obey commands [place] coma scale total score: 15 SENSORY EXAM: Yes extremities (intact) Psych: COMMON NORMALS: speech normal SPEECH: Yes normal speech Skin: COMMON NORMALS: no rashes or lesions noted GENERAL SKIN EXAM: no rashes or lesions noted Course Vital Signs: Vital signs: Vital Signs Temperature 97.6 F 03/19/25 15:23 Pulse Rate 62 03/19/25 22:11 Respiratory Rate 16 03/19/25 22:11 Blood Pressure 129/56 03/19/25 22:11 Pulse Oximetry 97 03/19/25 22:11 Oxygen Delivery Me thod Room Air 03/19/25 19:08 MDM - Neuro Symptoms/Deficit Medical Decision Making 89-year-old gentleman with transient expressive aphasia, and some confusion. He had a workup that was negative a couple of weeks ago for the same thing here in the ER. His vitals are normal. He is not overly hypertensive. CBC and BMP are not remarkable. Chest x-ray is negative. Urinalysis is not remarkable. Head CT is pending. He is not on a statin. He is taking aspirin. Would consider aspirin plus Plavix plus statin in this patient. Workup including echocardiogram carotids, etc. should be considered. Counseled the patient. Offered observation admission for above workup. He is feeling better and wishes to go home. Will write orders to continue workup as an outpatient. Results to his doctor. He knows to return for any return of his symptoms he is placed on Plavix and statin as well as his aspirin as above. Lab Data 03/19/25 16:04 03/19/25 16:04 Radiology Impressions Chest X-Ray 03/19/25 15:32 IMPRESSION: Stable chest x-ray showing COPD changes and old granulomatous disease. Head CT 03/19/25 19:13 IMPRESSION: No acute intracranial finding. Laboratory Results WBC 8.10 10^3/uL (3.29-11.43) 03/19/25 16:04 RBC 5.02 10^6/uL (3.85-5.65) 03/19/25 16:04 Hgb 15.50 g/dL (11.27-16.99) 03/19/25 16:04 Hct 47.4 % (37-53) 03/19/25 16:04 MCV 94.4 fl (82-101) 03/19/25 16:04 MCH 30.9 pg (27-33) 03/19/25 16:04 MCHC 32.7 g/dL (30-55) 03/19/25 16:04 RDW 13.3 % (12.1-15.1) 03/19/25 16:04 Plt Count 273 10^3/cmm (157-399) 03/19/25 16:04 MPV 9.7 fL (7.4-10.4) 03/19/25 16:04 Neut % (Auto) 81.5 % 03/19/25 16:04 Lymph % (Auto) 13.5 % 03/19/25 16:04 [place] % (Auto) 3.7 % 03/19/25 16:04 Eos % (Auto) 0.4 % 03/19/25 16:04 Baso % (Auto) 0.4 % 03/19/25 16:04 Neut # (Auto) 6.61 10^3/uL (1.8-7.7) 03/19/25 16:04 Lymph # (Auto) 1.1 10^3/uL (0.8-4.8) 03/19/25 16:04 [place] # (Auto) 0.3 10^3/uL (0.2-0.9) 03/19/25 16:04 Eos # (Auto) 0.0 10^3/uL (0.0-0.8) 03/19/25 16:04 Baso # (Auto) 0.0 10^3/uL (0.0-0.1) 03/19/25 16:04 Nucleated RBC % (auto) 0 % 03/19/25 16:04 Nucleated RBCs # 0.0 /100WBC 03/19/25 16:04 PT 12.90 SECONDS (12.1-14.9) 03/19/25 16:04 INR 0.91 (0.8-1.2) 03/19/25 16:04 Sodium 140 mmol/L (136-145) 03/19/25 16:04 Potassium 4.4 mmol/L (3.5-5.1) 03/19/25 16:04 Chloride 101 mmol/L (98-107) 03/19/25 16:04 Carbon Dioxide 27 mmol/L (22-29) 03/19/25 16:04 Anion Gap 16.4 (5-19) 03/19/25 16:04 BUN 32 mg/dL (8-23) H 03/19/25 16:04 Creatinine 1.3 mg/dL (0.7-1.2) H 03/19/25 16:04 GFR Calculation Not Reportable 03/19/25 16:04 Glucose 100 mg/dL (65-115) 03/19/25 16:04 POC Glucose 101 mg/dL (70-110) 03/19/25 15:22 Calculated Osmolality 297 mOsm/kg (285-295) H 03/19/25 16:04 Calcium 9.2 mg/dL (8.5-10.5) 03/19/25 16:04 Total Bilirubin 0.5 mg/dL (0.15-1.2) 03/19/25 16:04 AST 13 U/L (0-40) 03/19/25 16:04 ALT 10 U/L (0-41) 03/19/25 16:04 Alkaline Phosphatase 61 U/L (40-130) 03/19/25 16:04 Total Protein 7.6 g/dL (6.6-8.7) 03/19/25 16:04 Albumin 4.5 g/dL (3.5-5.2) 03/19/25 16:04 Globulin 3.1 g/dL (1.3-4.6) 03/19/25 16:04 Lipase 39 U/L (13-60) 03/19/25 16:04 TSH 0.73 uIU/mL (0.27-4.20) 03/19/25 16:04 Urine Color Yellow (Yellow) 03/19/25 16:19 Urine Appearance Clear (CLEAR) 03/19/25 16:19 Urine pH 7.0 (5-7) 03/19/25 16:19 Ur Specific [place] 1.017 (1.005-1.030) 03/19/25 16:19 Urine Protein Trace (Negative) A 03/19/25 16:19 Urine Glucose (UA) Negative (Normal) 03/19/25 16:19 Urine Ketones Negative (Negative) 03/19/25 16:19 Urine Blood Non-haemolysed trace (Negative) 03/19/25 16:19 Urine Nitrate Negative (Negative) 03/19/25 16:19 Urine Bilirubin Negative (Negative) 03/19/25 16:19 Urine Urobilinogen 0.2 mg/dL (Negative) 03/19/25 16:19 Ur Leukocyte Esterase Negative (Negative) 03/19/25 16:19 Urine RBC 0-2 /hpf (0-2) 03/19/25 16:19 Urine WBC 0-5 /hpf (0-5) 03/19/25 16:19 Ur Squamous Epith Cells 0-5 /hpf (0-5) 03/19/25 16:19 Amorphous Sediment Not Reportable 03/19/25 16:19 Urine Bacteria None seen /hpf (NONE) 03/19/25 16:19 Hyaline Casts 1.21 /lpf 03/19/25 16:19 All radiology interpretation(s) finalized by discharge Discharge Plan Discharge Patient Disposition: Home Clinical Impression: TIA (transient ischemic attack) Condition: Stable Prescriptions: New atorvastatin [Lipitor] 40 mg tablet 40 mg PO DAILY Qty: 30 0RF clopidogrel [Plavix] 75 mg tablet 75 mg PO DAILY Qty: 30 0RF No Action (DME) diabetic shoes See Rx Instructions .Route .MEDSUPPLY Qty: 1 0RF Rx Instructions: As directed (DME) Diabetic Shoes See Rx Instructions .Route .MEDSUPPLY Qty: 1 0RF Rx Instructions: As directed aspirin 325 mg capsule 325 mg PO DAILY Qty: 30 1RF amlodipine [Norvasc] 10 mg tablet 10 mg PO BID Qty: 60 0RF Discharge Orders: Discharge ED (Routine); Ordered 03/19/25 Ordered By: Dillon Turpin Referrals: Ann Marie Richards [Primary Care Provider, [facility]] - 4-7 days Patient Instructions: Transient Ischemic Attack (ED), Opioid Safety, Pain Management, Patient Portal & Eloisa Instructions Activity Restrictions/Additional Instructions: Continue your aspirin. New medications as ordered. Return for any return of symptoms such as trouble speaking, weakness, vision changes, etc. Call your doctor Saturday for a follow-up appointment. Case management will contact you this coming week about setting up your outpatient tests for carotid Doppler ultrasounds, echocardiogram of your heart, and MRI of your brain. These will be scheduled for you as an outpatient Print Language: Korean Coding Level of Care Code ED Trauma Nurse for Tiki Duran
[2025-03-19 21:37] VITALS: BP 128/74; O2SAT 98
[2025-03-19 22:11] VITALS: BP 129/56; PULSE 62; RESP 16; O2SAT 97
--- NOTE | 2025-03-22 09:35 | DCPLANNER ---
faxed outpatient orders for carotid, mri and echo to scheduling
== END 2025-03-19 22:13 | disposition home or self-care (01) ==
PROVIDERS: Emergency Medicine; Emergency Provider Emergency Medicine; PCP Nurse Practitioner Family
DX: G45.9 Transient cerebral ischemic attack, unspecified (principal); Z79.82 Long term (current) use of aspirin; I25.10 Atherosclerotic heart disease of native coronary artery without angina pectoris; I10 Essential (primary) hypertension
CPT/HCPCS: 36415; 36416; 70450; 71045; 80053; 81001; 82962; 83690; 84443; 85025; 85610; 93005; 99285

== ENCOUNTER 2025-03-23 12:56 | Emergency (ER) | payer MEDICARE, SELFPAY ==
[2025-03-23 12:59] VITALS: BP 148/65; PULSE 64; RESP 18; TEMP 36.7; O2SAT 96
--- NOTE | 2025-03-23 13:17 | CT_ITS ---
WS: [id number] CT HEAD NONCONTRAST HISTORY: Symptoms of acute stroke TECHNIQUE: Contiguous axial imaging performed through the brain. Bone and soft tissue windows. Sagittal and coronal reformats reviewed. All CT scans at [facility] use at least one of these dose optimization techniques: automated exposure control; mA and/or kV adjustment per patient size (includes targeted exams where dose is matched to clinical indication); or iterative reconstruction. DLP: 1028.28 mGy COMPARISON: 03/19/2025 No acute intracranial hemorrhage, midline shift or mass effect. Mild atrophy and small vessel disease. Prior lacunar infarct LEFT external capsule. Tiny lacunar infarcts near the thalami. There is a focal area of increased density in the distal LEFT M1 segment extending into the M2 segment. This was also present on the prior examination from 03/19/2025. No development of an area of ischemia since that prior study. Ventricles: Normal size with no hydrocephalus. No inferior displacement the cerebellar tonsils. Paranasal sinuses: As visualized are clear. Mastoid air cells: Well pneumatized. Calvarium and scalp: Skull is intact with no soft tissue edema or swelling. CT/CT head thrombolytic [id number] IMPRESSION: 1. No acute intracranial hemorrhage or edema. 2. Mild atrophy and small vessel disease. 3. Increased density in the distal LEFT M1 segment extending into the M2 segme nt. This was also present on 03/19/2025. No development of an interval infarct. Arterial thrombus is not excluded. Consider CT angiogram head and neck. Notified Jeremi Rose DO at 03/23/2025 1:53 PM.
--- NOTE | 2025-03-23 13:30 | ED_ITS ---
HPI - General Adult 2 General: Chief complaint: General Medical Stated complaint: difficulty speaking, Time Seen by Provider: 03/23/25 13:30 History of Present Illness: 89-year-old male patient presents emerge ncy room with difficulty with word finding and speech. This been going on for the last 4 days he was seen a couple of days ago was not found to have an acute stroke. He did not start his medications till the following day. His last known well is 1024. Now he is having word finding difficulty and some mild dysarthria. Associated symptoms: Deny chest pain, dyspnea or rash Related Data Previous Rx's ?Medication ?Instructions ?Recorded diabetic shoes #1 ea 01/05/22 Diabetic Shoes #1 ea 01/10/22 amlodipine 10 mg tablet (Norvasc) 10 mg PO BID #60 tab s 10/27/22 aspirin 325 mg capsule 325 mg PO DAILY #30 caps 02/18 atorvastatin 40 mg tablet (Lipitor) 40 mg PO DAILY #30 tabs 03/19/25 clopidogrel 75 mg tablet (Plavix) 75 mg PO DAILY #30 t abs 03/19/25 Allergies Allergy/AdvReac Type Severity Reaction Status Date / Time ciprofloxacin (From Cipro) Allergy ALGY-Rash Verified 03/19/25 15:26 metronidazole (From Flagyl) Allergy ALGY-Rash Verified 03/19/25 15:26 Review of Systems 2 Const: Denies: fever(s) or chills Card: Denies: chest pain Resp: Denies: dyspnea GI: Denies: abdominal pain : Denies: dysuria, urinary frequency or urinary urgency Musc: Denies: neck pain or back pain Skin/Breast: Denies: rash PFSH ED 2 PFSH: Medical History CAD (coronary artery disease) Chronic steroid use Coarse tremors HTN (hypertension) 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 No evidence of DVT on left -Already on anticoagulation with treatment dose Eliquis Pulmonary embolism -Noted to have extensive bilateral PE, saddle embolus, extensive bilateral segmental and subsegmental emboli. Patient declined transfer on initial admission -Received tPA and initially on heparin drip, now transitioned to treatment dose Eliquis -Noted to have bleeding (epistaxis) and thrombocytopenia following tPA, now resolved -Echo: EF=60-65%, severe hypokinesis of RV, mild AR, trace KS, trace TR, noted presence of thrombus extending from pulmonic valve into the RVOT -continues to require supplemental oxygen, on 4 L BPH (benign prostatic hyperplasia) Shingles Pneumonia due to COVID-19 virus -Found to be COVID-19 positive on 05/03; prolonged hospital course -Evidence of pneumonitis on CTA -On empiric antibiotic coverage with ceftazidime -Afebrile, no leukocytosis, still requiring some supplemental oxygen support -Blood cultures negative -Sputum cultures negative External hemorrhoid Psoriasis Anxiety Diverticulosis Surgical History History of colonoscopy with polypectomy (04/13/21) diverticulosis, polyp History of appendectomy H/O hemorrhoidectomy H/O right knee surgery Family History Denies family history of Bleeding disorder Social History Smoking and tobacco/nicotine status: never used tobacco/nicotine Alcohol intake: never Substance/Drug Use: never Household members: spouse Housing: House Physical Exam 2 Const: COMMON NORMALS: no acute distress GENERAL APPEARANCE: cooperative and comfortable ORIENTATION/CONSCIOUSNESS: Yes awake, Yes oriented to person, Yes oriented to place and Yes oriented to time HENMT: COMMON NORMALS: normocephalic, atraumatic and hearing grossly normal bilaterally HEAD & SCALP: normocephalic and atraumatic Resp: COMMON NORMALS: normal respiratory effort, No retractions, No use of accessory muscles and clear to auscultation bilaterally AUSCULTATION: clear to auscultation bilaterally Cardio: COMMON NORMALS: regular rate, regular rhythm and No murmurs present (Cardio) RATE: regular rate RHYTHM: regular rhythm GI: COMMON NORMALS: Soft to palpation and No hepatosplenomegaly present A USCULTATION: Yes normoactive bowel sounds PALPATION: Yes Soft to palpation, No Tenderness to palpation present (GI), No Guarding due to palpation present (GI) and Yes No hepatosplenomegaly present Extremity: COMMON NORMALS: normal to inspection, capillary refill normal, no clubbing, cyanosis or edema, no calf tenderness and no pedal edema Neuro: SENSORIUM/ORIENTATION: Yes oriented to person, Yes oriented to place and Yes oriented to time Skin: COMMON NORMALS: no rashes or lesions noted GENERAL SKIN EXAM: no rashes or lesions noted Course 2 Vital Signs: Vital signs: Vital Signs Temperature 98.1 F 03/23/25 12:59 Pulse Rate 71 03/23/25 16:23 Respiratory Rate 16 03/23/25 15:27 Blood Pressure 156/71 03/23/25 16:23 Pulse Oximetry 98 03/23/25 16:23 Oxygen Delivery Me thod Room Air 03/23/25 12:59 MDM - General Adult Medical Decision Making Discussed with Dr. Hunter. CTA shows distal M 1 clot extending to distal M2. There is some slight flow there according to Dr. Villegas but there is no evidence of acute stroke. He does have symptoms at this time he is past the timeframe for thrombolytics to be effective and he does not have a lesion that is amenable to embolectomy. Discussed Dr. Hunter she recommends continuing Plavix aspirin and atorvastatin set up for outpatient 30-day Holter monitor versus MRI head follow-up with neurology also echocardiogram. Return if has worsening or changes symptoms reviewed findings with patient and family member present at the bedside. Medical Records I reviewed the patient's medical records. Lab Data I reviewed the patient's lab results. 03/23/25 13:50 03/23/25 13:[address] 03/23/25 13:17 IMPRESSION: 1. No acute intracranial hemorrhage or edema. 2. Mild atrophy and small vessel disease. 3. Increased density in the distal LEFT M1 segment extending into the M2 segment. This was also present on 03/19/2025. No development of an interval infarct. Arterial thrombus is not excluded. Consider CT angiogram head and neck. Notified Jeremi Rose DO at 03/23/2025 1:53 PM. Head/Neck CTA 03/23/25 13:52 IMPRESSION: 1. Abrupt very high grade obstruction involving a branch of the distal LEFT M1 segment into the M2 segment consistent with thrombus. There is very slight increased attenuation suggesting there may be some flow present. Paucity of vascularity beyond the M2 segment. 2. Moderate calcified plaque with stenosis in the carotid cavernous sinuses, bilateral. 3. Small caliber RIGHT vertebral artery but it is patent. 4. Calcified plaque in the distal LEFT vertebral artery with no occlusion. Laboratory Results WBC 8.34 10^3/uL (3.29-11.43) 03/23/25 13:50 RBC 4.74 10^6/uL (3.85-5.65) 03/23/25 13:50 Hgb 14.20 g/dL (11.27-16.99) 03/23/25 13:50 Hct 44.4 % (37-53) 03/23/25 13:50 MCV 93.7 fl (82-101) 03/23/25 13:50 MCH 30.0 pg (27-33) 03/23/25 13:50 MCHC 32.0 g/dL (30-55) 03/23/25 13:50 RDW 13.0 % (12.1-15.1) 03/23/25 13:50 Plt Count 221 10^3/cmm (157-399) 03/23/25 13:50 MPV 9.8 fL (7.4-10.4) 03/23/25 13:50 Neut % (Auto) 59.0 % 03/23/25 13:50 Lymph % (Auto) 25.2 % 03/23/25 13:50 Riley % (Auto) 13.1 % 03/23/25 13:50 Eos % (Auto) 1.6 % 03/23/25 13:50 Baso % (Auto) 0.6 % 03/23/25 13:50 Neut # (Auto) 4.93 10^3/uL (1.8-7.7) 03/23/25 13:50 Lymph # (Auto) 2.1 10^3/uL (0.8-4.8) 03/23/25 13:50 Riley # (Auto) 1.1 10^3/uL (0.2-0.9) H 03/23/25 13:50 Eos # (Auto) 0.1 10^3/uL (0.0-0.8) 03/23/25 13:50 Baso # (Auto) 0.1 10^3/uL (0.0-0.1) 03/23/25 13:50 Nucleated RBC % (auto) 0 % 03/23/25 13:50 Nucleated RBCs # 0.0 /100WBC 03/23/25 13:50 PT 13.50 SECONDS (12.1-14.9) 03/23/25 13:50 INR 0.97 (0.8-1.2) 03/23/25 13:50 APTT 27.1 SECONDS (23.9-36.7) 03/23/25 13:50 Sodium 136 mmol/L (136-145) 03/23/25 13:50 Potassium 3.9 mmol/L (3.5-5.1) 03/23/25 13:50 Chloride 100 mmol/L (98-107) 03/23/25 13:50 Carbon Dioxide 23 mmol/L (22-29) 03/23/25 13:50 Anion Gap 16.9 (5-19) 03/23/25 13:50 BUN 33 mg/dL (8-23) H 03/23/25 13:50 Creatinine 1.5 mg/dL (0.7-1.2) H 03/23/25 13:50 GFR Calculation Not Reportable 03/23/25 13:50 Glucose 92 mg/dL (65-115) 03/23/25 13:50 Calculated Osmolality 289 mOsm/kg (285-295) 03/23/25 13:50 Calcium 8.8 mg/dL (8.5-10.5) 03/23/25 13:50 Total Bilirubin 0.5 mg/dL (0.15-1.2) 03/23/25 13:50 AST 11 U/L (0-40) 03/23/25 13:50 ALT 9 U/L (0-41) 03/23/25 13:50 Alkaline Phosphatase 57 U/L (40-130) 03/23/25 13:50 Total Protein 6.4 g/dL (6.6-8.7) L 03/23/25 13:50 Albumin 3.8 g/dL (3.5-5.2) 03/23/25 13:50 Globulin 2.6 g/dL (1.3-4.6) 03/23/25 13:50 Urine Color Yellow (Yellow) 03/23/25 13:27 Urine Appearance Clear (CLEAR) 03/23/25 13:27 Urine pH 5.5 (5-7) 03/23/25 13:27 Ur Specific Saunemin 1.027 (1.005-1.030) 03/23/25 13:27 Urine Protein Trace (Negative) A 03/23/25 13:27 Urine Glucose (UA) Negative (Normal) 03/23/25 13:27 Urine Ketones Trace (Negative) 03/23/25 13:27 Urine Blood Negative (Negative) 03/23/25 13:27 Urine Nitrate Negative (Negative) 03/23/25 13:27 Urine Bilirubin Negative (Negative) 03/23/25 13:27 Urine Urobilinogen 1.0 mg/dL (Negative) 03/23/25 13:27 Ur Leukocyte Esterase Negative (Negative) 03/23/25 13:27 Urine RBC 0-2 /hpf (0-2) 03/23/25 13:27 Urine WBC 0-5 /hpf (0-5) 03/23/25 13:27 Ur Squamous Epith Cells 0-5 /hpf (0-5) 03/23/25 13:27 Amorphous Sediment Not Reportable 03/23/25 13:27 Urine Bacteria None seen /hpf (NONE) 03/23/25 13:27 Hyaline Casts 6.20 /lpf 03/23/25 13:27 Urine Opiates Screen Negative ng/mL (Negative) 03/23/25 13:27 Ur Barbiturates Screen Negative ng/mL (Negative) 03/23/25 13:27 Ur Phencyclidine Scrn Negative ng/mL (Negative) 03/23/25 13:27 Ur Amphetamines Screen Negative ng/mL (Negative) 03/23/25 13:27 U Benzodiazepines Scrn Negative ng/mL (Negative) 03/23/25 13:27 Urine Cocaine Screen Negative ng/mL (Negative) 03/23/25 13:27 U Marijuana (THC) Screen Negative ng/mL (Negative) 03/23/25 13:27 All radiology interpretation(s) finalized by discharge EKG Data EKG 1: I personally reviewed and interpreted this EKG as follows: Prior EKG tracings: available for review Interpretation: EKG 03/23/2025 1442 sinus bradycardia. No acute ST changes noted rate of 58 KS interval 200 QTc [address] changes noted compared to EKG 03/19/2025 no significant changes Computer generated interpretation: Head CT 03/23/25 13:17 IMPRESSION: 1. No acute intracranial hemorrhage or edema. 2. Mild atrophy and small vessel disease. 3. Increased density in the distal LEFT M1 segment extending into the M2 segment. This was also present on 03/19/2025. No development of an interval infarct. Arterial thrombus is not excluded. Consider CT angiogram head and neck. Notified Jeremi Rose, at 03/23/2025 1:53 PM. Head/Neck CTA 03/23/25 13:52 IMPRESSION: 1. Abrupt very high grade obstruction involving a branch of the distal LEFT M1 segment into the M2 segment consistent with thrombus. There is very slight increased attenuation suggesting there may be some flow present. Paucity of vascularity beyond the M2 segment. 2. Moderate calcified plaque with stenosis in the carotid cavernous sinuses, bilateral. 3. Small caliber RIGHT vertebral artery but it is patent. 4. Calcified plaque in the distal LEFT vertebral artery with no occlusion. Discharge Plan Discharge Patient Disposition: Home Clinical Impression: CVA (cerebral vascular accident) Qualifiers: CVA mechanism: embolism Precerebral and cerebral artery: middle cerebral artery Laterality of affected vessel: left Qualified Code(s): I63.412 - Cerebral infarction due to embolism of left middle cerebral artery HTN (hypertension) Qualifiers: Hypertension type: essential hypertension Qualified Code(s): I10 - Essential (primary) hypertension Condition: Stable Prescriptions: No Action (DME) diabetic shoes See Rx Instructions .Route .MEDSUPPLY Qty: 1 0RF Rx Instructions: As directed (DME) Diabetic Shoes See Rx Instructions .Route .MEDSUPPLY Qty: 1 0RF Rx Instructions: As directed aspirin 325 mg capsule 325 mg PO DAILY Qty: 30 1RF amlodipine [Norvasc] 10 mg tablet 10 mg PO BID Qty: 60 0RF atorvastatin [Lipitor] 40 mg tablet 40 mg PO DAILY Qty: 30 0RF clopidogrel [Plavix] 75 mg tablet 75 mg PO DAILY Qty: 30 0RF Discharge Orders: Discharge ED (Routine); Ordered 03/23/25 Ordered By: Jeremi Rose Referrals: Ann Marie Richards [Primary Care Provider, Family Practice] Discharge Diet: Usual diet Discharge Activity: Increase activity as tolerated Patient Instructions: Opioid Safety, Pain Management, Patient Portal & Eloisa Instructions Activity Restrictions/Additional Instructions: Thank you for choosing [facility] for your healthcare needs today. It is very important that you follow up as instructed or that you return to the Emergency Department should you have concerns or if your condition changes or worsens in any way. Emergency department visits are focused on emergent conditions, in some cases you may require further evaluation on an outpatient basis. You were seen in the emergency room with complaints of difficulty with speaking. Given the history of the symptoms going on for the last 4 days there is no options for interventions at this point. There was a clot on the left side of the brain. This is probably the cause of your symptoms. It appears you did have a stroke. We discussed with the neurologist on-call they recommend a ultrasound of your heart as well as a 30-day Holter monitor. Further we recommend follow-up with neurology after an MRI of the head. Continue taking the aspirin Plavix and atorvastatin you are previously prescribed. (Please note that included in your discharge packet is information concerning opioid safety and pain management. This information is given to all patients were discharged from the ER regardless of their discharge diagnosis or the medicines they usually take or are prescribed.) Print Language: Japanese Coding Level of Care Code ED Graduating Machine Operator for Tiki Duran NIH stroke score NIHSS Level Of Consciousness - 1a: 0 Level Of Consciousness Questions - 1b: Both Correct Level Of Consciousness Commands - 1c: Both Correct Best Gaze - 2: Normal Visual Jerome - 3: No Visual Loss Facial Palsy - 4: Normal Motor Arm Right - 5: No Drift Motor Arm Left - 5: No Drift Motor Leg Right - 6: No Drift Motor Leg Left - 6: No Drift Limb Ataxia - 7: Absent Sensory - 8: Normal Best Language - 9: Mild/Moderate Aphasia Dysarthia - 10: Mild/Moderate Dysarthia Extinction And Inattention - 11: 0 Score Total Score: 2
[2025-03-23 13:46] LABS: Glucose Urine UA Negative (Normal); Nitrate Urine Negative (Negative); Specific Gravity, Urine 1.027 (1.005-1.030)
[2025-03-23 13:51] LABS: Add Urine Microscopic? YES
--- NOTE | 2025-03-23 13:52 | CT_ITS ---
WS: [id number] CT ANGIOGRAM CEREBRAL AND CAROTID ARTERIES HISTORY: abnormal CT head/dyssrthrias TECHNIQUE: CT angiogram is performed of the carotid and cerebral arteries. During arterial injection imaging is obtained from the skull vertex to the aortic arch in 1.25 mm imaging. Coronal and sagittal reformats are submitted. Additional multi planar reformats of the carotid and cerebral arteries are submitted, MIP imaging also reviewed. NASCET criteria utilized. All CT scans at [facility] use at least one of these dose optimization techniques: automated exposure control; mA and/or kV adjustment per patient size (includes targeted exams where dose is matched to clinical indication); or iterative reconstruction. CONTRAST: Omnipaque 350; 100 mL IV. DLP: 414.51 mGy.cm COMPARISON: None available. Carotid Angiogram: Right carotid: Common carotid artery: Arises normally from the innominate artery. No significant plaque or stenosis. Internal carotid artery: Mild plaque at the bifurcation. No high-grade stenosis. External carotid artery: Patent. Left carotid: Common carotid artery: Arises normally from the aorta. No significant plaque or stenosis. Internal carotid artery: Mild intimal thickening and plaque at the cervical carotid artery bifurcation. No high-grade stenosis. Stenosis less than 50%. There is a tiny ulceration in the plaque near the bifurcation. External carotid artery: Patent. Right vertebral artery: Small caliber vertebral artery. Left vertebral artery: Dominant LEFT vertebral artery. Origin of the LEFT vertebral artery is difficult to visualize with contrast artifact. There is good contrast opacification throughout the distal vertebral artery. There are a few foci of plaque. Subclavian arteries: No stenosis or significant abnormality. Upper thorax: Normal. Thyroid gland: Normal. Osseous structures: Unremarkable. CEREBRAL ANGIOGRAM: Intracranial vertebral arteries: Distal vertebral arteries through the foramen magnum are patent. Increasing plaque in the LEFT vertebral artery. No occlusion. Small caliber distal vertebral artery. Basilar artery: No significant stenosis or occlusion. No aneurysm. Intracranial Internal carotid arteries: Increasing plaque through the cavernous sinuses. Dense calcified plaque with stenoses estimated near 50 to 60%. No occlusion. Middle cerebral arteries: Abrupt termination of contrast in the distal LEFT M1 segment into the M2 segment. Corresponds to the area of increased attenuation on the noncontrast CT. Paucity of vessels distally. RIGHT MCA is patent. Anterior cerebral arteries and ACOM: Normal. Posterior cerebral arteries and PCOM's: Normal. Dural venous sinuses are normally enhancing. Mastoid air cells: Normal. Paranasal sinuses: Normal. Calvarium: Normal. CT/CT angio headneck* [id number] IMPRESSION: 1. Abrupt very high grade obstruction involving a branch of the distal LEFT M1 segment into the M2 segment consistent with thrombus. There is very slight inc reased attenuation suggesting there may be some flow present. Paucity of vascul arity beyond the M2 segment. 2. Moderate calcified plaque with stenosis in the carotid cavernous sinuses, b ilateral. 3. Small caliber RIGHT vertebral artery but it is patent. 4. Calcified plaque in the distal LEFT vertebral artery with no occlusion.
[2025-03-23 13:53] LABS: PCP Screen Urine Negative (Negative)
[2025-03-23 13:58] LABS: Hematocrit 44.4 % (37-53); Hemoglobin 14.20 g/dL (11.27-16.99); Mean Corpuscular HGB Conc 32.0 g/dL (30-55); Mean Corpuscular Hemoglobin 30.0 pg (27-33); Mean Corpuscular Volume 93.7 fl (82-101); Nucleated Red Blood Cells % 0 %; Platelet Count 221 10^3/cmm (157-399); Red Blood Count 4.74 10^6/uL (3.85-5.65); White Blood Count 8.34 10^3/uL (3.29-11.43)
--- OUTSIDE RECORDS SUMMARY | 2025-03-23 14:10 | XMS_ITS | Clinical Summary ---
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 Gender Identity Not on file Sexual Orientation [...] cm (5' 11 ) 05/29/2018 2:09 PM CHEMICAL MANAGER Body Mass Index 25.1 05/29/2018 2:09 PM CHEMICAL MANAGER Plan of Treatment Health Maintenance Due Date Last Done Comments DTAP/TDAP/TD VACCINES (1 - Tdap) 1954 PNEUMOCOCCAL VACCINE 50+ YEARS (1 of 1 - PCV) 08/01/18 88 ZOSTER VACCINE (1 of 2) 08/02/1987 RSV VACCINE (60+ or ) (1 - 1-dose 75+ series) 2012 INFLUENZA VACCINE (#1) 2024 Medical Devices Implanted Type Area Production Support Manager Device Identifier Shelf Expiration Date Model / Serial / Lot Mesh Prolene Lg [facility] - [id number] Implanted:Qty: 1 on 05/25/2013 by Sonido Perez MD at [facility] Mesh Left: Inguinal [employer] 11/24/2017 [facility] / / [id number] Mesh Prolene Lg [facility] - [id number] Implanted:Qty: 1 on 05/25/2013 by Sonido Perez MD at [facility] Mesh Right: Groin J[employer]J- [employer] 11/24/2017 [facility] / / [id number] Insurance MEDICARE PART A AND B Advance Directives For more information, please contact: [phone] * Full Code (Latest Code Status on File) Date Activated Date Inactivated Comments 06/05/2018 10:47 AM 06/05/2018 2:50 PM * Full Code Date Activated Date Inactivated Comments 05/25/2013 8:00 AM 05/26/2013 2:01 AM * Full Code Date Activated Date Inactivated Comments 05/03/2011 10:51 AM 05/03/2011 3:32 PM Care Teams Consumer Experience Consultant Relationship Specialty Start Date End Date Lele Corbett DO [address] [place] [address] PCP - General 06/14/08
--- OUTSIDE RECORDS SUMMARY | 2025-03-23 14:10 | XMS_ITS | Clinical Summary ---
[facility] Address [address] [facility] Attn: Epic Prelude ADT [place]NY PUENTE [address] Care Team Providers Care Eyeglass Assembler Name Role Phone Lele Corbett Josh REN Primary Care Provider [phone] Allergies No known active allergies Medications predniSONE [...] on file Legal Sex Male 8:27 AM BUNDLE COLLECTOR Gender Identity Not on file Sexual Orientation [...] cm (5' 11 ) 05/29/2018 2:09 PM BUNDLE COLLECTOR Body Mass Index 25.1 05/29/2018 2:09 PM BUNDLE COLLECTOR Plan of Treatment Health Maintenance Due Date Last Done Comments DTAP/TDAP/TD VACCINES (1 - Tdap) 1954 PNEUMOCOCCAL VACCINE 50+ YEARS (1 of 1 - PCV) 08/01/18 88 ZOSTER VACCINE (1 of 2) 08/02/1987 RSV VACCINE (60+ or ) (1 - 1-dose 75+ series) 2012 INFLUENZA VACCINE (#1) 2024 Medical Devices Implanted Type Area Broth Mixer Device Identifier Shelf Expiration Date Model / Serial / Lot Mesh Prolene Lg [facility] - [id number] Implanted:Qty: 1 on 05/25/2013 by Sonido Perez MD Mesh Left: Inguinal [employer]- [employer] 11/24/2017 [facility] / / [id number] Mesh Prolene Lg [facility] - [id number] Implanted:Qty: 1 on 05/25/2013 by Sonido Perez MD Mesh Right: Groin [employer]- [employer] 11/24/2017 [facility] / / [id number] Care Teams Eyeglass Assembler Relationship Specialty Start Date End Date Lele Corbett DO [address] [place] [id number] PCP - General 06/14/08
--- OUTSIDE RECORDS SUMMARY | 2025-03-23 14:10 | XMS_ITS | Encounter Summary ---
Author Organization [facility] Address [address] [place] [address] Care Team Providers Care Supervisor Motorcycle Repair Shop Name Role Phone Lele Corbett DO Primary Care Provider [phone] Encounter Details Date Type Department Care Team (Late st Contact Info) Description 09/15/2003 Outpatient Historical [facility] Rodrigue Victoria [address] [place] [id number] Social History Tobacco Use Types Packs/Day Years Used Date Smoking Tobacco: Never Assessed Sex and Gender Information Value Date Recorded Sex Assigned at Not on file Legal Sex Male 5:34 AM BUSINESS CONTROLLER Gender Identity Not on file Sexual Orientation Not on file documented as of this encounter Plan of Treatment Not on file documented as of this encounter Visit Diagnoses Not on filedocumented in this encounter Care Teams Supervisor Motorcycle Repair Shop Relationship Specialty Start Date End Date Lele Corbett DO [address] [place] [address] PCP - General 06/14/08 documented as of this encounter
--- OUTSIDE RECORDS SUMMARY | 2025-03-23 14:10 | XMS_ITS | Encounter Summary ---
Author Organization [facility] Address [address] [place] [address] Care Team Providers Care Mentally Retarded Teacher Name Role Phone Lele Corbett DO Primary Care Provider [phone] Encounter Details Date Type Department Care Team (Late st Contact Info) Description 08/29/2005 Emergency [facility] Emergency Department [address] [place] [address] Felicity Aburto MD [address] [place], [place] [id number] Calculus of Ureter (Primary Dx) Social History Tobacco Use Types Packs/Day Years Used Date Smoking Tobacco: Never Assessed Sex and Gender Information Value Date Recorded Sex Assigned at Not on file Legal Sex Male 5:34 AM STATE ARCHIVIST Gender Identity Not on file Sexual Orientation [...] ORDERABLES Melissa l Result Performing Organization Address [facility] Co de Phone Number INTERFACE SYSTEM Refer to clinic/hospital department * (ABNORMAL) ACETONE QUALITATIVE, URINE (08/29/2005 1:10 PM CDT) KETONES UA Small(A) Negative INTERFACE SYSTEM 08/29/2005 1:10 PM CDT Felicity Aburto MD URINE ORDERABLES Final Res ult Performing Organization Address [facility] Phone Number INTERFACE SYSTEM Refer to clinic/hospital [...] Primary documented in this encounter Care Teams Mentally Retarded Teacher Relationship Specialty Start Date End Date Lele Corbett DO [address] [place] [phone] PCP - General 06/14/08 documented as of this encounter
--- OUTSIDE RECORDS SUMMARY | 2025-03-23 14:10 | XMS_ITS | Encounter Summary ---
Author Organization [facility] Address [address] [place] [address] Care Team Providers Care Philosophy Specialist Name Role Phone Lele Corbett DO Primary Care Provider [phone] Encounter Details Date Type Department Care Team (Latest Contact Info) Description 12/17/2007 Outpatient Historical [facility] Imaging Services [address] [place] [phone] Lele Corbett DO [address] [place] [phone] Pain in Joint, Lower Leg; Loc Osteoarth [...] on file Legal Sex Male 5:34 AM HAIR BALER Gender Identity Not on file Sexual Orientation [...] By: Rey Almonte M.D. Date Signed: 12/24/07 [facility] Procedure Note Rey Almonte - 12/24/2007 Exam: [...] occurrence documented in this encounter Care Teams Philosophy Specialist Relationship Specialty Start Date End Date Lele Corbett DO [address] [place] [address] PCP - General 06/14/08 documented as of this encounter
--- OUTSIDE RECORDS SUMMARY | 2025-03-23 14:10 | XMS_ITS | Encounter Summary ---
Author Organization [facility] Address [address] [place] [address] Care Team Providers Care Subject Scientific Research Name Role Phone Lele Corbett Primary Care Provider [phone] Encounter Details Date Type Department Care Team (Late st Contact Info) Description 05/23/2020 Lab Requisition [facility] Laboratory Services [address] [place] [address] Russ Sow DO [address] [phone] Social History Tobacco Use Types Packs/Day Years Used Date Smoking Tobacco: Never Smokeless Tobacco: Never Alcohol Use Standard Drinks/Week Comments No 0 (1 standard drink = 0.6 oz pur e alcohol) Sex and Gender Information Value Date Recorded Sex Assigned at Not on file Legal Sex Male 5:34 AM ORACLE DATABASE ARCHITECT Gender Identity Not on file Sexual [...] CBC WITH DIFFERENTIAL Routine 05/23/2020 6:23 AM ORACLE DATABASE ARCHITECT BASIC METABOLIC PANEL Routine 05/23/2020 6:23 AM ORACLE DATABASE ARCHITECT documented in this encounter Results * (ABNORMAL) CBC WITH DIFFERENTIAL (05/23/2020 6:23 AM ORACLE DATABASE ARCHITECT) WBC 10.7 4.8 - 10.8 K/uL 05/23/2020 6:52 PM [facility] RBC 5.13 4.60 - 6.20 M/uL 05/23/2020 6:52 PM [facility] HEMOGLOBIN 15.6 14.0 - 18.0 g/dL 05/23/2020 6:52 PM [facility] HEMATOCRIT 48.9 41.0 - 53.0 % 05/23/2020 6:52 PM [facility] MCV 95.3 84.0 - 103.0 fL 05/23/2020 6:52 PM [facility] MCH 30.4 27.0 - 34.0 pg 05/23/2020 6:52 PM [facility] MCHC 31.9 30.0 - 35.0 g/dL 05/23/2020 6:52 PM [facility] RDW 14.7(H) 11.0 - 14.5 % 05/23/2020 6:52 PM [facility] RDW-STDEV 50.4 37.0 - 54.0 fL 05/23/2020 6:52 PM [facility] PLATELETS 187 140 - 440 K/uL 05/23/2020 6:52 PM [facility] MPV 10.3 8.9 - 12.8 fL 05/23/2020 6:52 PM [facility] NEUTROPHILS 77(H) 42 - 75 % 05/23/2020 6:52 PM [facility] LYMPHOCYTES 10(L) 24 - 44 % 05/23/2020 6:52 PM [facility] MONOCYTES 6 2 - 10 % 05/23/2020 6:52 PM [facility] EOSINOPHILS 2 0 - 7 % 05/23/2020 6:52 PM [facility] BASOPHILS 1 0 - 1 % 05/23/2020 6:52 PM [facility] IMMATURE GRANULOCYTES 4(H) 0 - 2 % 05/23/2020 6:52 PM [facility] NEUTROPHIL ABSOLUTE 8.19(H) 2.00 - 8.00 K/uL 05/23/2020 6:52 PM [facility] LYMPHOCYTE ABSOLUTE 1.09(L) 1.20 - 4.00 K/uL 05/23/2020 6:52 PM [facility] MONOCYTE ABSOLUTE 0.66(H) 0.10 - 0.60 K/uL 05/23/2020 6:52 PM [facility] EOSINOPHIL ABSOLUTE 0.22 0.00 - 0.70 K/uL 05/23/2020 6:52 PM [facility] BASOPHILS ABSOLUTE 0.08 0.00 - 0.20 K/uL 05/23/2020 6:52 PM [facility] IMMATURE GRANULOCYTES ABSOLUTE 0.42(H) 0.00 - 0.10 K/uL 05/23/2020 6:52 PM [facility] Blood Collection / Unknown 05/23/2020 6:23 AM ORACLE DATABASE ARCHITECT 05/23/2020 6:44 PM ORACLE DATABASE ARCHITECT Russ Sow DO HEMATOLOGY ORDERABLES Final Result [facility] [address] [place], [place] [id number] * (ABNORMAL) BASIC METABOLIC PANEL (05/23/2020 6:23 AM ORACLE DATABASE ARCHITECT) SODIUM 136 136 - 145 mmol/L 05/23/2020 7:09 PM [facility] POTASSIUM 3.8 3.5 - 5.1 mmol/L 05/23/2020 7:09 PM [facility] CHLORIDE 101 98 - 107 mmol/L 05/23/2020 7:09 PM [facility] CO2 27 22 - 29 mmol/L 05/23/2020 7:09 PM [facility] CALCIUM 8.0(L) 8.8 - 10.2 mg/dL 05/23/2020 7:09 PM [facility] BUN 20 8 - 23 mg/dL 05/23/2020 7:09 PM [facility] CREATININE 0.95 0.67 - 1.17 mg/dL 05/23/2020 7:09 PM [facility] Comment:The GFR result is no t clinically significant on patients <18 or >70 years of age. GLUCOSE 93 74 - 99 mg/dL 05/23/2020 7:09 PM [facility] GFR >60 mL/min/1.7 3 sq meter 05/23/2020 7:09 PM [facility] Comment: eGFR has not been validated for [...] mL/min/1.7 3 sq meter 05/23/2020 7:09 PM [facility] ANION GAP 8(L) 9 - 20 mmol/L 05/23/2020 7:09 PM [facility] Blood Collection / Unknown 05/23/2020 6:23 AM ORACLE DATABASE ARCHITECT 05/23/2020 6:47 PM ORACLE DATABASE ARCHITECT Russ Sow DO CHEMISTRY ORDERABLES Final Result [facility] [address] [place] [address] documented in this encounter Visit Diagnoses Not on filedocumented in this encounter Care Teams Subject Scientific Research Relationship Specialty Start Date End Date Lele Corbett DO [address] [place] [phone] PCP - General 06/14/08 documented as of this encounter
--- OUTSIDE RECORDS SUMMARY | 2025-03-23 14:10 | XMS_ITS | Encounter Summary ---
Author Organization [facility] Address [address] [place] [address] Care Team Providers Care Water Main Pipe Layer Name Role Phone Lele Corbett DO Primary Care Provider [phone] Encounter Details Date Type Department Care Team (Latest Contact Info) Description 09/15/2003 Outpatient Historical [facility] [address] [place] [place] [phone] Bashir Fuchs MD [address] [place] [phone] INT DERANGEMENT KNEE NOS (Primary Dx) Social History Tobacco Use Types Packs/Day Years Used Date Smoking Tobacco: Never Assessed Sex and Gender Information Value Date Recorded Sex Assigned at Not on file Legal Sex Male 5:34 AM 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
--- OUTSIDE RECORDS SUMMARY | 2025-03-23 14:10 | XMS_ITS | Encounter Summary ---
Author Organization [facility] Address [address] [place] [address] Care Team Providers Care Application Release Manager Name Role Phone Lele Corbett Primary Care Provider [phone] Encounter Details Date Type Department Care Team (Late st Contact Info) Description 10/07/2007 Outpatient Historical [facility] Endoscopy [place] [address] [place] [address] Shashank Jung MD [address] [place] [address] Disability [place] [address] Social History Tobacco Use Types Packs/Day Years Used Date Smoking Tobacco: Never Assessed Sex and Gender Information Value Date Recorded Sex Assigned at Not on file 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 Gender Identity Not on file Sexual Orientation Not on file documented as of this encounter Plan of Treatment Not on file documented as of this encounter Procedures Procedure Name Priority Date/Time Associated Diagnosis Comments PATHOLOGY Routine 10/23/2007 9:13 AM CDT documented in this encounter Results * PATHOLOGY (10/23/2007 9:13 AM CDT) PATHOLOGY/CYT OLOGY REPORT [facility] [address] [facility] [address] Patient: TRACY VIDAL Accn No: [id number] Collected: 10/23/2007 9:13:00 AM SURGICAL PATHOLOGY FINAL REPORT Diagnosis A. Colon, ascending, biopsy - tubular adenoma, three fragments. Jaron Recinos M.D. (Electronicall y signed by) Verified: 10/27/07 DD /CEP Clinical Information Polyp. Specimen Source AColon, ASCENDING Microscopic Description Microscopic examination was performed. Gross Description Part A. Submitted in a container of formalin labelled [place], #1 polyp, ascending colon are three britton [...] on filedocumented in this encounter Care Teams Application Release Manager Relationship Specialty Start Date End Date Lele Corbett DO [address] [place] [address] PCP - General 06/14/08 documented as of this encounter
--- OUTSIDE RECORDS SUMMARY | 2025-03-23 14:10 | XMS_ITS | Encounter Summary ---
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
[2025-03-23 14:11] LABS: INR 0.97 (0.8-1.2); Prothrombin Time 13.50 SECONDS (12.1-14.9)
[2025-03-23 14:12] LABS: Partial Thromboplastin Time 27.1 SECONDS (23.9-36.7)
[2025-03-23 14:14] LABS: Alanine Aminotransferase 9 U/L (0-41); Albumin Level 3.8 g/dL (3.5-5.2); Alkaline Phosphatase 57 U/L (40-130); Anion Gap 16.9 (5-19); Aspartate Amino Transferase 11 U/L (0-40); Blood Urea Nitrogen 33 mg/dL (8-23); Calcium 8.8 mg/dL (8.5-10.5); Carbon Dioxide 23 mmol/L (22-29); Chloride 100 mmol/L (98-107); Creatinine Clr Calc Pharmacy 38.4307; Globulin 2.6 g/dL (1.3-4.6); Glucose 92 mg/dL (65-115); Osmolality Calculated 289 mOsm/kg (285-295); Potassium 3.9 mmol/L (3.5-5.1); Sodium 136 mmol/L (136-145); Total Protein 6.4 g/dL (6.6-8.7)
--- NOTE | 2025-03-23 14:42 | ECG_ITS ---
[facility] Test Date: 2025-03-23 Pat Name: Solomon Waters Department: Room: Gender: Male Commodities Trader: : 1935 Requested By: Jeremi Foley Order Number: [id number] Owusu MD: Wander Campos M.D. Measurements Intervals Java Rate: 58 P: 5 IA: 200 QRS: 118 QRSD: 117 T: 8 QT: 436 QTc: 432 Interpretive Statements SINUS BRADYCARDIA RIGHT VENTRICULAR HYPERTROPHY [SOME/ALL OF: PROMINENT R IN V1, LATE TRANSITION, RAD, AC, SSS] Compared to ECG 03/19/2025 16:43:22 NO SIGNIFICANT CHANGE Electronically Signed On 03-25-2025 18:52:06 CDT by Wander Campos M.D. [id number] [email or web address]
[2025-03-23 15:27] VITALS: BP 146/70; PULSE 71; RESP 16; O2SAT 99
[2025-03-23 16:23] VITALS: BP 156/71; PULSE 71; O2SAT 98
--- NOTE | 2025-03-24 08:00 | DCPLANNER ---
Message sent to Cardio /Neuro and sent MRI and Echo to centralized scheduling
== END 2025-03-23 16:24 | disposition home or self-care (01) ==
PROVIDERS: Emergency Provider Family Medicine; PCP Nurse Practitioner Family
DX: I63.422 Cerebral infarction due to embolism of left anterior cerebral artery (principal); I10 Essential (primary) hypertension; Z79.82 Long term (current) use of aspirin; Z79.02 Long term (current) use of antithrombotics/antiplatelets; I25.10 Atherosclerotic heart disease of native coronary artery without angina pectoris
CPT/HCPCS: 36415; 70450; 70496; 70498; 80053; 80306; 81001; 85025; 85610; 85730; 93005; 99284

== ENCOUNTER 2025-04-06 16:52 | Emergency (ER) | payer MEDICARE, SELFPAY ==
--- NOTE | 2025-04-06 16:54 | XRR_ITS ---
PROCEDURE INFORMATION: Exam: XR Abdomen Exam date and time: 04/06/2025 5:03 PM Age: 89 years old Clinical indication: Constipation; Additional info: Abd pain TECHNIQUE: Imaging protocol: Radiologic exam of the abdomen. Views: Frontal supine view of the abdomen. 1 View. COMPARISON: CT abdomen pelvis [id number]/w [id number] 10/31/2019 5:45 PM FINDINGS: Gastrointestinal tract: Normal. No bowel dilation. Bones/joints: Unremarkable. XR/XR abdomen 1V* [id number] IMPRESSION: No acute findings.
[2025-04-06 16:57] VITALS: BP 147/68; PULSE 74; RESP 18; TEMP 36.3; O2SAT 99; BMI 21.7
--- OUTSIDE RECORDS SUMMARY | 2025-04-06 17:06 | XMS_ITS | Clinical Summary ---
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 Gender Identity Not on file Sexual Orientation [...] cm (5' 11 ) 05/29/2018 2:09 PM PUBLICATIONS DESIGNER Body Mass Index 25.1 05/29/2018 2:09 PM PUBLICATIONS DESIGNER Plan of Treatment Health Maintenance Due Date Last Done Comments DTAP/TDAP/TD VACCINES (1 - Tdap) 1954 PNEUMOCOCCAL VACCINE 50+ YEARS (1 of 1 - PCV) 08/01/18 88 ZOSTER VACCINE (1 of 2) 08/02/1987 RSV VACCINE (60+ or ) (1 - 1-dose 75+ series) 2012 INFLUENZA VACCINE (#1) 2024 Medical Devices Implanted Type Area Spray Applicator Device Identifier Shelf Expiration Date Model / Serial / Lot Mesh Prolene Lg [facility] - [id number] Implanted:Qty: 1 on 05/25/2013 by Sonido Perez MD at [facility] Mesh Left: Inguinal [employer] 11/24/2017 [facility] / / [id number] Mesh Prolene Lg [facility] - [id number] Implanted:Qty: 1 on 05/25/2013 by Sonido Perez MD at [facility] Mesh Right: Groin [employer] 11/24/2017 [facility] / / [id number] Insurance MEDICARE PART A AND B Advance Directives For more information, please contact: [phone] * Full Code (Latest Code Status on File) Date Activated Date Inactivated Comments 06/05/2018 10:47 AM 06/05/2018 2:50 PM * Full Code Date Activated Date Inactivated Comments 05/25/2013 8:00 AM 05/26/2013 2:01 AM * Full Code Date Activated Date Inactivated Comments 05/03/2011 10:51 AM 05/03/2011 3:32 PM Care Teams Armature And Rotor Winder Relationship Specialty Start Date End Date Lele Corbett DO [address] [place] [address] PCP - General 06/14/08
--- OUTSIDE RECORDS SUMMARY | 2025-04-06 17:06 | XMS_ITS | Encounter Summary ---
Author Organization [facility] Address [address] [place] [address] Care Team Providers Care Equipment Maintenance Technician Name Role Phone Lele Corbett DO Primary Care Provider [phone] Encounter Details Date Type Department Care Team (Late st Contact Info) Description 09/15/2003 Outpatient Historical [facility] Imaging [facility] Rodrigue [address] [place] [phone] Social History Tobacco Use Types Packs/Day Years Used Date Smoking Tobacco: Never Assessed Sex and Gender Information Value Date Recorded Sex Assigned at Not on file 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
--- OUTSIDE RECORDS SUMMARY | 2025-04-06 17:06 | XMS_ITS | Encounter Summary ---
Author Organization [facility] Address [address] [place] [address] Care Team Providers Care Material Clerk Name Role Phone Lele Corbett DO Primary Care Provider [phone] Encounter Details Date Type Department Care Team (Late st Contact Info) Description 08/29/2005 Emergency [facility] Emergency Department [address] [place] [address] Felicity Aburto MD [address] [place], [place] [phone] Calculus of Ureter (Primary Dx) Social History Tobacco Use Types Packs/Day Years Used Date Smoking Tobacco: Never Assessed Sex and Gender Information Value Date Recorded Sex Assigned at Not on file Legal Sex Male 5:34 AM SWEDISH 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 Gender Identity Not on file Sexual Orientation [...] ORDERABLES Melissa l Result Performing Organization Address City/[facility] Co de Phone Number INTERFACE SYSTEM Refer to clinic/hospital department * (ABNORMAL) ACETONE QUALITATIVE, URINE (08/29/2005 1:10 PM CDT) KETONES UA Small(A) Negative INTERFACE SYSTEM 08/29/2005 1:10 PM CDT Felicity Aburto MD URINE ORDERABLES Final Res ult Performing Organization Address [facility] Phone Number INTERFACE SYSTEM Refer to clinic/hospital [...] Primary documented in this encounter Care Teams Material Clerk Relationship Specialty Start Date End Date Lele Corbett DO [address] [place] [address] PCP - General 06/14/08 documented as of this encounter
--- OUTSIDE RECORDS SUMMARY | 2025-04-06 17:06 | XMS_ITS | Encounter Summary ---
Author Organization [facility] Address [address] [place] [address] Care Team Providers Care Commercial Shrimping Captain Name Role Phone Lele Corbett DO Primary Care Provider [phone] Encounter Details Date Type Department Care Team (Latest Contact Info) Description 09/15/2003 Outpatient Historical [facility] [place] [address] [place] [address] Bashir Fuchs MD [address] [place] [phone] INT DERANGEMENT KNEE NOS (Primary Dx) Social History Tobacco Use Types Packs/Day Years Used Date Smoking Tobacco: Never Assessed Sex and Gender Information Value Date Recorded Sex Assigned at Not on file 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
--- OUTSIDE RECORDS SUMMARY | 2025-04-06 17:06 | XMS_ITS | Encounter Summary ---
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 Date Signed: 12/24/07 [facility] Procedure Note Rey Almonte - 12/24/2007 [...] occurrence documented in this encounter Care Teams Long Filler Cigar Roller Machine Relationship Specialty Start Date End Date Lele Corbett DO [address] [place] [address] PCP - General 06/14/08 documented as of this encounter
--- OUTSIDE RECORDS SUMMARY | 2025-04-06 17:06 | XMS_ITS | Encounter Summary ---
Author Organization [facility] Address [address] [place] [address] Care Team Providers Care Forensic Pathologist Name Role Phone Lele Corbett Primary Care Provider Encounter Details Date Type Department Care Team (Late st Contact Info) Description 05/23/2020 Lab Requisition [facility] Laboratory Services [address] [place] [address] [place] [address] Russ Sow DO [address] [phone] Social History Tobacco Use Types Packs/Day Years Used Date Smoking Tobacco: Never Smokeless Tobacco: Never Alcohol Use Standard Drinks/Week Comments No 0 (1 standard drink = 0.6 oz pur e alcohol) Sex and Gender Information Value Date Recorded Sex Assigned at Not on file Legal Sex Male 5:34 AM EDITORIAL WRITER Gender Identity Not on file Sexual Orientation [...] CBC WITH DIFFERENTIAL Routine 05/23/2020 6:23 AM EDITORIAL WRITER BASIC METABOLIC PANEL Routine 05/23/2020 6:23 AM EDITORIAL WRITER documented in this encounter Results * (ABNORMAL) CBC WITH DIFFERENTIAL (05/23/2020 6:23 AM EDITORIAL WRITER) WBC 10.7 4.8 - 10.8 K/uL 05/23/2020 6:52 PM [facility] RBC 5.13 4.60 - 6.20 M/uL 05/23/2020 6:52 PM [facility] HEMOGLOBIN 15.6 14.0 - 18.0 g/dL 05/23/2020 6:52 PM [facility] HEMATOCRIT 48.9 41.0 - 53.0 % 05/23/2020 6:52 PM [facility] MCV 95.3 84.0 - 103.0 fL 05/23/2020 6:52 PM [facility] MCH 30.4 27.0 - 34.0 pg 05/23/2020 6:52 PM [facility] MCHC 31.9 30.0 - 35.0 g/dL 05/23/2020 6:52 PM [facility] RDW 14.7(H) 11.0 - 14.5 % 05/23/2020 6:52 PM [facility] RDW-STDEV 50.4 37.0 - 54.0 fL 05/23/2020 6:52 PM [facility] PLATELETS 187 140 - 440 K/uL 05/23/2020 6:52 PM [facility] MPV 10.3 8.9 - 12.8 fL 05/23/2020 6:52 PM [facility] NEUTROPHILS 77(H) 42 - 75 % 05/23/2020 6:52 PM [facility] LYMPHOCYTES 10(L) 24 - 44 % 05/23/2020 6:52 PM [facility] 3D Data [facility] MONOCYTES 6 2 - 10 % 05/23/2020 6:52 PM [facility] EOSINOPHILS 2 0 - 7 % 05/23/2020 6:52 PM [facility] BASOPHILS 1 0 - 1 % 05/23/2020 6:52 PM [facility] IMMATURE GRANULOCYTES 4(H) 0 - 2 % 05/23/2020 6:52 PM [facility] NEUTROPHIL ABSOLUTE 8.19(H) 2.00 - 8.00 K/uL 05/23/2020 6:52 PM [facility] LYMPHOCYTE ABSOLUTE 1.09(L) 1.20 - 4.00 K/uL 05/23/2020 6:52 PM [facility] MONOCYTE ABSOLUTE 0.66(H) 0.10 - 0.60 K/uL 05/23/2020 6:52 PM [facility] EOSINOPHIL ABSOLUTE 0.22 0.00 - 0.70 K/uL 05/23/2020 6:52 PM [facility] BASOPHILS ABSOLUTE 0.08 0.00 - 0.20 K/uL 05/23/2020 6:52 PM [facility] IMMATURE GRANULOCYTES ABSOLUTE 0.42(H) 0.00 - 0.10 K/uL 05/23/2020 6:52 PM [facility] Blood Collection / Unknown 05/23/2020 6:23 AM EDITORIAL WRITER 05/23/2020 6:44 PM EDITORIAL WRITER Russ Sow DO HEMATOLOGY ORDERABLES Final Result [facility] [address] [place], [place] [id number] * (ABNORMAL) BASIC METABOLIC PANEL (05/23/2020 6:23 AM EDITORIAL WRITER) SODIUM 136 136 - 145 mmol/L 05/23/2020 7:09 PM [facility] POTASSIUM 3.8 3.5 - 5.1 mmol/L 05/23/2020 7:09 PM [facility] CHLORIDE 101 98 - 107 mmol/L 05/23/2020 7:09 PM [facility] CO2 27 22 - 29 mmol/L 05/23/2020 7:09 PM [facility] CALCIUM 8.0(L) 8.8 - 10.2 mg/dL 05/23/2020 7:09 PM [facility] BUN 20 8 - 23 mg/dL 05/23/2020 7:09 PM [facility] CREATININE 0.95 0.67 - 1.17 mg/dL 05/23/2020 7:09 PM [facility] 3D Data [facility] Comment:The GFR result is no t clinically significant on patients <18 or >70 years of age. GLUCOSE 93 74 - 99 mg/dL 05/23/2020 7:09 PM [facility] GFR >60 mL/min/1.7 3 sq meter 05/23/2020 7:09 PM [facility] Comment: eGFR has not been validated [...] mL/min/1.7 3 sq meter 05/23/2020 7:09 PM [facility] ANION GAP 8(L) 9 - 20 mmol/L 05/23/2020 7:09 PM [facility] Blood Collection / Unknown 05/23/2020 6:23 AM EDITORIAL WRITER 05/23/2020 6:47 PM EDITORIAL WRITER Russ Sow DO CHEMISTRY ORDERABLES Final Result [facility] [address] [place] [address] documented in this encounter Visit Diagnoses Not on filedocumented in this encounter Care Teams Forensic Pathologist Relationship Specialty Start Date End Date Lele Corbett DO [address] [place] [phone] PCP - General 06/14/08 documented as of this encounter
--- OUTSIDE RECORDS SUMMARY | 2025-04-06 17:06 | XMS_ITS | Encounter Summary ---
Author Organization [facility] Address [address] [place] [address] Care Team Providers Care Personal Secretary Name Role Phone Lele Corbett DO Primary Care Provider [phone] Encounter Details Date Type Department Care Team (Latest Contact Info) Description 09/15/2003 Outpatient Historical [facility] Bashir Fuchs MD [address] [phone] SPRAIN MEDIAL COLLAT LIG (Primary Dx) Social History Tobacco Use Types Packs/Day Years Used Date Smoking Tobacco: Never Assessed Sex and Gender Information Value Date Recorded Sex Assigned at Not on file 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
--- OUTSIDE RECORDS SUMMARY | 2025-04-06 17:06 | XMS_ITS | Encounter Summary ---
Author Organization [facility] Address [address] [place] [address] Care Team Providers Care Senior It Engineer Name Role Phone Lele Corbett Primary Care Provider [phone] Encounter Details Date Type Department Care Team (Late st Contact Info) Description 10/07/2007 Outpatient Historical [facility] Endoscopy [place] [address] [place] [address] Shashank Jung MD [address] [place] [address] [place] [address] Social History Tobacco Use Types Packs/Day Years Used Date Smoking Tobacco: Never Assessed Sex and Gender Information Value Date Recorded Sex Assigned at Not on file 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 Male 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 Gender Identity Not on file Sexual Orientation Not on file documented as of this encounter Plan of Treatment Not on file documented as of this encounter Procedures Procedure Name Priority Date/Time Associated Diagnosis Comments PATHOLOGY Routine 10/23/2007 9:13 AM CDT documented in this encounter Results * PATHOLOGY (10/23/2007 9:13 AM CDT) PATHOLOGY/CYT OLOGY REPORT [facility] [address] [facility] [address] Patient: TRACY VIDAL Accn No: [id number] Collected: 10/23/2007 9:13:00 AM SURGICAL PATHOLOGY FINAL REPORT Diagnosis A. Colon, ascending, biopsy - tubular adenoma, three fragments. Jaron Recinos M.D. (Electronicall y signed by) Verified: 10/27/07 DD /CEP Clinical Information Polyp. Specimen Source AColon, ASCENDING Microscopic Description Microscopic examination was performed. Gross Description Part A. Submitted in a container of formalin labelled Evelin, #1 polyp, ascending colon are three britton [...] on filedocumented in this encounter Care Teams Senior It Engineer Relationship Specialty Start Date End Date Lele Corbett DO [address] [place] [address] PCP - General 06/14/08 documented as of this encounter
[2025-04-06 17:34] VITALS: BP 150/66; PULSE 77; O2SAT 97
[2025-04-06 17:37] LABS: Hematocrit 41.4 % (37-53); Hemoglobin 13.80 g/dL (11.27-16.99); Mean Corpuscular HGB Conc 33.3 g/dL (30-55); Mean Corpuscular Hemoglobin 30.5 pg (27-33); Mean Corpuscular Volume 91.4 fl (82-101); Nucleated Red Blood Cells % 0 %; Platelet Count 274 10^3/cmm (157-399); Red Blood Count 4.53 10^6/uL (3.85-5.65); White Blood Count 7.09 10^3/uL (3.29-11.43)
--- NOTE | 2025-04-06 17:41 | XRR_ITS ---
PROCEDURE INFORMATION: Exam: XR Chest Exam date and time: 04/06/2025 7:05 PM Age: 89 years old Clinical indication: Other: Trouble swallowing TECHNIQUE: Imaging protocol: Radiologic exam of the chest. Views: 1 view. COMPARISON: CR XR chest 1V portable [id number] 03/19/2025 4:32 PM FINDINGS: Lungs: No lobar consolidation. Pleural spaces: Unremarkable. No pleural effusion. No pneumothorax. Heart/Mediastinum: Cardiomegaly. Bones/joints: Unremarkable. Other findings: Mild congestive changes. XR/XR chest 1V portable [id number] IMPRESSION: As above.
--- NOTE | 2025-04-06 17:45 | ED_ITS ---
HPI - General Adult 2 General: Chief complaint: Abdominal Pain Stated complaint: having trouble having a bm Time Seen by Provider: 04/06/25 17:06 Source: patient and family Mode of arrival: ambulatory Limitations: no limitations History of Present Illness: Patient is a nice 89-year-old male who presents to ED today along with a friend for medical evaluation. Patient states over the past several days he has been having trouble with his bowel movements. Patient states he is able to have small soft bowel movements but feels like he lacks the force to push the remainder of his stool out. He has been using MiraLAX and Colace. Friend states he has not been eating as much. He tells me at some point he feels like when he eats, the food gets hung up and has trouble swallowing. He has not had any episodes of vomiting. He does later tell me he does not feel like it gets hung up but that it rather gurgles in my stomach . Patient does have a recent history of stroke. Friend also states he has been going through a lot and that his was recently placed in the care home when he was recently diagnosed with prostate cancer. He arrives clinically in no acute distress with stable vital signs. Onset (ago): day(s) Severity: mild Relieving factors: none Exacerbating factors: none Associated symptoms: Deny chest pain, dyspnea, headache(s), malaise, nausea, rash or vomiting Treatments prior to arrival: none Related Data Previous Rx's ?Medication ?Instructions ?Recorded diabetic shoes #1 ea 01/05/22 Diabetic Shoes #1 ea 01/10/22 amlodipine 10 mg tablet (Norvasc) 10 mg PO BID #60 tab s 10/27/22 aspirin 325 mg capsule 325 mg PO DAILY #30 caps 02/18 atorvastatin 40 mg tablet (Lipitor) 40 mg PO DAILY #30 tabs 03/19/25 clopidogrel 75 mg tablet (Plavix) 75 mg PO DAILY #30 t abs 03/19/25 Allergies Allergy/AdvReac Type Severity Reaction Status Date / Time ciprofloxacin (From Cipro) Allergy ALGY-Rash Verified 04/06/25 17:04 metronidazole (From Flagyl) Allergy ALGY-Rash Verified 04/06/25 17:04 Review of Systems 2 Const: Denies: fever(s), chills, body aches, fatigue or malaise Card: Denies: chest pain Resp: Denies: dyspnea GI: Reports: abdominal pain and constipation; Denies: nausea, vomiting, diarrhea, GI cramping, pain on defecation, rectal pain, rectal swelling, rectal itching, hematochezia or melena : Denies: flank pain, dysuria or hematuria Musc: Denies: neck pain, back pain, extremity pain or joint swelling Skin/Breast: Denies: rash Neuro: Denies: headache(s), numbness in extremities, weakness in extremities, sensory changes or dizziness PFSH ED 2 PFSH: Medical History CAD (coronary artery disease) Chronic steroid use Coarse tremors HTN (hypertension) 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 No evidence of DVT on left -Already on anticoagulation with treatment dose Eliquis Pulmonary embolism -Noted to have extensive bilateral PE, saddle embolus, extensive bilateral segmental and subsegmental emboli. Patient declined transfer on initial admission -Received tPA and initially on heparin drip, now transitioned to treatment dose Eliquis -Noted to have bleeding (epistaxis) and thrombocytopenia following tPA, now resolved -Echo: EF=60-65%, severe hypokinesis of RV, mild AR, trace TN, trace TR, noted presence of thrombus extending from pulmonic valve into the RVOT -continues to require supplemental oxygen, on 4 L BPH (benign prostatic hyperplasia) Shingles Pneumonia due to COVID-19 virus -Found to be COVID-19 positive on 05/03; prolonged hospital course -Evidence of pneumonitis on CTA -On empiric antibiotic coverage with ceftazidime -Afebrile, no leukocytosis, still requiring some supplemental oxygen support -Blood cultures negative -Sputum cultures negative External hemorrhoid Psoriasis Anxiety Diverticulosis Surgical History History of colonoscopy with polypectomy (04/13/21) diverticulosis, polyp History of appendectomy H/O hemorrhoidectomy H/O right knee surgery Family History Denies family history of Bleeding disorder Social History Smoking and tobacco/nicotine status: never used tobacco/nicotine Alcohol intake: never Substance/Drug Use: never Household members: spouse Housing: House Physical Exam 2 Const: COMMON NORMALS: no acute distress, average body habitus, patient oriented x3, no limitations, healthy appearing, alert and well nourished G ENERAL APPEARANCE: cooperative OTHER: aphasia/word difficulty-present since February Neck/C-Spine: GENERAL: Yes normal visual inspection, No anterior neck swelling and No submandibular swelling Chest: COMMONS NORMALS: normal inspection of the chest and normal palpation of entire chest wall Resp: COMMON NORMALS: normal respiratory effort and clear to auscultation bilaterally AUSCULTATION: clear to auscultation bilaterally Cardio: COMMON NORMALS: regular rate and regular rhythm RATE: regular rate RHYTHM: regular rhythm GI: COMMON NORMALS: Normal to inspection, nondistended, normoactive bowel sounds present, Soft to palpation, non-tender, No hepatosplenomegaly present and no masses PALPATION: Yes Soft to palpation and Yes No hepatosplenomegaly present Neuro: COMMON NORMALS: patient oriented x3 SENSORIUM/ORIENTATION: Yes alert Course 2 Vital Signs: Vital signs: Vital Signs Temperature 97.4 F L 04/06/25 16:57 Pulse Rate 73 04/06/25 18:27 Respiratory Rate 18 04/06/25 16:57 Blood Pressure 150/66 04/06/25 18:27 Pulse Oximetry 97 04/06/25 18:27 Oxygen Delivery Me thod Room Air 04/06/25 16:57 MDM - General Adult Medical Decision Making Patient has not had any vomiting. He declines enema here. Abdominal XR showing no acute findings. He is still passing stool and flatulence. We discussed adding Senokot in addition to his Colace and MiraLAX. If this does not work he can try an [id number] suppository or adding milk of magnesia. Will get him set up with general surgery for further evaluation of possible dysphagia. This could include EGD/swallow study. Discussed how this could be secondary to his recent CVA. Vital signs are stable. His blood work is unremarkable. He does have chronic elevations to his BUN/Cr that are at baseline. Medical Records I reviewed the patient's medical records. Lab Data I reviewed the patient's lab results. 04/06/25 17:25 04/06/25 17:25 Radiology Impressions Abdomen X-Ray 04/06/25 16:54 IMPRESSION: No acute findings. Laboratory Results WBC 7.09 10^3/uL (3.29-11.43) 04/06/25 17:25 RBC 4.53 10^6/uL (3.85-5.65) 04/06/25 17:25 Hgb 13.80 g/dL (11.27-16.99) 04/06/25 17:25 Hct 41.4 % (37-53) 04/06/25 17:25 MCV 91.4 fl (82-101) 04/06/25 17: MCH 30.5 pg (27-33) 04/06/25 17: MCHC 33.3 g/dL (30-55) 04/06/25 17:25 RDW 12.8 % (12.1-15.1) 04/06/25 17:25 Plt Count 274 10^3/cmm (157-399) 04/06/25 17:25 MPV 9.6 fL (7.4-10.4) 04/06/25 17:25 Neut % (Auto) 62.2 % 04/06/25 17:25 Lymph % (Auto) 24.1 % 04/06/25 17:25 [place] % (Auto) 11.8 % 04/06/25 17:25 Eos % (Auto) 1.0 % 04/06/25 17:25 Baso % (Auto) 0.6 % 04/06/25 17:25 Neut # (Auto) 4.41 10^3/uL (1.8-7.7) 04/06/25 17:25 Lymph # (Auto) 1.7 10^3/uL (0.8-4.8) 04/06/25 17:25 [place] # (Auto) 0.8 10^3/uL (0.2-0.9) 04/06/25 17:25 Eos # (Auto) 0.1 10^3/uL (0.0-0.8) 04/06/25 17:25 Baso # (Auto) 0.0 10^3/uL (0.0-0.1) 04/06/25 17:25 Nucleated RBC % (auto) 0 % 04/06/25 17:25 Nucleated RBCs # 0.0 /100WBC 04/06/25 17:25 Sodium 136 mmol/L (136-145) 04/06/25 17:25 Potassium 3.9 mmol/L (3.5-5.1) 04/06/25 17:25 Chloride 100 mmol/L (98-107) 04/06/25 17:25 Carbon Dioxide 25 mmol/L (22-29) 04/06/25 17:25 Anion Gap 14.9 (5-19) 04/06/25 17:25 BUN 29 mg/dL (8-23) H 04/06/25 17:25 Creatinine 1.4 mg/dL (0.7-1.2) H 04/06/25 17:25 GFR Calculation Not Reportable 04/06/25 17:25 Glucose 99 mg/dL (65-115) 04/06/25 17:25 Calculated Osmolality 288 mOsm/kg (285-295) 04/06/25 17:25 Calcium 8.9 mg/dL (8.5-10.5) 04/06/25 17:25 Total Bilirubin 0.6 mg/dL (0.15-1.2) 04/06/25 17:25 AST 14 U/L (0-40) 04/06/25 17:25 ALT 12 U/L (0-41) 04/06/25 17:25 Alkaline Phosphatase 61 U/L (40-130) 04/06/25 17:25 Total Protein 6.7 g/dL (6.6-8.7) 04/06/25 17:25 Albumin 3.9 g/dL (3.5-5.2) 04/06/25 17:25 Globulin 2.8 g/dL (1.3-4.6) 04/06/25 17:25 XR interpretation done by ED provider, pending radiology final review Discharge Plan Discharge Patient Disposition: Home Clinical Impression: Constipation Qualifiers: Constipation type: unspecified constipation type Qualified Code(s): K59.00 - Constipation, unspecified Trouble swallowing Qualifiers: Dysphagia type: unspecified Qualified Code(s): R13.10 - Dysphagia, unspecified Condition: Stable Prescriptions: No Action (DME) diabetic shoes See Rx Instructions .Route .MEDSUPPLY Qty: 1 0RF Rx Instructions: As directed (DME) Diabetic Shoes See Rx Instructions .Route .MEDSUPPLY Qty: 1 0RF Rx Instructions: As directed aspirin 325 mg capsule 325 mg PO DAILY Qty: 30 1RF amlodipine [Norvasc] 10 mg tablet 10 mg PO BID Qty: 60 0RF atorvastatin [Lipitor] 40 mg tablet 40 mg PO DAILY Qty: 30 0RF clopidogrel [Plavix] 75 mg tablet 75 mg PO DAILY Qty: 30 0RF Discharge Orders: Discharge ED (Routine); Ordered 04/06/25 Ordered By: Nicole aMc Referrals: Ann Marie Richards [Primary Care Provider, Family Practice] Patient Instructions: Patient Portal & Eloisa Instructions Activity Restrictions/Additional Instructions: As we discussed, we will refer you to general surgery for further evaluation of your trouble swallowing. This may include an EGD or barium swallow test. We discussed treatment for constipation including continued MiraLAX and Colace in addition to Senokot. I would like him to follow-up with primary care later this week for reevaluation. He may return to the emergency department at anytime for any further concerns he may have. Print Language: Latvian Coding Level of Care Code ED Outboard Motor Inspector for Tiki Duran
[2025-04-06 17:56] LABS: Alanine Aminotransferase 12 U/L (0-41); Albumin Level 3.9 g/dL (3.5-5.2); Alkaline Phosphatase 61 U/L (40-130); Anion Gap 14.9 (5-19); Aspartate Amino Transferase 14 U/L (0-40); Blood Urea Nitrogen 29 mg/dL (8-23); Calcium 8.9 mg/dL (8.5-10.5); Carbon Dioxide 25 mmol/L (22-29); Chloride 100 mmol/L (98-107); Creatinine Clr Calc Pharmacy 39.7447; Globulin 2.8 g/dL (1.3-4.6); Glucose 99 mg/dL (65-115); Osmolality Calculated 288 mOsm/kg (285-295); Potassium 3.9 mmol/L (3.5-5.1); Sodium 136 mmol/L (136-145); Total Protein 6.7 g/dL (6.6-8.7)
[2025-04-06 18:27] VITALS: BP 150/66; PULSE 73; O2SAT 97
== END 2025-04-06 18:28 | disposition home or self-care (01) ==
PROVIDERS: Emergency Medicine; Emergency Provider Physician Assistant; PCP Nurse Practitioner Family
DX: K59.00 Constipation, unspecified (principal); R13.10 Dysphagia, unspecified; Z79.82 Long term (current) use of aspirin; Z79.02 Long term (current) use of antithrombotics/antiplatelets; I25.10 Atherosclerotic heart disease of native coronary artery without angina pectoris; I10 Essential (primary) hypertension
CPT/HCPCS: 36415; 71045; 74018; 80053; 85025; 99284

== ENCOUNTER 2025-04-09 06:56 | Emergency (ER) | payer MEDICARE, SELFPAY ==
[2025-04-09 06:57] VITALS: BP 129/61; PULSE 66; RESP 16; TEMP 36.6; O2SAT 100; BMI 20.7
--- OUTSIDE RECORDS SUMMARY | 2025-04-09 06:59 | XMS_ITS | Encounter Summary ---
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 Date Signed: 12/24/07 [facility] Procedure Note Rey Almonte - 12/24/2007 Exam: [...] occurrence documented in this encounter Care Teams Automotive Quality Manager Relationship Specialty Start Date End Date Lele Corbett DO [address] [place] [address] PCP - General 06/14/08 documented as of this encounter
--- OUTSIDE RECORDS SUMMARY | 2025-04-09 06:59 | XMS_ITS | Encounter Summary ---
Author Organization [facility] Address [address] [place] [address] Care Team Providers Care Market Research Intern Name Role Phone Lele Corbett Primary Care Provider [phone] Encounter Details Date Type Department Care Team (Late st Contact Info) Description 10/07/2007 Outpatient Historical [facility] Endoscopy [place] [address] [place] [address] Shashank Jung MD [address] [place] [address] [place] [address] Social History Tobacco Use Types Packs/Day Years Used Date Smoking Tobacco: Never Assessed Sex and Gender Information Value Date Recorded Sex Assigned at Not on file 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 Gender Identity Not on file Sexual Orientation Not on file documented as of this encounter Plan of Treatment Not on file documented as of this encounter Procedures Procedure Name Priority Date/Time Associated Diagnosis Comments PATHOLOGY Routine 10/23/2007 9:13 AM CDT documented in this encounter Results * PATHOLOGY (10/23/2007 9:13 AM CDT) PATHOLOGY/CYT OLOGY REPORT [facility] [address] [facility] [address] Patient: TRACY VIDAL Accn No: [id number] Collected: 10/23/2007 9:13:00 AM SURGICAL PATHOLOGY FINAL [...] on filedocumented in this encounter Care Teams Market Research Intern Relationship Specialty Start Date End Date Lele Corbett DO [address] [place] [address] PCP - General 06/14/08 documented as of this encounter
--- OUTSIDE RECORDS SUMMARY | 2025-04-09 06:59 | XMS_ITS | Encounter Summary ---
Author Organization [facility] Address [address] [place] [address] Care Team Providers Care Line Runner Name Role Phone Lele Corbett DO Primary Care Provider [phone] Encounter Details Date Type Department Care Team (Late st Contact Info) Description 08/29/2005 Emergency [facility] Emergency Department [address] [place] [address] Felicity Aburto MD [address] [place], [place] [id number] Calculus of Ureter (Primary Dx) Social History Tobacco Use Types Packs/Day Years Used Date Smoking Tobacco: Never Assessed Sex and Gender Information Value Date Recorded Sex Assigned at Not on file 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 Gender Identity Not on file Sexual Orientation [...] ORDERABLES Melissa l Result Performing Organization Address [facility] Co de Phone Number INTERFACE SYSTEM Refer to clinic/hospital department * (ABNORMAL) ACETONE QUALITATIVE, URINE (08/29/2005 1:10 PM CDT) KETONES UA Small(A) Negative INTERFACE SYSTEM 08/29/2005 1:10 PM CDT Felicity Aburto MD URINE ORDERABLES Final Res ult Performing Organization Address [facility] Phone Number INTERFACE SYSTEM Refer to [...] Primary documented in this encounter Care Teams Line Runner Relationship Specialty Start Date End Date Lele Corbett DO [address] [place] [phone] PCP - General 06/14/08 documented as of this encounter
--- OUTSIDE RECORDS SUMMARY | 2025-04-09 06:59 | XMS_ITS | Encounter Summary ---
Author Organization [facility] Address [address] [place] [address] Care Team Providers Care Juvenile Justice Officer Name Role Phone Lele Corbett DO Primary Care Provider [phone] Encounter Details Date Type Department Care Team (Late st Contact Info) Description 09/15/2003 Outpatient Historical [facility] Rodrigue More [address] [place] [phone] Social History Tobacco Use Types Packs/Day Years Used Date Smoking Tobacco: Never Assessed Sex and Gender Information Value Date Recorded Sex Assigned at Not on file Legal 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
--- OUTSIDE RECORDS SUMMARY | 2025-04-09 06:59 | XMS_ITS | Clinical Summary ---
Author Organization [facility] Address [address] [place] [address] Phone Care Team Providers Care Glass Blower Helper Name Role Phone Aric Lele Moreno DO Primary Care Provider [phone] Allergies No known active allergies Medications ibuprofen [...] on file Legal Sex Male 5:34 AM TAFE REGISTRAR Gender Identity Not on file Sexual Orientation [...] cm (5' 11 ) 05/29/2018 2:09 PM TAFE REGISTRAR Body Mass Index 25.1 05/29/2018 2:09 PM TAFE REGISTRAR Plan of Treatment Health Maintenance Due Date Last Done Comments DTAP/TDAP/TD VACCINES (1 - Tdap) 1954 PNEUMOCOCCAL VACCINE 50+ YEARS (1 of 1 - PCV) 08/01/18 88 ZOSTER VACCINE (1 of 2) 08/02/1987 RSV VACCINE (60+ or ) (1 - 1-dose 75+ series) 2012 INFLUENZA VACCINE (#1) 2024 Medical Devices Implanted Type Area Business Risk Analyst Device Identifier Shelf Expiration Date Model / Serial / Lot Mesh Prolene Lg [facility] - [id number] Implanted:Qty: 1 on 05/25/2013 by Sonido Perez MD at [facility] Mesh Left: Inguinal [employer]- [employer] 11/24/2017 [facility] / / [id number] Mesh Prolene Lg [facility] - [id number] Implanted:Qty: 1 on 05/25/2013 by Sonido Perez MD at [facility] Mesh Right: Groin J[employer]J- [employer] 11/24/2017 [facility] / / [id number] Insurance MEDICARE PART A AND B Advance Directives For more information, please contact: [phone] * Full Code (Latest Code Status on File) Date Activated Date Inactivated Comments 06/05/2018 10:47 AM 06/05/2018 2:50 PM * Full Code Date Activated Date Inactivated Comments 05/25/2013 8:00 AM 05/26/2013 2:01 AM * Full Code Date Activated Date Inactivated Comments 05/03/2011 10:51 AM 05/03/2011 3:32 PM Care Teams Glass Blower Helper Relationship Specialty Start Date End Date Lele Corbett DO [address] [place] [address] PCP - General 06/14/08
--- OUTSIDE RECORDS SUMMARY | 2025-04-09 06:59 | XMS_ITS | Encounter Summary ---
Author Organization [facility] Address [address] [place] [address] Care Team Providers Care Lead Printer Name Role Phone Lele Corbett Primary Care Provider [phone] Encounter Details Date Type Department Care Team (Late st Contact Info) Description 05/23/2020 Lab Requisition [facility] [address] [place] [address] Russ Sow DO [address] [phone] Social History Tobacco Use Types Packs/Day Years Used Date Smoking Tobacco: Never Smokeless Tobacco: Never Alcohol Use Standard Drinks/Week Comments No 0 (1 standard drink = 0.6 oz pur e alcohol) Sex and Gender Information Value Date Recorded Sex Assigned at Not on file Legal Sex Male 5:34 AM GROUND CREWMAN MISSION SUPPORT Gender Identity Not on file Sexual Orientation [...] CBC WITH DIFFERENTIAL Routine 05/23/2020 6:23 AM GROUND CREWMAN MISSION SUPPORT BASIC METABOLIC PANEL Routine 05/23/2020 6:23 AM GROUND CREWMAN MISSION SUPPORT documented in this encounter Results * (ABNORMAL) CBC WITH DIFFERENTIAL (05/23/2020 6:23 AM GROUND CREWMAN MISSION SUPPORT) WBC 10.7 4.8 - 10.8 K/uL 05/23/2020 6:52 PM [facility] RBC 5.13 4.60 - 6.20 M/uL 05/23/2020 6:52 PM [facility] HEMOGLOBIN 15.6 14.0 - 18.0 g/dL 05/23/2020 6:52 PM [facility] HEMATOCRIT 48.9 41.0 - 53.0 % 05/23/2020 6:52 PM [facility] MCV 95.3 84.0 - 103.0 fL 05/23/2020 6:52 PM [facility] MCH 30.4 27.0 - 34.0 pg 05/23/2020 6:52 PM [facility] MCHC 31.9 30.0 - 35.0 g/dL 05/23/2020 6:52 PM [facility] RDW 14.7(H) 11.0 - 14.5 % 05/23/2020 6:52 PM [facility] RDW-STDEV 50.4 37.0 - 54.0 fL 05/23/2020 6:52 PM [facility] PLATELETS 187 140 - 440 K/uL 05/23/2020 6:52 PM [facility] MPV 10.3 8.9 - 12.8 fL 05/23/2020 6:52 PM [facility] NEUTROPHILS 77(H) 42 - 75 % 05/23/2020 6:52 PM [facility] LYMPHOCYTES 10(L) 24 - 44 % 05/23/2020 6:52 PM [facility] [employer] [facility] MONOCYTES 6 2 - 10 % 05/23/2020 6:52 PM [facility] EOSINOPHILS 2 0 - 7 % 05/23/2020 6:52 PM [facility] BASOPHILS 1 0 - 1 % 05/23/2020 6:52 PM [facility] IMMATURE GRANULOCYTES 4(H) 0 - 2 % 05/23/2020 6:52 PM [facility] NEUTROPHIL ABSOLUTE 8.19(H) 2.00 - 8.00 K/uL 05/23/2020 6:52 PM [facility] LYMPHOCYTE ABSOLUTE 1.09(L) 1.20 - 4.00 K/uL 05/23/2020 6:52 PM [facility] MONOCYTE ABSOLUTE 0.66(H) 0.10 - 0.60 K/uL 05/23/2020 6:52 PM [facility] EOSINOPHIL ABSOLUTE 0.22 0.00 - 0.70 K/uL 05/23/2020 6:52 PM [facility] BASOPHILS ABSOLUTE 0.08 0.00 - 0.20 K/uL 05/23/2020 6:52 PM [facility] IMMATURE GRANULOCYTES ABSOLUTE 0.42(H) 0.00 - 0.10 K/uL 05/23/2020 6:52 PM [facility] Blood Collection / Unknown 05/23/2020 6:23 AM GROUND CREWMAN MISSION SUPPORT 05/23/2020 6:44 PM GROUND CREWMAN MISSION SUPPORT Russ Sow DO HEMATOLOGY ORDERABLES Final Result [facility] [address] [place], [place] [id number] * (ABNORMAL) BASIC METABOLIC PANEL (05/23/2020 6:23 AM GROUND CREWMAN MISSION SUPPORT) SODIUM 136 136 - 145 mmol/L 05/23/2020 7:09 PM [facility] POTASSIUM 3.8 3.5 - 5.1 mmol/L 05/23/2020 7:09 PM [facility] CHLORIDE 101 98 - 107 mmol/L 05/23/2020 7:09 PM [facility] CO2 27 22 - 29 mmol/L 05/23/2020 7:09 PM [facility] CALCIUM 8.0(L) 8.8 - 10.2 mg/dL 05/23/2020 7:09 PM [facility] BUN 20 8 - 23 mg/dL 05/23/2020 7:09 PM [facility] CREATININE 0.95 0.67 - 1.17 mg/dL 05/23/2020 7:09 PM [facility] [employer] [facility] Comment:The GFR result is no t clinically significant on patients <18 or >70 years of age. GLUCOSE 93 74 - 99 mg/dL 05/23/2020 7:09 PM [facility] GFR >60 mL/min/1.7 3 sq meter 05/23/2020 7:09 PM [facility] Comment: eGFR has not been validated [...] mL/min/1.7 3 sq meter 05/23/2020 7:09 PM [facility] ANION GAP 8(L) 9 - 20 mmol/L 05/23/2020 7:09 PM [facility] Blood Collection / Unknown 05/23/2020 6:23 AM GROUND CREWMAN MISSION SUPPORT 05/23/2020 6:47 PM GROUND CREWMAN MISSION SUPPORT Russ Sow DO CHEMISTRY ORDERABLES Final Result [facility] [address] [place] [address] documented in this encounter Visit Diagnoses Not on filedocumented in this encounter Care Teams Lead Printer Relationship Specialty Start Date End Date Lele Corbett DO [address] [place] [phone] PCP - General 06/14/08 documented as of this encounter
--- OUTSIDE RECORDS SUMMARY | 2025-04-09 06:59 | XMS_ITS | Clinical Summary ---
Author Organization [facility] Address [address] [facility] Attn: Epic Prelude ADT [place]NY [place] [address] Care Team Providers Care Tissue Packer Name Role Phone Aric Lele Moreno DO Primary Care Provider [phone] Allergies No known active allergies Medications predniSONE [...] on file Legal Sex Male 8:27 AM POWERTRAIN CONTROL SYSTEMS ENGINEER Gender Identity Not on file Sexual [...] cm (5' 11 ) 05/29/2018 2:09 PM POWERTRAIN CONTROL SYSTEMS ENGINEER Body Mass Index 25.1 05/29/2018 2:09 PM POWERTRAIN CONTROL SYSTEMS ENGINEER Plan of Treatment Health Maintenance Due Date Last Done Comments DTAP/TDAP/TD VACCINES (1 - Tdap) 1954 PNEUMOCOCCAL VACCINE 50+ YEARS (1 of 1 - PCV) 08/01/18 88 ZOSTER VACCINE (1 of 2) 08/02/1987 RSV VACCINE (60+ or ) (1 - 1-dose 75+ series) 2012 INFLUENZA VACCINE (#1) 2024 Medical Devices Implanted Type Area Equity Holder Device Identifier Shelf Expiration Date Model / Serial / Lot Mesh Prolene Lg [facility] - [id number] Implanted:Qty: 1 on 05/25/2013 by Sonido Perez MD Mesh Left: Inguinal J[employer]J- [employer] 11/24/2017 [facility] / / [id number] Mesh [facility] [id number] Implanted:Qty: 1 on 05/25/2013 by Sonido Perez MD Mesh Right: Groin J[employer]J- [employer] 11/24/2017 [facility] / / [id number] Care Teams Tissue Packer Relationship Specialty Start Date End Date Lele Corbett DO [address] [place] [address] PCP - General 06/14/08
--- OUTSIDE RECORDS SUMMARY | 2025-04-09 06:59 | XMS_ITS | Encounter Summary ---
Author Organization [facility] Address [address] [place] [address] Care Team Providers Care Cattle Dipper Name Role Phone Lele Corbett DO Primary Care Provider [phone] Encounter Details Date Type Department Care Team (Latest Contact Info) Description 09/15/2003 Outpatient Historical [facility] Bashir Fuchs MD [address] [phone] SPRAIN MEDIAL COLLAT LIG (Primary Dx) Social History Tobacco Use Types Packs/Day Years Used Date Smoking Tobacco: Never Assessed Sex and Gender Information Value Date Recorded Sex Assigned at Not on file Legal Sex Male 5:34 AM FINISH 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
--- OUTSIDE RECORDS SUMMARY | 2025-04-09 06:59 | XMS_ITS | Encounter Summary ---
Author Organization [facility] Address [address] [place] [address] Care Team Providers Care Tankman Name Role Phone Lele Corbett DO Primary Care Provider [phone] Encounter Details Date Type Department Care Team (Latest Contact Info) Description 09/15/2003 Outpatient Historical [facility] [address] [place] [phone] Bashir Fuchs MD [address] [place] [phone] INT DERANGEMENT KNEE NOS (Primary Dx) Social History Tobacco Use Types Packs/Day Years Used Date Smoking Tobacco: Never Assessed Sex and Gender Information Value Date Recorded Sex Assigned at Not on file 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
--- NOTE | 2025-04-09 07:01 | ECG_ITS ---
[facility] 2025[facility]09 Pat Name: Solomon Waters Department: Room: Gender: Male Batter Scaler: : 1935 Requested By: Jeremi Foley Order Number: [id number] Owusu MD: Cedric Beckwith M.D. Measurements Intervals [place] Rate: 63 P: -26 KS: 196 QRS: 95 QRSD: 114 T: 68 QT: 422 QTc: 433 Interpretive Statements SINUS RHYTHM BORDERLINE RIGHT AXIS DEVIATION [QRS AXIS > 90] MODERATE INTRAVENTRICULAR CONDUCTION DELAY [110+ ms QRS DURATION] Compared to ECG 03/23/2025 14:42:08 Intraventricular conduction delay now present Sinus bradycardia no longer present Atrial abnormality no longer present Right ventricular hypertrophy no longer present Electronically Signed On 04-09-2025 13:05:13 APPRISE COUNSELOR by Cedric Beckwith M.D. [id number] [email or web address]
--- NOTE | 2025-04-09 07:01 | XR_ITS ---
WS: [id number] Exam: XR chest 1V portable [id number] Date/Time of Exam: 04/09/2025 7:07 AM Reason For Exam: dyspnea/cough Comparison 04/06/2025. Lungs are hyperinflated and clear. Normal cardiomediastinal silhouette. No pleural effusions. Scattered calcified granulomas. XR/XR chest 1V portable [id number] IMPRESSION: 1. No acute cardiopulmonary finding.
--- NOTE | 2025-04-09 07:02 | ED_ITS ---
HPI - General Adult 2 General: Chief complaint: Weakness Stated complaint: Weakness Time Seen by Provider: 04/09/25 07:00 History of Present Illness: 89-year-old male presents emergency room complaining of generalized weakness for the last 2 to 3 weeks. Patient states he felt like he was going to pass out he states he has been very constipated has tried some [id number] medications with no relief. He denies chest pain shortness of breath or abdominal pain denies dysuria urgency or frequency. Patient has a known history of coronary artery disease also previously had PEs associated with a COVID infection. Patient also have peripheral artery disease. Previous history of stroke but he has no focal neurologic deficits at this. His main complaint is just that he feels very weak he has been constipated at times he feels so weak he thinks help potentially pass out. He lives at home alone his is in the [facility] he has some family friends that help him at times. Patient seen on 03/23/2025 in the emergency room at that time he had a clot in the left distal M1 extending to M2 Segment. There was no finding for acute CVA. He has no new neurologic findings at this time Associated symptoms: Deny chest pain, dyspnea, nausea, rash or vomiting Related Data Previous Rx's ?Medication ?Instructions ?Recorded diabetic shoes #1 ea 01/05/22 Diabetic Shoes #1 ea 01/10/22 amlodipine 10 mg tablet (Norvasc) 10 mg PO BID #60 tab s 10/27/22 aspirin 325 mg capsule 325 mg PO DAILY #30 caps 02/18 atorvastatin 40 mg tablet (Lipitor) 40 mg PO DAILY #30 tabs 03/19/25 clopidogrel 75 mg tablet (Plavix) 75 mg PO DAILY #30 t abs 03/19/25 Allergies Allergy/AdvReac Type Severity Reaction Status Date / Time ciprofloxacin (From Cipro) Allergy ALGY-Rash Verified 04/06/25 17:04 metronidazole (From Flagyl) Allergy ALGY-Rash Verified 04/06/25 17:04 Review of Systems 2 Const: Denies: fever(s) or chills Card: Reports: pre-syncope; Denies: chest pain Resp: Denies: dyspnea GI: Reports: constipation and bloating; Denies: abdominal pain, nausea or vomiting : Denies: dysuria, urinary frequency or urinary urgency Musc: Denies: neck pain or back pain Skin/Breast: Denies: rash PFSH ED 2 PFSH: Medical History CAD (coronary artery disease) Chronic steroid use Coarse tremors HTN (hypertension) 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 No evidence of DVT on left -Already on anticoagulation with treatment dose Eliquis Pulmonary embolism -Noted to have extensive bilateral PE, saddle embolus, extensive bilateral segmental and subsegmental emboli. Patient declined transfer on initial admission -Received tPA and initially on heparin drip, now transitioned to treatment dose Eliquis -Noted to have bleeding (epistaxis) and thrombocytopenia following tPA, now resolved -Echo: EF=60-65%, severe hypokinesis of RV, mild AR, trace OR, trace TR, noted presence of thrombus extending from pulmonic valve into the RVOT -continues to require supplemental oxygen, on 4 L BPH (benign prostatic hyperplasia) Shingles Pneumonia due to COVID-19 virus -Found to be COVID-19 positive on 05/03; prolonged hospital course -Evidence of pneumonitis on CTA -On empiric antibiotic coverage with ceftazidime -Afebrile, no leukocytosis, still requiring some supplemental oxygen support -Blood cultures negative -Sputum cultures negative External hemorrhoid Psoriasis Anxiety Diverticulosis Surgical History History of colonoscopy with polypectomy (04/13/21) diverticulosis, polyp History of appendectomy H/O hemorrhoidectomy H/O right knee surgery Family History Denies family history of Bleeding disorder Social History Smoking and tobacco/nicotine status: never used tobacco/nicotine Alcohol intake: never Substance/Drug Use: never Household members: spouse Housing: House Physical Exam 2 Const: COMMON NORMALS: no acute distress GENERAL APPEARANCE: cooperative and comfortable ORIENTATION/CONSCIOUSNESS: Yes awake, Yes oriented to person, Yes oriented to place and Yes oriented to time HENMT: COMMON NORMALS: normocephalic, atraumatic and hearing grossly normal bilaterally HEAD & SCALP: normocephalic and atraumatic Resp: COMMON NORMALS: normal respiratory effort, No retractions, No use of accessory muscles and clear to auscultation bilaterally AUSCULTATION: clear to auscultation bilaterally Cardio: COMMON NORMALS: regular rate, regular rhythm and No murmurs present (Cardio) RATE: regular rate RHYTHM: regular rhythm GI: COMMON NORMALS: Soft to palpation and No hepatosplenomegaly present A USCULTATION: Yes normoactive bowel sounds PALPATION: Yes Soft to palpation, No Tenderness to palpation present (GI), No Guarding due to palpation present (GI) and Yes No hepatosplenomegaly present Extremity: COMMON NORMALS: normal to inspection, capillary refill normal, no clubbing, cyanosis or edema, no calf tenderness and no pedal edema Neuro: SENSORIUM/ORIENTATION: Yes oriented to person, Yes oriented to place and Yes oriented to time Skin: COMMON NORMALS: no rashes or lesions noted GENERAL SKIN EXAM: no rashes or lesions noted Course 2 Vital Signs: Vital signs: Vital Signs Temperature 97.9 F 04/09/25 06:57 Pulse Rate 88 04/09/25 07:22 Respiratory Rate 17 04/09/25 07:22 Blood Pressure 139/64 04/09/25 07:22 Pulse Oximetry 100 04/09/25 07:22 Oxygen Delivery Me thod Room Air 04/09/25 07:22 MDM - General Adult Medical Decision Making Laboratory tests are unremarkable. Exam likewise does not show any significant abnormality. EKG does not show any acute changes he has had heart disease in the past but he has no chest pain at all at this time. He ambulated to the bathroom without any assistance he does have a rather shuffling gait. He has no focal neurologic deficits on his exam no signs of acute stroke. Continue his current medications no changes at this time recommend he follow-up with cardiology also can recommend he consider following up with his primary care doctor. When seen the patient in late February. At that time there is question of a stroke but there is no evidence of acute stroke on CT he did have a clot at the distal M1 extending to M2 that is not amenable for any intervention. Since then he has had increasing weakness. No new findings sedated no emergent condition suspected patient may require assisted living to help maintain his ADLs. Will discharge home encourage he follow-up with primary care to discuss this. Medical Records Left heart catheterization 08/02/2021 Conclusions 1. Mid left anterior descending artery with 50 % stenosis. Proximal portion of distal LAD with 60-70% stenosis. This lesion is not significant by iFR (iFR=0.92). 2. 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 3. Mild disease in circumflex and right coronary artery. Recommendations * Statin and aspirin 81mg lifelong, if tolerated. * Continue medical management and risk factor modification. * Outpatient cardiology follow-up in 4 weeks. Lab Data 04/09/25 07:06 04/09/25 07:06 Radiology Impressions Chest X-Ray 04/09/25 07:01 IMPRESSION: 1. No acute cardiopulmonary finding. Laboratory Results WBC 7.29 10^3/uL (3.29-11.43) 04/09/25 07:06 RBC 4.65 10^6/uL (3.85-5.65) 04/09/25 07:06 Hgb 13.90 g/dL (11.27-16.99) 04/09/25 07:06 Hct 42.1 % (37-53) 04/09/25 07:06 MCV 90.5 fl (82-101) 04/09/25 07:06 MCH 29.9 pg (27-33) 04/09/25 07:06 MCHC 33.0 g/dL (30-55) 04/09/25 07:06 RDW 12.8 % (12.1-15.1) 04/09/25 07:06 Plt Count 242 10^3/cmm (157-399) 04/09/25 07:06 MPV 9.7 fL (7.4-10.4) 04/09/25 07:06 Neut % (Auto) 84.1 % 04/09/25 07:06 Lymph % (Auto) 11.8 % 04/09/25 07:06 [place] % (Auto) 3.0 % 04/09/25 07:06 Eos % (Auto) 0.4 % 04/09/25 07:06 Baso % (Auto) 0.4 % 04/09/25 07:06 Neut # (Auto) 6.13 10^3/uL (1.8-7.7) 04/09/25 07:06 Lymph # (Auto) 0.9 10^3/uL (0.8-4.8) 04/09/25 07:06 [place] # (Auto) 0.2 10^3/uL (0.2-0.9) 04/09/25 07:06 Eos # (Auto) 0.0 10^3/uL (0.0-0.8) 04/09/25 07:06 Baso # (Auto) 0.0 10^3/uL (0.0-0.1) 04/09/25 07:06 Nucleated RBC % (auto) 0 % 04/09/25 07:06 Nucleated RBCs # 0.0 /100WBC 04/09/25 07:06 Sodium 137 mmol/L (136-145) 04/09/25 07:06 Potassium 3.8 mmol/L (3.5-5.1) 04/09/25 07:06 Chloride 101 mmol/L (98-107) 04/09/25 07:06 Carbon Dioxide 25 mmol/L (22-29) 04/09/25 07:06 Anion Gap 14.8 (5-19) 04/09/25 07:06 BUN 22 mg/dL (8-23) 04/09/25 07:06 Creatinine 1.2 mg/dL (0.7-1.2) 04/09/25 07:06 GFR Calculation Not Reportable 04/09/25 07:06 Glucose 108 mg/dL (65-115) 04/09/25 07:06 Calculated Osmolality 288 mOsm/kg (285-295) 04/09/25 07:06 Calcium 9.1 mg/dL (8.5-10.5) 04/09/25 07:06 Total Bilirubin 0.5 mg/dL (0.15-1.2) 04/09/25 07:06 AST 15 U/L (0-40) 04/09/25 07:06 ALT 13 U/L (0-41) 04/09/25 07:06 Alkaline Phosphatase 65 U/L (40-130) 04/09/25 07:06 Total Protein 6.7 g/dL (6.6-8.7) 04/09/25 07:06 Albumin 4.0 g/dL (3.5-5.2) 04/09/25 07:06 Globulin 2.7 g/dL (1.3-4.6) 04/09/25 07:06 Lipase 36 U/L (13-60) 04/09/25 07:06 Urine Color Yellow (Yellow) 04/09/25 07:16 Urine Appearance Clear (CLEAR) 04/09/25 07:16 Urine pH 7.5 (5-7) 04/09/25 07:16 Ur Specific [place] 1.013 (1.005-1.030) 04/09/25 07:16 Urine Protein Negative (Negative) 04/09/25 07:16 Urine Glucose (UA) Negative (Normal) 04/09/25 07:16 Urine Ketones Trace (Negative) 04/09/25 07:16 Urine Blood Negative (Negative) 04/09/25 07:16 Urine Nitrate Negative (Negative) 04/09/25 07:16 Urine Bilirubin Negative (Negative) 04/09/25 07:16 Urine Urobilinogen 0.2 mg/dL (Negative) 04/09/25 07:16 Ur Leukocyte Esterase Negative (Negative) 04/09/25 07:16 Urine RBC 0-2 /hpf (0-2) 04/09/25 07:16 Urine WBC 0-5 /hpf (0-5) 04/09/25 07:16 Ur Squamous Epith Cells 0-5 /hpf (0-5) 04/09/25 07:16 Amorphous Sediment Not Reportable 04/09/25 07:16 Urine Bacteria None seen /hpf (NONE) 04/09/25 07:16 Hyaline Casts 0-4 /lpf H 04/09/25 07:16 All radiology interpretation(s) finalized by discharge EKG Data EKG 1: Interpretation: EKG 04/09/2025 7:02 AM sinus rhythm no acute ST changes noted rate of 63. [place] 196 QTc 429. Compared to EKG 03/23/2025 no new acute changes Computer generated interpretation: Chest X-Ray 04/09/25 07:01 IMPRESSION: 1. No acute cardiopulmonary finding. Discharge Plan Discharge Patient Disposition: Home Clinical Impression: Weakness, Constipation Condition: Stable Prescriptions: No Action (DME) diabetic shoes See Rx Instructions .Route .MEDSUPPLY Qty: 1 0RF Rx Instructions: As directed (DME) Diabetic Shoes See Rx Instructions .Route .MEDSUPPLY Qty: 1 0RF Rx Instructions: As directed aspirin 325 mg capsule 325 mg PO DAILY Qty: 30 1RF amlodipine [Norvasc] 10 mg tablet 10 mg PO BID Qty: 60 0RF atorvastatin [Lipitor] 40 mg tablet 40 mg PO DAILY Qty: 30 0RF clopidogrel [Plavix] 75 mg tablet 75 mg PO DAILY Qty: 30 0RF Discharge Orders: Discharge ED (Routine); Ordered 04/09/25 Ordered By: Jeremi Rose Referrals: Ann Marie Richards [Primary Care Provider, Family Practice] Discharge Diet: Usual diet Discharge Activity: Increase activity as tolerated Patient Instructions: Constipation (ED), Opioid Safety, Pain Management, Patient Portal & [place] Instructions Activity Restrictions/Additional Instructions: Thank you for choosing [facility] for your healthcare needs today. It is very important that you follow up as instructed or that you return to the Emergency Department should you have concerns or if your condition changes or worsens in any way. Emergency department visits are focused on emergent conditions, in some cases you may require further evaluation on an outpatient basis. You were seen in the emergency room with complaints of weakness and constipation your laboratory studies and EKG were normal exam was also normal. You can use [id number] medication such as magnesium citrate 3 to 5 ounces every 6 hours until desired results are achieved or you can use [id number] milk of magnesia. Recommend discussing with your family and your primary care doctor whether or not you would benefit from assisted living. (Please note that included in your discharge packet is information concerning opioid safety and pain management. This information is given to all patients were discharged from the ER regardless of their discharge diagnosis or the medicines they usually take or are prescribed.) Print Language: Tajik Coding Level of Care Code ED Corporate Communications Specialist for Tiki Duran
[2025-04-09 07:12] LABS: Hematocrit 42.1 % (37-53); Hemoglobin 13.90 g/dL (11.27-16.99); Mean Corpuscular HGB Conc 33.0 g/dL (30-55); Mean Corpuscular Hemoglobin 29.9 pg (27-33); Mean Corpuscular Volume 90.5 fl (82-101); Nucleated Red Blood Cells % 0 %; Platelet Count 242 10^3/cmm (157-399); Red Blood Count 4.65 10^6/uL (3.85-5.65); White Blood Count 7.29 10^3/uL (3.29-11.43)
[2025-04-09 07:22] VITALS: BP 139/64; PULSE 88; RESP 17; O2SAT 100
[2025-04-09 07:24] LABS: Glucose Urine UA Negative (Normal); Nitrate Urine Negative (Negative); Specific Gravity, Urine 1.013 (1.005-1.030)
[2025-04-09 07:26] LABS: Add Urine Microscopic? YES
[2025-04-09 07:32] LABS: Alanine Aminotransferase 13 U/L (0-41); Albumin Level 4.0 g/dL (3.5-5.2); Alkaline Phosphatase 65 U/L (40-130); Anion Gap 14.8 (5-19); Aspartate Amino Transferase 15 U/L (0-40); Blood Urea Nitrogen 22 mg/dL (8-23); Calcium 9.1 mg/dL (8.5-10.5); Carbon Dioxide 25 mmol/L (22-29); Chloride 101 mmol/L (98-107); Globulin 2.7 g/dL (1.3-4.6); Glucose 108 mg/dL (65-115); Lipase 36 U/L (13-60); Osmolality Calculated 288 mOsm/kg (285-295); Potassium 3.8 mmol/L (3.5-5.1); Sodium 137 mmol/L (136-145); Total Protein 6.7 g/dL (6.6-8.7)
[2025-04-09 08:44] VITALS: BP 125/82; PULSE 65; O2SAT 95
== END 2025-04-09 08:47 | disposition home or self-care (01) ==
PROVIDERS: Emergency Provider Family Medicine; PCP Nurse Practitioner Family
DX: R53.1 Weakness (principal); K59.00 Constipation, unspecified; Z79.82 Long term (current) use of aspirin; Z79.02 Long term (current) use of antithrombotics/antiplatelets; I25.10 Atherosclerotic heart disease of native coronary artery without angina pectoris; I10 Essential (primary) hypertension
CPT/HCPCS: 36415; 71045; 80053; 81001; 83690; 85025; 93005; 99285

== ENCOUNTER → 2025-04-13 11:06 | Outpatient (BNVA) | payer MEDICARE, SELFPAY | PROVIDERS: PCP Nurse Practitioner Family; Visit Provider Surgery | DX: R13.10 Dysphagia, unspecified (principal) | CPT/HCPCS: 99204 ==

== ENCOUNTER 2025-04-16 12:39 | Outpatient (CLI) | payer MEDICARE, SELFPAY ==
--- NOTE | 2025-04-16 13:03 | MR_ITS ---
WS: [id number] MRI BRAIN WITH AND WITHOUT CONTRAST HISTORY: UNSPECIFIED CEREBRAL INFARCTION COMPARISON: 03/23/2025 TECHNIQUE: Multiplanar imaging performed through the brain with MultiHance 20 ml's IV. Acute diffusion weighted abnormalities are noted in the LEFT cerebrum along the watershed distribution between the anterior and middle cerebral arteries. Largest area of signal abnormalities adjacent to the posterior horn LEFT ventricle. There are a few scattered signal abnormalities along the watershed distribution. No posterior fossa ischemic changes or RIGHT brain ischemic changes. Small lacunar infarcts LEFT caudate. Moderate increased signal surrounding the ventricles and scattered in the subcortical white matter of the supratentorial brain. Mild cerebral and cerebellar atrophy. Clivus and pituitary gland are normal. Small caliber distal RIGHT vertebral artery. Dominant LEFT vertebral artery. Continued flow limited narrowing of the distal LEFT middle cerebral artery between the M1 and M2 segments. Paucity of vessels distally. Small venous angioma suspected in the LEFT temporal lobe. Dural venous sinuses are normal. Paranasal sinuses: Well aerated with no significant disease. Mastoid air cells: Normal. Calvarium and scalp: Normal. MR/MR head wo/w con [id number] IMPRESSION: 1. Acute diffusion abnormalities consistent with infarcts noted in the LEFT wa tershed distribution between the [place] and MCA. Infarcts correspond to the findin gs noted on the recent CT angiogram of the [place]. 2. Persistent stenosis and thrombus noted in the distal LEFT M1 segment into t he M2 segment with a paucity of flow distally. No complete occlusion. 3. Mild cerebral and cerebellar atrophy. 4. Moderate small vessel ischemic changes in the supratentorial white matter.
[2025-04-16] MEDS: gadobenate dimeglumine 20 mL vial IV (13:43)
== END 2025-04-16 12:40 | disposition home or self-care (01) ==
LOC: RAD 12:40
PROVIDERS: PCP Nurse Practitioner Family; Visit Provider Family Medicine
DX: I63.9 Cerebral infarction, unspecified (principal); I66.8 Occlusion and stenosis of other cerebral arteries; I66.02 Occlusion and stenosis of left middle cerebral artery; G31.89 Other specified degenerative diseases of nervous system; R90.82 White matter disease, unspecified; I67.82 Cerebral ischemia
CPT/HCPCS: 70553

== ENCOUNTER 2025-04-26 10:20 | Outpatient (CLI) | payer MEDICARE, SELFPAY ==
--- NOTE | 2025-04-26 11:00 | FL_ITS ---
WS: [id number] Exam: FL barium swallow modifd [id number] Date/Time of Exam: 04/26/2025 10:51 AM Reason For Exam: Fluoroscopy time: 2min [phone] minutes # of spot films: Modified barium swallow study is performed in conjunction with the speech therapy service. Oral pharyngeal phase of swallowing was normal. A single episode of mild penetration was observed when the patient ingested thin liquid barium. The patient tolerated the remaining barium mixture foodstuffs without penetration or aspiration. The patient swallowed barium tablet without complication. FL/FL barium swallow modifd [id number] IMPRESSION: 1. Single episode of mild penetration into the laryngeal inlet when the patient ingested thin liquid barium. The exam is otherwise unremarkable. No aspiration . A separate report with detailed recommendations will follow from the speech the rapy service.
== END 2025-04-26 10:21 | disposition home or self-care (01) ==
LOC: RAD 10:21
PROVIDERS: PCP Nurse Practitioner Family; Visit Provider Surgery
DX: R13.12 Dysphagia, oropharyngeal phase (principal)
CPT/HCPCS: 74230; 92611

== ENCOUNTER → 2025-05-04 10:58 | Outpatient (BNVA) | payer MEDICARE, SELFPAY | PROVIDERS: PCP Nurse Practitioner Family; Visit Provider Surgery | DX: Z51.89 Encounter for other specified aftercare (principal) | CPT/HCPCS: 99213 ==